=== PATIENT | female | born 1975 | race Caucasian/White ===

== ENCOUNTER 2021-07-14 19:35 | Emergency (ER) | payer OTHER, SELFPAY ==
[2021-07-14 19:47] VITALS: BP 157/102; PULSE 110; RESP 18; TEMP 36.6; O2SAT 98; BMI 44.6
--- NOTE | 2021-07-14 21:21 | ED.URI ---
HPI - URI/Sore Throat General Chief Complaint: Upper Respiratory Symptoms Stated Complaint: sore throat, sob Time Seen by Provider: 07/14/21 20:59 Source: patient Mode of arrival: ambulatory Limitations: no limitations History of Present Illness HPI Narrative: Patient no significant past medical history comes here for 2 days of sore throat cough mostly dry no fever no chills feels congested her son was sick with same 5 days ago. Patient was seen at urgent care center where strep test is negative COVID was negative prescribed Pen VK which she she is taking, still coughing no shortness of breath no malaise no history of asthma or sleep apnea Related Data Previous Rx's Medication Instructions Recorded albuterol sulfate 90 mcg/actuation 2 puff INHALATION Q4-6H PRN #8.5 g 07/14/21 aerosol inhaler (ProAir HFA) azithromycin 250 mg tablet 250 mg PO DAILY 4 Days #4 tab 07/14/21 (Zithromax) codeine 10 mg-guaifenesin 100 mg/5 10 ml PO Q4-6H PRN #237 ml 07/14/21 mL oral liquid prednisone 20 mg tablet 40 mg PO DAILY #10 tab 07/14/21 Allergies Allergy/AdvReac Type Severity Reaction Status Date / Time Sulfa (Sulfonamide Allergy Unknown HIVES Unverified 06/19/20 16:19 Antibiotics) [SULFA (SULFONAMIDE ANTIBIOTICS)] meperidine [From DEMEROL] AdvReac Unknown COMBATIVE Unverified 06/19/20 16:19 midazolam [From VERSED] AdvReac Unknown COMBATIVE Unverified 06/19/20 16:19 Banana (Diagnostic) Allergy Unknown oral Uncoded 05/22/20 00:00 allergy [place] Extract Allergy Unknown anaphylaxis Uncoded 05/22/20 00:00 [place] (Diagnostic) Allergy Unknown oral Uncoded 05/22/20 00:00 allergy Watermelon Flavor Allergy Unknown oral Uncoded 05/22/20 00:00 allergy White potato Allergy Unknown hives Uncoded 05/22/20 00:00 Review of Systems Review of Systems: Yes all other systems are reviewed and are negative PMFSH Past Medical History Medical History DVT (deep venous thrombosis) Pulmonary emboli Social History Social History Advance Directives: No Patient : No Physical Exam Vital Signs: Vital Signs: Last Vital Signs Temp 97.8 F 07/14/21 19:47 Pulse 110 H 07/14/21 19:47 Resp 18 07/14/21 19:47 BP 157/102 H 07/14/21 19:47 Pulse Ox 98 07/14/21 19:47 Body Mass Index 44.6 Appearance: Alert. Oriented X3. No acute distress. ENT: Pharynx slight erythema++ Oral Mucosa moist Neck: Normal inspection. Neck supple. CVS: Normal heart rate and rhythm. Pulses normal. Respiratory: No respiratory distress. Equal air entry bilateral, no wheezing/rales/rhonchi prolonged expiration with frequent cough Abdomen: Soft and nontender. Skin: Skin warm and dry. Extremities: No lower extremity edema. No calf tenderness Neuro: Oriented X 3. MDM - URI/Sore Throat MDM Narrative Medical decision making narrative: Patient has symptoms of bronchitis lungs are clear to auscultation. Will add Zithromax in the regime along with prednisone and inhaler cough syrup patient advised to follow with PCP if not better Discharge Plan Discharge Clinical Impression: Bronchitis Patient Disposition: Home, Self-Care Instructions: Acute Bronchitis (ED) Additional Instructions: Continue penicillin v as prescribed Take Zithromax as prescribed Albuterol inhaler 2 puffs every 4-6 hours, cough syrup every 6 hours prednisone daily as prescribed Follow with PCP Prescriptions: New prednisone 20 mg tablet 40 mg PO DAILY Qty: 10 RF: 0 codeine-guaifenesin 10-100 mg/5 mL liquid 10 ml PO Q4-6H PRN (Reason: cough) Qty: 237 RF: 0 albuterol sulfate [ProAir HFA] 90 mcg/actuation HFA aerosol inhaler 2 puff inhalation Q4-6H PRN (Reason: Wheezing) Qty: 8.5 RF: 0 azithromycin [Zithromax] 250 mg tablet 250 mg PO DAILY 4 Days Qty: 4 RF: 0
[2021-07-14] MEDS: predniSONE 20 MG TABLET 40 MG PO (21:44)
[2021-07-14] MEDS: Azithromycin 500 MG TABLET PO (21:44)
[2021-07-14] MEDS: Benzonatate 100 MG CAPSULE 200 MG PO (21:44)
[2021-07-14] MEDS: Albuterol Sulfate 90 MCG 8 GM INHALER 4 PUFF INHALE (21:56)
[2021-07-14 22:00] VITALS: PULSE 108; O2SAT 97
[2021-07-14 22:16] VITALS: BP 144/98; RESP 17; O2SAT 97
== END 2021-07-14 22:18 | disposition home or self-care (01) ==
PROVIDERS: Emergency Provider Internal Medicine; PCP Pediatrics
DX: J40 Bronchitis, not specified as acute or chronic (principal); J02.9 Acute pharyngitis, unspecified; R06.02 Shortness of breath; Z79.899 Other long term (current) drug therapy; Z86.718 Personal history of other venous thrombosis and embolism
CPT/HCPCS: 94640; 99284

== ENCOUNTER 2021-09-21 18:15 | Emergency (ER) | payer OTHER, SELFPAY ==
--- NOTE | ~2021-09-21 | US_ITS ---
EXAMINATION: US VENOUS ULTRASOUND WITH DOPPLER LOWER EXTREMITY, BILATERAL CLINICAL INFORMATION: Bilateral lower extremity pain. Evaluate for a deep vein thrombosis. Reported history of prior deep vein thrombosis. COMPARISON: None TECHNIQUE: Ultrasound of the deep veins is performed from the hip to the calf with compression sonography and color and pulse Doppler assessment. Spectral analysis with color-flow imaging is performed. FINDINGS: RIGHT: There is normal venous compression and respiratory variation and augmented flow. The visualized common femoral vein, superficial femoral vein, profunda femoral vein, popliteal vein, and the trifurcation region shows no evidence of deep venous thrombosis. There is no significant popliteal fossa cyst. LEFT: There is normal venous compression and respiratory variation and augmented flow. The visualized common femoral vein, superficial femoral vein, profunda femoral vein, popliteal vein, and the trifurcation region shows no evidence of deep venous thrombosis. There is no significant popliteal fossa cyst. If the patient's symptoms persist, followup ultrasound in 5 days 7 days might be of value to exclude proximal propagation from a non-visualized calf vein. US/US venous duplex LE BI IMPRESSION: No DVT demonstrated in the right and left lower extremity.
--- NOTE | ~2021-09-21 | CT_ITS ---
EXAMINATION: CT ANGIOGRAM OF THE CHEST WITH AND WITHOUT CONTRAST (CT PULMONARY ANGIOGRAM FOR PE) CLINICAL INFORMATION: Reason for Exam SOB hx pe COMPARISON: None TECHNIQUE: Prior to contrast administration, noncontrast localization images were obtained. Subsequently, multidetector volumetric imaging was performed from the thoracic inlet to below the diaphragms following the administration of 80 mL Omnipaque 350 intravenous contrast. No contrast reaction reported Sagittal, coronal, and MIP oblique sagittal reformatted images were obtained on the CT workstation, uploaded to PACS, and reviewed. This CT examination was performed using dose optimization techniques as appropriate, variously including the following: *Automated exposure control *Adjustment of mA and/or kV according to patient size (this includes techniques or standardized protocols for targeted exams where dose is matched to indication/reason for exam; i.e. extremities or head) *Use of iterative reconstruction technique Total exam dose-length product 556 mGy-cm FINDINGS: QUALITY OF STUDY/CONTRAST BOLUS: Satisfactory. PULMONARY ARTERIES: No pulmonary embolism. THORACIC AORTA: No aneurysm. LUNG: Right upper lobe solid pulmonary micronodule, 7:181. PLEURA: No pleural effusion or pneumothorax. MEDIASTINUM: Normal heart size. No pericardial effusion. No hilar or mediastinal lymphadenopathy. Small hiatal hernia. No evidence of septal bowing or right heart strain. CHEST WALL/AXILLA: No axillary or internal mammary lymphadenopathy. OSSEOUS STRUCTURES: No acute or suspicious osseous abnormality. UPPER ABDOMEN: Unremarkable. No reflux of contrast into the hepatic veins to suggest elevated right heart pressures. CT/CT angio chest PE protocol IMPRESSION: No pulmonary embolism. A right upper lobe solid pulmonary micronodule. Assuming patient has no history of malignancy recommend follow-up per Fleischner Society recommendations. According to the UPDATED 2017 Fleischner Society recommendations, the advised followup imaging for solid nodules < 6 mm is: LOW RISK PATIENT: No routine follow up. HIGH RISK PATIENT: Optional CT at 12 months. VTE: negative
[2021-09-21 19:44] VITALS: BP 138/65; PULSE 203; RESP 16; TEMP 36.9; O2SAT 100; BMI 46.2
[2021-09-21 20:26] VITALS: BP 146/81; PULSE 94; RESP 18; O2SAT 98
--- NOTE | 2021-09-21 20:37 | ED.GENADULT ---
HPI - General Adult General Chief complaint: General Medical Stated complaint: left thigh pain ? clot hx of blood clots Time Seen by Provider: 09/21/21 20:17 Source: patient Mode of arrival: ambulatory Limitations: no limitations History of Present Illness HPI narrative: This is a 46-year-old female past medical history significant for clotting disorder presents to the emergency department with home left anterior thigh pain and shortness of breath x3 days. 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 Patient was on Coumadin she got switched over to Eliquis not long ago, she tells me that she has not been taking her full Eliquis dose because she is afraid that there is no reversal agent for Eliquis. She tells me that this feels like her last blood clot. She describes as a soreness to her left thigh. She also tells me that she has noted she has been a little bit more short of breath than her baseline. She decided to wait 3 days to come in because she was afraid that this would be a blood clot, and she tells me she was afraid of COVID. She tells me she is followed a specialist for this clotting disorder . she denies chest pain, fevers, chills, nausea, vomiting, abdominal pain, weakness. Patient is not on control pills. Onset (ago): day(s) (3) Location: left (anterior thigh ) and lower extremity Radiation: non-radiation Severity: moderate Quality: aching Pain Consistency: constant Relieving factors: none Exacerbating factors: none Associated symptoms: shortness of breath Treatments prior to arrival: none Related Data Previous Rx's Medication Instructions Recorded albuterol sulfate 90 mcg/actuation 2 puff INHALATION Q4-6H PRN #8.5 g 07/14/21 aerosol inhaler (ProAir HFA) azithromycin 250 mg tablet 250 mg PO DAILY 4 Days #4 tab 07/14/21 (Zithromax) codeine 10 mg-guaifenesin 100 mg/5 10 ml PO Q4-6H PRN #237 ml 07/14/21 mL oral liquid prednisone 20 mg tablet 40 mg PO DAILY #10 tab 07/14/21 Allergies Allergy/AdvReac Type Severity Reaction Status Date / Time Sulfa (Sulfonamide Allergy Unknown HIVES Verified 07/14/21 21:43 Antibiotics) [SULFA (SULFONAMIDE ANTIBIOTICS)] meperidine [From DEMEROL] AdvReac Unknown COMBATIVE Verified 07/14/21 21:43 midazolam [From VERSED] AdvReac Unknown COMBATIVE Verified 07/14/21 21:43 Banana (Diagnostic) Allergy Unknown oral Uncoded 05/22/20 00:00 allergy Waldo Extract Allergy Unknown anaphylaxis Uncoded 05/22/20 00:00 [facility] (Diagnostic) Allergy Unknown oral Uncoded 05/22/20 00:00 allergy Watermelon Flavor Allergy Unknown oral Uncoded 05/22/20 00:00 allergy White potato Allergy Unknown hives Uncoded 05/22/20 00:00 Review of Systems Review of Systems: Constitutional : No Weight loss, No Fever, No Chills, No Fatigue, No Malaise ENT/Mouth : No sore throat, No Rhinorrhea Eyes: No Eye Pain, No Swelling, No Redness Cardiovascular : No Chest Pain, + SOB, + Dyspnea on Exertion, No Orthopnea, No Edema, No Palpitations Respiratory : No Cough, No Sputum, No Wheezing Gastrointestinal : No Nausea, No Vomiting, No Diarrhea, No Constipation, No abdominal Pain, No Hematochezia, No Melena Genitourinary : No Dysuria, No Urinary Frequency, No Hematuria, Musculoskeletal : No joint pain, No Myalgias, No Joint Swelling, + left anterior thigh aching Skin : No Skin Lesions, No rash Neuro : No Weakness, No Numbness, No Dizziness, No Headache Psych : No Anxiety/Panic, No Depression All other systems reviewed and are negative Yes all other systems are reviewed and are negative PMFSH Past Medical History Attestation statement: The following information was validated with the patient. Source: old records reviewed and nursing notes reviewed Medical History DVT (deep venous thrombosis) Pulmonary emboli Social History Social History Alcohol intake: current Alcohol intake frequency: holidays/special occasions only Patient Tobacco Use Status: Never used Tobacco Use of substances other than those prescribed or required for medical reasons: No Advance Directives: No Advance Directives Information Provided: No Patient : No Physical Exam Vital Signs: Vital Signs: Last Vital Signs Temp 98.5 F 09/21/21 19:44 Pulse 94 09/21/21 20:26 Resp 18 09/21/21 20:26 BP 146/81 H 09/21/21 20:26 Pulse Ox 98 09/21/21 20:26 BMI result Body Mass Index 46.2 Vital signs significant for hypertension and tachycardia. Appearance: Alert.? Oriented X3.? No acute distress.? Head: Normocephalic, atraumatic, no step-offs or deformities Eyes: Pupils equal, round and reactive to light.? ENT: Pharynx normal.? Neck: Normal inspection.? Neck supple.? CVS: + rapid heart rate and normal rhythm.? Pulses normal.? Respiratory: No respiratory distress.? Breath sounds normal.? Abdomen: Soft and nontender.? Skin: Skin warm and dry.? Normal skin color.? Normal skin turgor.? Extremities: No lower extremity edema.? No calf ttp. 5/5 strength to bilateral upper and lower extremities Back: No midline tenderness, no C-spine tenderness, full range of motion, no CVA tenderness bilaterally Neuro: Oriented X 3.? No motor deficit.? No sensory deficit. Course Reevaluation(s) Reevaluation #1: No leukocytosis, no anemia. No acute electrolyte abnormalities. COVID negative. Coags WNL. Venous doppler pending. Time: 21:22 Reevaluation #2: Venous duplex of bilateral lower extremities with no DVT. Time: 22:28 Reevaluation #3: CTA shows no pulmonary embolism, does however show a right upper lobe solid pulmonary micronodule, patient has no history of malignancy therefore no reaching in follow-up is recommended. VTE is negative. Time: 22:51 Additional Reevaluation(s): 4 At this time patient's symptoms likely secondary to muscle strain. I have advised patient to return to the emergency department with new or worsening symptoms. No acute abnormalities noted on lab work, images within normal limits only thing that stands out on imaging is a right upper lobe solid pulmonary micronodule, I have made patient aware of this finding. 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 Medical Decision Making MDM Narrative Medical decision making narrative: 2041 46 yo F pmhx significant for clotting disorder presents to the ED w/ complaints of left anterior thigh discomfort X3 days. Hx of frequent DVTs and PE, last one in 2011. Patient was on cumadin now on eliquis and admits to taking only half of her prescribed dose due to fear, she states she is scared this drug Does not however over slight agent. She tells me this feels like her last blood clot. PE benign PLan venous duplex b/l, CTA chest, labs, coags Medical Records Medical records reviewed: Yes I reviewed the patient's medical records. Lab Data Lab results reviewed: Yes I reviewed the patient's lab results. Result diagrams: 09/21/21 20:39 09/21/21 20:56 Labs: Lab Results 09/21/21 09/21/21 09/21/21 Range/Units 20:39 20:39 20:56 WBC 9.7 (4.8-10.8) X10*3/uL RBC 5.06 (4.20-5.50) X10*6/uL Hgb 13.9 (12.0-16.0) g/dl Hct 42.6 (37.0-47.0) % MCV 84.2 (80.0-98.0) fL MCH 27.5 (27.0-33.0) pg MCHC 32.6 (31.0-35.0) g/dl RDW 13.1 (11.0-16.0) % Plt Count 359 (160-400) X10*3/uL MPV 9.0 L (9.4-12.3) fL Immature Gran % (Auto) 0.3 (0.0-0.4) % Neut % (Auto) 43.6 L (45-73) % Lymph % (Auto) 45.7 H (20-40) % [place] % (Auto) 7.9 (2-11) % Eos % (Auto) 2.1 (0-4) % Baso % (Auto) 0.4 (0-2) % Lymph # (Auto) 4.4 (1.2-4.9) X10*3/uL [place] # (Auto) 0.8 (0.1-1.2) X10*3/uL Eos # (Auto) 0.2 (0.0-0.4) X10*3/uL Baso # (Auto) 0.0 (0.0-0.2) X10*3/uL Abs Immat Gran (auto) 0.03 (0.00-0.03) X10*3/uL Absolute Neuts (auto) 4.2 (2.0-8.3) x10*3/uL Absolute Nucleated RBC 0.000 (0.0-0.012) X10*3/uL Nucleated RBC % (auto) 0.0 (0.0-0.2) /100WBC PT (9.9-13.0) SEC INR (0.9-1.1) APTT (24.1-38.0) SEC Sodium 142 (135-145) mmol/L Potassium 3.9 (3.3-5.1) mmol/L Chloride 105 (96-108) mmol/L Carbon Dioxide 28 (22-29) mmol/L Anion Gap 13 (12-20) BUN 12 (9-16) mg/dL Creatinine 0.94 (0.5-1.4) mg/dL Estim Creat Clear Calc 109.1 Estimated GFR > 60 Random Glucose 87 (60-115) mg/dL Calcium 9.4 (8.4-10.2) mg/dL Magnesium 2.1 (1.6-2.6) mg/dL Total Bilirubin 0.3 (0.0-1.0) mg/dL AST 17 (5-31) U/L ALT 21 (0-31) U/L Alkaline Phosphatase 83 (39-117) U/L Total Protein 7.4 (6.5-8.0) g/dL Albumin 4.2 (3.5-5.0) g/dL COVID-19 (RAJ) Negative (Negative) COVID-19 Clin Com See Note 09/21/21 Range/Units 21:42 WBC (4.8-10.8) X10*3/uL RBC (4.20-5.50) X10*6/uL Hgb (12.0-16.0) g/dl Hct (37.0-47.0) % MCV (80.0-98.0) fL MCH (27.0-33.0) pg MCHC (31.0-35.0) g/dl RDW (11.0-16.0) % Plt Count (160-400) X10*3/uL MPV (9.4-12.3) fL Immature Gran % (Auto) (0.0-0.4) % Neut % (Auto) (45-73) % Lymph % (Auto) (20-40) % [place] % (Auto) (2-11) % Eos % (Auto) (0-4) % Baso % (Auto) (0-2) % Lymph # (Auto) (1.2-4.9) X10*3/uL [place] # (Auto) (0.1-1.2) X10*3/uL Eos # (Auto) (0.0-0.4) X10*3/uL Baso # (Auto) (0.0-0.2) X10*3/uL Abs Immat Gran (auto) (0.00-0.03) X10*3/uL Absolute Neuts (auto) (2.0-8.3) x10*3/uL Absolute Nucleated RBC (0.0-0.012) X10*3/uL Nucleated RBC % (auto) (0.0-0.2) /100WBC PT 11.3 (9.9-13.0) SEC INR 1.0 (0.9-1.1) APTT 34.2 (24.1-38.0) SEC Sodium (135-145) mmol/L Potassium (3.3-5.1) mmol/L Chloride (96-108) mmol/L Carbon Dioxide (22-29) mmol/L Anion Gap (12-20) BUN (9-16) mg/dL Creatinine (0.5-1.4) mg/dL Estim Creat Clear Calc Estimated GFR Random Glucose (60-115) mg/dL Calcium (8.4-10.2) mg/dL Magnesium (1.6-2.6) mg/dL Total Bilirubin (0.0-1.0) mg/dL AST (5-31) U/L ALT (0-31) U/L Alkaline Phosphatase (39-117) U/L Total Protein (6.5-8.0) g/dL Albumin (3.5-5.0) g/dL COVID-19 (RAJ) (Negative) COVID-19 Clin Com Imaging Data Bilateral venous duplex: Attestation: I personally reviewed and interpreted this imaging study as follows: Radiologist's impression: FINDINGS: RIGHT: There is normal venous compression and respiratory variation and augmented flow. The visualized common femoral vein, superficial femoral vein, profunda femoral vein, popliteal vein, and the trifurcation region shows no evidence of deep venous thrombosis. ? There is no significant popliteal fossa cyst. LEFT: There is normal venous compression and respiratory variation and augmented flow. The visualized common femoral vein, superficial femoral vein, profunda femoral vein, popliteal vein, and the trifurcation region shows no evidence of deep venous thrombosis. ? There is no significant popliteal fossa cyst. If the patient's symptoms persist, followup ultrasound in 5 days 7 days might be of value to exclude proximal propagation from a non-visualized calf vein. US/US venous duplex LE BI IMPRESSION: No DVT demonstrated in the right and left lower extremity. CTA chest : Attestation: I personally reviewed and interpreted this imaging study as follows: Radiologist's impression: CT/CT angio chest PE protocol IMPRESSION: ? No pulmonary embolism. ? A right upper lobe solid pulmonary micronodule. Assuming patient has no history of malignancy recommend follow-up per Fleischner Society recommendations. According to the UPDATED 2017 Fleischner Society recommendations, the advised followup imaging for solid nodules < 6 mm is: ?? LOW RISK PATIENT: No routine follow up. ?? HIGH RISK PATIENT: Optional CT at 12 months. ? VTE: negative ECG Data Attestation: I personally reviewed and interpreted this ECG as follows: Prior ECG tracings: available for review Interpretation: Ventricular rate of 95, [place] normal, QRS normal, QT / QTC normal. EKG shows normal sinus rhythm. No ST elevations or inversions. No acute ischemia. No significant changes with EKG Critical Care Time Critical Care Time Critical Care Time: No Discharge Plan Discharge Clinical Impression: Left thigh pain, Shortness of breath, Lung nodule < 6cm on CT Patient Disposition: Home, Self-Care Instructions: Leg Cramps (ED), Leg Pain (ED), Shortness of Breath (ED) Additional Instructions: Take your medications as prescribed. If you were prescribed antibiotics today, it is important that you take your medication to their entirety, do not skip any doses, do not finish them early. Small lung nodule was noted on the right upper lobe. No routine follow-up is necessary unless you have a history of malignancies if that is the case a CT should be done in 12 months Follow-up with your primary care provider this week. Return to the emergency department with new or worsening symptoms. In case of emergency call 911 Noted in the [place] report by radiology: If the patient's symptoms persist, followup ultrasound in 5 days 7 days might be of value to exclude proximal propagation from a non-visualized calf vein. Prescriptions: No Action prednisone 20 mg tablet 40 mg PO DAILY Qty: 10 RF: 0 codeine-guaifenesin 10-100 mg/5 mL liquid 10 ml PO Q4-6H PRN (Reason: cough) Qty: 237 RF: 0 albuterol sulfate [ProAir HFA] 90 mcg/actuation HFA aerosol inhaler 2 puff inhalation Q4-6H PRN (Reason: Wheezing) Qty: 8.5 RF: 0 azithromycin [Zithromax] 250 mg tablet 250 mg PO DAILY 4 Days Qty: 4 RF: 0 Referrals: Liz Schroeder MD [Primary Care Provider] - 2 days Stand Alone Forms: Work/School Release
--- NOTE | 2021-09-21 20:43 | ECG_ITS ---
Test Reason : SOB Blood Pressure : / mmHG Vent. Rate : 095 BPM Atrial Rate : 095 BPM P-R Int : 186 ms QRS Dur : 088 ms QT Int : 372 ms P-R-T Axes : 026 027 021 degrees QTc Int : 467 ms Normal sinus rhythm Cannot rule out Anterior infarct (cited on or before 21-SEP-2021) - more likely from body habitus/lead placement Borderline ECG When compared with ECG of 09-APR-2019 17:52, No significant change was found Referred By: Keven Cope Electronically Signed By:JAVI PALACIOS
[2021-09-21 20:44] LABS: MANUAL DIFF FLAG NO
[2021-09-21 20:46] LABS: Basophils Percent Auto 0.4 % (0-2); Eosinophils Absolute Auto 0.2 X10*3/uL (0.0-0.4); Eosinophils Percent Auto 2.1 % (0-4); Hematocrit 42.6 % (37.0-47.0); Hemoglobin 13.9 g/dl (12.0-16.0); Imm Gran Abs Auto 0.03 X10*3/uL (0.00-0.03); Imm Gran Pct Auto 0.3 % (0.0-0.4); Lymphocytes Absolute Auto 4.4 X10*3/uL (1.2-4.9); Lymphocytes Percent Auto 45.7 % (20-40); Mean Corpuscular HGB Conc 32.6 g/dl (31.0-35.0); Mean Corpuscular Hemoglobin 27.5 pg (27.0-33.0); Mean Corpuscular Volume 84.2 fL (80.0-98.0); Monocytes Absolute Auto 0.8 X10*3/uL (0.1-1.2); Monocytes Percent Auto 7.9 % (2-11); Neutrophils Absolute Auto 4.2 x10*3/uL (2.0-8.3); Neutrophils Percent Auto 43.6 % (45-73); Platelet Count 359 X10*3/uL (160-400); Red Blood Count 5.06 X10*6/uL (4.20-5.50); Red Cell Distribution Width 13.1 % (11.0-16.0); White Blood Count 9.7 X10*3/uL (4.8-10.8)
--- NOTE | 2021-09-21 20:56 | PC.NURSE ---
chem tube redrawn. pt just completed bedside ultra sound. vitals stable. pt states her breathing is a little labored. pt rr even and reg. sat 97-98% on room air. pt on the monitor nsr on the monitor. no sob noted. skin pink warm and dry.
[2021-09-21 20:57] LABS: COVID-19 Test Negative (Negative); IDNOW Serial# 9DD0AD1C
[2021-09-21 21:18] LABS: Alanine Aminotransferase 21 U/L (0-31); Albumin Level 4.2 g/dL (3.5-5.0); Alkaline Phosphatase 83 U/L (39-117); Anion Gap 13 (12-20); Aspartate Amino Transferase 17 U/L (5-31); Bilirubin Total 0.3 mg/dL (0.0-1.0); Blood Urea Nitrogen 12 mg/dL (9-16); Calcium 9.4 mg/dL (8.4-10.2); Carbon Dioxide 28 mmol/L (22-29); Chloride 105 mmol/L (96-108); Creatinine Clr Calc Pharmacy 109.1; Estimated Glomerular Filt Rate > 60; Glucose Random 87 mg/dL (60-115); Magnesium 2.1 mg/dL (1.6-2.6); Potassium 3.9 mmol/L (3.3-5.1); Sodium 142 mmol/L (135-145); Total Protein 7.4 g/dL (6.5-8.0)
[2021-09-21 21:56] LABS: Prothrombin Time 11.3 SEC (9.9-13.0)
[2021-09-21 21:59] LABS: Partial Thromboplastin Time 34.2 SEC (24.1-38.0)
[2021-09-21] MEDS: iohexoL 350 MG/ML 100 ML INFUS..BTL 65 ML IV (22:17)
[2021-09-21 23:28] VITALS: BP 132/69; PULSE 93; RESP 18; O2SAT 97
== END 2021-09-22 00:06 | disposition home or self-care (01) ==
PROVIDERS: Physician Assistant; Emergency Provider Internal Medicine; PCP Pediatrics
DX: M79.652 Pain in left thigh (principal); R06.02 Shortness of breath; R91.1 Solitary pulmonary nodule; T45.516A Underdosing of anticoagulants, initial encounter; Z91.128 Patient's intentional underdosing of medication regimen for other reason; Y92.9 Unspecified place or not applicable; Z20.822 Contact with and (suspected) exposure to COVID-19; Z86.718 Personal history of other venous thrombosis and embolism; Z79.01 Long term (current) use of anticoagulants
CPT/HCPCS: 36415; 71275; 80053; 83735; 85025; 85610; 85730; 87635; 93005; 93970; 99284; Q9967

== ENCOUNTER 2022-05-17 14:05 | Emergency (ER) | payer OTHER, SELFPAY ==
--- NOTE | ~2022-05-17 | CT_ITS ---
EXAMINATION: CT ANGIOGRAM NECK WITH CONTRAST CT ANGIOGRAM BRAIN WITH CONTRAST CLINICAL INFORMATION: 1565 COMPARISON: None. TECHNIQUE: Test bolus sequences followed by intravenous administration 70 mL of Omnipaque 350. Helical imaging was performed in the axial plane from the thoracic inlet to the skull vertex. Delayed postcontrast imaging of the head was also performed. The data was processed at the radiologic technologist chief workstation for generation of MIP sequences. Angled MIPs and volume rendered reformatted images were also generated at an offline 3D workstation. Stenoses are assessed in accordance with NASCET criteria unless otherwise indicated. This CT examination was performed using dose optimization techniques as appropriate, variously including the following: *Automated exposure control *Adjustment of mA and/or kV according to patient size (this includes techniques or standardized protocols for targeted exams where dose is matched to indication/reason for exam; i.e. extremities or head) *Use of iterative reconstruction technique DLP: 1565 mGy-cm FINDINGS: Head CT: There is no intracranial hemorrhage, large acute infarction, or mass lesion. The ventricles are normal in size and configuration without evidence of hydrocephalus. There is a 1.3 x 1.2 x 2.2 cm smoothly marginated ovoid hyperdense mass within the intraconal left orbit positioned between the medial and inferior rectus muscles. The lesion contacts the inferior aspect of the optic nerve sheath complex but does not result in significant compression of the optic nerve. There is no infiltration of the retrobulbar fat. The orbital apex fat remains preserved. The globe appears normal. No right orbital abnormality is seen. There is mild paranasal sinus mucosal thickening. Neck CTA: There is a normal aortic arch with no significant stenosis of the great vessel origins. The common and internal carotid arteries are normal in course and caliber. Both vertebral arteries are widely patent throughout their extracranial cervical course. Head CTA: The anterior and posterior circulations are patent. No stenosis or occlusion is seen. 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 No aneurysm is seen. Intradural venous sinuses are patent. Non-vascular findings: blank CT/CT angio head neck IMPRESSION: CT head: No intracranial hemorrhage or large acute infarction. 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 Outpatient ophthalmologic follow-up recommended. CTA neck: No hemodynamically significant stenosis in the major arteries of the neck. CTA head: No large vessel occlusion or significant stenosis within the intracranial circulation. This critical result was discussed with Beata KING on 05/17/2022 5:15 PM, and it was ascertained that the content and urgency of the report was understood at the time of direct communication.
--- NOTE | ~2022-05-17 | CT_ITS ---
EXAMINATION: CT HEAD WITHOUT CONTRAST (STROKE PROTOCOL) CLINICAL INFORMATION: Stroke protocol. Right facial/head numbness COMPARISON: None TECHNIQUE: Contiguous axial imaging was performed from the skull base to vertex without intravenous administration of contrast. This CT examination was performed using dose optimization techniques as appropriate, variously including the following: *Automated exposure control *Adjustment of mA and/or kV according to patient size (this includes techniques or standardized protocols for targeted exams where dose is matched to indication/reason for exam; i.e. extremities or head) *Use of iterative reconstruction technique DLP: 768 mGy-cm FINDINGS: There is no evidence of an extra-axial collection. There is no evidence of intra-axial or extra-axial hemorrhage. The ventricles and extra-axial CSF spaces are appropriate. Rodriguez-white matter differentiation is normal. There is a 1.7 a 1.3 x 1.7 cm high attenuation intracranial mass in the left orbit. This most likely represents a hemangioma. Confirmation with MRI is recommended. No other mass, mass effect or infarct is seen. Review at bone windows is normal. No skull fracture or bone lesion is seen. There is mild sinus disease in the right frontal, bilateral ethmoid ethmoid and sphenoid sinuses. Mastoid air cells and middle ears are clear. CT/CT head for stroke IMPRESSION: No acute intracranial findings. 1.7 x 1.3 cm high attenuation left orbital mass. 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 Follow-up elective orbit MRI for confirmation is recommended. Mild right frontal, bilateral ethmoid and sphenoid sinus disease. This critical result was discussed with Dr. Hunt at 1451 hours on 05/17/2022. It was ascertained that the content and urgency of the report was understood at the time of direct communication.
[2022-05-17 14:15] VITALS: BP 194/105; PULSE 97; RESP 19; TEMP 36.6; O2SAT 98; BMI 44.4
--- NOTE | 2022-05-17 14:36 | ED_ITS ---
HPI - Headache General Chief Complaint: Headache Stated Complaint: R side of face numb Time Seen by Provider: 05/17/22 14:30 Source: patient Mode of arrival: ambulatory Limitations: no limitations History of Present Illness HPI Narrative: 47-year-old female with a history of clotting disorder on 2.5 mg of Eliquis twice daily presents with reports of right-sided headache. Patient tells me at 01:00 o'clock she started to have an electrical shock sensation on the right side of the face which radiated from the ear area down to the jaw which lasted several seconds and resolved. The patient has had a residual dull aching sensation in the right side of the face and behind the right eye with decreased sensation. Patient tells me that her sensation is intact but feels duller than the left side. She does feel some slight visual disturbance in the right eye which is described as 1.5 vision. +photophobia earlier with the flashing lights outside. no nausea, vomiting, weakness or paresthesias of the extremities. Patient reports some slight discomfort to palpation over the right side of face. She denies any pain with mastication, air hitting face, smiling Related Data Previous Rx's Medication Instructions Recorded albuterol sulfate 90 mcg/actuation 2 puff inhalation Q4-6H PRN 07/14/21 aerosol inhaler (ProAir HFA) Wheezing #8.5 grams azithromycin 250 mg tablet 250 mg PO DAILY 4 days #4 tabs 07/14/21 (Zithromax) codeine 10 mg-guaifenesin 100 mg/5 10 ml PO Q4-6H PRN cough #237 mL 07/14/21 mL oral liquid prednisone 20 mg tablet 40 mg PO DAILY #10 tabs 07/14/21 azithromycin 250 mg tablet See Rx Instructions PO .COMPLEX #6 05/17/22 tabs oxcarbazepine 300 mg tablet 300 mg PO BID #60 tabs 05/17/22 Allergies Allergy/AdvReac Type Severity Reaction Status Date / Time Sulfa (Sulfonamide Allergy Unknown HIVES Verified 05/17/22 15:54 Antibiotics) [SULFA (SULFONAMIDE ANTIBIOTICS)] meperidine [From DEMEROL] AdvReac Unknown COMBATIVE Verified 05/17/22 15:54 midazolam [From VERSED] AdvReac Unknown COMBATIVE Verified 05/17/22 15:54 Banana (Diagnostic) Allergy Unknown oral Uncoded 05/17/22 15:54 allergy [place] Extract Allergy Unknown anaphylaxis Uncoded 05/17/22 15:54 [place] (Diagnostic) Allergy Unknown oral Uncoded 05/17/22 15:54 allergy Watermelon Flavor Allergy Unknown oral Uncoded 05/17/22 15:54 allergy White potato Allergy Unknown hives Uncoded 05/17/22 15:54 Review of Systems Review of Systems: Yes all other systems are reviewed and are negative Constitutional: Constitutional: Reports no additional constitutional complaints, Denies body ache(s), Denies chills, Denies fever(s), Reports headache(s) and Denies weakness Eyes: Eyes: Reports no additional eye complaints, Denies change in vision, Denies eye discharge, Denies irritation, Denies loss of peripheral vision, Reports other visual disturbances, Denies seeing flashes, Denies spots in vision and Denies tunnel vision ENT: Reports system reviewed and no additional complaints, except as documented, Denies dizziness, Reports headache(s), Denies nasal congestion, Denies nasal discharge and Denies neck pain Cardiovascular: Cardiovascular: Reports no additional cardiovascular complai nts, Denies chest pain, Denies leg edema and Denies dyspnea Respiratory: Respiratory: Reports no additional respiratory complaints, Denies cough and Denies dyspnea Gastrointestinal: Gastrointestinal: Reports no additional gastrointestinal complaints, Denies abdominal pain, Denies diarrhea, Denies nausea and Denies vomiting Genitourinary: Genitourinary: Reports no additional female genitourinary complaints and Denies urinary incontinence Musculoskeletal: Musculoskeletal: Reports no additional musculoskeletal complaints, Denies back pain, Denies arthralgias, Denies joint swelling, Denies neck pain, Denies numbness and Denies tingling Integumentary/Breasts: Skin/Breast: Reports system reviewed and no additional complaints, except as docu and Denies rash Neurologic: Reports system reviewed and no additional complaints, except as documented, Denies Abnormal speech present, Denies dizziness, Reports headache(s), Denies numbness, Denies tingling and Denies weakness PMFSH Past Medical History Attestation statement: The following information was validated with the patient. Source: old records reviewed Medical History DVT (deep venous thrombosis) Pulmonary emboli Social History Social History Alcohol intake: current Alcohol intake frequency: holidays/special occasions only Patient Tobacco Use Status: Never used Tobacco Advance Directives: No Advance Directives Information Provided: No Physical Exam Vital Signs: Vital Signs: Last Vital Signs Temp 98 F 05/17/22 14:15 Pulse 93 05/17/22 16:46 Resp 16 05/17/22 16:46 BP 153/83 H 05/17/22 16:46 Pulse Ox 97 05/17/22 16:46 O2 Del Method 05/17/22 16:46 BMI result Body Mass Index 44.4 Const: General: cooperative, healthy appearing, comfortable and no acute distress Orientation/consciousness: patient oriented x3 Limitations: no limitations HEENT: Head: Yes normal to inspection and No Temporal artery tenderness present Ears: hearing grossly normal bilaterally and TM's normal bilaterally General nose exam: Normal external nose present Face and sinus: Yes normal facial exam Mouth: Normal oral and palatal mucosa present Throat: Yes posterior oropharynx normal, Yes tonsils normal and Yes uvula midline Eyes: Other: IOP 9 left eye IOP 10 right eye Visual acuity is 20/25 both eyes General: appearance normal, both eyes and all related structures Visual Olson: normal visual olson by confrontation Alignment and Position: alignment normal Periorbital: periorbital findings normal Eyelids: Yes eyelids normal Conjunctivae: conjunctivae normal Sclerae: sclerae normal Corneas: corneas normal Pupils: Equal, round and reactive pupils present EOM: EOMs intact bilaterally Direct Ophthalmoscopy: normal light reflex and no photophobia Neck: Neck: Yes normal visual inspection, Yes full ROM, Yes no lymphadenopathy and Yes no meningeal signs Chest: Chest palpation & inspection: normal inspection of the chest Resp: Effort & Inspection: normal respiratory effort Auscultation: clear to auscultation bilaterally Cardio: Rate: regular rate Rhythm: regular rhythm Peripheral pulses: Peripheral pulses 2+ throughout GI: Inspection: Yes normal to inspection Palpation (GI): Soft to palpation and nontender Auscultation: normal bowel sounds Back/Spine/Pelvis: Thoracic/Lumbar Spine: thoracic and lumbar spine normal to inspection Skin: General skin exam: no rashes or lesions noted Neuro: General: patient oriented x3, no meningeal signs, no focal motor defici ts and normal sensation to monofilament Cranial nerves: Yes CN's II-XII i ntact bilaterally, Yes Equal, round and reactive pupils present, Yes Bilaterally intact EOM present, Yes Nystagmus not present, Yes Normal facial strength present and Yes Midline tongue present Cognition (Neuro): normal cognition Speech: No Abnormal speech present Gait exam (Neuro): Normal gait present Motor exam (neuro): 5/5 motor strength present throughout Sensory Exam: Normal double simultaneous stimulation for sensation Extrem: General: Yes normal to inspection, Yes no pedal edema and Yes no calf tenderness NIH Stroke Scale Internal: Initial- Upon Arrival Level of Consciousness: Alert Level of Consciousness Questions: Answers both questions correctly Level of Consciousness Commands: Performs both tasks correctly Best Gaze: Normal Visual: No visual loss Facial Palsy: Normal Motor Arm (Right): No drift Motor Arm (Left): No drift Motor Leg (Right): No drift Motor Leg (Left): No drift Limb Ataxia: Absent Sensory: Normal Best Language: No aphasia Dysarthia: Normal Extinction and Inattention: No abnormality Score: 0 Course Course Course Narrative: 1500-CT head shows IMPRESSION: No acute intracranial findings. 1.7 x 1.3 cm high attenuation left orbital mass. 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 Follow-up elective orbit MRI for confirmation is recommended. Mild right frontal, bilateral ethmoid and sphenoid sinus disease. -Patient with all right sided symptoms. +family history of cerebral aneurysm. Patient on AC. D/w with Dr Hunt. Will plan for MRI brain to eval further. Reevaluation(s) Reevaluation #1: 1520-Spoke to radiologist (Dr Singh). CT head findings can be evaluated on outpatient MRI as all symptoms are right sided and patient has no complaints of left sided symptoms. D/t family history and further discussion with attending plan for CTA head/neck Reevaluation #2: 1800- CTA head and neck is show no intracranial hemorrhage or large acute infarction. There is a 2.2 cm mass within the left orbit most likely hemangioma. CTA neck is negative for any stenosis or large vessel occlusion of the head. Less likely CVA with no focal neurological findings on exam. Considered aneurysm as patient has underlying familial history of same. She does have a hemangioma behind the left orbit however all of her symptoms are reported on the right side So I do not believe this is causing the patient's symptoms. Patient was informed of the results. She can follow up outpatient with Neurology. 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 The patient I discussed possibilities that she may have trigeminal neuralgia versus complex migraine. I offered trialing Reglan and Benadryl and some IV medications while patient is in the ER but she refused these. Her visual acuity is equal bilaterally. Her eye pressures are normal. Patient feels symptoms are likely a sinus infection. I Feel this is less likely as she has no sinus pressure or sinus pain. No reports of nasal mychal estion. No recent URI symptoms. No increase in symptoms with movement of the head or leaning forward. However patient feels quite strongly about this. Therefore I will give her several days of antibiotics. Most likely patient has regional neuralgia. We discussed starting a low-dose oxcarbezapine and f/u with neurology/PCP. patient agreeable to this. reviewed worrisome signs and symptoms when to return to the emergency department. Comfortable discharge home. MDM - Headache MDM Narrative Medical decision making narrative: 47 yo female with history of clotting disorder on eliquis BID presents with symptoms of right sided facial pain, decreased sensation, pain behind the right eye and visual disturbance (described as slightly blurry )since 1pm. On arrival to the ED the patient brought the patient directly to CT scan for a head w/o. I saw her after the Ct scan. She has a normal neurological exam with no appreciated deficit. Mild tenderness over the trigeminal nerve but no triggering symptoms with mastication, temperature, movement. No temporal artery tenderness. No reports of injury or trauma. Considered trigeminal neuralgia, temporal arteritis, GCA, retinal migraine, SAH, LVO/CVA, acute glaucoma (less likely with normal pressures), retinal detachment (no curtain loss of vision, normal acuity, no flashing lights or floaters reported) - the less likely temporal arteritis/ giant cell arteritis with normal inflammatory markers, no temporal artery tenderness Differential Diagnosis Differential diagnosis: Likely migraine and subarachnoid hemorrhage Medical Records Attestation: I reviewed the patient's medical records. Lab Data Attestation: I reviewed the patient's lab results. Result diagrams: 05/17/22 15:20 05/17/22 15:20 Labs: Lab Results 05/17/22 05/17/22 05/17/22 Range/Units 15:20 15:20 15:20 WBC 8.0 (4.8-10.8) X10*3/uL RBC 5.08 (4.20-5.50) X10*6/uL Hgb 13.6 (12.0-16.0) g/dl Hct 42.3 (37.0-47.0) % MCV 83.3 (80.0-98.0) fL MCH 26.8 L (27.0-33.0) pg MCHC 32.2 (31.0-35.0) g/dl RDW 13.2 (11.0-16.0) % Plt Count 335 (160-400) X10*3/uL MPV 9.2 L (9.4-12.3) fL Immature Gran % (Auto) 0.1 (0.0-0.4) % Neut % (Auto) 48.3 (45-73) % Lymph % (Auto) 41.4 H (20-40) % [place] % (Auto) 7.1 (2-11) % Eos % (Auto) 2.6 (0-4) % Baso % (Auto) 0.5 (0-2) % Lymph # (Auto) 3.3 (1.2-4.9) X10*3/uL [place] # (Auto) 0.6 (0.1-1.2) X10*3/uL Eos # (Auto) 0.2 (0.0-0.4) X10*3/uL Baso # (Auto) 0.0 (0.0-0.2) X10*3/uL Abs Immat Gran (auto) 0.01 (0.00-0.03) X10*3/uL Absolute Neuts (auto) 3.9 (2.0-8.3) x10*3/uL Absolute Nucleated RBC 0.000 (0.0-0.012) X10*3/uL Nucleated RBC % (auto) 0.0 (0.0-0.2) /100WBC ESR 13 (0-20) MM/HR Sodium 141 (135-145) mmol/L Potassium 3.9 (3.3-5.1) mmol/L Chloride 104 (96-108) mmol/L Carbon Dioxide 28 (22-29) mmol/L Anion Gap 13 (12-20) BUN 12 (9-16) mg/dL Creatinine 0.92 (0.5-1.4) mg/dL Estim Creat Clear Calc 107.9 Estimated GFR > 60 Random Glucose 96 (60-115) mg/dL Calcium 8.8 D (8.4-10.2) mg/dL Total Bilirubin 0.3 (0.0-1.0) mg/dL Direct Bilirubin < 0.2 (0.0-0.5) mg/dL AST 16 (5-31) U/L ALT 17 (0-31) U/L Alkaline Phosphatase 91 (39-117) U/L C-Reactive Protein 1.29 H (< or = 0.50) mg/dL Total Protein 7.0 (6.5-8.0) g/dL Albumin 4.1 (3.5-5.0) g/dL Imaging Data CT scan - head: Attestation: I personally reviewed and interpreted this imaging study as follows: Radiologist's impression: FINDINGS: There is no evidence of an extra-axial collection. There is no evidence of intra-axial or extra-axial hemorrhage. The ventricles and extra-axial CSF spaces are appropriate. Rodriguez-white matter differentiation is normal. There is a 1.7 a 1.3 x 1.7 cm high attenuation intracranial mass in the left orbit. This most likely represents a hemangioma. Confirmation with MRI is recommended. No other mass, mass effect or infarct is seen. Review at bone windows is normal. No skull fracture or bone lesion is seen. There is mild sinus disease in the right frontal, bilateral ethmoid ethmoid and sphenoid sinuses. Mastoid air cells and middle ears are clear. CT/CT head for stroke IMPRESSION: No acute intracranial findings. 1.7 x 1.3 cm high attenuation left orbital mass. 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 Follow-up elective orbit MRI for confirmation is recommended. Mild right frontal, bilateral ethmoid and sphenoid sinus disease. cta head/neck: Attestation: I personally reviewed and interpreted this imaging study as follows: Radiologist's impression: IMPRESSION: CT head: No intracranial hemorrhage or large acute infarction. ? 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 Outpatient ophthalmologic follow-up recommended. ? CTA neck: No hemodynamically significant stenosis in the major arteries of the neck. ? CTA head: No large vessel occlusion or significant stenosis within the intracranial circulation. Ct head/neck angio: Attestation: I personally reviewed and interpreted this imaging study as follows: Radiologist's impression: FINDINGS: Head CT: There is no intracranial hemorrhage, large acute infarction, or mass lesion. The ventricles are normal in size and configuration without evidence of hydrocephalus. ? There is a 1.3 x 1.2 x 2.2 cm smoothly marginated ovoid hyperdense mass within the intraconal left orbit positioned between the medial and inferior rectus muscles. The lesion contacts the inferior aspect of the optic nerve sheath complex but does not result in significant compression of the optic nerve. There is no infiltration of the retrobulbar fat. The orbital apex fat remains preserved. The globe appears normal. No right orbital abnormality is seen. There is mild paranasal sinus mucosal thickening. Neck CTA: There is a normal aortic arch with no significant stenosis of the great vessel origins. The common and internal carotid arteries are normal in course and caliber. Both vertebral arteries are widely patent throughout their extracranial cervical course. Head CTA: The anterior and posterior circulations are patent. No stenosis or occlusion is seen. 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 No aneurysm is seen. Intradural venous sinuses are patent. Non-vascular findings: blank CT/CT angio head neck IMPRESSION: CT head: No intracranial hemorrhage or large acute infarction. ? 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 Outpatient ophthalmologic follow-up recommended. ? CTA neck: No hemodynamically significant stenosis in the major arteries of the neck. ? CTA head: No large vessel occlusion or significant stenosis within the intracranial circulation. ? Discharge Plan Discharge Clinical Impression: Abnormal CT scan of head, Sinusitis, Trigeminal neuralgia Patient Disposition: Home, Self-Care Instructions: Sinusitis (ED), Trigeminal Neuralgia (ED), Computed Tomography Scan (ED) Additional Instructions: Your CT scan shows what appears to be a hemangioma in the left orbit. You will need an outpatient MRI. You can follow-up with Neurology for this. Return for vision changes left eye. We discussed that you may have trigeminal neuralgia. We are starting you on a low dose medication for this. Follow-up with neurology. Repeat eye exam by your eye doctor in the next few months. You wanted to know about your previous CT findings of lung nodule. They recommended repeat Ct scan by PCP in 12 months. Prescriptions: New azithromycin 250 mg tablet See Rx Instructions .ROUTE .COMPLEX Qty: 6 0RF Rx Instructions: For 250 mg dose pack: take 500 mg today (day 1), then 250 mg for 4 days (days 2-5) oxcarbazepine 300 mg tablet 300 mg PO BID Qty: 60 0RF No Action prednisone 20 mg tablet 40 mg PO DAILY Qty: 10 0RF codeine-guaifenesin 10-100 mg/5 mL liquid 10 ml PO Q4-6H PRN (Reason: cough) Qty: 237 0RF albuterol sulfate [ProAir HFA] 90 mcg/actuation HFA aerosol inhaler 2 puff inhalation Q4-6H PRN (Reason: Wheezing) Qty: 8.5 0RF azithromycin [Zithromax] 250 mg tablet 250 mg PO DAILY 4 Days Qty: 4 0RF Rx Instructions: start on day 2 of therapy Referrals: Riky Valdivia MD [Physician] -
[2022-05-17] MEDS: 0.9 % Sodium Chloride 1,000 ML 999 ML IV (15:22)
[2022-05-17 15:29] LABS: MANUAL DIFF FLAG NO
[2022-05-17 15:34] LABS: Basophils Percent Auto 0.5 % (0-2); Eosinophils Absolute Auto 0.2 X10*3/uL (0.0-0.4); Eosinophils Percent Auto 2.6 % (0-4); Hematocrit 42.3 % (37.0-47.0); Hemoglobin 13.6 g/dl (12.0-16.0); Imm Gran Abs Auto 0.01 X10*3/uL (0.00-0.03); Imm Gran Pct Auto 0.1 % (0.0-0.4); Lymphocytes Absolute Auto 3.3 X10*3/uL (1.2-4.9); Lymphocytes Percent Auto 41.4 % (20-40); Mean Corpuscular HGB Conc 32.2 g/dl (31.0-35.0); Mean Corpuscular Hemoglobin 26.8 pg (27.0-33.0); Mean Corpuscular Volume 83.3 fL (80.0-98.0); Mean Platelet Volume 9.2 fL (9.4-12.3); Monocytes Absolute Auto 0.6 X10*3/uL (0.1-1.2); Monocytes Percent Auto 7.1 % (2-11); Neutrophils Absolute Auto 3.9 x10*3/uL (2.0-8.3); Neutrophils Percent Auto 48.3 % (45-73); Platelet Count 335 X10*3/uL (160-400); Red Blood Count 5.08 X10*6/uL (4.20-5.50); Red Cell Distribution Width 13.2 % (11.0-16.0)
[2022-05-17 15:46] LABS: Alanine Aminotransferase 17 U/L (0-31); Albumin Level 4.1 g/dL (3.5-5.0); Alkaline Phosphatase 91 U/L (39-117); Anion Gap 13 (12-20); Aspartate Amino Transferase 16 U/L (5-31); Bilirubin Direct < 0.2 mg/dL (0.0-0.5); Bilirubin Total 0.3 mg/dL (0.0-1.0); Blood Urea Nitrogen 12 mg/dL (9-16); Calcium 8.8 mg/dL (8.4-10.2); Carbon Dioxide 28 mmol/L (22-29); Chloride 104 mmol/L (96-108); Creatinine Clr Calc Pharmacy 107.9; Estimated Glomerular Filt Rate > 60; Glucose Random 96 mg/dL (60-115); Potassium 3.9 mmol/L (3.3-5.1); Sodium 141 mmol/L (135-145)
[2022-05-17] MEDS: Ketorolac Tromethamine 30 MG/ML VIAL IVPUSH (15:52)
[2022-05-17 16:21] LABS: Erythrocyte Sedimentation Rate 13 MM/HR (0-20)
[2022-05-17] MEDS: iohexoL 350 MG/ML 100 ML INFUS..BTL IV (16:27)
[2022-05-17 16:46] VITALS: BP 153/83; PULSE 93; RESP 16; O2SAT 97
[2022-05-17 17:40] LABS: C Reactive Protein 1.29 mg/dL (< or = 0.50)
[2022-05-17] MEDS: Pseudoephedrine HCL 30 MG TABLET PO (18:09)
[2022-05-17] MEDS: Tetracaine HCl/PF 0.5% Oph Sol 4 ML DROPS 1 DROP EYE-RIGHT (18:09)
[2022-05-19 11:36] LABS: CRP High Sensitivity >10.0 mg/L
== END 2022-05-17 19:21 | disposition home or self-care (01) ==
PROVIDERS: Nurse Practitioner Family; Emergency Provider Emergency Medicine; PCP Pediatrics
DX: J32.9 Chronic sinusitis, unspecified (principal); G50.0 Trigeminal neuralgia; Z86.718 Personal history of other venous thrombosis and embolism; Z86.711 Personal history of pulmonary embolism; Z79.01 Long term (current) use of anticoagulants; R93.0 Abnormal findings on diagnostic imaging of skull and head, not elsewhere classified; R91.1 Solitary pulmonary nodule
CPT/HCPCS: 36415; 70450; 70496; 70498; 80048; 80076; 85025; 85652; 86140; 86141; 96361; 96374; 99284; J1885; Q9967

== ENCOUNTER 2023-04-08 07:45 | Emergency (ER) | payer OTHER, SELFPAY ==
[2023-04-08 07:50] VITALS: BP 142/78; PULSE 88; RESP 18; TEMP 36.6; O2SAT 98; BMI 45.1
--- NOTE | 2023-04-08 07:57 | ED.FEMALEGU ---
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 Also reports chest heaviness/SOB since this morning, patient unsure if this is related to anxiety. Denies fever, chills, vomiting, diarrhea/constipation, dysuria/hematuria Related Data Previous Rx's Medication Instructions Recorded albuterol sulfate 90 mcg/actuation 2 puff inhalation Q4-6H PRN 07/14/21 aerosol inhaler (ProAir HFA) Wheezing #8.5 grams azithromycin 250 mg tablet 250 mg PO DAILY 4 days #4 tabs 07/14/21 (Zithromax) codeine 10 mg-guaifenesin 100 mg/5 10 ml PO Q4-6H PRN cough #237 mL 07/14/21 mL oral liquid prednisone 20 mg tablet 40 mg PO DAILY #10 tabs 07/14/21 azithromycin 250 mg tablet See Rx Instructions PO .COMPLEX #6 05/17/22 tabs oxcarbazepine 300 mg tablet 300 mg PO BID #60 tabs 05/17/22 Allergies Allergy/AdvReac Type Severity Reaction Status Date / Time Sulfa (Sulfonamide Allergy Unknown HIVES Verified 04/08/23 07:48 Antibiotics) [SULFA (SULFONAMIDE ANTIBIOTICS)] meperidine [From DEMEROL] AdvReac Unknown COMBATIVE Verified 04/08/23 07:48 midazolam [From VERSED] AdvReac Unknown COMBATIVE Verified 04/08/23 07:48 Banana (Diagnostic) Allergy Unknown oral Uncoded 04/08/23 07:48 allergy Onley Extract Allergy Unknown anaphylaxis Uncoded 04/08/23 07:48 Grulla (Diagnostic) Allergy Unknown oral Uncoded 04/08/23 07:48 allergy Watermelon Flavor Allergy Unknown oral Uncoded 04/08/23 07:48 allergy White potato Allergy Unknown hives Uncoded 04/08/23 07:48 Review of Systems Review of Systems: Constitutional: No Fever, No Chills, No Fatigue, No Malaise ENT/Mouth: No Ear Pain, No sore throat, No Rhinorrhea, No Swallowing Difficulty Eyes: No Eye Pain, No Swelling, No Redness, No Vision Changes Cardiovascular: + Chest Pain, + SOB, No Edema, No Palpitations Respiratory: No Cough, No Sputum, No Dyspnea Gastrointestinal: + Nausea, No Vomiting, No Diarrhea, No Constipation, + Abdominal pain Genitourinary: No Dysuria, + Urinary Frequency, No Hematuria, No Flank Pain, No Urinary Flow Changes Musculoskeletal: No joint pain, No Myalgias, No Joint Swelling Skin: No Skin Lesions, No rash Neuro: No Weakness, No Numbness, No Dizziness, No Headache Yes all other systems are reviewed and are negative Constitutional: Constitutional: Reports as per [facility] Past Medical History Attestation statement: The following information was validated with the patient. Source: old records reviewed Medical History (Updated 04/08/23 @ 15:06 by FERNANDO Bhardwaj) DVT (deep venous thrombosis) Pulmonary emboli Surgical History H/O: hysterectomy Social History Social History Alcohol intake: never Patient Tobacco Use Status: Never used Tobacco Physical Exam Vital Signs: Vital Signs: Last Vital Signs Temp 98.0 F 04/08/23 14:25 Pulse 77 04/08/23 15:06 Resp 14 04/08/23 15:06 BP 122/7 L 04/08/23 15:06 Pulse Ox 95 04/08/23 15:06 O2 Del Method Room Air 04/08/23 15:06 BMI result Body Mass Index 45.1 Const: General: cooperative, healthy appearing and no acute distress Orientation/consciousness: patient oriented x3 Limitations: no limitations HEENT: Head: Yes normal to inspection and Yes atraumatic Ears: hearing grossly normal bilaterally General nose exam: Normal external nose present Face and sinus: Yes normal facial exam Eyes: General: appearance normal, both eyes and all related structures EOM: EOMs intact bilaterally Neck: Neck: Yes normal visual inspection and Yes no meningeal signs Resp: Effort & Inspection: normal respiratory effort and no respiratory distress Auscultation: clear to auscultation bilaterally Cardio: Rate: regular rate Heart sounds: S1 normal heart sound present and S2 normal heart sound present GI: Inspection: Yes normal to inspection Palpation (GI): Soft to palpation, Tenderness to palpation present (GI) in the epigastrum and in the RUQ; with no rebound tenderness, no guarding and not rigid : General: Yes CVA tenderness on the right Back/Spine/Pelvis: Back: CVA tenderness Skin: Rashes: no rashes Wounds: no wounds Neuro: General: patient oriented x3, tone normal and no meningeal signs Gait exam (Neuro): Normal gait present Extrem: General: Yes normal to inspection Course Course Course Narrative: -1020--labs unremarkable/reassuring. UA with moderate blood/RBCs, however contaminated > will hold on antibiotic treatment until culture results. XR chest 1V IMPRESSION: Unremarkable chest exam US abdomen limited IMPRESSION: 1.? The gallbladder is contracted in spite of fasting for over 12 hours. The gallbladder wall is thickened measuring 0.4 cm. 2.? Mild? increased hepatic echogenicity with no focal lesion. ?>> due to patient's focal epigastric/RUQ tenderness will consult General surgery, Dr. Albert >> recommended CT AP -1451--CT abdomen pelvis w IV con IMPRESSION: Focally thickened decompressed gallbladder with without other CT evidence of acute cholecystitis. Mild hepatic steatosis. Vaginal cuff findings as described above, correlate with surgical history. ? Fleischner guidelines were followed. > Dr. Albert has low suspicion for acute mynor, HIDA not recommended at this time > will PO trial w/clear liquids. > patient tolerated p.o., recommended close GI/general surgery and PCP follow-up Medications Administered Discontinued Medications Generic Name Dose Route Start Last Admin Trade Name Freq PRN Reason Stop Dose Admin Sodium Chloride 1,000 mls @ 999 mls/hr 04/08/23 08:15 04/08/23 10:05 Ns IV 04/08/23 09:15 Infused .Q1H1M RUCHI Infusion Iohexol 100 ml 04/08/23 12:50 04/08/23 12:51 Iohexol 350 Mg/Ml 100 Ml Infus..Btl IV 04/08/23 12:51 85 ml ONCE ONE Administration Ondansetron HCl 4 mg 04/08/23 08:12 04/08/23 09:04 Ondansetron Hcl 4 Mg/2 Ml Vial IVPUSH 04/08/23 08:13 4 mg ONCE ONE Administration Medical Decision Making Medical Decision Making MDM Narrative: 48-year-old female with a past medical history 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 Also reports chest heaviness/SOB since this morning. On exam vital signs stable, NAD, nontoxic appearing, lungs CTA, abdomen soft with RUQ/epigastric and right CVA tenderness, no rebound or guarding. Concern for cholecystitis/lithiasis vs pancreatitis vs renal stone/pyelo/UTI. Renal vein/artery thrombosis on differential however lower as patient is currently anticoagulated. Rule out ACS. Lower suspicion for PE, CHF, appendicitis/diverticulitis, or dissection Plan: EKG, labs, UA, abdomen ultrasound, CXR, IVF, antiemetic, re-evaluated Please refer to course for remaining clinical decision making, interpretation of labs/imaging results, and discussions with consultants and/or family members. Differential Diagnosis Differential Diagnoses: The differential diagnosis associated with the presentation includes As above Admission/Observation Consideration of admission/observation: Escalation of care including admission/observation considered Lab Data MDM Lab Attestation statement: I reviewed the patient's lab results. 04/08/23 08:59 04/08/23 08:59 Labs: Lab Results 04/08/23 04/08/23 04/08/23 Range/Units 08:25 08:59 08:59 WBC 8.1 (4.8-10.8) X10*3/uL RBC 5.27 (4.20-5.50) X10*6/uL Hgb 14.6 (12.0-16.0) g/dl Hct 44.4 (37.0-47.0) % MCV 84.3 (80.0-98.0) fL MCH 27.7 (27.0-33.0) pg MCHC 32.9 (31.0-35.0) g/dl RDW 13.2 (11.0-16.0) % Plt Count 369 (160-400) X10*3/uL MPV 9.1 L (9.4-12.3) fL Immature Gran % (Auto) 0.2 (0.0-0.4) % Neut % (Auto) 32.9 L (45-73) % Lymph % (Auto) 56.8 H (20-40) % [place] % (Auto) 5.8 (2-11) % Eos % (Auto) 3.7 (0-4) % Baso % (Auto) 0.6 (0-2) % Lymph # (Auto) 4.6 (1.2-4.9) X10*3/uL [place] # (Auto) 0.5 (0.1-1.2) X10*3/uL Eos # (Auto) 0.3 (0.0-0.4) X10*3/uL Baso # (Auto) 0.1 (0.0-0.2) X10*3/uL Abs Immat Gran (auto) 0.02 (0.00-0.03) X10*3/uL Absolute Neuts (auto) 2.7 (2.0-8.3) x10*3/uL Absolute Nucleated RBC 0.000 (0.0-0.012) X10*3/uL Nucleated RBC % (auto) 0.0 (0.0-0.2) /100WBC PT (10.0-13.1) SEC INR (0.9-1.1) Sodium 139 (135-145) mmol/L Potassium 3.9 (3.3-5.1) mmol/L Chloride 104 (96-108) mmol/L Carbon Dioxide 24 (22-29) mmol/L Anion Gap 15 (12-20) BUN 10 (9-16) mg/dL Creatinine 1.05 (0.5-1.4) mg/dL Estim Creat Clear Calc 94.3 Estimated GFR 56 Random Glucose 87 (60-115) mg/dL Calcium 9.9 D (8.4-10.2) mg/dL Magnesium 1.8 (1.6-2.6) mg/dL Total Bilirubin 0.5 (0.0-1.0) mg/dL Direct Bilirubin 0.1 (0.0-0.5) mg/dL AST 18 (5-31) U/L ALT 17 (0-31) U/L Alkaline Phosphatase 82 (39-117) U/L Troponin I High Sens (<3.5-17.0) ng/L B-Natriuretic Peptide (<100) pg/mL Total Protein 7.8 (6.5-8.0) g/dL Albumin 4.2 (3.5-5.0) g/dL Lipase 23 (8-78) U/L Urine Color Yellow Urine Appearance Cloudy Urine pH 7.0 (5.0-9.0) Ur Specific [place] 1.020 (1.005-1.025) Urine Protein Trace (Neg-Trace) mg/dL Urine Glucose (UA) Negative (Negative) mg/dL Urine Ketones Trace (Negative) mg/dL Urine Blood Moderate (2+) H (Negative) Urine Nitrite Negative (Negative) Ur Leukocyte Esterase Trace H (Negative) Urine RBC >20 H (0-2) /HPF Urine WBC 0-5 (0-5) /HPF Ur Squamous Epith Cells 11-20 (0-2) /HPF Urine Bacteria 2+ (None Seen) Hyaline Casts 0-2 (0-2) /LPF 04/08/23 04/08/23 04/08/23 Range/Units 08:59 08:59 08:59 WBC (4.8-10.8) X10*3/uL RBC (4.20-5.50) X10*6/uL Hgb (12.0-16.0) g/dl Hct (37.0-47.0) % MCV (80.0-98.0) fL MCH (27.0-33.0) pg MCHC (31.0-35.0) g/dl RDW (11.0-16.0) % Plt Count (160-400) X10*3/uL MPV (9.4-12.3) fL Immature Gran % (Auto) (0.0-0.4) % Neut % (Auto) (45-73) % Lymph % (Auto) (20-40) % [place] % (Auto) (2-11) % Eos % (Auto) (0-4) % Baso % (Auto) (0-2) % Lymph # (Auto) (1.2-4.9) X10*3/uL [place] # (Auto) (0.1-1.2) X10*3/uL Eos # (Auto) (0.0-0.4) X10*3/uL Baso # (Auto) (0.0-0.2) X10*3/uL Abs Immat Gran (auto) (0.00-0.03) X10*3/uL Absolute Neuts (auto) (2.0-8.3) x10*3/uL Absolute Nucleated RBC (0.0-0.012) X10*3/uL Nucleated RBC % (auto) (0.0-0.2) /100WBC PT 12.4 (10.0-13.1) SEC INR 1.1 (0.9-1.1) Sodium (135-145) mmol/L Potassium (3.3-5.1) mmol/L Chloride (96-108) mmol/L Carbon Dioxide (22-29) mmol/L Anion Gap (12-20) BUN (9-16) mg/dL Creatinine (0.5-1.4) mg/dL Estim Creat Clear Calc Estimated GFR Random Glucose (60-115) mg/dL Calcium (8.4-10.2) mg/dL Magnesium (1.6-2.6) mg/dL Total Bilirubin (0.0-1.0) mg/dL Direct Bilirubin (0.0-0.5) mg/dL AST (5-31) U/L ALT (0-31) U/L Alkaline Phosphatase (39-117) U/L Troponin I High Sens < 2.7 (<3.5-17.0) ng/L B-Natriuretic Peptide < 10 (<100) pg/mL Total Protein (6.5-8.0) g/dL Albumin (3.5-5.0) g/dL Lipase (8-78) U/L Urine Color Urine Appearance Urine pH (5.0-9.0) Ur Specific [place] (1.005-1.025) Urine Protein (Neg-Trace) mg/dL Urine Glucose (UA) (Negative) mg/dL Urine Ketones (Negative) mg/dL Urine Blood (Negative) Urine Nitrite (Negative) Ur Leukocyte Esterase (Negative) Urine RBC (0-2) /HPF Urine WBC (0-5) /HPF Ur Squamous Epith Cells (0-2) /HPF Urine Bacteria (None Seen) Hyaline Casts (0-2) /LPF Independent Interpretation I performed an independent interpretation of an: EKG Radiology Impression Discussion of test interpretation with radiology: I have reviewed the radiologist's reading. External Record Review External record reviewed: Inpatient record, Office record, Outpatient record, Prior outpatient labs, Prior outpatient radiology, Primary care record and Outside ED record Tests considered The following testing was considered but not selected: As above Prescription Management I considered prescription management with: Pain Medication Chronic Conditions Patient?s care impacted by: Other (Clotting disorder) Discharge Plan Discharge Clinical Impression: Abdominal pain, RUQ, Acute right flank pain Patient Disposition: Home, Self-Care Instructions: Abdominal Pain (ED), Flank Pain (ED) Additional Instructions: Your blood work and imaging studies are reassuring Please follow-up with General surgery and Gastroenterology outpatient If symptoms persist or worsen, pain becomes unbearable, persistent nausea/vomiting or fever return to the ED Prescriptions: No Action prednisone 20 mg tablet 40 mg PO DAILY Qty: 10 0RF codeine-guaifenesin 10-100 mg/5 mL liquid 10 ml PO Q4-6H PRN (Reason: cough) Qty: 237 0RF albuterol sulfate [ProAir HFA] 90 mcg/actuation HFA aerosol inhaler 2 puff inhalation Q4-6H PRN (Reason: Wheezing) Qty: 8.5 0RF azithromycin [Zithromax] 250 mg tablet 250 mg PO DAILY 4 Days Qty: 4 0RF Rx Instructions: start on day 2 of therapy azithromycin 250 mg tablet See Rx Instructions .ROUTE .COMPLEX Qty: 6 0RF Rx Instructions: For 250 mg dose pack: take 500 mg today (day 1), then 250 mg for 4 days (days 2-5) oxcarbazepine 300 mg tablet 300 mg PO BID Qty: 60 0RF Referrals: [facility] Gastroenterology Services [Provider Group] [facility] General Surgeons [Provider Group] Interventions: ED Discharge Assessment Last Done: 04/08/23 15:40 Discharge Date/Time: 04/08/23 15:40
[2023-04-08 08:00] VITALS: BP 140/92; PULSE 89; RESP 18; O2SAT 99
--- NOTE | 2023-04-08 08:19 | PC.NURSE ---
pt a&ox3, vss aside from elevated BP of 140/92, nsr on the hall monitor, provider bedside performing initial assessment, pt seems to be anxious and teary eyed as she talks about her health concerns regarding past medical history, pt currently in the bathroom attempting for a urine sample, will sent sample when ready.
--- NOTE | 2023-04-08 08:25 | PC.NURSE ---
urine sent to lab.
--- NOTE | 2023-04-08 09:01 | PC.NURSE ---
20g IV placed in the right forearm w/o complications, labs taken and sent.
--- NOTE | 2023-04-08 09:05 | PC.NURSE ---
IVF and zofran administered per provider order.
[2023-04-08 09:40] LABS: Alanine Aminotransferase 17 U/L (0-31); Albumin Level 4.2 g/dL (3.5-5.0); Alkaline Phosphatase 82 U/L (39-117); Anion Gap 15 (12-20); Aspartate Amino Transferase 18 U/L (5-31); Bilirubin Direct 0.1 mg/dL (0.0-0.5); Bilirubin Total 0.5 mg/dL (0.0-1.0); Blood Urea Nitrogen 10 mg/dL (9-16); Calcium 9.9 mg/dL (8.4-10.2); Carbon Dioxide 24 mmol/L (22-29); Chloride 104 mmol/L (96-108); Creatinine Clr Calc Pharmacy 94.3; Estimated Glomerular Filt Rate 56; Glucose Random 87 mg/dL (60-115); Lipase 23 U/L (8-78); Magnesium 1.8 mg/dL (1.6-2.6); Potassium 3.9 mmol/L (3.3-5.1); Sodium 139 mmol/L (135-145); Total Protein 7.8 g/dL (6.5-8.0)
[2023-04-08 10:00] VITALS: BP 120/72; PULSE 78; RESP 18; O2SAT 97
--- NOTE | 2023-04-08 10:44 | PC.NURSE ---
a&ox3, nsr on the telemetry monitor, vss, IVF finished and discontinued, call tuttle placed within reach.
[2023-04-08 12:00] VITALS: BP 137/66; PULSE 88; RESP 18; O2SAT 96
--- NOTE | 2023-04-08 12:15 | PM.CNGS ---
History of Present Illness Consult details Consult date: 04/08/23 Reason for consult: gallstones Narrative: The patient is a 48-year-old woman with a history of an unknown hypercoagulable disorder currently being treated for a left lower extremity DVT diagnosed in March of this year, who is anticoagulated and was concerned about right flank and back pain. Patient notes a prior history of gallstones and that she was supposed to have a HIDA scan. She also notes a history of a renal vein thrombosis and since she was concerned about both due to right flank and back pain, she presented to the emergency department she was evaluated and I was asked to help facilitate her care since her abdominal ultrasound showed a contracted gallbladder and gallstones. Patient reports that she feels a little better at this point. She had some nausea but no vomiting. She notes that the pain came on last night and progressed, but is predominantly in her back rather than in her right upper quadrant. Patient states that hematology at [facility] worked her up for a hypercoagulable disorder both on and off Coumadin. Patient has a prior history of a renal vein thrombosis, DVT and PE. She states that during an anticoagulant holiday to address concerns over retinal bleeding, she spontaneously developed a left lower extremity DVT and is anticoagulated. The patient reports a history of hysterectomy for endometriosis and fibroids. Review of Systems Review of Systems: Yes all other systems are reviewed and are negative Constitutional: Constitutional: Reports as per [facility] Past Medical History Medical History (Updated 04/08/23 @ 14:42 by Hugo Albert MD) DVT (deep venous thrombosis) Pulmonary emboli Surgical History Surgical History H/O: hysterectomy Social History Social History Alcohol intake: never Patient Tobacco Use Status: Never used Tobacco Smoked in Last 30 Days: No Use of substances other than those prescribed or required for medical reasons: No Advance Directives: Yes Advance Directives Information Provided: Yes Advance Directives on File: No Patient : No Meds Allergies Allergy/AdvReac Type Severity Reaction Status Date / Time Sulfa (Sulfonamide Allergy Unknown HIVES Verified 04/08/23 07:48 Antibiotics) [SULFA (SULFONAMIDE ANTIBIOTICS)] meperidine [From DEMEROL] AdvReac Unknown COMBATIVE Verified 04/08/23 07:48 midazolam [From VERSED] AdvReac Unknown COMBATIVE Verified 04/08/23 07:48 Banana (Diagnostic) Allergy Unknown oral Uncoded 04/08/23 07:48 allergy [place] Extract Allergy Unknown anaphylaxis Uncoded 04/08/23 07:48 [place] (Diagnostic) Allergy Unknown oral Uncoded 04/08/23 07:48 allergy Watermelon Flavor Allergy Unknown oral Uncoded 04/08/23 07:48 allergy White potato Allergy Unknown hives Uncoded 04/08/23 07:48 Physical Exam Vital Signs: Vital Signs: Last Vital Signs Temp 98 F 04/08/23 07:50 Pulse 88 04/08/23 12:00 Resp 18 04/08/23 12:00 BP 137/66 04/08/23 12:00 Pulse Ox 96 04/08/23 12:00 O2 Del Method Room Air 04/08/23 12:00 BMI result Body Mass Index 45.1 The patient is non-toxic & in good spirits NC/AT, PERRLA, EOMI Mood, affect & judgment all appear appropriate Sclera anicteric conjunctiva pink and moist Oropharynx is clear with no aphthous ulcers, Mallampati class 4, mucous membranes moist Neck is supple with no masses, adenopathy or bruits Heart is regular, normal S1-S2 no rubs or murmurs Lungs are clear and equal anteriorly with no audible wheezing, rubs or dullness to percussion Abdomen is obese with no demonstrable hernias. Mild right upper quadrant and epigastric discomfort are noted. No HSM, rebound, rigidity, guarding, masses or bruits are present. Rectal exam is deferred Skin has good turgor and is free of rashes Extremities free of cyanosis clubbing edema Results Labs 04/08/23 08:59 04/08/23 08:59 Labs: Abnormal lab results 04/08/23 04/08/23 Range/Units 08:25 08:59 MPV 9.1 L (9.4-12.3) fL Neut % (Auto) 32.9 L (45-73) % Lymph % (Auto) 56.8 H (20-40) % Urine Blood Moderate (2+) H (Negative) Ur Leukocyte Esterase Trace H (Negative) Urine RBC >20 H (0-2) /HPF Short CBC 04/08/23 Range/Units 08:59 WBC 8.1 (4.8-10.8) X10*3/uL Hgb 14.6 (12.0-16.0) g/dl Hct 44.4 (37.0-47.0) % Plt Count 369 (160-400) X10*3/uL BMP 04/08/23 08:59 Sodium 139 Potassium 3.9 Chloride 104 Carbon Dioxide 24 BUN 10 Creatinine 1.05 Calcium 9.9 D Liver Function 04/08/23 Range/Units 08:59 Total Bilirubin 0.5 (0.0-1.0) mg/dL Direct Bilirubin 0.1 (0.0-0.5) mg/dL AST 18 (5-31) U/L ALT 17 (0-31) U/L Alkaline Phosphatase 82 (39-117) U/L Albumin 4.2 (3.5-5.0) g/dL Urine 04/08/23 Range/Units 08:25 Urine Color Yellow Urine Appearance Cloudy Urine pH 7.0 (5.0-9.0) Ur Specific [place] 1.020 (1.005-1.025) Urine Protein Trace (Neg-Trace) mg/dL Urine Glucose (UA) Negative (Negative) mg/dL All other labs normal. Imaging Abdomen CT scan report/results: pending CT scan - pelvis: pending Abdominal ultrasound report/results: report reviewed and image reviewed Assessment and Plan (1) Anticoagulated: Status: Acute (2) Gallstones: Status: Acute (3) Morbid (severe) obesity due to excess calories: Status: Acute (4) DVT (deep venous thrombosis): Status: Acute (5) NAFLD (nonalcoholic fatty liver disease): Status: Acute Plan Await CT In my interpretation of the CT, there is no gallbladder wall thickening, pericholecystic fluid or dirty fat suggesting acute inflammation. In the setting of the patient's predominant back pain complaint and normal labs, I do not believe that she has acute calculous cholecystitis. If she tolerates clear liquids, she can be discharged and follow up on an outpatient basis. Addendum Radiologist report reviewed. No acute gallbladder pathology identified. Time Spent With Patient Time: Total time managing care of this patient today ____ minutes. Procedures Date of Service Date of Service: 04/08/23
--- NOTE | 2023-04-08 12:21 | PC.NURSE ---
pt reassessed, a&ox3, vss, nsr on the licensed weigher, pt verbalizes no change in pain level at a constant 5/10 that increases with movement, lights dimmed, pt in no apparent distress, call tuttle placed within reach, will continue to monitor.
[2023-04-08 14:25] VITALS: BP 125/80; PULSE 80; RESP 16; TEMP 36.7; O2SAT 97
[2023-04-08 15:06] VITALS: BP 122/7; PULSE 77; RESP 14; O2SAT 95
--- NOTE | 2023-04-08 15:08 | PC.NURSE ---
pt alert and oriented x3, vss, nsr on the quality assurance monitor body, pt verbalizes that there is no change in pain level, provider states that if she can hold jello and fluids down that she is all set to be discharged, call tuttle placed within reach, will monitor for discharge paperwork.
== END 2023-04-08 15:40 | disposition home or self-care (01) ==
PROVIDERS: Physician Assistant; Emergency Provider Emergency Medicine Emergency Medical Services; PCP Pediatrics
DX: R10.11 Right upper quadrant pain (principal); R06.02 Shortness of breath; R07.89 Other chest pain; Z79.899 Other long term (current) drug therapy; Z79.01 Long term (current) use of anticoagulants
CPT/HCPCS: 36415; 71045; 74177; 76705; 80048; 80076; 81001; 83690; 83735; 83880; 84484; 85025; 85610; 93005; 96361; 96374; 99284; 99285; J2405; Q9967

== ENCOUNTER 2023-04-10 17:25 | Emergency (ER) | payer OTHER, SELFPAY ==
[2023-04-10 18:33] VITALS: BP 151/86; PULSE 87; RESP 18; TEMP 36.1; O2SAT 97; BMI 45.1
--- NOTE | 2023-04-10 18:38 | ED_ITS ---
HPI - Female Genitourinary General Chief complaint: Urogenital-Female Stated complaint: Blood in urine/on blood thinners/Kidney stones? 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 She was seen here 2 days ago for right-sided abdominal pain. CT scan and abdominal ultrasound showed contracted gallbladder and kidney stones within both kidneys. She states she developed right-sided flank pain 2 days ago. This is when it was at its worst. It is been constant, 10 since then. She has nausea but no vomiting. No diarrhea. She was seen in the ER for this with no acute gallbladder etiology or ureteral stones on imaging. She states after discharge she developed pink urine that night. She then deve loped bright red hematuria today. No burning on urination. No fever or chills. No history of kidney stones in the past. She recently started a protein supplement in December with her associate trainer. MD elicited complaint: flank pain and other (Hematuria) Onset (ago): day(s) Location of symptoms: flank Severity: moderate Severity scale (1-10): 5 Quality of pain: aching Consistency: constant Vaginal discharge: none Vaginal bleeding: none Urinary symptoms: Hematuria Exacerbating factors: none Relieving factors: none Associated symptoms: nausea Treatment prior to arrival: none Sexual activity: No Patient : No Related Data Previous Rx's Medication Instructions Recorded albuterol sulfate 90 mcg/actuation 2 puff inhalation Q4-6H PRN 07/14/21 aerosol inhaler (ProAir HFA) Wheezing #8.5 grams azithromycin 250 mg tablet 250 mg PO DAILY 4 days #4 tabs 07/14/21 (Zithromax) codeine 10 mg-guaifenesin 100 mg/5 10 ml PO Q4-6H PRN cough #237 mL 07/14/21 mL oral liquid prednisone 20 mg tablet 40 mg PO DAILY #10 tabs 07/14/21 azithromycin 250 mg tablet See Rx Instructions PO .COMPLEX #6 05/17/22 tabs oxcarbazepine 300 mg tablet 300 mg PO BID #60 tabs 05/17/22 oxycodone 5 mg tablet 5 mg PO Q8H PRN severe pain (scale 04/10/23 score 7-10) #9 tabs prednisone 20 mg tablet 40 mg PO DAILY #10 tabs 04/10/23 tamsulosin 0.4 mg capsule (Flomax) 0.4 mg PO DAILY #10 caps 04/10/23 Allergies Allergy/AdvReac Type Severity Reaction Status Date / Time Sulfa (Sulfonamide Allergy Unknown HIVES Verified 04/10/23 18:33 Antibiotics) [SULFA (SULFONAMIDE ANTIBIOTICS)] meperidine [From DEMEROL] AdvReac Unknown COMBATIVE Verified 04/10/23 18:33 midazolam [From VERSED] AdvReac Unknown COMBATIVE Verified 04/10/23 18:33 Banana (Diagnostic) Allergy Unknown oral Uncoded 04/08/23 07:48 allergy [place] Extract Allergy Unknown anaphylaxis Uncoded 04/08/23 07:48 [place] (Diagnostic) Allergy Unknown oral Uncoded 04/08/23 07:48 allergy Watermelon Flavor Allergy Unknown oral Uncoded 04/08/23 07:48 allergy White potato Allergy Unknown hives Uncoded 04/08/23 07:48 Review of Systems Review of Systems: Yes all other systems are reviewed and are negative [facility] Past Medical History Medical History (Updated 04/11/23 @ 00:28 by Mannie Sanchez) DVT (deep venous thrombosis) Pulmonary emboli Surgical History H/O: hysterectomy Social History Social History Alcohol intake: never Patient Tobacco Use Status: Never used Tobacco Smoked in Last 30 Days: No Use of substances other than those prescribed or required for medical reasons: No Advance Directives: No Advance Directives Information Provided: No Patient : No Physical Exam Vital Signs: Vital Signs: Last Vital Signs Temp 98.6 F 04/10/23 20:06 Pulse 87 04/10/23 20:06 Resp 18 04/10/23 20:06 BP 143/71 H 04/10/23 20:06 Pulse Ox 96 04/10/23 20:06 O2 Del Method Room Air 04/10/23 20:06 BMI result Body Mass Index 45.1 Appearance: Alert. Oriented X3. No acute distress. Head: normocephalic, atraumatic. Eyes: Pupils equal, round and reactive to light. ENT: Pharynx normal. No tonsillar swelling or exudate. Neck: Normal inspection. Neck supple. CVS: Normal heart rate and rhythm. Pulses normal. Respiratory: No respiratory distress. Breath sounds normal. Abdomen: Obese, Soft and nontender. +BS x4. tenderness of the right CVA. no CVA tenderness on the left. Skin: Skin warm and dry. Normal skin color. Normal skin turgor. No rashes. Extremities: No lower extremity edema. No joint swelling. Neuro/psych: Oriented X 3. No motor deficit. No sensory deficit. CN II-XII intact. Normal speech and cognition. Course Course Course Narrative: RME: RIght Flank pain and hematuria. known history of Kidney stones. labs Abdominal CT scan ordered. Medications Administered Discontinued Medications Generic Name Dose Route Start Last Admin Trade Name Freq PRN Reason Stop Dose Admin Acetaminophen 975 mg 04/10/23 20:50 04/10/23 20:59 Acetaminophen 325 Mg Tablet PO 04/10/23 20:51 975 mg ONCE ONE Administration Ondansetron HCl 4 mg 04/10/23 20:50 04/10/23 20:58 Ondansetron Odt 4 Mg Tab.Rapdis TRANSLINGU 04/10/23 20:51 4 mg ONCE ONE Administration Oxycodone HCl 5 mg 04/10/23 20:50 04/10/23 20:58 Oxycodone Hcl Immed Release 5 Mg Tablet PO 04/10/23 20:51 5 mg ONCE ONE Administration Medical Decision Making Medical Decision Making MDM Narrative: 48-year-old female presenting back to the ER for evaluation of right-sided flank pain for the last 4 days along with new onset hematuria that started yesterday. CT scan yesterday showed kidney stones within the kidney, no mention of ureteral stones. UA shows hematuria today. Repeat CT scan performed showing a 4mm mid- distal ureteral stone without hydronpehrosis. No evidence of infection. Her pain is on the right, this could be referred pain from the left side. Imaging was reviewed, no ureteral stones appreciated on the right side. LFTs are normal. Will treat for ureteral stone with steroids, pain control and urology follow-up. She was advised to stop taking her protein supplement as this may have precipitated her making kidney stones. She is stable for discharge home with urology follow-up. Patient agrees with plan. Differential Diagnosis Differential Diagnoses: The differential diagnosis associated with the pres entation includes Obstructing kidney stone, ureteral stone, pyelonephritis Admission/Observation Consideration of admission/observation: Escalation of care including admission/observation considered recurrent visit for flank pain, considered admission Lab Data MDM Lab Attestation statement: I reviewed the patient's lab results. Normal renal function, no anemia. Urinalysis negative for infection 04/10/23 19:04 04/10/23 19:04 Labs: Lab Results 04/10/23 04/10/23 04/10/23 Range/Units 19:04 19:04 19:04 WBC 8.3 (4.8-10.8) X10*3/uL RBC 4.76 (4.20-5.50) X10*6/uL Hgb 13.2 (12.0-16.0) g/dl Hct 40.5 (37.0-47.0) % MCV 85.1 (80.0-98.0) fL MCH 27.7 (27.0-33.0) pg MCHC 32.6 (31.0-35.0) g/dl RDW 13.2 (11.0-16.0) % Plt Count 339 (160-400) X10*3/uL MPV 9.1 L (9.4-12.3) fL Immature Gran % (Auto) 0.2 (0.0-0.4) % Neut % (Auto) 40.3 L (45-73) % Lymph % (Auto) 48.2 H (20-40) % [place] % (Auto) 7.6 (2-11) % Eos % (Auto) 3.2 (0-4) % Baso % (Auto) 0.5 (0-2) % Lymph # (Auto) 4.0 (1.2-4.9) X10*3/uL [place] # (Auto) 0.6 (0.1-1.2) X10*3/uL Eos # (Auto) 0.3 (0.0-0.4) X10*3/uL Baso # (Auto) 0.0 (0.0-0.2) X10*3/uL Abs Immat Gran (auto) 0.02 (0.00-0.03) X10*3/uL Absolute Neuts (auto) 3.4 (2.0-8.3) x10*3/uL Absolute Nucleated RBC 0.000 (0.0-0.012) X10*3/uL Nucleated RBC % (auto) 0.0 (0.0-0.2) /100WBC Sodium 139 (135-145) mmol/L Potassium 3.8 (3.3-5.1) mmol/L Chloride 105 (96-108) mmol/L Carbon Dioxide 26 (22-29) mmol/L Anion Gap 12 (12-20) BUN 14 (9-16) mg/dL Creatinine 1.17 (0.5-1.4) mg/dL Estim Creat Clear Calc 84.6 Estimated GFR 50 Random Glucose 92 (60-115) mg/dL Calcium 9.5 (8.4-10.2) mg/dL Total Bilirubin 0.2 (0.0-1.0) mg/dL AST 18 (5-31) U/L ALT 14 (0-31) U/L Alkaline Phosphatase 77 (39-117) U/L Total Protein 7.0 (6.5-8.0) g/dL Albumin 3.8 (3.5-5.0) g/dL Beta HCG, Quant < 2 mIU/mL Urine Color Urine Appearance Urine pH (5.0-9.0) Ur Specific [place] (1.005-1.025) Urine Protein (Neg-Trace) mg/dL Urine Glucose (UA) (Negative) mg/dL Urine Ketones (Negative) mg/dL Urine Blood (Negative) Urine Nitrite (Negative) Ur Leukocyte Esterase (Negative) Urine RBC (0-2) /HPF Urine WBC (0-5) /HPF Ur Squamous Epith Cells (0-2) /HPF Urine Bacteria (None Seen) Hyaline Casts (0-2) /LPF 04/10/23 Range/Units 19:04 WBC (4.8-10.8) X10*3/uL RBC (4.20-5.50) X10*6/uL Hgb (12.0-16.0) g/dl Hct (37.0-47.0) % MCV (80.0-98.0) fL MCH (27.0-33.0) pg MCHC (31.0-35.0) g/dl RDW (11.0-16.0) % Plt Count (160-400) X10*3/uL MPV (9.4-12.3) fL Immature Gran % (Auto) (0.0-0.4) % Neut % (Auto) (45-73) % Lymph % (Auto) (20-40) % [place] % (Auto) (2-11) % Eos % (Auto) (0-4) % Baso % (Auto) (0-2) % Lymph # (Auto) (1.2-4.9) X10*3/uL [place] # (Auto) (0.1-1.2) X10*3/uL Eos # (Auto) (0.0-0.4) X10*3/uL Baso # (Auto) (0.0-0.2) X10*3/uL Abs Immat Gran (auto) (0.00-0.03) X10*3/uL Absolute Neuts (auto) (2.0-8.3) x10*3/uL Absolute Nucleated RBC (0.0-0.012) X10*3/uL Nucleated RBC % (auto) (0.0-0.2) /100WBC Sodium (135-145) mmol/L Potassium (3.3-5.1) mmol/L Chloride (96-108) mmol/L Carbon Dioxide (22-29) mmol/L Anion Gap (12-20) BUN (9-16) mg/dL Creatinine (0.5-1.4) mg/dL Estim Creat Clear Calc Estimated GFR Random Glucose (60-115) mg/dL Calcium (8.4-10.2) mg/dL Total Bilirubin (0.0-1.0) mg/dL AST (5-31) U/L ALT (0-31) U/L Alkaline Phosphatase (39-117) U/L Total Protein (6.5-8.0) g/dL Albumin (3.5-5.0) g/dL Beta HCG, Quant mIU/mL Urine Color Yellow Urine Appearance Clear Urine pH 6.5 (5.0-9.0) Ur Specific [place] 1.020 (1.005-1.025) Urine Protein Negative (Neg-Trace) mg/dL Urine Glucose (UA) Negative (Negative) mg/dL Urine Ketones Negative (Negative) mg/dL Urine Blood Large (3+) H (Negative) Urine Nitrite Negative (Negative) Ur Leukocyte Esterase Negative (Negative) Urine RBC >20 H (0-2) /HPF Urine WBC 0-5 (0-5) /HPF Ur Squamous Epith Cells 6-10 (0-2) /HPF Urine Bacteria None Seen (None Seen) Hyaline Casts 0-2 (0-2) /LPF Independent Interpretation I performed an independent interpretation of an: CT Scan Interpretation: Left-sided ureteral kidney stone noted, no appreciated hydronephrosis. Agrees radiology read Radiology Impression Discussion of test interpretation with radiology: I have reviewed the radiologist's reading. Radiologist Impression: CT/CT abdomen pelvis wo IV con IMPRESSION: 1.? A 4 mm calculus at the left mid to distal ureter is unchanged in position as compared to prior. There is minimal periureteral fat stranding in this region without appreciable hydroureter or hydronephrosis. 2.? Multiple bilateral nonobstructing renal calculi, unchanged External Record Review External record reviewed: Outpatient record, Prior outpatient labs and Prior outpatient radiology Prescription Management I considered prescription management with: Pain Medication and Antibiotic Chronic Conditions Patient?s care impacted by: Other (Hypercoagulable state on Eliquis) Critical Care Time Critical Care Time Critical Care Time: No Discharge Plan Discharge Clinical Impression: Left ureteral stone Patient Disposition: Home, Self-Care Instructions: Ureteral Stones (ED) Additional Instructions: your CT scan showed a 4mm stone in the middle to lower ureter on the left - you will most likely pass this on your own take the prescribed medications as directed and follow up with urology If you develop new or worsening symptoms call 911 or come back to the ER for further evaluation. Prescriptions: New tamsulosin [Flomax] 0.4 mg capsule 0.4 mg PO DAILY Qty: 10 0RF prednisone 20 mg tablet 40 mg PO DAILY Qty: 10 0RF oxycodone 5 mg tablet 5 mg PO Q8H PRN (Reason: severe pain (scale score 7-10)) Qty: 9 0RF Rx Instructions: Partial Fill upon patient request. No Action prednisone 20 mg tablet 40 mg PO DAILY Qty: 10 0RF codeine-guaifenesin 10-100 mg/5 mL liquid 10 ml PO Q4-6H PRN (Reason: cough) Qty: 237 0RF albuterol sulfate [ProAir HFA] 90 mcg/actuation HFA aerosol inhaler 2 puff inhalation Q4-6H PRN (Reason: Wheezing) Qty: 8.5 0RF azithromycin [Zithromax] 250 mg tablet 250 mg PO DAILY 4 Days Qty: 4 0RF Rx Instructions: start on day 2 of therapy azithromycin 250 mg tablet See Rx Instructions .ROUTE .COMPLEX Qty: 6 0RF Rx Instructions: For 250 mg dose pack: take 500 mg today (day 1), then 250 mg for 4 days (days 2-5) oxcarbazepine 300 mg tablet 300 mg PO BID Qty: 60 0RF Referrals: [facility] [place] Group] (left ureteral stone, 4mm) Interventions: ED Discharge Assessment Last Done: 04/10/23 21:55 Discharge Date/Time: 04/10/23 22:00
[2023-04-10 20:06] VITALS: BP 143/71; PULSE 87; RESP 18; TEMP 37; O2SAT 96
--- NOTE | 2023-04-10 21:55 | PC.NURSE ---
pt calm and cooperative. vss. pt ambulatory at discharge. pt provided with discharge packet. pt verbalized understanding of discharge plan
== END 2023-04-10 22:00 | disposition home or self-care (01) ==
PROVIDERS: Emergency Provider Internal Medicine; PCP Pediatrics
DX: N20.1 Calculus of ureter (principal); R31.9 Hematuria, unspecified; R10.2 Pelvic and perineal pain; Z86.718 Personal history of other venous thrombosis and embolism; Z79.01 Long term (current) use of anticoagulants; Z79.899 Other long term (current) drug therapy
CPT/HCPCS: 36415; 74176; 80053; 81001; 84702; 85025; 99284

== ENCOUNTER 2023-04-26 21:43 | Emergency (ER) | payer OTHER, SELFPAY ==
[2023-04-26 21:48] VITALS: BP 150/93; PULSE 111; RESP 17; TEMP 37; O2SAT 94
[2023-04-26 21:49] VITALS: BP 140/100; PULSE 88; O2SAT 98; BMI 46.9
[2023-04-26 23:08] LABS: Appearance Urine Cloudy; Color Urine Yellow; Glucose Urine UA Negative (Negative); Leukocyte Esterase Urine Trace (Negative); Nitrite Urine Negative (Negative); Specific Gravity - Urine 1.025 (1.005-1.025); UMIC TRIGGER UACC YES; Urine Blood Large (3+) (Negative); Urine Ketones Trace mg/dL (Negative); Urine Protein 30 (1+) mg/dL (Neg-Trace)
[2023-04-26 23:10] LABS: Bacteria Urine 2+ (None Seen); Hyaline Casts Urine 0-2 /LPF (0-2); RBC Urine >20 /HPF (0-2); Squamous Epithelial Cell Urine >20 /HPF (0-2); UACC Culture Trigger YES
--- NOTE | 2023-04-26 23:11 | ED.FEMALEGU ---
HPI - Female Genitourinary General Chief complaint: Urogenital-Female Stated complaint: abd pain since yest, per ems Time Seen by Provider: 04/26/23 23:11 Source: patient, EMS, RN notes reviewed and old records reviewed Mode of arrival: EMS History of Present Illness HPI Narrative: 48-year-old female with a past medical history of a known clotting disorder on Eliquis, DVT/PE, renal vein thrombosis, obesity, renal stones, presenting to the ED complaining of left flank and suprapubic discomfort x today with urinary hesitancy/urgency and frequency with noted cloudy urine and dysuria. Reports decreased urination, feels as though she is not completely emptying bladder. Patient was seen and treated in our ED on 04/08 and 04/10 for similar symptoms diagnosis bilateral renal calculi, and 4 mm left mid/distal ureter calculi. Patient has been following with Urology at [facility] who she saw today & told her everything was okay, admits had outpatient ultrasound yesterday, & they told her the mid ureter stone has passed. Denies fever, chills, nausea/vomiting, gross hematuria, vaginal bleeding/discharge MD elicited complaint: dysuria and UTI Related Data Previous Rx's Medication Instructions Recorded albuterol sulfate 90 mcg/actuation 2 puff inhalation Q4-6H PRN 07/14/21 aerosol inhaler (ProAir HFA) Wheezing #8.5 grams azithromycin 250 mg tablet 250 mg PO DAILY 4 days #4 tabs 07/14/21 (Zithromax) codeine 10 mg-guaifenesin 100 mg/5 10 ml PO Q4-6H PRN cough #237 mL 07/14/21 mL oral liquid prednisone 20 mg tablet 40 mg PO DAILY #10 tabs 07/14/21 azithromycin 250 mg tablet See Rx Instructions PO .COMPLEX #6 05/17/22 tabs oxcarbazepine 300 mg tablet 300 mg PO BID #60 tabs 05/17/22 oxycodone 5 mg tablet 5 mg PO Q8H PRN severe pain (scale 04/10/23 score 7-10) #9 tabs prednisone 20 mg tablet 40 mg PO DAILY #10 tabs 04/10/23 tamsulosin 0.4 mg capsule (Flomax) 0.4 mg PO DAILY #10 caps 04/10/23 Allergies Allergy/AdvReac Type Severity Reaction Status Date / Time Sulfa (Sulfonamide Allergy Unknown HIVES Verified 04/10/23 18:33 Antibiotics) [SULFA (SULFONAMIDE ANTIBIOTICS)] meperidine [From DEMEROL] AdvReac Unknown COMBATIVE Verified 04/10/23 18:33 midazolam [From VERSED] AdvReac Unknown COMBATIVE Verified 04/10/23 18:33 Banana (Diagnostic) Allergy Unknown oral Uncoded 04/08/23 07:48 allergy [place] Extract Allergy Unknown anaphylaxis Uncoded 04/08/23 07:48 [place] (Diagnostic) Allergy Unknown oral Uncoded 04/08/23 07:48 allergy Watermelon Flavor Allergy Unknown oral Uncoded 04/08/23 07:48 allergy White potato Allergy Unknown hives Uncoded 04/08/23 07:48 Review of Systems Review of Systems: Constitutional: No Fever, No Chills, No Fatigue, No Malaise ENT/Mouth: No Hearing loss, No Ear Pain, No Nasal Congestion, No sore throat, No Rhinorrhea, No Swallowing Difficulty Eyes: No Eye Pain, No Swelling, No Redness, No Vision Changes Cardiovascular: No Chest Pain, No SOB, No Dyspnea on Exertion, No Orthopnea, No Edema, No Palpitations Respiratory: No Cough, No Sputum, No Dyspnea Gastrointestinal: No Nausea, No Vomiting, No Diarrhea, No Constipation, + Abdominal pain Genitourinary: No irregular bleeding, + Dysuria, + Urinary Frequency, No Hematuria, No Urinary Incontinence/retention, + Urgency, No Flank Pain, No Urinary Flow Changes, + Hesitancy Musculoskeletal: No joint pain, No Myalgias, No Joint Swelling Skin: No Skin Lesions, No rash Neuro: No Weakness, No Headache Yes all other systems are reviewed and are negative Constitutional: Constitutional: Reports as per [facility] Past Medical History Attestation statement: The following information was validated with the patient. Source: old records reviewed Medical History DVT (deep venous thrombosis) Pulmonary emboli Surgical History H/O: hysterectomy Social History Social History Alcohol intake: never Patient Tobacco Use Status: Never used Tobacco Advance Directives: No Advance Directives Information Provided: No Physical Exam Vital Signs: Vital Signs: Last Vital Signs Temp 98.2 F 04/27/23 02:04 Pulse 94 04/27/23 02:04 Resp 18 04/27/23 02:04 BP 132/58 L 04/27/23 02:04 Pulse Ox 93 04/27/23 02:04 O2 Del Method Room Air 04/27/23 02:04 BMI result Body Mass Index 46.9 Const: General: cooperative, healthy appearing and no acute distress Orientation/consciousness: patient oriented x3 Limitations: no limitations HEENT: Head: Yes normal to inspection and Yes atraumatic Ears: hearing grossly normal bilaterally General nose exam: Normal external nose present Face and sinus: Yes normal facial exam Eyes: General: appearance normal, both eyes and all related structures EOM: EOMs intact bilaterally Neck: Neck: Yes normal visual inspection and Yes no meningeal signs Resp: Effort & Inspection: normal respiratory effort and no respiratory distress Auscultation: clear to auscultation bilaterally Cardio: Rate: regular rate Heart sounds: S1 normal heart sound present and S2 normal heart sound present GI: Inspection: Yes normal to inspection Palpation (GI): Soft to palpation, nontender, no guarding and not rigid : General: Yes no CVA tenderness Back/Spine/Pelvis: Back: no CVA tenderness Skin: Rashes: no rashes Wounds: no wounds Neuro: General: patient oriented x3, tone normal and no meningeal signs Gait exam (Neuro): Normal gait present Extrem: General: Yes normal to inspection Course Course Course Narrative: -initial UA contaminated with greater than 20 epithelials, will obtain repeat -0151--no leukocytosis. Labs reassuring, renal function WNL -0208--repeat UA still contaminated with 11-20 epithelials however large blood, nitrite positive, leuk esterase, 6-10 wbc's > patient is symptomatic will treat with antibiotics. First dose Ceftin given in the ED Results discussed with patient including worrisome signs and symptoms and strict return precautions, and when to return to the emergency department. They verbalized understanding and feel safe for discharge at this time. Medications Administered Discontinued Medications Generic Name Dose Route Start Last Admin Trade Name Freq PRN Reason Stop Dose Admin Sodium Chloride 1,000 mls @ 999 mls/hr 04/26/23 23:45 04/27/23 00:17 Ns IV 04/27/23 00:45 999 mls/hr .Q1H1M RUCHI Administration Ketorolac Tromethamine 15 mg 04/26/23 23:32 04/27/23 00:16 Ketorolac Tromethamine 15 Mg/Ml Vial IVPUSH 04/26/23 23:33 15 mg ONCE ONE Administration Ketorolac Tromethamine 15 mg 04/27/23 01:10 04/27/23 01:36 Ketorolac Tromethamine 15 Mg/Ml Vial IVPUSH 04/27/23 01:11 15 mg ONCE ONE Administration Phenazopyridine HCl 200 mg 04/26/23 23:32 04/27/23 00:16 Phenazopyridine Hcl 200 Mg Tablet PO 04/26/23 23:33 200 mg ONCE ONE Administration Medical Decision Making Medical Decision Making MDM Narrative: 48-year-old female with a past medical history of a known clotting disorder on Eliquis, DVT/PE, renal vein thrombosis, obesity, renal stones, presenting to the ED complaining of left flank and suprapubic discomfort x today with urinary hesitancy/urgency and frequency with noted cloudy urine and dysuria. On exam initially hypertensive, tachycardic, likely from anxiety/discomfort, abdomen soft/nontender, no CVAT. Concern for UTI vs cystitis vs renal stone. Lower suspicion for obstructive pathology, pyelonephritis, or diverticulitis Plan: Labs, UA, IVF, IV Toradol Please refer to course for remaining clinical decision making, interpretation of labs/imaging results, and discussions with consultants and/or family members. Differential Diagnosis Differential Diagnoses: The differential diagnosis associated with the presentation includes As above Admission/Observation Consideration of admission/observation: Escalation of care including admission/observation considered Lab Data [facility] Lab Attestation statement: I reviewed the patient's lab results. 04/27/23 00:00 04/27/23 00:00 Labs: Lab Results 04/26/23 04/27/23 04/27/23 Range/Units 22:59 00:00 00:00 WBC 9.1 (4.8-10.8) X10*3/uL RBC 4.57 (4.20-5.50) X10*6/uL Hgb 12.6 (12.0-16.0) g/dl Hct 39.1 (37.0-47.0) % MCV 85.6 (80.0-98.0) fL MCH 27.6 (27.0-33.0) pg MCHC 32.2 (31.0-35.0) g/dl RDW 13.3 (11.0-16.0) % Plt Count 321 (160-400) X10*3/uL MPV 8.8 L (9.4-12.3) fL Immature Gran % (Auto) 0.2 (0.0-0.4) % Neut % (Auto) 41.4 L (45-73) % Lymph % (Auto) 47.8 H (20-40) % [place] % (Auto) 8.3 (2-11) % Eos % (Auto) 1.8 (0-4) % Baso % (Auto) 0.5 (0-2) % Lymph # (Auto) 4.4 (1.2-4.9) X10*3/uL [place] # (Auto) 0.8 (0.1-1.2) X10*3/uL Eos # (Auto) 0.2 (0.0-0.4) X10*3/uL Baso # (Auto) 0.1 (0.0-0.2) X10*3/uL Abs Immat Gran (auto) 0.02 (0.00-0.03) X10*3/uL Absolute Neuts (auto) 3.8 (2.0-8.3) x10*3/uL Absolute Nucleated RBC 0.000 (0.0-0.012) X10*3/uL Nucleated RBC % (auto) 0.0 (0.0-0.2) /100WBC Sodium 139 (135-145) mmol/L Potassium 4.4 (3.3-5.1) mmol/L Chloride 103 (96-108) mmol/L Carbon Dioxide 27 (22-29) mmol/L Anion Gap 13 (12-20) BUN 11 (9-16) mg/dL Creatinine 1.02 (0.5-1.4) mg/dL Estim Creat Clear Calc 99.3 Estimated GFR 58 Random Glucose 101 (60-115) mg/dL Calcium 9.1 (8.4-10.2) mg/dL Urine Color Yellow Urine Appearance Cloudy Urine pH 6.0 (5.0-9.0) Ur Specific [place] 1.025 (1.005-1.025) Urine Protein 30 (1+) H (Neg-Trace) mg/dL Urine Glucose (UA) Negative (Negative) mg/dL Urine Ketones Trace (Negative) mg/dL Urine Blood Large (3+) H (Negative) Urine Nitrite Negative (Negative) Ur Leukocyte Esterase Trace H (Negative) Urine RBC >20 H (0-2) /HPF Urine WBC 6-10 H (0-5) /HPF Ur Squamous Epith Cells >20 (0-2) /HPF Urine Bacteria 2+ (None Seen) Hyaline Casts 0-2 (0-2) /LPF Urine Test (NEGATIVE) 04/27/23 04/27/23 Range/Units 01:40 01:40 WBC (4.8-10.8) X10*3/uL RBC (4.20-5.50) X10*6/uL Hgb (12.0-16.0) g/dl Hct (37.0-47.0) % MCV (80.0-98.0) fL MCH (27.0-33.0) pg MCHC (31.0-35.0) g/dl RDW (11.0-16.0) % Plt Count (160-400) X10*3/uL MPV (9.4-12.3) fL Immature Gran % (Auto) (0.0-0.4) % Neut % (Auto) (45-73) % Lymph % (Auto) (20-40) % Beck[place] % (Auto) (2-11) % Eos % (Auto) (0-4) % Baso % (Auto) (0-2) % Lymph # (Auto) (1.2-4.9) X10*3/uL [place] # (Auto) (0.1-1.2) X10*3/uL Eos # (Auto) (0.0-0.4) X10*3/uL Baso # (Auto) (0.0-0.2) X10*3/uL Abs Immat Gran (auto) (0.00-0.03) X10*3/uL Absolute Neuts (auto) (2.0-8.3) x10*3/uL Absolute Nucleated RBC (0.0-0.012) X10*3/uL Nucleated RBC % (auto) (0.0-0.2) /100WBC Sodium (135-145) mmol/L Potassium (3.3-5.1) mmol/L Chloride (96-108) mmol/L Carbon Dioxide (22-29) mmol/L Anion Gap (12-20) BUN (9-16) mg/dL Creatinine (0.5-1.4) mg/dL Estim Creat Clear Calc Estimated GFR Random Glucose (60-115) mg/dL Calcium (8.4-10.2) mg/dL Urine Color Dark Yellow Urine Appearance Turbid Urine pH 5.5 (5.0-9.0) Ur Specific [place] >= 1.030 H (1.005-1.025) Urine Protein 30 (1+) H (Neg-Trace) mg/dL Urine Glucose (UA) Negative (Negative) mg/dL Urine Ketones Trace (Negative) mg/dL Urine Blood Large (3+) H (Negative) Urine Nitrite Positive H (Negative) Ur Leukocyte Esterase Trace H (Negative) Urine RBC >20 H (0-2) /HPF Urine WBC 6-10 H (0-5) /HPF Ur Squamous Epith Cells 11-20 (0-2) /HPF Urine Bacteria 2+ (None Seen) Hyaline Casts 3-5 (0-2) /LPF Urine Test NEGATIVE (NEGATIVE) Radiology Impression Discussion of test interpretation with radiology: I have reviewed the radiologist's reading. Independent Historian Clinical information obtained from an independent historian. History obtained from or confirmed by: Other (Family) External Record Review External record reviewed: Inpatient record, Office record, Outpatient record, Prior outpatient labs, Prior outpatient radiology, Primary care record and Outside ED record Tests considered The following testing was considered but not selected: Ultrasound and CT considered however patient with outpatient ultrasound yesterday which was unremarkable. Patient has had 2 CTs of this month, will avoid rescanning at this time Prescription Management I considered prescription management with: Pain Medication Discharge Plan Discharge Clinical Impression: Dysuria, Urinary hesitancy Patient Disposition: Still a Patient Instructions: Dysuria (ED), Urinary Urgency and Frequency (DC) Prescriptions: No Action prednisone 20 mg tablet 40 mg PO DAILY Qty: 10 0RF codeine-guaifenesin 10-100 mg/5 mL liquid 10 ml PO Q4-6H PRN (Reason: cough) Qty: 237 0RF albuterol sulfate [ProAir HFA] 90 mcg/actuation HFA aerosol inhaler 2 puff inhalation Q4-6H PRN (Reason: Wheezing) Qty: 8.5 0RF azithromycin [Zithromax] 250 mg tablet 250 mg PO DAILY 4 Days Qty: 4 0RF Rx Instructions: start on day 2 of therapy azithromycin 250 mg tablet See Rx Instructions .ROUTE .COMPLEX Qty: 6 0RF Rx Instructions: For 250 mg dose pack: take 500 mg today (day 1), then 250 mg for 4 days (days 2-5) oxcarbazepine 300 mg tablet 300 mg PO BID Qty: 60 0RF tamsulosin [Flomax] 0.4 mg capsule 0.4 mg PO DAILY Qty: 10 0RF prednisone 20 mg tablet 40 mg PO DAILY Qty: 10 0RF oxycodone 5 mg tablet 5 mg PO Q8H PRN (Reason: severe pain (scale score 7-10)) Qty: 9 0RF Rx Instructions: Partial Fill upon patient request. Referrals: [facility] [place] [facility] [Provider Group]
[2023-04-26 23:12] VITALS: BP 118/63; PULSE 98; RESP 16; TEMP 36.8; O2SAT 98
[2023-04-27 00:07] LABS: MANUAL DIFF FLAG NO
[2023-04-27 00:12] LABS: Basophils Absolute Auto 0.1 X10*3/uL (0.0-0.2); Basophils Percent Auto 0.5 % (0-2); Eosinophils Absolute Auto 0.2 X10*3/uL (0.0-0.4); Eosinophils Percent Auto 1.8 % (0-4); Hematocrit 39.1 % (37.0-47.0); Hemoglobin 12.6 g/dl (12.0-16.0); Imm Gran Abs Auto 0.02 X10*3/uL (0.00-0.03); Imm Gran Pct Auto 0.2 % (0.0-0.4); Lymphocytes Absolute Auto 4.4 X10*3/uL (1.2-4.9); Lymphocytes Percent Auto 47.8 % (20-40); Mean Corpuscular HGB Conc 32.2 g/dl (31.0-35.0); Mean Corpuscular Hemoglobin 27.6 pg (27.0-33.0); Mean Corpuscular Volume 85.6 fL (80.0-98.0); Mean Platelet Volume 8.8 fL (9.4-12.3); Monocytes Absolute Auto 0.8 X10*3/uL (0.1-1.2); Monocytes Percent Auto 8.3 % (2-11); Neutrophils Absolute Auto 3.8 x10*3/uL (2.0-8.3); Neutrophils Percent Auto 41.4 % (45-73); Platelet Count 321 X10*3/uL (160-400); Red Blood Count 4.57 X10*6/uL (4.20-5.50); Red Cell Distribution Width 13.3 % (11.0-16.0); White Blood Count 9.1 X10*3/uL (4.8-10.8)
[2023-04-27] MEDS: Ketorolac Tromethamine 15 MG/ML VIAL IVPUSH ×2 (00:16→01:36)
[2023-04-27] MEDS: Phenazopyridine HCL 200 MG TABLET PO (00:16)
[2023-04-27] MEDS: 0.9 % Sodium Chloride 1,000 ML 999 ML IV ×2 (00:17→02:08)
[2023-04-27 00:18] LABS: Anion Gap 13 (12-20); Blood Urea Nitrogen 11 mg/dL (9-16); Calcium 9.1 mg/dL (8.4-10.2); Carbon Dioxide 27 mmol/L (22-29); Chloride 103 mmol/L (96-108); Creatinine Clr Calc Pharmacy 99.3; Estimated Glomerular Filt Rate 58; Glucose Random 101 mg/dL (60-115); Potassium 4.4 mmol/L (3.3-5.1); Sodium 139 mmol/L (135-145)
[2023-04-27 01:48] LABS: Appearance Urine Turbid; Color Urine Dark Yellow; Glucose Urine UA Negative (Negative); Leukocyte Esterase Urine Trace (Negative); Nitrite Urine Positive (Negative); PH 5.5 (5.0-9.0); Specific Gravity - Urine >= 1.030 (1.005-1.025); UMIC TRIGGER UACC YES; Urine Blood Large (3+) (Negative); Urine Ketones Trace mg/dL (Negative); Urine Protein 30 (1+) mg/dL (Neg-Trace)
[2023-04-27 01:49] LABS: UPreg QC Valid YES; Urine Pregnancy NEGATIVE (NEGATIVE)
[2023-04-27 02:00] VITALS: BP 128/64; PULSE 87; RESP 16; TEMP 36.6; O2SAT 98
[2023-04-27 02:04] VITALS: BP 132/58; PULSE 94; RESP 18; TEMP 36.8; O2SAT 93
[2023-04-27 02:05] LABS: Bacteria Urine 2+ (None Seen); RBC Urine >20 /HPF (0-2); UACC Culture Trigger YES
[2023-04-27 02:43] VITALS: BP 128/64; PULSE 87
--- NOTE | 2023-04-27 02:43 | PC.NURSE ---
iv removed at time of discharge. pt medicated according to dec. pt daughter at bedside. pt provided with discharge packet. pt verbalized understanding of discharge plan. pt utilized wheelchair for discharge to pt daughter vehicle
== END 2023-04-27 02:50 | disposition home or self-care (01) ==
PROVIDERS: Physician Assistant; Emergency Provider Internal Medicine; PCP Pediatrics
DX: R30.0 Dysuria (principal); R39.11 Hesitancy of micturition; R10.30 Lower abdominal pain, unspecified; Z86.718 Personal history of other venous thrombosis and embolism; Z79.01 Long term (current) use of anticoagulants
CPT/HCPCS: 36415; 51798; 80048; 81001; 81025; 85025; 87086; 96361; 96374; 96375; 99284; 99285; J1885

== ENCOUNTER 2023-11-08 11:40 | Emergency (ER) | payer OTHER, SELFPAY ==
--- NOTE | ~2023-11-08 | CT_ITS ---
CT HEAD WITHOUT IV CONTRAST INDICATION: Headache an Eliquis. Rule out subarachnoid hemorrhage. COMPARISON: Head CT and CTA head and neck 05/17/2022. TECHNIQUE: Multidetector CT acquisitions of the head was obtained without IV contrast. This CT examination was performed using dose optimization techniques as appropriate, variously including the following: *Automated exposure control *Adjustment of mA and/or kV according to patient size (this includes techniques or standardized protocols for targeted exams where dose is matched to indication/reason for exam; i.e. extremities or head) *Use of iterative reconstruction technique FINDINGS: There is no intracranial hemorrhage, hydrocephalus, extra-axial surface collection, midline shift, or other herniation pattern. Rodriguez to white matter differentiation is diffusely maintained without evidence of an evolved acute territorial infarct. The basilar cisterns are preserved. 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 Small fluid level within the right sphenoid sinus that can be correlated for clinical signs of acute sinusitis. There is moderate mucosal thickening within the ethmoid air cells bilaterally and within the right frontal sinus. CT/CT head/brain wo IV con IMPRESSION: - There are no acute intracranial findings. - Small fluid level within the right sphenoid sinus that can be correlated for clinical signs of acute sinusitis. There is moderate mucosal thickening within the ethmoid air cells bilaterally and within the right frontal sinus. 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
[2023-11-08 11:59] VITALS: BP 159/107; PULSE 107; RESP 20; TEMP 36.3; O2SAT 98; BMI 46.4
--- NOTE | 2023-11-08 12:00 | ED_ITS ---
HPI - Headache General Chief Complaint: Headache Stated Complaint: Severe Headache Related Data Previous Rx's Medication Instructions Recorded albuterol sulfate 90 mcg/actuation 2 puff inhalation Q4-6H PRN 07/14/21 aerosol inhaler (ProAir HFA) Wheezing #8.5 grams azithromycin 250 mg tablet 250 mg PO DAILY 4 days #4 tabs 07/14/21 (Zithromax) codeine 10 mg-guaifenesin 100 mg/5 10 ml PO Q4-6H PRN cough #237 mL 07/14/21 mL oral liquid prednisone 20 mg tablet 40 mg (2 x 20 mg) PO DAILY #10 tabs 07/14/21 azithromycin 250 mg tablet See Rx Instructions PO .COMPLEX #6 05/17/22 tabs oxcarbazepine 300 mg tablet 300 mg PO BID #60 tabs 05/17/22 oxycodone 5 mg tablet 5 mg PO Q8H PRN severe pain (scale 04/10/23 score 7-10) #9 tabs prednisone 20 mg tablet 40 mg (2 x 20 mg) PO DAILY #10 tabs 04/10/23 tamsulosin 0.4 mg capsule (Flomax) 0.4 mg PO DAILY #10 caps 04/10/23 cefuroxime axetil 250 mg tablet 250 mg PO BID 7 days #14 tabs 04/27/23 phenazopyridine 200 mg tablet 200 mg PO TID PRN pain 6 doses #6 04/27/23 (Pyridium) tabs Allergies Allergy/AdvReac Type Severity Reaction Status Date / Time Sulfa (Sulfonamide Allergy Unknown HIVES Verified 11/08/23 12:04 Antibiotics) [SULFA (SULFONAMIDE ANTIBIOTICS)] meperidine [From DEMEROL] AdvReac Unknown COMBATIVE Verified 11/08/23 12:04 midazolam [From VERSED] AdvReac Unknown COMBATIVE Verified 11/08/23 12:04 Banana (Diagnostic) Allergy Unknown oral Uncoded 11/08/23 12:04 allergy [place] Extract Allergy Unknown anaphylaxis Uncoded 11/08/23 12:04 [place] (Diagnostic) Allergy Unknown oral Uncoded 11/08/23 12:04 allergy Watermelon Flavor Allergy Unknown oral Uncoded 11/08/23 12:04 allergy White potato Allergy Unknown hives Uncoded 11/08/23 12:04 [facility] Past Medical History Medical History DVT (deep venous thrombosis) Pulmonary emboli Surgical History H/O: hysterectomy Social History Social History Alcohol intake: never Patient Tobacco Use Status: Never used Tobacco Advance Directives: No Advance Directives Information Provided: No Physical Exam Vital Signs: Vital Signs: Last Vital Signs Temp 97.3 F 11/08/23 11:59 Pulse 107 H 11/08/23 11:59 Resp 20 11/08/23 11:59 BP 159/107 H 11/08/23 11:59 Pulse Ox 98 11/08/23 11:59 O2 Del Method Room Air 11/08/23 11:59 BMI result Body Mass Index 46.4 Course Course Course Narrative: This is a rapid medical exam. Deferred additional HPI, ROS, PE to primary provider. 48 yo female on eliquis for LLE DVT here with complaints of sudden XIONG which began at 3am waking her up from her sleep unrelieved w/ APAP. Patient reports she has missed several doses of eliquis about 1 week ago (missed 2-3 days) otherwise compliant. Will obtain ct head. No concern for as patient had a hyst VSS Discharge Plan Discharge Clinical Impression: Headache Patient Disposition: Left W/O Completing Treatment Prescriptions: No Action prednisone 20 mg tablet 40 mg PO DAILY Qty: 10 0RF codeine-guaifenesin 10-100 mg/5 mL liquid 10 ml PO Q4-6H PRN (Reason: cough) Qty: 237 0RF albuterol sulfate [ProAir HFA] 90 mcg/actuation HFA aerosol inhaler 2 puff inhalation Q4-6H PRN (Reason: Wheezing) Qty: 8.5 0RF azithromycin [Zithromax] 250 mg tablet 250 mg PO DAILY 4 Days Qty: 4 0RF Rx Instructions: start on day 2 of therapy azithromycin 250 mg tablet See Rx Instructions .ROUTE .COMPLEX Qty: 6 0RF Rx Instructions: For 250 mg dose pack: take 500 mg today (day 1), then 250 mg for 4 days (days 2-5) oxcarbazepine 300 mg tablet 300 mg PO BID Qty: 60 0RF phenazopyridine [Pyridium] 200 mg tablet 200 mg PO TID PRN (Reason: pain) Qty: 6 0RF cefuroxime axetil 250 mg tablet 250 mg PO BID 7 Days Qty: 14 0RF tamsulosin [Flomax] 0.4 mg capsule 0.4 mg PO DAILY Qty: 10 0RF prednisone 20 mg tablet 40 mg PO DAILY Qty: 10 0RF oxycodone 5 mg tablet 5 mg PO Q8H PRN (Reason: severe pain (scale score 7-10)) Qty: 9 0RF Rx Instructions: Partial Fill upon patient request. Discharge Date/Time: 11/08/23 15:17
== END 2023-11-08 15:17 | disposition left against medical advice (07) ==
PROVIDERS: Emergency Provider Emergency Medicine; PCP Pediatrics
DX: R51.9 Headache, unspecified (principal); I26.99 Other pulmonary embolism without acute cor pulmonale; I82.409 Acute embolism and thrombosis of unspecified deep veins of unspecified lower extremity; Z79.01 Long term (current) use of anticoagulants
CPT/HCPCS: 70450; 99281; 99284

== ENCOUNTER 2024-03-26 21:20 | Emergency (ER) | payer OTHER, SELFPAY ==
--- NOTE | 2024-03-26 | ECG_ITS ---
Test Reason : CHEST TIGHTNESS Blood Pressure : / mmHG Vent. Rate : 093 BPM Atrial Rate : 093 BPM P-R Int : 184 ms QRS Dur : 090 ms QT Int : 354 ms P-R-T Axes : 039 042 035 degrees QTc Int : 440 ms Normal sinus rhythm Cannot rule out Anterior infarct (cited on or before 21-SEP-2021) Abnormal ECG When compared with ECG of 08-APR-2023 07:56, No significant change was found Referred By: Generic ED Physician Electronically Signed By:KEELY SELF MD
--- NOTE | ~2024-03-26 | US_ITS ---
EXAMINATION: US VENOUS ULTRASOUND WITH DOPPLER LOWER EXTREMITY, LEFT CLINICAL INFORMATION: known clotting problem was off eliquis, pain COMPARISON: None available. TECHNIQUE: Ultrasound of the deep veins is performed from the hip to the calf with compression sonography and color and pulse Doppler assessment. Spectral analysis with color-flow imaging is performed. FINDINGS: There is normal venous compression and respiratory variation and augmented flow. The visualized common femoral vein, superficial femoral vein, profunda femoral vein, popliteal vein, and the trifurcation region shows no evidence of deep venous thrombosis. There is no significant popliteal fossa cyst. If the patient's symptoms persist, followup ultrasound in 5 days 7 days might be of value to exclude proximal propagation from a non-visualized calf vein. US/US venous duplex LE LT IMPRESSION: No DVT demonstrated in the left lower extremity.
[2024-03-26 21:28] VITALS: BP 148/83; PULSE 97; RESP 18; TEMP 36.3; O2SAT 97; BMI 45.4
[2024-03-26 21:51] LABS: MANUAL DIFF FLAG NO
[2024-03-26 21:52] LABS: Basophils Absolute Auto 0.1 X10*3/uL (0.0-0.2); Basophils Percent Auto 0.6 % (0-2); Eosinophils Absolute Auto 0.3 X10*3/uL (0.0-0.4); Hematocrit 38.4 % (37.0-47.0); Hemoglobin 12.9 g/dl (12.0-16.0); Imm Gran Abs Auto 0.02 X10*3/uL (0.00-0.03); Imm Gran Pct Auto 0.3 % (0.0-0.4); Lymphocytes Absolute Auto 3.9 X10*3/uL (1.2-4.9); Lymphocytes Percent Auto 48.8 % (20-40); Mean Corpuscular HGB Conc 33.6 g/dl (31.0-35.0); Mean Corpuscular Hemoglobin 27.8 pg (27.0-33.0); Mean Corpuscular Volume 82.8 fL (80.0-98.0); Mean Platelet Volume 8.8 fL (9.4-12.3); Monocytes Absolute Auto 0.7 X10*3/uL (0.1-1.2); Monocytes Percent Auto 8.5 % (2-11); Neutrophils Percent Auto 37.8 % (45-73); Platelet Count 299 X10*3/uL (160-400); Red Blood Count 4.64 X10*6/uL (4.20-5.50); Red Cell Distribution Width 13.4 % (11.0-16.0)
[2024-03-26 22:05] LABS: Anion Gap 15 (12-20); Blood Urea Nitrogen 11 mg/dL (9-16); Calcium 9.2 mg/dL (8.4-10.2); Carbon Dioxide 25 mmol/L (22-29); Chloride 105 mmol/L (96-108); Creatinine Clr Calc Pharmacy 121.2; Estimated Glomerular Filt Rate > 60; Glucose Random 106 mg/dL (60-115); Sodium 141 mmol/L (135-145)
--- NOTE | 2024-03-26 23:50 | ED_ITS ---
HPI - General Adult General Chief complaint: General Medical Stated complaint: ? blood clot in L leg Time Seen by Provider: 03/26/24 23:36 Source: patient Mode of arrival: ambulatory Limitations: no limitations History of Present Illness ED Provider: Dr. Medina HPI narrative: patient with left leg swelling and redness. She states that she had been off her eliquis for a dental procedure and the last time this happened it was a blood clot. The leg has an area that is red warm and hot Related Data Previous Rx's ?Medication ?Instructions ?Recorded albuterol sulfate 90 mcg/actuation 2 puff inhalation Q4-6H PRN 07/14/21 aerosol inhaler (ProAir HFA) Wheezing #8.5 grams azithromycin 250 mg tablet 250 mg PO DAILY 4 days #4 tabs 07/14/21 (Zithromax) codeine 10 mg-guaifenesin 100 mg/5 10 ml PO Q4-6H PRN cough #237 mL 07/14/21 mL oral liquid prednisone 20 mg tablet 40 mg (2 x 20 mg) PO DAILY #10 tabs 07/14/21 azithromycin 250 mg tablet See Rx Instructions PO .COMPLEX #6 05/17/22 tabs oxcarbazepine 300 mg tablet 300 mg PO BID #60 tabs 05/17/22 oxycodone 5 mg tablet 5 mg PO Q8H PRN severe pain (scale 04/10/23 score 7-10) #9 tabs prednisone 20 mg tablet 40 mg (2 x 20 mg) PO DAILY #10 tabs 04/10/23 tamsulosin 0.4 mg capsule (Flomax) 0.4 mg PO DAILY #10 caps 04/10/23 cefuroxime axetil 250 mg tablet 250 mg PO BID 7 days #14 tabs 04/27/23 phenazopyridine 200 mg tablet 200 mg PO TID PRN pain 6 doses #6 04/27/23 (Pyridium) tabs amoxicillin 875 mg-potassium 1 tab PO BID #14 tabs 03/27/24 clavulanate 125 mg tablet Allergies Allergy/AdvReac Type Severity Reaction Status Date / Time Sulfa (Sulfonamide Allergy Unknown HIVES Verified 03/26/24 21:30 Antibiotics) [SULFA (SULFONAMIDE ANTIBIOTICS)] cephalexin Allergy Hives Verified 03/26/24 21:30 levofloxacin Allergy Shakiness Verified 03/26/24 21:30 meperidine [From DEMEROL] AdvReac Unknown COMBATIVE Verified 03/26/24 21:30 midazolam [From VERSED] AdvReac Unknown COMBATIVE Verified 03/26/24 21:30 Banana (Diagnostic) Allergy Unknown oral Uncoded 03/26/24 21:30 allergy [place] Extract Allergy Unknown anaphylaxis Uncoded 03/26/24 21:30 [place] (Diagnostic) Allergy Unknown oral Uncoded 03/26/24 21:30 allergy Watermelon Flavor Allergy Unknown oral Uncoded 03/26/24 21:30 allergy White potato Allergy Unknown hives Uncoded 03/26/24 21:30 Review of Systems 2 Review of Systems: Yes all other systems are reviewed and are negative Neurologic: Denies Sensory deficit (Neuro) PMFSH Past Medical History Medical History Pulmonary emboli DVT (deep venous thrombosis) Surgical History H/O: hysterectomy Social History Social History Alcohol intake: never Patient Tobacco Use Status: Never used Tobacco Advance Directives: No Advance Directives Information Provided: Yes Do you have a plan to hurt others: No Plan Physical Exam ED Vital Signs: Vital Signs - 24 hr 03/26/24 21:28 03/27/24 00:18 03/27/24 02:07 Temperature 97.4 F 98.1 F Pulse Rate 97 92 94 Respiratory Rate 18 16 18 Blood Pressure 148/83 H 128/61 139/87 Pulse Oximetry 97 96 99 Oxygen Delivery Method Room Air Room Air Room Air BMI result Body Mass Index 45.4 Const General: healthy appearing Nutritional Appearance: obese Orientation/consciousness: oriented to person and patient oriented x3 Limitations: no limitations HENMT Head: Yes normal to inspection Ears: external ears normal General nose exam: Normal external nose present Mouth: Normal oral and palatal mucosa present and oropharynx normal Throat: Yes posterior oropharynx normal Eyes General: appearance normal, both eyes and all related structures Neck Neck: Yes normal visual inspection Chest Chest palpation & inspection: normal inspection of the chest Resp Auscultation: clear to auscultation bilaterally Cardio Jugular venous distension: no JVD Rate: regular rate Rhythm: regular rhythm Heart sounds: S1 normal heart sound present and S2 normal heart sound present GI Inspection: Yes normal to inspection Palpation (GI): Soft to palpation, nontender and No hepatosplenomegaly present Auscultation: normal bowel sounds General: Yes no CVA tenderness Back/Spine/Pelvis Back: no CVA tenderness Skin Other: anterior pollard with erythema and warmth Neuro General: oriented to person and patient oriented x3 Cranial nerves: Yes CN's II-XII intact bilaterally Motor exam (neuro): 5/5 motor strength present throughout Sensory Exam: No Sensory deficit (Neuro) Extrem Other: left leg swollen with anterior pollard having a red patch that is hot good DP pulses Psych Appearance: grossly normal Course Reevaluation(s) Reevaluation #1: US appears negative will start keflex and dc home Time: 02:37 Medical Decision Making Differential Diagnosis Differential Diagnoses: The differential diagnosis associated with the presentation includes (cellulitis, dvt) Admission/Observation Consideration of admission/observation: Escalation of care including admission/observation considered (upon arrival admission was considered) Lab Data 03/26/24 21:46 03/26/24 21:46 Labs: Lab Results 03/26/24 Range/Units 21:46 WBC 8.0 (4.8-10.8) X10*3/uL RBC 4.64 (4.20-5.50) X10*6/uL Hgb 12.9 (12.0-16.0) g/dl Hct 38.4 (37.0-47.0) % MCV 82.8 (80.0-98.0) fL MCH 27.8 (27.0-33.0) pg MCHC 33.6 (31.0-35.0) g/dl RDW 13.4 (11.0-16.0) % Plt Count 299 (160-400) X10*3/uL MPV 8.8 L (9.4-12.3) fL Immature Gran % (Auto) 0.3 (0.0-0.4) % Neut % (Auto) 37.8 L (45-73) % Lymph % (Auto) 48.8 H (20-40) % [place] % (Auto) 8.5 (2-11) % Eos % (Auto) 4.0 (0-4) % Baso % (Auto) 0.6 (0-2) % Lymph # (Auto) 3.9 (1.2-4.9) X10*3/uL [place] # (Auto) 0.7 (0.1-1.2) X10*3/uL Eos # (Auto) 0.3 (0.0-0.4) X10*3/uL Baso # (Auto) 0.1 (0.0-0.2) X10*3/uL Abs Immat Gran (auto) 0.02 (0.00-0.03) X10*3/uL Absolute Neuts (auto) 3.0 (2.0-8.3) x10*3/uL Absolute Nucleated RBC 0.000 (0.0-0.012) X10*3/uL Nucleated RBC % (auto) 0.0 (0.0-0.2) /100WBC Sodium 141 (135-145) mmol/L Potassium 4.0 (3.3-5.1) mmol/L Chloride 105 (96-108) mmol/L Carbon Dioxide 25 (22-29) mmol/L Anion Gap 15 (12-20) BUN 11 (9-16) mg/dL Creatinine 0.82 (0.5-1.4) mg/dL Estim Creat Clear Calc 121.2 Estimated GFR > 60 Random Glucose 106 (60-115) mg/dL Calcium 9.2 (8.4-10.2) mg/dL Independent Interpretation I performed an independent interpretation of an: Ultrasound (no clot seen) Radiology Impression Discussion of test interpretation with radiology: I have reviewed the radiologist's reading. (and agree) External Record Review External record reviewed: Outpatient record Chronic Conditions Patient?s care impacted by: Other (DVT with PE) Discharge Plan Discharge Clinical Impression: Cellulitis Patient Disposition: Home, Self-Care Instructions: Cellulitis (ED) Prescriptions: New amoxicillin-pot clavulanate 875-125 mg tablet 1 tab PO BID Qty: 14 0RF No Action prednisone 20 mg tablet 40 mg PO DAILY Qty: 10 0RF codeine-guaifenesin 10-100 mg/5 mL liquid 10 ml PO Q4-6H PRN (Reason: cough) Qty: 237 0RF albuterol sulfate [ProAir HFA] 90 mcg/actuation HFA aerosol inhaler 2 puff inhalation Q4-6H PRN (Reason: Wheezing) Qty: 8.5 0RF azithromycin [Zithromax] 250 mg tablet 250 mg PO DAILY 4 Days Qty: 4 0RF Rx Instructions: start on day 2 of therapy azithromycin 250 mg tablet See Rx Instructions .ROUTE .COMPLEX Qty: 6 0RF Rx Instructions: For 250 mg dose pack: take 500 mg today (day 1), then 250 mg for 4 days (days 2-5) oxcarbazepine 300 mg tablet 300 mg PO BID Qty: 60 0RF phenazopyridine [Pyridium] 200 mg tablet 200 mg PO TID PRN (Reason: pain) Qty: 6 0RF cefuroxime axetil 250 mg tablet 250 mg PO BID 7 Days Qty: 14 0RF tamsulosin [Flomax] 0.4 mg capsule 0.4 mg PO DAILY Qty: 10 0RF prednisone 20 mg tablet 40 mg PO DAILY Qty: 10 0RF oxycodone 5 mg tablet 5 mg PO Q8H PRN (Reason: severe pain (scale score 7-10)) Qty: 9 0RF Rx Instructions: Partial Fill upon patient request. Referrals: Liz Schroeder MD [Primary Care Provider] - 5 days Print Language: Paraguayan
[2024-03-27 00:18] VITALS: BP 128/61; PULSE 92; RESP 16; O2SAT 96
[2024-03-27 02:07] VITALS: BP 139/87; PULSE 94; RESP 18; TEMP 36.7; O2SAT 99
[2024-03-27 03:03] VITALS: BP 139/87; PULSE 94; RESP 18; TEMP 36.7; O2SAT 99
== END 2024-03-27 03:05 | disposition home or self-care (01) ==
PROVIDERS: Emergency Provider Emergency Medicine; PCP Pediatrics
DX: L03.116 Cellulitis of left lower limb (principal); R60.0 Localized edema; R07.89 Other chest pain; M79.605 Pain in left leg; Z79.899 Other long term (current) drug therapy
CPT/HCPCS: 36415; 80048; 85025; 93005; 93971; 99284

== ENCOUNTER → 2024-03-26 21:34 | Outpatient (BNV) | payer OTHER, SELFPAY | PROVIDERS: Emergency Provider Emergency Medicine; PCP Pediatrics; Visit Provider Internal Medicine Cardiovascular Disease | DX: R07.89 Other chest pain (principal); R94.31 Abnormal electrocardiogram [ECG] [EKG] | CPT/HCPCS: 93010 ==

== ENCOUNTER 2024-05-01 12:21 | Emergency (ER) | payer OTHER, SELFPAY ==
--- NOTE | ~2024-05-01 | XR_ITS ---
EXAMINATION: XR CHEST CLINICAL INFORMATION: Chest pain for 4-5 days. COMPARISON: April 08, 2023. TECHNIQUE: Frontal view of the chest was obtained. FINDINGS: No significant abnormality is noted involving the heart, lungs, mediastinum, bony thorax or soft tissues. XR/XR chest 1V IMPRESSION: Unremarkable examination.
--- NOTE | 2024-05-01 12:41 | ECG_ITS ---
Test Reason : CHEST PRESSURE Blood Pressure : / mmHG Vent. Rate : 093 BPM Atrial Rate : 093 BPM P-R Int : 178 ms QRS Dur : 086 ms QT Int : 360 ms P-R-T Axes : 035 025 020 degrees QTc Int : 447 ms Normal sinus rhythm Cannot rule out Anterior infarct (cited on or before 21-SEP-2021) Abnormal ECG When compared with ECG of 26-MAR-2024 21:34, No significant change was found Referred By: Deonna Soto Electronically Signed By:Ricco Lozada
--- NOTE | 2024-05-01 12:41 | MHC.EDTECH ---
just notified from nurse that the EKG order will be put in now due to misinformation.
[2024-05-01 12:56] VITALS: BP 146/90; PULSE 92; RESP 16; TEMP 37; O2SAT 98; BMI 46.5
--- NOTE | 2024-05-01 12:56 | ED_ITS ---
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 She states she works out 6 days a week. She states her heart rate is normal in the 150s. She states noting it was in the 160s this week, which she states was unusual. She states no exertional dyspnea or chest pain. She states just feeling generally off during her treadmill workouts. She states palpitations . She states no syncope. She states laying down for bed last night and coughing and experiencing chest pressure. She states this has since resolved. She states no recent febrile illness. She states no sputum production, congestion, myalgias or headache. She states no trauma. She states no abdominal pain, back pain, nausea/vomiting, changes to bowel habits or urinary symptoms. Related Data Previous Rx's ?Medication ?Instructions ?Recorded albuterol sulfate 90 mcg/actuation 2 puff inhalation Q4-6H PRN 07/14/21 aerosol inhaler (ProAir HFA) Wheezing #8.5 grams azithromycin 250 mg tablet 250 mg PO DAILY 4 days #4 tabs 07/14/21 (Zithromax) codeine 10 mg-guaifenesin 100 mg/5 10 ml PO Q4-6H PRN cough #237 mL 07/14/21 mL oral liquid prednisone 20 mg tablet 40 mg (2 x 20 mg) PO DAILY #10 tabs 07/14/21 azithromycin 250 mg tablet See Rx Instructions PO .COMPLEX #6 05/17/22 tabs oxcarbazepine 300 mg tablet 300 mg PO BID #60 tabs 05/17/22 oxycodone 5 mg tablet 5 mg PO Q8H PRN severe pain (scale 04/10/23 score 7-10) #9 tabs prednisone 20 mg tablet 40 mg (2 x 20 mg) PO DAILY #10 tabs 04/10/23 tamsulosin 0.4 mg capsule (Flomax) 0.4 mg PO DAILY #10 caps 04/10/23 cefuroxime axetil 250 mg tablet 250 mg PO BID 7 days #14 tabs 04/27/23 phenazopyridine 200 mg tablet 200 mg PO TID PRN pain 6 doses #6 04/27/23 (Pyridium) tabs amoxicillin 875 mg-potassium 1 tab PO BID #14 tabs 03/27/24 clavulanate 125 mg tablet Allergies Allergy/AdvReac Type Severity Reaction Status Date / Time Sulfa (Sulfonamide Allergy Unknown HIVES Verified 05/01/24 13:00 Antibiotics) [SULFA (SULFONAMIDE ANTIBIOTICS)] cephalexin Allergy Hives Verified 05/01/24 13:00 levofloxacin Allergy Shakiness Verified 05/01/24 13:00 meperidine [From DEMEROL] AdvReac Unknown COMBATIVE Verified 05/01/24 13:00 midazolam [From VERSED] AdvReac Unknown COMBATIVE Verified 05/01/24 13:00 Banana (Diagnostic) Allergy Unknown oral Uncoded 03/26/24 21:30 allergy [place] Extract Allergy Unknown anaphylaxis Uncoded 03/26/24 21:30 [place] (Diagnostic) Allergy Unknown oral Uncoded 03/26/24 21:30 allergy Watermelon Flavor Allergy Unknown oral Uncoded 03/26/24 21:30 allergy White potato Allergy Unknown hives Uncoded 03/26/24 21:30 Review of Systems 2 Review of Systems: ROS as per [facility] Past Medical History Medical History Pulmonary emboli DVT (deep venous thrombosis) Surgical History H/O: hysterectomy Social History Social History Alcohol intake: never Patient Tobacco Use Status: Never used Tobacco Smoked in Last 30 Days: No Use of substances other than those prescribed or required for medical reasons: No Advance Directives: No Physical Exam 2 Vital Signs: Vital Signs: Last Vital Signs Temp 98.1 F 05/01/24 14:39 Pulse 96 05/01/24 14:52 Resp 12 05/01/24 14:39 BP 148/93 H 05/01/24 14:39 Pulse Ox 98 05/01/24 14:39 O2 Del Method Room Air 05/01/24 14:39 BMI result Body Mass Index 46.5 Gen: NAD, AOx3 HEENT: NCAT, EOMI, normal conjunctiva CV: RRR, no murmurs appreciated Pulm: CTAB, no increased work of breathing GI: Soft, NTND, no rebound, guarding or rigidity MSK: No peripheral pitting edema, no leg swelling, no calf tenderness to palpation Neuro: Grossly non focal Course Course Course Narrative: This is a Rapid Medical Examination (RME) performed by Ame Soto PA-C in triage. Full HPI, ROS, assessment and treatment plan per primary provider in the Main ED. 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 Most recent DVT was last year when off of Eliquis. There is a cough when laying down. Is active 6 days a week using treadmill. HR is increased even with lower exertion rates. She endorses chest pain and SOB with exercise. Recurrent blood clots when off of anticoagulation. Plan: Labs, EKG, Imaging per primary provider Medical Decision Making Medical Decision Making MDM Narrative: Differential diagnosis includes, but is not limited to anxiety, pneumothorax, viral syndrome, arrythmia. I have very low clinical suspicion for acute coronary syndrome given well-appearing patient with no identifiable risk factors for early coronary artery disease (such as hypertension, hyperlipidemia, smoking, diabetes, family history of early coronary artery disease under the age of 50 in first degree relative). I considered pulmonary embolism but presentation is atypical and not suggestive of this. Further, she reports compliance with her Eliquis and she is not tachypneic or tachycardic. Patient is afebrile and hemodynamically stable on room air. Exam is benign and reassuring. I reviewed and interpreted labs, which are noncontributory. High-sensitivity troponin is negative and ECG is non-ischemic effectively ruling out ACS. I reviewed and interpreted EKG, which is unremarkable for any acute findings. I reviewed and interpreted patient's chest x-ray, which as below was unremarkable for any acute radiographic findings. On re-examination, patient is well-appearing and in no acute distress. ?Patient states symptoms have resolved.?There is no indication for further emergent evaluation in this otherwise well-appearing patient as above. ?Patient is provided written and verbal instructions, educational materials, recommendations for outpatient follow-up, strict return precautions and teach back is performed. ?Patient states understanding and agreement with plan of care. ?Patient is discharged home in stable and improved condition. Lab Data MDM Lab Attestation statement: I reviewed the patient's lab results. Please see my note for details regarding interpretation of labs 05/01/24 13:10 05/01/24 13:10 Labs: Lab Results 05/01/24 05/01/24 Range/Units 13:10 14:47 WBC 7.5 (4.8-10.8) X10*3/uL RBC 5.00 (4.20-5.50) X10*6/uL Hgb 14.1 (12.0-16.0) g/dl Hct 42.3 (37.0-47.0) % MCV 84.6 (80.0-98.0) fL MCH 28.2 (27.0-33.0) pg MCHC 33.3 (31.0-35.0) g/dl RDW 13.9 (11.0-16.0) % Plt Count 307 (160-400) X10*3/uL MPV 9.1 L (9.4-12.3) fL Immature Gran % (Auto) 0.1 (0.0-0.4) % Neut % (Auto) 36.5 L (45-73) % Lymph % (Auto) 48.7 H (20-40) % [place] % (Auto) 8.0 (2-11) % Eos % (Auto) 5.9 H (0-4) % Baso % (Auto) 0.8 (0-2) % Lymph # (Auto) 3.7 (1.2-4.9) X10*3/uL [place] # (Auto) 0.6 (0.1-1.2) X10*3/uL Eos # (Auto) 0.4 (0.0-0.4) X10*3/uL Baso # (Auto) 0.1 (0.0-0.2) X10*3/uL Abs Immat Gran (auto) 0.01 (0.00-0.03) X10*3/uL Absolute Neuts (auto) 2.7 (2.0-8.3) x10*3/uL Absolute Nucleated RBC 0.000 (0.0-0.012) X10*3/uL Nucleated RBC % (auto) 0.0 (0.0-0.2) /100WBC PT 11.8 (11.1-13.3) SEC INR 1.0 (0.9-1.1) APTT 30.4 (26.0-36.8) SEC Sodium 140 (135-145) mmol/L Potassium 4.2 (3.3-5.1) mmol/L Chloride 105 (96-108) mmol/L Carbon Dioxide 28 (22-29) mmol/L Anion Gap 11 L (12-20) BUN 8 L (9-16) mg/dL Creatinine 0.98 (0.5-1.4) mg/dL Estim Creat Clear Calc 101.7 Estimated GFR > 60 Random Glucose 96 (60-115) mg/dL Calcium 9.6 (8.4-10.2) mg/dL Total Bilirubin 0.3 (0.0-1.0) mg/dL Direct Bilirubin 0.1 (0.0-0.5) mg/dL AST 15 (5-31) U/L ALT 13 (0-31) U/L Alkaline Phosphatase 99 (39-117) U/L Troponin I High Sens < 2.7 (<3.5-17.0) ng/L B-Natriuretic Peptide 11 (<100) pg/mL Total Protein 7.3 (6.5-8.0) g/dL Albumin 4.1 (3.5-5.0) g/dL Urine Color Yellow Urine Appearance Cloudy Urine pH 7.0 (5.0-9.0) Ur Specific [place] 1.020 (1.005-1.025) Urine Protein Trace (Neg-Trace) mg/dL Urine Glucose (UA) Negative (Negative) mg/dL Urine Ketones Trace (Negative) mg/dL Urine Blood Negative (Negative) Urine Nitrite Negative (Negative) Ur Leukocyte Esterase Trace H (Negative) Urine RBC 0-2 (0-2) /HPF Urine WBC 0-5 (0-5) /HPF Ur Squamous Epith Cells >20 (0-2) /HPF Urine Bacteria 3+ (None Seen) Hyaline Casts 0-2 (0-2) /LPF COVID-19 (RAJ) Negative (Negative) COVID-19 Clin Com See Note Independent Interpretation I performed an independent interpretation of an: EKG and Plain X-Ray Interpretation: Please see my note for details regarding EKG and chest x-ray interpretation Discharge Plan Discharge Clinical Impression: Chest pain Patient Disposition: Home, Self-Care Instructions: Chest Pain (ED) Additional Instructions: You were seen and evaluated in the emergency room. Your vital signs were normal and he did not have fever. ? Your blood work was normal. Your chest x-ray was normal. Your EKG was normal. Please follow-up with your primary care doctor in the next 5-7 days. Please note that your workup is not complete until you follow-up with your primary care doctor. Please return to the emergency room if you develop any worsening symptoms including, but not limited to fever, chest pain, difficulty breathing, abdominal pain, nausea/vomiting or inability to eat/drink. Prescriptions: No Action prednisone 20 mg tablet 40 mg PO DAILY Qty: 10 0RF codeine-guaifenesin 10-100 mg/5 mL liquid 10 ml PO Q4-6H PRN (Reason: cough) Qty: 237 0RF albuterol sulfate [ProAir HFA] 90 mcg/actuation HFA aerosol inhaler 2 puff inhalation Q4-6H PRN (Reason: Wheezing) Qty: 8.5 0RF azithromycin [Zithromax] 250 mg tablet 250 mg PO DAILY 4 Days Qty: 4 0RF Rx Instructions: start on day 2 of therapy azithromycin 250 mg tablet See Rx Instructions .ROUTE .COMPLEX Qty: 6 0RF Rx Instructions: For 250 mg dose pack: take 500 mg today (day 1), then 250 mg for 4 days (days 2-5) oxcarbazepine 300 mg tablet 300 mg PO BID Qty: 60 0RF phenazopyridine [Pyridium] 200 mg tablet 200 mg PO TID PRN (Reason: pain) Qty: 6 0RF cefuroxime axetil 250 mg tablet 250 mg PO BID 7 Days Qty: 14 0RF tamsulosin [Flomax] 0.4 mg capsule 0.4 mg PO DAILY Qty: 10 0RF prednisone 20 mg tablet 40 mg PO DAILY Qty: 10 0RF oxycodone 5 mg tablet 5 mg PO Q8H PRN (Reason: severe pain (scale score 7-10)) Qty: 9 0RF Rx Instructions: Partial Fill upon patient request. amoxicillin-pot clavulanate 875-125 mg tablet 1 tab PO BID Qty: 14 0RF Print Language: Belarusian
[2024-05-01 13:18] LABS: MANUAL DIFF FLAG NO
[2024-05-01 13:19] LABS: Basophils Absolute Auto 0.1 X10*3/uL (0.0-0.2); Basophils Percent Auto 0.8 % (0-2); Eosinophils Absolute Auto 0.4 X10*3/uL (0.0-0.4); Eosinophils Percent Auto 5.9 % (0-4); Hematocrit 42.3 % (37.0-47.0); Hemoglobin 14.1 g/dl (12.0-16.0); Imm Gran Abs Auto 0.01 X10*3/uL (0.00-0.03); Imm Gran Pct Auto 0.1 % (0.0-0.4); Lymphocytes Absolute Auto 3.7 X10*3/uL (1.2-4.9); Lymphocytes Percent Auto 48.7 % (20-40); Mean Corpuscular HGB Conc 33.3 g/dl (31.0-35.0); Mean Corpuscular Hemoglobin 28.2 pg (27.0-33.0); Mean Corpuscular Volume 84.6 fL (80.0-98.0); Mean Platelet Volume 9.1 fL (9.4-12.3); Monocytes Absolute Auto 0.6 X10*3/uL (0.1-1.2); Neutrophils Absolute Auto 2.7 x10*3/uL (2.0-8.3); Neutrophils Percent Auto 36.5 % (45-73); Platelet Count 307 X10*3/uL (160-400); Red Cell Distribution Width 13.9 % (11.0-16.0); White Blood Count 7.5 X10*3/uL (4.8-10.8)
[2024-05-01 13:24] LABS: Prothrombin Time 11.8 SEC (11.1-13.3)
[2024-05-01 13:27] LABS: Partial Thromboplastin Time 30.4 SEC (26.0-36.8)
[2024-05-01 13:36] LABS: COVID-19 Test Negative (Negative); IDNOW Serial# 08D9AD1C
[2024-05-01 13:38] LABS: Alanine Aminotransferase 13 U/L (0-31); Albumin Level 4.1 g/dL (3.5-5.0); Alkaline Phosphatase 99 U/L (39-117); Anion Gap 11 (12-20); Aspartate Amino Transferase 15 U/L (5-31); Bilirubin Direct 0.1 mg/dL (0.0-0.5); Bilirubin Total 0.3 mg/dL (0.0-1.0); Blood Urea Nitrogen 8 mg/dL (9-16); Calcium 9.6 mg/dL (8.4-10.2); Carbon Dioxide 28 mmol/L (22-29); Chloride 105 mmol/L (96-108); Creatinine Clr Calc Pharmacy 101.7; Estimated Glomerular Filt Rate > 60; Glucose Random 96 mg/dL (60-115); Potassium 4.2 mmol/L (3.3-5.1); Sodium 140 mmol/L (135-145); Total Protein 7.3 g/dL (6.5-8.0)
[2024-05-01 13:44] LABS: B Type Natriuretic Peptide 11 pg/mL (<100); Troponin-I High Sensitivity < 2.7 ng/L (<3.5-17.0)
[2024-05-01 14:39] VITALS: BP 148/93; PULSE 91; RESP 12; TEMP 36.7; O2SAT 98
--- NOTE | 2024-05-01 14:42 | PC.NURSE ---
patient arrives through external triage with cc of chest pain since yesterday. patient states she recently started exercising more and she will walk on the treadmill and yesterday she found herself having some chest pain while exercising, the pain continued when she got home and became worse when she laid flat, patient endorses a dry nonproductive cough since the pain started as well. patient with hx of breast cancer with recent lumpectomy in january. states she woke up this morning and the pain was still there and she just felt off . patient blood work drawn in triage, ambulatory to bathroom to provide urine sample. patient placed on gambling monitor upon returning. lung sounds CTA, S1 and S2 appreciated. patient denies any swelling to lower extremities or recent sick contacts or fevers. awaiting MD baer at this time
[2024-05-01 14:52] VITALS: PULSE 96
[2024-05-01 15:09] LABS: Appearance Urine Cloudy; Color Urine Yellow; Glucose Urine UA Negative (Negative); Leukocyte Esterase Urine Trace (Negative); Nitrite Urine Negative (Negative); UMIC TRIGGER UACC YES; Urine Blood Negative (Negative); Urine Ketones Trace mg/dL (Negative); Urine Protein Trace mg/dL (Neg-Trace)
--- NOTE | 2024-05-01 15:13 | ED_ITS ---
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 She states she works out 6 days a week. She states her heart rate is normal in the 150s. She states noting it was in the 160s this week, which she states was unusual. She states no exertional dyspnea or chest pain. She states just feeling generally off during her treadmill workouts. She states palpitations . She states no syncope. She states laying down for bed last night and coughing and experiencing chest pressure. She states this has since resolved. She states no recent febrile illness. She states no sputum production, congestion, myalgias or headache. She states no trauma. She states no abdominal pain, back pain, nausea/vomiting, changes to bowel habits or urinary symptoms. Related Data Previous Rx's ?Medication ?Instructions ?Recorded albuterol sulfate 90 mcg/actuation 2 puff inhalation Q4-6H PRN 07/14/21 aerosol inhaler (ProAir HFA) Wheezing #8.5 grams azithromycin 250 mg tablet 250 mg PO DAILY 4 days #4 tabs 07/14/21 (Zithromax) codeine 10 mg-guaifenesin 100 mg/5 10 ml PO Q4-6H PRN cough #237 mL 07/14/21 mL oral liquid prednisone 20 mg tablet 40 mg (2 x 20 mg) PO DAILY #10 tabs 07/14/21 azithromycin 250 mg tablet See Rx Instructions PO .COMPLEX #6 05/17/22 tabs oxcarbazepine 300 mg tablet 300 mg PO BID #60 tabs 05/17/22 oxycodone 5 mg tablet 5 mg PO Q8H PRN severe pain (scale 04/10/23 score 7-10) #9 tabs prednisone 20 mg tablet 40 mg (2 x 20 mg) PO DAILY #10 tabs 04/10/23 tamsulosin 0.4 mg capsule (Flomax) 0.4 mg PO DAILY #10 caps 04/10/23 cefuroxime axetil 250 mg tablet 250 mg PO BID 7 days #14 tabs 04/27/23 phenazopyridine 200 mg tablet 200 mg PO TID PRN pain 6 doses #6 04/27/23 (Pyridium) tabs amoxicillin 875 mg-potassium 1 tab PO BID #14 tabs 03/27/24 clavulanate 125 mg tablet Allergies Allergy/AdvReac Type Severity Reaction Status Date / Time Sulfa (Sulfonamide Allergy Unknown HIVES Verified 05/01/24 13:00 Antibiotics) [SULFA (SULFONAMIDE ANTIBIOTICS)] cephalexin Allergy Hives Verified 05/01/24 13:00 levofloxacin Allergy Shakiness Verified 05/01/24 13:00 meperidine [From DEMEROL] AdvReac Unknown COMBATIVE Verified 05/01/24 13:00 midazolam [From VERSED] AdvReac Unknown COMBATIVE Verified 05/01/24 13:00 Banana (Diagnostic) Allergy Unknown oral Uncoded 03/26/24 21:30 allergy [place] Extract Allergy Unknown anaphylaxis Uncoded 03/26/24 21:30 [place] (Diagnostic) Allergy Unknown oral Uncoded 03/26/24 21:30 allergy Watermelon Flavor Allergy Unknown oral Uncoded 03/26/24 21:30 allergy White potato Allergy Unknown hives Uncoded 03/26/24 21:30 Review of Systems 2 Review of Systems: ROS as per [facility] Past Medical History Medical History Pulmonary emboli DVT (deep venous thrombosis) Surgical History H/O: hysterectomy Social History Social History Alcohol intake: never Patient Tobacco Use Status: Never used Tobacco Smoked in Last 30 Days: No Use of substances other than those prescribed or required for medical reasons: No Advance Directives: No Physical Exam ED Vital Signs: Vital Signs - 24 hr 05/01/24 12:56 05/01/24 14:39 05/01/24 14:52 Temperature 98.6 F 98.1 F Pulse Rate 92 91 Pulse Rate [Monitor] 96 Respiratory Rate 16 12 Blood Pressure 146/90 H 148/93 H Pulse Oximetry 98 98 Oxygen Delivery Method Room Air Room Air BMI result Body Mass Index 46.5 Gen: NAD, AOx3 HEENT: NCAT, EOMI, normal conjunctiva CV: RRR, no murmurs appreciated Pulm: CTAB, no increased work of breathing GI: Soft, NTND, no rebound, guarding or rigidity MSK: No peripheral pitting edema, no leg swelling, no calf tenderness to palpation Neuro: Grossly non focal Medical Decision Making Medical Decision Making MDM Narrative: Differential diagnosis includes, but is not limited to anxiety, pneumothorax, viral syndrome, arrythmia. I have very low clinical suspicion for acute coronary syndrome given well-appearing patient with no identifiable risk factors for early coronary artery disease (such as hypertension, hyperlipidemia, smoking, diabetes, family history of early coronary artery disease under the age of 50 in first degree relative). I considered pulmonary embolism but presentation is atypical and not suggestive of this. Further, she reports compliance with her Eliquis and she is not tachypneic or tachycardic. Patient is afebrile and hemodynamically stable on room air. Exam is benign and reassuring. I reviewed and interpreted labs, which are noncontributory. High-sensitivity troponin is negative and ECG is non-ischemic effectively ruling out ACS. I reviewed and interpreted EKG, which is unremarkable for any acute findings. I reviewed and interpreted patient's chest x-ray, which as below was unremarkable for any acute radiographic findings. On re-examination, patient is well-appearing and in no acute distress. ?Patient states symptoms have resolved.?There is no indication for further emergent evaluation in this otherwise well-appearing patient as above. ?Patient is provided written and verbal instructions, educational materials, recommendations for outpatient follow-up, strict return precautions and teach back is performed. ?Patient states understanding and agreement with plan of care. ?Patient is discharged home in stable and improved condition. Admission/Observation Consideration of admission/observation: Escalation of care including admission/observation considered Lab Data MDM Lab Attestation statement: I reviewed the patient's lab results. I reviewed and interpreted the patient's labs including CBC, CMP, troponin, BNP and urinalysis, which as below it is unremarkable and noncontributory. Patient has tested negative for COVID-19. 05/01/24 13:10 05/01/24 13:10 Labs: Lab Results 05/01/24 05/01/24 Range/Units 13:10 14:47 WBC 7.5 (4.8-10.8) X10*3/uL RBC 5.00 (4.20-5.50) X10*6/uL Hgb 14.1 (12.0-16.0) g/dl Hct 42.3 (37.0-47.0) % MCV 84.6 (80.0-98.0) fL MCH 28.2 (27.0-33.0) pg MCHC 33.3 (31.0-35.0) g/dl RDW 13.9 (11.0-16.0) % Plt Count 307 (160-400) X10*3/uL MPV 9.1 L (9.4-12.3) fL Immature Gran % (Auto) 0.1 (0.0-0.4) % Neut % (Auto) 36.5 L (45-73) % Lymph % (Auto) 48.7 H (20-40) % [place] % (Auto) 8.0 (2-11) % Eos % (Auto) 5.9 H (0-4) % Baso % (Auto) 0.8 (0-2) % Lymph # (Auto) 3.7 (1.2-4.9) X10*3/uL [place] # (Auto) 0.6 (0.1-1.2) X10*3/uL Eos # (Auto) 0.4 (0.0-0.4) X10*3/uL Baso # (Auto) 0.1 (0.0-0.2) X10*3/uL Abs Immat Gran (auto) 0.01 (0.00-0.03) X10*3/uL Absolute Neuts (auto) 2.7 (2.0-8.3) x10*3/uL Absolute Nucleated RBC 0.000 (0.0-0.012) X10*3/uL Nucleated RBC % (auto) 0.0 (0.0-0.2) /100WBC PT 11.8 (11.1-13.3) SEC INR 1.0 (0.9-1.1) APTT 30.4 (26.0-36.8) SEC Sodium 140 (135-145) mmol/L Potassium 4.2 (3.3-5.1) mmol/L Chloride 105 (96-108) mmol/L Carbon Dioxide 28 (22-29) mmol/L Anion Gap 11 L (12-20) BUN 8 L (9-16) mg/dL Creatinine 0.98 (0.5-1.4) mg/dL Estim Creat Clear Calc 101.7 Estimated GFR > 60 Random Glucose 96 (60-115) mg/dL Calcium 9.6 (8.4-10.2) mg/dL Total Bilirubin 0.3 (0.0-1.0) mg/dL Direct Bilirubin 0.1 (0.0-0.5) mg/dL AST 15 (5-31) U/L ALT 13 (0-31) U/L Alkaline Phosphatase 99 (39-117) U/L Troponin I High Sens < 2.7 (<3.5-17.0) ng/L B-Natriuretic Peptide 11 (<100) pg/mL Total Protein 7.3 (6.5-8.0) g/dL Albumin 4.1 (3.5-5.0) g/dL Urine Color Yellow Urine Appearance Cloudy Urine pH 7.0 (5.0-9.0) Ur Specific [place] 1.020 (1.005-1.025) Urine Protein Trace (Neg-Trace) mg/dL Urine Glucose (UA) Negative (Negative) mg/dL Urine Ketones Trace (Negative) mg/dL Urine Blood Negative (Negative) Urine Nitrite Negative (Negative) Ur Leukocyte Esterase Trace H (Negative) Urine RBC 0-2 (0-2) /HPF Urine WBC 0-5 (0-5) /HPF Ur Squamous Epith Cells >20 (0-2) /HPF Urine Bacteria 3+ (None Seen) Hyaline Casts 0-2 (0-2) /LPF COVID-19 (RAJ) Negative (Negative) COVID-19 Clin Com See Note Independent Interpretation I performed an independent interpretation of an: EKG and Plain X-Ray Interpretation: I reviewed and interpreted patient's chest x-ray which demonstrates no focal consolidation or pneumothorax. EKG demonstrates normal sinus rhythm 93 beats per minute, RI 178, QRS 86, QTC 447, no ST/T-wave changes, no STEMI (there are no diagnostic ischemic changes when compared to prior EKG March 26, 2024) Discharge Plan Discharge Clinical Impression: Chest pain Patient Disposition: Home, Self-Care Instructions: Chest Pain (ED) Additional Instructions: You were seen and evaluated in the emergency room. Your vital signs were normal and he did not have fever. ? Your blood work was normal. Your chest x-ray was normal. Your EKG was normal. Please follow-up with your primary care doctor in the next 5-7 days. Please note that your workup is not complete until you follow-up with your primary care doctor. Please return to the emergency room if you develop any worsening symptoms including, but not limited to fever, chest pain, difficulty breathing, abdominal pain, nausea/vomiting or inability to eat/drink. Prescriptions: No Action prednisone 20 mg tablet 40 mg PO DAILY Qty: 10 0RF codeine-guaifenesin 10-100 mg/5 mL liquid 10 ml PO Q4-6H PRN (Reason: cough) Qty: 237 0RF albuterol sulfate [ProAir HFA] 90 mcg/actuation HFA aerosol inhaler 2 puff inhalation Q4-6H PRN (Reason: Wheezing) Qty: 8.5 0RF azithromycin [Zithromax] 250 mg tablet 250 mg PO DAILY 4 Days Qty: 4 0RF Rx Instructions: start on day 2 of therapy azithromycin 250 mg tablet See Rx Instructions .ROUTE .COMPLEX Qty: 6 0RF Rx Instructions: For 250 mg dose pack: take 500 mg today (day 1), then 250 mg for 4 days (days 2-5) oxcarbazepine 300 mg tablet 300 mg PO BID Qty: 60 0RF phenazopyridine [Pyridium] 200 mg tablet 200 mg PO TID PRN (Reason: pain) Qty: 6 0RF cefuroxime axetil 250 mg tablet 250 mg PO BID 7 Days Qty: 14 0RF tamsulosin [Flomax] 0.4 mg capsule 0.4 mg PO DAILY Qty: 10 0RF prednisone 20 mg tablet 40 mg PO DAILY Qty: 10 0RF oxycodone 5 mg tablet 5 mg PO Q8H PRN (Reason: severe pain (scale score 7-10)) Qty: 9 0RF Rx Instructions: Partial Fill upon patient request. amoxicillin-pot clavulanate 875-125 mg tablet 1 tab PO BID Qty: 14 0RF Print Language: Swiss
[2024-05-01 15:14] LABS: Bacteria Urine 3+ (None Seen); Hyaline Casts Urine 0-2 /LPF (0-2); RBC Urine 0-2 /HPF (0-2); Squamous Epithelial Cell Urine >20 /HPF (0-2); WBC Urine 0-5 /HPF (0-5)
[2024-05-01 16:30] VITALS: BP 145/64; PULSE 89; RESP 16; TEMP 36.7; O2SAT 98
[2024-05-01 16:32] VITALS: BP 145/64; PULSE 89; RESP 18; TEMP 36.7; O2SAT 98
== END 2024-05-01 16:33 | disposition home or self-care (01) ==
PROVIDERS: Physician Assistant; Emergency Provider Emergency Medicine; PCP Pediatrics
DX: R07.89 Other chest pain (principal); R42 Dizziness and giddiness; R06.02 Shortness of breath; Z86.718 Personal history of other venous thrombosis and embolism; Z11.52 Encounter for screening for COVID-19; Z79.01 Long term (current) use of anticoagulants; Z79.899 Other long term (current) drug therapy
CPT/HCPCS: 71045; 80048; 80076; 81001; 83880; 84484; 85025; 85610; 85730; 87635; 93005; 99283; 99285

== ENCOUNTER → 2024-05-01 12:41 | Outpatient (BNV) | payer OTHER, SELFPAY | PROVIDERS: Emergency Provider Emergency Medicine; PCP Pediatrics; Visit Provider Internal Medicine Cardiovascular Disease | DX: R07.89 Other chest pain (principal) | CPT/HCPCS: 93010 ==

== ENCOUNTER 2024-07-01 15:37 | Emergency (ER) | payer OTHER, SELFPAY ==
--- NOTE | ~2024-07-01 | US_ITS ---
EXAMINATION: US ABDOMEN LIMITED CLINICAL INFORMATION: Right upper quadrant pain and nausea. COMPARISON: CT abdomen and pelvis 04/10/2023 TECHNIQUE: Real-time imaging of the right upper quadrant abdominal viscera. FINDINGS: PANCREAS: The pancreas was obscured by bowel gas and could not be seen LIVER: The liver is normal in size. The liver contour is normal. There is diffuse increased liver parenchymal echogenicity, consistent with hepatic steatosis. No focal hepatic lesion. There is no intrahepatic biliary duct dilatation seen. GALLBLADDER: The gallbladder is contracted. Vega sign is positive. COMMON BILE DUCT: Normal in caliber measuring 0.5 cm in diameter. RIGHT KIDNEY: No hydronephrosis. No renal calculi or focal parenchymal lesions. The kidney measures 12.9 cm in maximum dimension. A benign 2.0 cm Bosniak class I renal cyst is noted which requires no additional imaging or follow up. No solid renal masses are seen. FREE FLUID: None. US/US abdomen limited IMPRESSION: 1. Hepatic steatosis. 2. Contracted gallbladder with positive Vega sign. Electronically signed by: Darnell Ba MD 07/01/2024 05:55 PM EDT
[2024-07-01 16:07] VITALS: BP 147/58; PULSE 96; RESP 18; TEMP 36.8; O2SAT 97; BMI 46.4
--- NOTE | 2024-07-01 16:07 | ED.GENADULT ---
HPI - General Adult General Chief complaint: Abdominal Pain Stated complaint: R flank pain, hx clots, nausea, pain Related Data Previous Rx's ?Medication ?Instructions ?Recorded albuterol sulfate 90 mcg/actuation 2 puff inhalation Q4-6H PRN 07/14/21 aerosol inhaler (ProAir HFA) Wheezing #8.5 grams azithromycin 250 mg tablet 250 mg PO DAILY 4 days #4 tabs 07/14/21 (Zithromax) codeine 10 mg-guaifenesin 100 mg/5 10 ml PO Q4-6H PRN cough #237 mL 07/14/21 mL oral liquid prednisone 20 mg tablet 40 mg (2 x 20 mg) PO DAILY #10 tabs 07/14/21 azithromycin 250 mg tablet See Rx Instructions PO .COMPLEX #6 05/17/22 tabs oxcarbazepine 300 mg tablet 300 mg PO BID #60 tabs 05/17/22 oxycodone 5 mg tablet 5 mg PO Q8H PRN severe pain (scale 04/10/23 score 7-10) #9 tabs prednisone 20 mg tablet 40 mg (2 x 20 mg) PO DAILY #10 tabs 04/10/23 tamsulosin 0.4 mg capsule (Flomax) 0.4 mg PO DAILY #10 caps 04/10/23 cefuroxime axetil 250 mg tablet 250 mg PO BID 7 days #14 tabs 04/27/23 phenazopyridine 200 mg tablet 200 mg PO TID PRN pain 6 doses #6 04/27/23 (Pyridium) tabs amoxicillin 875 mg-potassium 1 tab PO BID #14 tabs 03/27/24 clavulanate 125 mg tablet Allergies Allergy/AdvReac Type Severity Reaction Status Date / Time Sulfa (Sulfonamide Allergy Unknown HIVES Verified 07/02/24 08:47 Antibiotics) [SULFA (SULFONAMIDE ANTIBIOTICS)] cephalexin Allergy Hives Verified 07/02/24 08:47 levofloxacin Allergy Shakiness Verified 07/02/24 08:47 meperidine [From DEMEROL] AdvReac Unknown COMBATIVE Verified 07/02/24 08:47 midazolam [From VERSED] AdvReac Unknown COMBATIVE Verified 07/02/24 08:47 Banana (Diagnostic) Allergy Unknown oral Uncoded 07/02/24 08:47 allergy [place] Extract Allergy Unknown anaphylaxis Uncoded 07/02/24 08:47 [place] (Diagnostic) Allergy Unknown oral Uncoded 07/02/24 08:47 allergy Watermelon Flavor Allergy Unknown oral Uncoded 07/02/24 08:47 allergy White potato Allergy Unknown hives Uncoded 07/02/24 08:47 PMFSH Past Medical History Medical History Pulmonary emboli DVT (deep venous thrombosis) Surgical History H/O: hysterectomy Social History Social History Alcohol intake: never Patient Tobacco Use Status: Never used Tobacco Advance Directives: No Advance Directives Information Provided: Yes Physical Exam ED Vital Signs: BMI result Body Mass Index 46.4 Course Course Course Narrative: This is an RME performed by Shira Worley DOOR PATCHER: Additional HPI, ROS, PE not included below will be deferred to primary provider. Patient is a 49 y.o. female who presents to the emergency department for evaluation of right upper quadrant abdominal pain radiating towards her back, nausea but no vomiting, no fevers or chills. Onset symptoms 3 days ago. She reports that sometime ago she was supposed to have a HIDA scan for evaluation Plan: Serum labs, ultrasound Medical Decision Making Lab Data 07/01/24 16:21 07/01/24 16:21 Labs: Lab Results 07/01/24 Range/Units 16:21 WBC 7.3 (4.8-10.8) X10*3/uL RBC 5.01 (4.20-5.50) X10*6/uL Hgb 14.0 (12.0-16.0) g/dl Hct 41.3 (37.0-47.0) % MCV 82.4 (80.0-98.0) fL MCH 27.9 (27.0-33.0) pg MCHC 33.9 (31.0-35.0) g/dl RDW 13.2 (11.0-16.0) % Plt Count 310 (160-400) X10*3/uL MPV 9.2 L (9.4-12.3) fL Immature Gran % (Auto) 0.3 (0.0-0.4) % Neut % (Auto) 32.8 L (45-73) % Lymph % (Auto) 53.8 H (20-40) % [place] % (Auto) 8.1 (2-11) % Eos % (Auto) 4.3 H (0-4) % Baso % (Auto) 0.7 (0-2) % Lymph # (Auto) 3.9 (1.2-4.9) X10*3/uL [place] # (Auto) 0.6 (0.1-1.2) X10*3/uL Eos # (Auto) 0.3 (0.0-0.4) X10*3/uL Baso # (Auto) 0.1 (0.0-0.2) X10*3/uL Abs Immat Gran (auto) 0.02 (0.00-0.03) X10*3/uL Absolute Neuts (auto) 2.4 (2.0-8.3) x10*3/uL Absolute Nucleated RBC 0.000 (0.0-0.012) X10*3/uL Nucleated RBC % (auto) 0.0 (0.0-0.2) /100WBC Sodium 142 (135-145) mmol/L Potassium 4.2 (3.3-5.1) mmol/L Chloride 105 (96-108) mmol/L Carbon Dioxide 28 (22-29) mmol/L Anion Gap 13 (12-20) BUN 15 (9-16) mg/dL Creatinine 1.07 (0.5-1.4) mg/dL Estim Creat Clear Calc 93.0 Estimated GFR 55 Random Glucose 97 (60-115) mg/dL Calcium 10.0 (8.4-10.2) mg/dL Total Bilirubin 0.2 (0.0-1.0) mg/dL AST 18 (5-31) U/L ALT 15 (0-31) U/L Alkaline Phosphatase 85 (39-117) U/L Total Protein 7.2 (6.5-8.0) g/dL Albumin 3.9 (3.5-5.0) g/dL Lipase 32 (8-78) U/L Discharge Plan Discharge Clinical Impression: Abdominal pain Patient Disposition: Left W/O Completing Treatment Prescriptions: No Action prednisone 20 mg tablet 40 mg PO DAILY Qty: 10 0RF codeine-guaifenesin 10-100 mg/5 mL liquid 10 ml PO Q4-6H PRN (Reason: cough) Qty: 237 0RF albuterol sulfate [ProAir HFA] 90 mcg/actuation HFA aerosol inhaler 2 puff inhalation Q4-6H PRN (Reason: Wheezing) Qty: 8.5 0RF azithromycin [Zithromax] 250 mg tablet 250 mg PO DAILY 4 Days Qty: 4 0RF Rx Instructions: start on day 2 of therapy azithromycin 250 mg tablet See Rx Instructions .ROUTE .COMPLEX Qty: 6 0RF Rx Instructions: For 250 mg dose pack: take 500 mg today (day 1), then 250 mg for 4 days (days 2-5) oxcarbazepine 300 mg tablet 300 mg PO BID Qty: 60 0RF phenazopyridine [Pyridium] 200 mg tablet 200 mg PO TID PRN (Reason: pain) Qty: 6 0RF cefuroxime axetil 250 mg tablet 250 mg PO BID 7 Days Qty: 14 0RF tamsulosin [Flomax] 0.4 mg capsule 0.4 mg PO DAILY Qty: 10 0RF prednisone 20 mg tablet 40 mg PO DAILY Qty: 10 0RF oxycodone 5 mg tablet 5 mg PO Q8H PRN (Reason: severe pain (scale score 7-10)) Qty: 9 0RF Rx Instructions: Partial Fill upon patient request. amoxicillin-pot clavulanate 875-125 mg tablet 1 tab PO BID Qty: 14 0RF Discharge Date/Time: 07/01/24 21:37
[2024-07-01 16:25] LABS: MANUAL DIFF FLAG NO
[2024-07-01 16:26] LABS: Basophils Absolute Auto 0.1 X10*3/uL (0.0-0.2); Basophils Percent Auto 0.7 % (0-2); Eosinophils Absolute Auto 0.3 X10*3/uL (0.0-0.4); Eosinophils Percent Auto 4.3 % (0-4); Hematocrit 41.3 % (37.0-47.0); Imm Gran Abs Auto 0.02 X10*3/uL (0.00-0.03); Imm Gran Pct Auto 0.3 % (0.0-0.4); Lymphocytes Absolute Auto 3.9 X10*3/uL (1.2-4.9); Lymphocytes Percent Auto 53.8 % (20-40); Mean Corpuscular HGB Conc 33.9 g/dl (31.0-35.0); Mean Corpuscular Hemoglobin 27.9 pg (27.0-33.0); Mean Corpuscular Volume 82.4 fL (80.0-98.0); Mean Platelet Volume 9.2 fL (9.4-12.3); Monocytes Absolute Auto 0.6 X10*3/uL (0.1-1.2); Monocytes Percent Auto 8.1 % (2-11); Neutrophils Absolute Auto 2.4 x10*3/uL (2.0-8.3); Neutrophils Percent Auto 32.8 % (45-73); Platelet Count 310 X10*3/uL (160-400); Red Blood Count 5.01 X10*6/uL (4.20-5.50); Red Cell Distribution Width 13.2 % (11.0-16.0); White Blood Count 7.3 X10*3/uL (4.8-10.8)
[2024-07-01 16:58] LABS: Alanine Aminotransferase 15 U/L (0-31); Albumin Level 3.9 g/dL (3.5-5.0); Alkaline Phosphatase 85 U/L (39-117); Anion Gap 13 (12-20); Aspartate Amino Transferase 18 U/L (5-31); Bilirubin Total 0.2 mg/dL (0.0-1.0); Blood Urea Nitrogen 15 mg/dL (9-16); Carbon Dioxide 28 mmol/L (22-29); Chloride 105 mmol/L (96-108); Estimated Glomerular Filt Rate 55; Glucose Random 97 mg/dL (60-115); Lipase 32 U/L (8-78); Potassium 4.2 mmol/L (3.3-5.1); Sodium 142 mmol/L (135-145); Total Protein 7.2 g/dL (6.5-8.0)
== END 2024-07-01 21:37 | disposition left against medical advice (07) ==
LOC: HO.ED 21:32
PROVIDERS: Nurse Practitioner Family; Emergency Provider Emergency Medicine; PCP Pediatrics
DX: R10.9 Unspecified abdominal pain (principal); R11.2 Nausea with vomiting, unspecified; Z79.899 Other long term (current) drug therapy
CPT/HCPCS: 36415; 76705; 80053; 83690; 85025; 99281; 99283

== ENCOUNTER 2024-07-02 08:28 | Emergency (ER) | payer OTHER, SELFPAY ==
--- NOTE | ~2024-07-02 | CT_ITS ---
EXAMINATION: CT ABDOMEN AND PELVIS WITHOUT CONTRAST CLINICAL INFORMATION: Right flank pain. Right upper quadrant pain. COMPARISON: Right upper quadrant ultrasound 07/02/2024 CT abdomen/pelvis April 10, 2023 TECHNIQUE: Multidetector volumetric imaging was performed from the superior aspect of the liver through the pubic symphysis. Sagittal and coronal reformatted images were obtained on the technologist's workstation. This CT examination was performed using dose optimization techniques as appropriate, variously including the following: *Automated exposure control *Adjustment of mA and/or kV according to patient size (this includes techniques or standardized protocols for targeted exams where dose is matched to indication/reason for exam; i.e. extremities or head) *Use of iterative reconstruction technique DLP: 1362 mGy-cm FINDINGS: LUNG BASES: The visualized lung bases are unremarkable. LIVER, GALLBLADDER, AND BILIARY TREE: The liver is decreased in attenuation. No biliary ductal dilatation is present. The gallbladder is contracted. PANCREAS: No ductal dilatation. SPLEEN: Not enlarged. ADRENAL GLANDS: No adrenal mass. KIDNEYS AND URETERS: The kidneys are symmetric in size. 5 mm nonobstructing calculus lower pole left kidney. 5 mm nonobstructing calculus upper pole left kidney. 7 mm nonobstructing calculus midpole right kidney. 3 mm nonobstructing calculus lower pole right kidney. No ureteral calculus. No hydronephrosis or perinephric fluid collection. BLADDER: No bladder calculus. GASTROINTESTINAL TRACT: Small hiatal hernia. Small and large bowel loops are of normal caliber. No small bowel obstruction. Appendix is within normal limits. ABDOMINAL WALL: No significant hernia is appreciated. LYMPH NODES: No bulky lymphadenopathy. VASCULAR: Normal caliber abdominal aorta. PELVIC VISCERA: Uterus is surgically absent. Hypoattenuating lesion adjacent to the left ovary measures 1.7 x 2.5 cm unchanged from prior. The ovaries are unremarkable. No free fluid in the pelvis. OSSEOUS STRUCTURES: No destructive bone lesions. CT/CT abdomen pelvis wo IV con IMPRESSION: Bilateral nonobstructing renal calculi. No hydronephrosis. Hepatic steatosis. Electronically signed by: Jerson Aguirre MD 07/02/2024 11:03 AM EDT
--- NOTE | ~2024-07-02 | US_ITS ---
EXAMINATION: US ABDOMEN LIMITED CLINICAL INFORMATION: Right upper quadrant pain.. COMPARISON: CT scan dated April 10, 2023. Abdominal ultrasound dated April 08, 2023. TECHNIQUE: Real-time imaging of the gallbladder and common bile duct. FINDINGS: PANCREAS: Normal. LIVER: Incidentally visualized portion suggests fatty infiltration with focal fatty sparing. GALLBLADDER: Poorly demonstrated. Approximately 2 cm echogenic structure roughly in the expected location of the gallbladder fossa with decreased echogenicity posteriorly. COMMON BILE DUCT: Normal in caliber measuring 0.4 cm in diameter. FREE FLUID: None demonstrated. US/US abdomen limited IMPRESSION: Limited study. Question approximately 2 cm gallstone, equivocal. Fatty infiltration of the liver. Electronically signed by: Nick Juan MD 07/02/2024 10:10 AM EDT
[2024-07-02 08:45] VITALS: BP 145/62; PULSE 98; RESP 18; TEMP 35.8; O2SAT 96; BMI 46.3
--- NOTE | 2024-07-02 09:12 | ED.ABDPAIN ---
HPI - Abdominal Pain General Chief Complaint: Abdominal Pain Stated Complaint: Gallbladder issues Time Seen by Provider: 07/02/24 09:09 Source: patient Mode of arrival: ambulatory Limitations: no limitations History of Present Illness ED Provider: DR. Hunt HPI narrative: 49-year-old female came in for evaluation of right upper quadrant pain associated with nausea but no vomiting pain started yesterday after food came to the hospital had ultrasound on the blood workup done but patient eloped before seen by physician, returned today for increased right upper quadrant pain and right flank pain. Last meal was yesterday, no nausea, no vomiting, no fever, had a normal bowel movement this morning. Surgical history significant for hysterectomy and lumpectomy. Related Data Previous Rx's ?Medication ?Instructions ?Recorded albuterol sulfate 90 mcg/actuation 2 puff inhalation Q4-6H PRN 07/14/21 aerosol inhaler (ProAir HFA) Wheezing #8.5 grams azithromycin 250 mg tablet 250 mg PO DAILY 4 days #4 tabs 07/14/21 (Zithromax) codeine 10 mg-guaifenesin 100 mg/5 10 ml PO Q4-6H PRN cough #237 mL 07/14/21 mL oral liquid prednisone 20 mg tablet 40 mg (2 x 20 mg) PO DAILY #10 tabs 07/14/21 azithromycin 250 mg tablet See Rx Instructions PO .COMPLEX #6 05/17/22 tabs oxcarbazepine 300 mg tablet 300 mg PO BID #60 tabs 05/17/22 oxycodone 5 mg tablet 5 mg PO Q8H PRN severe pain (scale 04/10/23 score 7-10) #9 tabs prednisone 20 mg tablet 40 mg (2 x 20 mg) PO DAILY #10 tabs 04/10/23 tamsulosin 0.4 mg capsule (Flomax) 0.4 mg PO DAILY #10 caps 04/10/23 cefuroxime axetil 250 mg tablet 250 mg PO BID 7 days #14 tabs 04/27/23 phenazopyridine 200 mg tablet 200 mg PO TID PRN pain 6 doses #6 04/27/23 (Pyridium) tabs amoxicillin 875 mg-potassium 1 tab PO BID #14 tabs 03/27/24 clavulanate 125 mg tablet Allergies Allergy/AdvReac Type Severity Reaction Status Date / Time Sulfa (Sulfonamide Allergy Unknown HIVES Verified 07/02/24 08:47 Antibiotics) [SULFA (SULFONAMIDE ANTIBIOTICS)] cephalexin Allergy Hives Verified 07/02/24 08:47 levofloxacin Allergy Shakiness Verified 07/02/24 08:47 meperidine [From DEMEROL] AdvReac Unknown COMBATIVE Verified 07/02/24 08:47 midazolam [From VERSED] AdvReac Unknown COMBATIVE Verified 07/02/24 08:47 [place]ana (Diagnostic) Allergy Unknown oral Uncoded 07/02/24 08:47 allergy [place] Extract Allergy Unknown anaphylaxis Uncoded 07/02/24 08:47 [place] (Diagnostic) Allergy Unknown oral Uncoded 07/02/24 08:47 allergy Watermelon Flavor Allergy Unknown oral Uncoded 07/02/24 08:47 allergy White potato Allergy Unknown hives Uncoded 07/02/24 08:47 Review of Systems Review of Systems all other systems are reviewed and are negative Constitutional: Reports as per HPI and Reports no additional constitutional complaints Eyes: Reports as per HPI and Reports no additional eye complaints Reports system reviewed and no additional complaints, except as documented Cardiovascular: Reports as per HPI and Reports no additional cardiovascular complaints Respiratory: Reports as per HPI and Reports no additional respiratory complaints Gastrointestinal: Reports as per HPI and Reports no additional gastrointestinal complaints Genitourinary: Reports no additional female genitourinary complaints Musculoskeletal: Reports no additional musculoskeletal complaints Skin/Breast: Reports system reviewed and no additional complaints, except as docu Psychiatric: Reports no additional psychiatric complaints Endocrine: Reports no additional endocrine complaints Hematologic/Lymphatic: Reports no additional hematologic/lymphatic complaints Allergic/Immunologic: Reports no additional allergic/immunologic complaints Reports system reviewed and no additional complaints, except as documented and Reports Abnormal speech present [facility] Past Medical History Medical History Pulmonary emboli DVT (deep venous thrombosis) Surgical History H/O: hysterectomy Social History Social History Alcohol intake: never Patient Tobacco Use Status: Never used Tobacco Advance Directives: No Advance Directives Information Provided: Yes Physical Exam ED Vital Signs: Vital Signs - 24 hr 07/02/24 08:45 07/02/24 10:54 Temperature 96.5 F L 98 F Pulse Rate 98 97 Respiratory Rate 18 18 Blood Pressure 145/62 H 129/78 Pulse Oximetry 96 94 Oxygen Delivery Method Room Air Room Air BMI result Body Mass Index 46.3 Vital signs have been reviewed and appear to be correct. Blood pressure elevated. Heart rate normal. Respiratory rate normal. Temperature normal. Oxygen saturation normal. Appearance: Alert. Oriented X3. No acute distress. Head: Normal external exam. Normocephalic. Atraumatic. No [place] signs noted. No raccoon eyes noted Eyes: PERRLA. EOMI. Conjunctiva and sclera normal. Eyelids normal. ENT: TM's Normal. Pharynx normal. Uvula midline. Moist mucous membranes. No trismus noted. No drooling noted. No muffled voice noted. Neck: Normal inspection. Neck supple. FROM. No adenopathy. Thyroid Normal. No meningeal signs. No neck mass noted. CVS: Normal heart rate and rhythm. Heart sound normal. No murmurs noted. Pulses normal throughout. Respiratory: No respiratory distress. Painless inspiration. Breath sounds normal. No wheezes/rales/rhonchi noted. Chest nontender. No accessory muscle usage noted or decreased air movement noted. Abdomen: Soft , right upper quadrant tenderness, no rebound tenderness, no guarding. Bowel sounds normal in all 4 quadrants. No distention noted. No organomegaly noted. No visible injury noted. Back: No CVA tenderness. Full range of motion noted. Skin: Skin warm and dry. Normal skin color. Normal skin turgor. No rashes/lesions/lacerations noted. Extremities: No lower extremity edema. Extremities exhibit normal range of motion. Extremities nontender. Neuro: Oriented X 3. Cranial nerve exam: II-XII are grossly intact No motor deficit. No sensory deficit. Reflexes normal. Course Reevaluation(s) Reevaluation #1: 49-year-old female who has been having right upper quadrant pain since yesterday, patient had ultrasound yesterday but eloped before evaluation by a provider, returned today for persistent pain, ultrasound is equivocal for cholelithiasis, With a negative abdominal CT. patient has a normal WBCs, And normal LFTs, able to tolerate p.o. intake in the emergency department, plan was discussed with the patient to follow-up with certainly if the pain continue and avoid eating high fatty diet, patient agreed on the plan. Time: 12:06 Medical Decision Making Differential Diagnosis Differential Diagnoses: The differential diagnosis associated with the presentation includes ( cholelithiasis, acute cholecystitis, gastritis, pancreatitis, ureteric stone, UTI, pyelonephritis, , colitis, acute appendicitis, severe anemia electrolyte derangement.) Admission/Observation Consideration of admission/observation: Escalation of care including admission/observation considered Lab Data MDM Lab Attestation statement: I reviewed the patient's lab results. 07/02/24 09:26 07/02/24 09:26 Labs: Lab Results 07/02/24 07/02/24 Range/Units : 10:52 WBC 7.0 (4.8-10.8) X10*3/uL RBC 5.11 (4.20-5.50) X10*6/uL Hgb 14.2 (12.0-16.0) g/dl Hct 42.7 (37.0-47.0) % MCV 83.6 (80.0-98.0) fL MCH 27.8 (27.0-33.0) pg MCHC 33.3 (31.0-35.0) g/dl RDW 13.0 (11.0-16.0) % Plt Count 281 (160-400) X10*3/uL MPV 9.0 L (9.4-12.3) fL Immature Gran % (Auto) 0.3 (0.0-0.4) % Neut % (Auto) 39.9 L (45-73) % Lymph % (Auto) 47.8 H (20-40) % [place] % (Auto) 7.7 (2-11) % Eos % (Auto) 3.3 (0-4) % Baso % (Auto) 1.0 (0-2) % Lymph # (Auto) 3.4 (1.2-4.9) X10*3/uL [place] # (Auto) 0.5 (0.1-1.2) X10*3/uL Eos # (Auto) 0.2 (0.0-0.4) X10*3/uL Baso # (Auto) 0.1 (0.0-0.2) X10*3/uL Abs Immat Gran (auto) 0.02 (0.00-0.03) X10*3/uL Absolute Neuts (auto) 2.8 (2.0-8.3) x10*3/uL Absolute Nucleated RBC 0.000 (0.0-0.012) X10*3/uL Nucleated RBC % (auto) 0.0 (0.0-0.2) /100WBC ESR 9 (0-20) MM/HR Sodium 141 (135-145) mmol/L Potassium 4.5 (3.3-5.1) mmol/L Chloride 107 (96-108) mmol/L Carbon Dioxide 27 (22-29) mmol/L Anion Gap 12 (12-20) BUN 12 (9-16) mg/dL Creatinine 1.17 (0.5-1.4) mg/dL Estim Creat Clear Calc 84.9 Estimated GFR 50 Random Glucose 89 (60-115) mg/dL Calcium 10.1 (8.4-10.2) mg/dL Magnesium 1.9 (1.6-2.6) mg/dL Total Bilirubin 0.5 (0.0-1.0) mg/dL AST 19 (5-31) U/L ALT 15 (0-31) U/L Alkaline Phosphatase 83 (39-117) U/L C-Reactive Protein 0.67 H (< or = 0.50) mg/dL Total Protein 7.3 (6.5-8.0) g/dL Albumin 4.0 (3.5-5.0) g/dL Urine Color Yellow Urine Appearance Clear Urine pH 7.5 (5.0-9.0) Ur Specific [place] 1.010 (1.005-1.025) Urine Protein Negative (Neg-Trace) mg/dL Urine Glucose (UA) Negative (Negative) mg/dL Urine Ketones Negative (Negative) mg/dL Urine Blood Negative (Negative) Urine Nitrite Negative (Negative) Ur Leukocyte Esterase Negative (Negative) Independent Interpretation I performed an independent interpretation of an: Ultrasound ( Gallbladder ultrasound:Question approximately 2 cm gallstone, equivocal. Fatty infiltration of the liver.) and CT Scan ( Abdomen pelvis:Bilateral nonobstructing renal calculi. No hydronephrosis. Hepatic steatosis. ) Radiology Impression Discussion of test interpretation with radiology: I have reviewed the radiologist's reading. Discharge Plan Discharge Clinical Impression: Cholelithiasis Patient Disposition: Home, Self-Care Instructions: Gallstones (ED) Additional Instructions: refrain from eating fatty food, drink plenty of fluids, seek immediate medical attention if he having fever chills or worsening of the abdominal pain. Prescriptions: No Action prednisone 20 mg tablet 40 mg PO DAILY Qty: 10 0RF codeine-guaifenesin 10-100 mg/5 mL liquid 10 ml PO Q4-6H PRN (Reason: cough) Qty: 237 0RF albuterol sulfate [ProAir HFA] 90 mcg/actuation HFA aerosol inhaler 2 puff inhalation Q4-6H PRN (Reason: Wheezing) Qty: 8.5 0RF azithromycin [Zithromax] 250 mg tablet 250 mg PO DAILY 4 Days Qty: 4 0RF Rx Instructions: start on day 2 of therapy azithromycin 250 mg tablet See Rx Instructions .ROUTE .COMPLEX Qty: 6 0RF Rx Instructions: For 250 mg dose pack: take 500 mg today (day 1), then 250 mg for 4 days (days 2-5) oxcarbazepine 300 mg tablet 300 mg PO BID Qty: 60 0RF phenazopyridine [Pyridium] 200 mg tablet 200 mg PO TID PRN (Reason: pain) Qty: 6 0RF cefuroxime axetil 250 mg tablet 250 mg PO BID 7 Days Qty: 14 0RF tamsulosin [Flomax] 0.4 mg capsule 0.4 mg PO DAILY Qty: 10 0RF prednisone 20 mg tablet 40 mg PO DAILY Qty: 10 0RF oxycodone 5 mg tablet 5 mg PO Q8H PRN (Reason: severe pain (scale score 7-10)) Qty: 9 0RF Rx Instructions: Partial Fill upon patient request. amoxicillin-pot clavulanate 875-125 mg tablet 1 tab PO BID Qty: 14 0RF Referrals: Liz Schroeder MD [Primary Care Provider] - Felipe Carlos MD [Physician] - Print Language: Spanish
[2024-07-02 09:31] LABS: MANUAL DIFF FLAG NO
[2024-07-02 09:32] LABS: Basophils Absolute Auto 0.1 X10*3/uL (0.0-0.2); Eosinophils Absolute Auto 0.2 X10*3/uL (0.0-0.4); Eosinophils Percent Auto 3.3 % (0-4); Hematocrit 42.7 % (37.0-47.0); Hemoglobin 14.2 g/dl (12.0-16.0); Imm Gran Abs Auto 0.02 X10*3/uL (0.00-0.03); Imm Gran Pct Auto 0.3 % (0.0-0.4); Lymphocytes Absolute Auto 3.4 X10*3/uL (1.2-4.9); Lymphocytes Percent Auto 47.8 % (20-40); Mean Corpuscular HGB Conc 33.3 g/dl (31.0-35.0); Mean Corpuscular Hemoglobin 27.8 pg (27.0-33.0); Mean Corpuscular Volume 83.6 fL (80.0-98.0); Monocytes Absolute Auto 0.5 X10*3/uL (0.1-1.2); Monocytes Percent Auto 7.7 % (2-11); Neutrophils Absolute Auto 2.8 x10*3/uL (2.0-8.3); Neutrophils Percent Auto 39.9 % (45-73); Platelet Count 281 X10*3/uL (160-400); Red Blood Count 5.11 X10*6/uL (4.20-5.50)
[2024-07-02 10:03] LABS: Alanine Aminotransferase 15 U/L (0-31); Alkaline Phosphatase 83 U/L (39-117); Anion Gap 12 (12-20); Aspartate Amino Transferase 19 U/L (5-31); Bilirubin Total 0.5 mg/dL (0.0-1.0); Blood Urea Nitrogen 12 mg/dL (9-16); C Reactive Protein 0.67 mg/dL (< or = 0.50); Calcium 10.1 mg/dL (8.4-10.2); Carbon Dioxide 27 mmol/L (22-29); Chloride 107 mmol/L (96-108); Creatinine Clr Calc Pharmacy 84.9; Estimated Glomerular Filt Rate 50; Glucose Random 89 mg/dL (60-115); Magnesium 1.9 mg/dL (1.6-2.6); Potassium 4.5 mmol/L (3.3-5.1); Sodium 141 mmol/L (135-145); Total Protein 7.3 g/dL (6.5-8.0)
[2024-07-02 10:17] LABS: Erythrocyte Sedimentation Rate 9 MM/HR (0-20)
[2024-07-02 10:54] VITALS: BP 129/78; PULSE 97; RESP 18; TEMP 36.6; O2SAT 94
[2024-07-02 11:00] LABS: Appearance Urine Clear; Color Urine Yellow; Glucose Urine UA Negative (Negative); Leukocyte Esterase Urine Negative (Negative); Nitrite Urine Negative (Negative); PH 7.5 (5.0-9.0); Urine Blood Negative (Negative); Urine Ketones Negative (Negative); Urine Protein Negative (Neg-Trace)
[2024-07-02 12:37] VITALS: BP 131/78; PULSE 93; RESP 18; TEMP -17.7; TEMP 0; O2SAT 96
[2024-07-02 13:06] LABS: UPreg QC Valid YES; Urine Pregnancy NEGATIVE (NEGATIVE)
== END 2024-07-02 12:38 | disposition home or self-care (01) ==
PROVIDERS: Physician Assistant; Emergency Provider Emergency Medicine; PCP Pediatrics
DX: K80.20 Calculus of gallbladder without cholecystitis without obstruction (principal); R10.11 Right upper quadrant pain; Z79.899 Other long term (current) drug therapy
CPT/HCPCS: 36415; 74176; 76705; 80053; 81003; 81025; 83735; 85025; 85652; 86140; 99283; 99284

== ENCOUNTER 2024-10-10 16:21 | Emergency (ER) | payer OTHER, SELFPAY ==
--- NOTE | ~2024-10-10 | CT_ITS ---
CLINICAL HISTORY: Chest pain, DUNLAP,h o PE, rule out pulmonary embolis CTA chest with 3-D postprocessing Comparison: None Findings: Study quality is suboptimal for the diagnosis of pulmonary embolism due to inadequate opacification of the main pulmonary artery which measures 150 Hounsfield units. Within thar limitation, no pulmonary embolism is identified. Heart size within normal limits. RV/LV ratio is normal. No calcified coronary artery disease. No aortic dissection or aneurysm. No significant calcified atherosclerotic disease. No lymphadenopathy. Pulmonary nodules measure up to 3 mm in the right upper lobe. No pneumothorax or pleural effusion. No acute osseous or soft tissue abnormality. Postsurgical change in the left breast. No acute pathology in the imaged portion of the upper abdomen. Small hiatal hernia. Impression: No pulmonary embolism. Pulmonary nodules measuring up to 3mm, likely infectious/inflammatory. No follow-up is required in low risk individuals. High risk individuals have the option of a 1 year follow-up chest CT. This document has been electronically signed by: Radha Villanueva MD on 10/10/2024 19:15:27
--- NOTE | ~2024-10-10 | US_ITS ---
CLINICAL HISTORY: LLE pain r o dvt Left lower extremity venous duplex ultrasound Comparison: None Findings: The visualized deep veins are fully compressible with normal flow. No popliteal cyst. Impression: No deep vein thrombosis. This document has been electronically signed by: Radha Villanueva MD on 10/10/2024 17:24:13
--- OUTSIDE RECORDS SUMMARY | 2024-10-10 16:23 | XMS_ITS ---
Author Name [facility] Organization Unknown Results Test Name/Text Value Interpretation Date Range Source 25(OH)D3 SerPl-mCnc 35ng/mL Normal [id number] 30 - 10 0 [facility] Globulin Ser Calc-mCnc 2.6g/dL Normal [id number] 1.5 - 3.9 [facility] ALT SerPl-cCnc 17U/L Normal [id number] 10 - 50 [facility] CCT AST SerPl-cCnc 17U/L Normal [id number] 10 - 50 [facility] CCT GFR/BSA.pred SerPlBld [id number] 62 Normal [id number] 59 - [facility] Albumin SerPl-mCnc 4.2g/dL Normal [id number] 3.5 - 5 [facility] Albumin/Glob SerPl 1.6Ratio Normal [id number] 1 - 3 [facility] Creat SerPl-mCnc 1.1mg/dL Normal [id number] 0.4 - 1.1 [facility] Bilirub SerPl-mCnc 0.3mg/dL Normal [id number] 0.2 - 1 [facility] Anion Gap Bld-sCnc 13 Normal [id number] 7 - 17 [facility] Sodium SerPl-sCnc 140mmol/L Normal [id number] 136 - 145 [facility] Potassium SerPl-sCnc 4.9mmol/L Normal [id number] 3.4 - 5.3 [facility] Chloride SerPl-sCnc 102mmol/L Normal [id number] 98 - 10 7 [facility] Glucose SerPl-mCnc 97mg/dL Normal [id number] 65 - 99 [facility] Prot SerPl-mCnc 6.8g/dL Normal [id number] 6.3 - 8.3 [facility] BUN/Creat SerPl 10Ratio Normal [id number] 10 - 25 [facility] Calcium SerPl-mCnc 9.6mg/dL Normal [id number] 8.7 - 10 .5 [facility] CO2 SerPl-sCnc 25mmol/L Normal [id number] 22 - 33 [facility] CCT BUN SerPl-mCnc 11mg/dL Normal [id number] 8 - 21 [facility] CCT ALP SerPl-cCnc 90U/L Normal [id number] 32 - 122 [facility] CCT Lymphocytes/leuk NFr Bld Auto 46.6% Normal [id number] [facility] PMV Bld Auto 8.7fL Normal [id number] 7.5 - 12.[address] Hct VFr Bld Auto 45.2% Normal [id number] 35 - 47 [facility] Neutrophils num Bld Auto 2.9Thou/uL Normal [id number] 2 - 7.5 [facility] Neutrophils/leuk NFr Bld Auto 44.6% Normal [id number] [facility] MCH RBC Qn Auto 27.4pg Normal [id number] 26 - 34 [facility] RDW RBC Auto-Rto 12.9% Normal [id number] 11.5 - 14. 5 [facility] Platelet num Bld Auto 354Thou/uL Normal [id number] 150 - 450 [facility] Mixed Mononuclear 8.8% Normal [id number] [facility] MCHC RBC Auto-mCnc 31.2g/dL Normal [id number] 30 - 36 [facility] MCV RBC Auto 88fL Normal [id number] 80 - 100 [facility] T WBC num Bld Auto 6.6Thou/uL Normal [id number] 4 - 11 [facility] RBC num Bld Auto 5.15Mil/uL Normal [id number] 4 - 5.4 [facility] Mixed Mononuclear, Absolute 1Thou/uL Normal [id number] 0.2 - 1.9 [facility] Hgb Bld-mCnc 14.1g/dL Normal [id number] 11.7 - 15.7 HH CCT Lymphocytes num Bld Auto 3.1Thou/uL Normal [id number] 1 .5 - 4.5 [facility] History of Medication Use Medication Directions Dispensed Refills Start Date End Date Stat traZODone (DESYREL) 50 MG tablet Take 1 tablet (50 mg total) by mouth nightly. 08/29/2024 10/02/9999 active anastrozole (ARIMIDEX) 1 MG tablet Take 1 tablet (1 mg total) by mouth daily 08/29/2024 10/02/9999 active famotidine (PEPCID) 20 MG tablet Take 1 tablet (20 mg total) by mouth 2 (two) times a day. 07/04/2024 active cholecalciferol (CHOLECALCIFEROL) 25 MCG (1000 UT) tablet Take 1 tablet (1,000 Units total) by mouth daily. 07/04/2024 active Problems Problem Status Onset Date Problem Type Date of Resoluti on Source Invasive ductal carcinoma of breast, female, left [facility] 2024-06-28 [facility]
[2024-10-10 16:24] VITALS: BP 169/93; PULSE 93; RESP 18; TEMP 35.6; O2SAT 98; BMI 46.1
--- NOTE | 2024-10-10 16:25 | ED_ITS ---
HPI - General Adult General Chief complaint: General Medical Stated complaint: Blood clot? Leg/neck pain Time Seen by Provider: 10/10/24 16:53 Source: patient Mode of arrival: ambulatory Limitations: no limitations History of Present Illness ED Provider: Dr. Ambrosio Miller HPI narrative: 49-year-old female with a history of NAFLD, DVT, PE, left breast calves her 12/21/2023 treated with lumpectomy Anasozole who presents emergency department for evaluation of left lower extremity pain, left neck pain radiating to the occipital aspect of her head , chest tightness, shortness of breath and dyspnea on exertion with symptoms starting 1 hour prior to coming to the emergency department. The patient is on Eliquis for recurrent DVTs and PEs. She states that she may have missed some doses of her medication. Patient was concerned that she may have a blood clot in her leg and she may have a pulmonary embolism. Patient states that she was on Eliquis 2.5 mg b.i.d. and did have recurrence of DVT while she was on this medication. She the Eliquis was then increased to 5 mg b.i.d. The patient was at triage and they were difficulty drug her blood. Patient states that it took at least 4 tries to draw her blood. Patient states she was feeling hot lightheaded and dizzy and requested some juice to drink but prior to getting juice she had a syncope and was brought immediately back into the emergency department At the time my evaluation she states that she was having chest pain which is 7/10. She also feels very anxious and believes that she was having an anxiety attack. Related Data Previous Rx's ?Medication ?Instructions ?Recorded albuterol sulfate 90 mcg/actuation 2 puff inhalation Q4-6H PRN 07/14/21 aerosol inhaler (ProAir HFA) Wheezing #8.5 grams azithromycin 250 mg tablet 250 mg PO DAILY 4 days #4 tabs 07/14/21 (Zithromax) codeine 10 mg-guaifenesin 100 mg/5 10 ml PO Q4-6H PRN cough #237 mL 07/14/21 mL oral liquid prednisone 20 mg tablet 40 mg (2 x 20 mg) PO DAILY #10 tabs 07/14/21 azithromycin 250 mg tablet See Rx Instructions PO .COMPLEX #6 05/17/22 tabs oxcarbazepine 300 mg tablet 300 mg PO BID #60 tabs 05/17/22 oxycodone 5 mg tablet 5 mg PO Q8H PRN severe pain (scale 04/10/23 score 7-10) #9 tabs prednisone 20 mg tablet 40 mg (2 x 20 mg) PO DAILY #10 tabs 04/10/23 tamsulosin 0.4 mg capsule (Flomax) 0.4 mg PO DAILY #10 caps 04/10/23 cefuroxime axetil 250 mg tablet 250 mg PO BID 7 days #14 tabs 04/27/23 phenazopyridine 200 mg tablet 200 mg PO TID PRN pain 6 doses #6 04/27/23 (Pyridium) tabs amoxicillin 875 mg-potassium 1 tab PO BID #14 tabs 03/27/24 clavulanate 125 mg tablet lorazepam 1 mg tablet (Ativan) 1 mg PO TID PRN anxiety #10 tabs 10/10/24 Allergies Allergy/AdvReac Type Severity Reaction Status Date / Time Sulfa (Sulfonamide Allergy Unknown HIVES Verified 10/10/24 16:27 Antibiotics) [SULFA (SULFONAMIDE ANTIBIOTICS)] cephalexin Allergy Hives Verified 10/10/24 16:27 levofloxacin Allergy Shakiness Verified 10/10/24 16:27 meperidine [From DEMEROL] AdvReac Unknown COMBATIVE Verified 10/10/24 16:27 midazolam [From VERSED] AdvReac Unknown COMBATIVE Verified 10/10/24 16:27 Banana (Diagnostic) Allergy Unknown oral Uncoded 10/10/24 16:27 allergy [place] Extract Allergy Unknown anaphylaxis Uncoded 10/10/24 16:27 [place] (Diagnostic) Allergy Unknown oral Uncoded 10/10/24 16:27 allergy Watermelon Flavor Allergy Unknown oral Uncoded 10/10/24 16:27 allergy White potato Allergy Unknown hives Uncoded 10/10/24 16:27 Review of Systems 2 Review of Systems: Yes all other systems are reviewed and are negative [facility] Past Medical History [facility] Narrative: Social history: She denies tobacco, alcohol and drug use Medical History Pulmonary emboli DVT (deep venous thrombosis) Surgical History H/O: hysterectomy Social History Social History Alcohol intake: never Patient Tobacco Use Status: Never used Tobacco Advance Directives: No Advance Directives Information Provided: No Do you have a plan to hurt others: No Plan Physical Exam ED Vital Signs: Vital Signs - 24 hr 10/10/24 16:24 10/10/24 19:28 10/10/24 20:20 Temperature 96.1 F L 98.7 F 98.3 F Pulse Rate 93 86 90 Respiratory Rate 18 14 20 Blood Pressure 169/93 H 130/71 112/54 L Pulse Oximetry 98 98 98 Oxygen Delivery Method Room Air Room Air Room Air BMI result Body Mass Index 46.1 Vital signs revealed an elevated blood pressure of 169 over 93 otherwise unremarkable Exam: General: Awake, alert in no distress, weight 133.4 kg, elevated BMI 46.1 kg per m2 Head: Normocephalic, atraumatic EENT: PERRL, Lids normal, sclera normal, conjunctiva normal, nose normal , ears normal, throat without erythema or exudates Neck: Supple, no adenopathy Lung: breath sounds symmetric, no wheezing, rales or rhonchi Chest: symmetric movement, nontender Heart: regular rate and rhythm, normal S1, S2 no murmurs or rubs Abdomen: soft, non-tender, nondistended, normal bowel sounds Back: no vertebral tenderness, no CVAT Extremities: no deformities, moves all extremities symmetrically, lower extremities appear to be symmetric, she was no tenderness palpation over the joints of her lower extremities, no tenderness with palpation of the muscles of her lower extremities, negative Homans sign bilaterally Neuro: Awake, alert, oriented, normal speech, cranial nerves intact, moves all extremities symmetrically Psych: Pleasant, patient appears to be anxious Course Course Course Narrative: This is a Rapid Medical Exam performed in triage by Venessa Castle PA-C. Full HPI, ROS and PE to be performed by primary ED provider. 49yo F w/pmhx breast CA, DVT/PE on Eliquis to the ED c/o LLE pain (similar to prior DVTs) now with pain to side of neck to base of skull. Admits to missing a few doses of Eliquis however doubling up at night. Also reports some SOB PE: ambulating w/steady gait. no resp distress Plan: EKG, Labs, US Medications Administered Discontinued Medications Generic Name Dose Route Start Last Admin Trade Name Param PRN Reason Stop Dose Admin Sodium Chloride 1,000 mls @ 999 mls/hr 10/10/24 17:28 10/10/24 20:19 Ns IV 10/10/24 18:28 Infused .Q1H1M STA Infusion Iohexol 100 ml 10/10/24 18:21 10/10/24 18:26 Iohexol 350 Mg/Ml 100 Ml Infus..Btl IV 10/10/24 18:22 65 ml ONCE ONE Administration Lorazepam 1 mg 10/10/24 17:28 10/10/24 17:45 Lorazepam 2 Mg/Ml Vial IVPUSH 10/10/24 17:29 1 mg STAT STA Administration Ondansetron HCl 4 mg 10/10/24 17:28 10/10/24 17:45 Ondansetron Hcl 4 Mg/2 Ml Vial IVPUSH 10/10/24 17:29 4 mg ONCE ONE Administration Medical Decision Making Medical Decision Making MDM Narrative: 49-year-old female with a history of NAFLD, DVT, PE, on Eliquis left breast calves her 12/21/2023 treated with lumpectomy Anasozole who presents emergency department for evaluation of left lower extremity pain, left neck pain radiating to the occipital aspect of her head , chest tightness, shortness of breath and dyspnea on exertion with symptoms starting 1 hour prior to coming to the emergency department. Patient also had a syncopal episode in triage while she was having her blood drawn. Vital signs revealed an elevated blood pressure otherwise unremarkable. At the time my physical examination the patient did appear to be anxious otherwise exam was unremarkable. Differential diagnosis: ?Includes but is not limited to left lower extremity DVT, left lower extremity musculoskeletal pain, pulmonary embolism, myocardial infarction, myocardial ischemia, chest wall pain, anxiety attack, arrhythmia, vasovagal syncope Course: My interpretation patient's laboratory evaluation was as follows: CBC was normal. CMP was normal. BNP was below detectable limits. Troponin was below detectable limits. Twelve EKG revealed a Q-wave in lead 3 with a an inverted T-wave, also inverted T-wave in V1 otherwise unremarkable. CT angiogram PE protocol did not reveal any large pulmonary embolism to explain the patient's pain . Duplex ultrasound of left lower extremity revealed no DVT. The patient was workup is reassuring and suggests that she does not have a PE or DVT is the cause for symptoms. The patient was very anxious when I was examined here and she did receive Ativan 1 mg IV with improvement of her symptoms. I did discuss this negative workup with the patient. I did prescribe Ativan 1 mg orally t.i.d. as needed for anxiety. I did tell her that do not have a clear etiology for her symptoms and it is important that she follow up with her PCP and to return to the emergency department if her symptoms get worse in any way works develops any new symptoms that are concerning to her. Admission/Observation Consideration of admission/observation: Escalation of care including admission/observation considered (Yes) Lab Data MDM Lab Attestation statement: I reviewed the patient's lab results. 10/10/24 16:50 10/10/24 16:50 Labs: Lab Results 10/10/24 Range/Units 16:50 WBC 9.2 (4.8-10.8) X10*3/uL RBC 5.22 (4.20-5.50) X10*6/uL Hgb 14.7 (12.0-16.0) g/dl Hct 43.4 (37.0-47.0) % MCV 83.1 (80.0-98.0) fL MCH 28.2 (27.0-33.0) pg MCHC 33.9 (31.0-35.0) g/dl RDW 13.9 (11.0-16.0) % Plt Count 346 (160-400) X10*3/uL MPV 9.0 L (9.4-12.3) fL Immature Gran % (Auto) 0.2 (0.0-0.4) % Neut % (Auto) 40.1 L (45-73) % Lymph % (Auto) 49.5 H (20-40) % [place] % (Auto) 8.5 (2-11) % Eos % (Auto) 1.2 (0-4) % Baso % (Auto) 0.5 (0-2) % Lymph # (Auto) 4.5 (1.2-4.9) X10*3/uL [place] # (Auto) 0.8 (0.1-1.2) X10*3/uL Eos # (Auto) 0.1 (0.0-0.4) X10*3/uL Baso # (Auto) 0.1 (0.0-0.2) X10*3/uL Abs Immat Gran (auto) 0.02 (0.00-0.03) X10*3/uL Absolute Neuts (auto) 3.7 (2.0-8.3) x10*3/uL Absolute Nucleated RBC 0.000 (0.0-0.012) X10*3/uL Nucleated RBC % (auto) 0.0 (0.0-0.2) /100WBC PT 12.6 H (10.9-12.4) SEC INR 1.1 (0.9-1.1) APTT 30.5 (26.0-36.8) SEC Sodium 142 (135-145) mmol/L Potassium 4.2 (3.3-5.1) mmol/L Chloride 107 (96-108) mmol/L Carbon Dioxide 27 (22-29) mmol/L Anion Gap 12 (12-20) BUN 12 (9-16) mg/dL Creatinine 0.96 (0.5-1.4) mg/dL Estim Creat Clear Calc 103.3 Estimated GFR > 60 Random Glucose 101 (60-115) mg/dL Calcium 9.7 (8.4-10.2) mg/dL Total Bilirubin 0.4 (0.0-1.0) mg/dL Direct Bilirubin 0.1 (0.0-0.5) mg/dL AST 23 (5-31) U/L ALT 16 (0-31) U/L Alkaline Phosphatase 86 (39-117) U/L Troponin I High Sens < 2.7 (<3.5-17.0) ng/L B-Natriuretic Peptide < 10 (<100) pg/mL Total Protein 7.8 (6.5-8.0) g/dL Albumin 4.2 (3.5-5.0) g/dL Independent Interpretation I performed an independent interpretation of an: EKG Interpretation: My independent interpretation patient's 12 EKG done at 16:34 hours is as follows: Normal sinus rhythm rate of 90, normal ND interval, QRS duration QTC interval, no ST segment elevation, no ST segment depression, Q-wave in lead 3. Inverted T-wave lead 3 and V1. No PACs, no PVCs Radiology Impression Discussion of test interpretation with radiology: I have reviewed the radiologist's reading. Radiologist Impression: CTA chest with 3-D postprocessing Impression: No pulmonary embolism. Pulmonary nodules measuring up to 3mm, likely infectious/inflammatory. No follow-up is required in low risk individuals. High risk individuals have the option of a 1 year follow-up chest CT. This document has been electronically signed by: Radha Villanueva MD on 10/10/2024 19:15:27 Dictated By: Radha Solorio MD Prescription Management I considered prescription management with: Other (Antianxiety medication: Ativan) Chronic Conditions Patient?s care impacted by: Other (PE/DVT recurrent) Discharge Plan Discharge Clinical Impression: Chest pain, Acute pain of left lower extremity, Syncope, vasovagal, Anxiety attack Patient Disposition: Home, Self-Care Additional Instructions: The ultrasound of your left leg revealed no blood clot which is reassuring. The CT angiogram of your chest did not reveal any blood clots/pulmonary embolism which is reassuring as well Laboratory evaluation was normal. Your EKG was unremarkable You passed out while you are getting your blood blood in the emergency department. This is a common thing that happens this is called vasovagal syncope or fainting. I believe that the chest pain, leg pain and fainting episode cause you to have an anxiety attack as well in you were treated in the emergency department with Ativan (lorazepam) 1 mg IV which made you feels significantly better. Take Ativan 1 mg pills, 1 pill every 6 hours as needed for anxiety. ?This medication will make you sleepy, do not drive or work while taking this medication. ?This medication can be addicting, if your concerned about addiction you can ask the pharmacist for less medications or do not get the prescription filled. Continue taking medications as prescribed by your providers Follow-up with your doctor in 2 days. Please return to the emergency department if your symptoms get worse or if you develop any symptoms that are concerning to you. Prescriptions: New lorazepam [Ativan] 1 mg tablet 1 mg PO TID PRN (Reason: anxiety) Qty: 10 0RF Rx Instructions: Patient may request partial fill No Action prednisone 20 mg tablet 40 mg PO DAILY Qty: 10 0RF codeine-guaifenesin 10-100 mg/5 mL liquid 10 ml PO Q4-6H PRN (Reason: cough) Qty: 237 0RF albuterol sulfate [ProAir HFA] 90 mcg/actuation HFA aerosol inhaler 2 puff inhalation Q4-6H PRN (Reason: Wheezing) Qty: 8.5 0RF azithromycin [Zithromax] 250 mg tablet 250 mg PO DAILY 4 Days Qty: 4 0RF Rx Instructions: start on day 2 of therapy azithromycin 250 mg tablet See Rx Instructions .ROUTE .COMPLEX Qty: 6 0RF Rx Instructions: For 250 mg dose pack: take 500 mg today (day 1), then 250 mg for 4 days (days 2-5) oxcarbazepine 300 mg tablet 300 mg PO BID Qty: 60 0RF phenazopyridine [Pyridium] 200 mg tablet 200 mg PO TID PRN (Reason: pain) Qty: 6 0RF cefuroxime axetil 250 mg tablet 250 mg PO BID 7 Days Qty: 14 0RF tamsulosin [Flomax] 0.4 mg capsule 0.4 mg PO DAILY Qty: 10 0RF prednisone 20 mg tablet 40 mg PO DAILY Qty: 10 0RF oxycodone 5 mg tablet 5 mg PO Q8H PRN (Reason: severe pain (scale score 7-10)) Qty: 9 0RF Rx Instructions: Partial Fill upon patient request. amoxicillin-pot clavulanate 875-125 mg tablet 1 tab PO BID Qty: 14 0RF Interventions: ED Discharge Assessment Last Done: 10/10/24 20:20 Print Language: Vincentian
--- NOTE | 2024-10-10 16:27 | ECG_ITS ---
Test Reason : SOB Blood Pressure : */* mmHG Vent. Rate : 90 BPM Atrial Rate : 90 BPM P-R Int : 172 ms QRS Dur : 86 ms QT Int : 348 ms P-R-T Axes : 45 33 31 degrees QTcB Int : 425 ms Normal sinus rhythm Cannot rule out Anterior infarct (cited on or before 09-Apr-2019) Abnormal ECG When compared with ECG of 01-May-2024 12:41, No significant change was found Referred By: Venessa Castle Electronically Signed By: JAVI PALACIOS
[2024-10-10 16:53] LABS: MANUAL DIFF FLAG NO
[2024-10-10 16:56] LABS: Basophils Absolute Auto 0.1 X10*3/uL (0.0-0.2); Basophils Percent Auto 0.5 % (0-2); Eosinophils Absolute Auto 0.1 X10*3/uL (0.0-0.4); Eosinophils Percent Auto 1.2 % (0-4); Hematocrit 43.4 % (37.0-47.0); Hemoglobin 14.7 g/dl (12.0-16.0); Imm Gran Abs Auto 0.02 X10*3/uL (0.00-0.03); Imm Gran Pct Auto 0.2 % (0.0-0.4); Lymphocytes Absolute Auto 4.5 X10*3/uL (1.2-4.9); Lymphocytes Percent Auto 49.5 % (20-40); Mean Corpuscular HGB Conc 33.9 g/dl (31.0-35.0); Mean Corpuscular Hemoglobin 28.2 pg (27.0-33.0); Mean Corpuscular Volume 83.1 fL (80.0-98.0); Monocytes Absolute Auto 0.8 X10*3/uL (0.1-1.2); Monocytes Percent Auto 8.5 % (2-11); Neutrophils Absolute Auto 3.7 x10*3/uL (2.0-8.3); Neutrophils Percent Auto 40.1 % (45-73); Platelet Count 346 X10*3/uL (160-400); Red Blood Count 5.22 X10*6/uL (4.20-5.50); Red Cell Distribution Width 13.9 % (11.0-16.0); White Blood Count 9.2 X10*3/uL (4.8-10.8)
[2024-10-10 17:01] LABS: INTERNATIONAL NORM RATIO 1.1 (0.9-1.1); Prothrombin Time 12.6 SEC (10.9-12.4)
[2024-10-10 17:08] LABS: Anion Gap 12 (12-20); Blood Urea Nitrogen 12 mg/dL (9-16); Calcium 9.7 mg/dL (8.4-10.2); Carbon Dioxide 27 mmol/L (22-29); Chloride 107 mmol/L (96-108); Creatinine Clr Calc Pharmacy 103.3; Estimated Glomerular Filt Rate > 60; Glucose Random 101 mg/dL (60-115); Potassium 4.2 mmol/L (3.3-5.1); Sodium 142 mmol/L (135-145)
[2024-10-10 17:14] LABS: B Type Natriuretic Peptide < 10 pg/mL (<100)
[2024-10-10] MEDS: 0.9 % Sodium Chloride 1,000 ML 999 ML IV (17:44)
[2024-10-10] MEDS: LORazepam 2 MG/ML VIAL 1 MG IVPUSH (17:45)
[2024-10-10] MEDS: ondansetron HCL 4 MG/2 ML VIAL IVPUSH (17:45)
[2024-10-10 17:58] LABS: Alanine Aminotransferase 16 U/L (0-31); Albumin Level 4.2 g/dL (3.5-5.0); Aspartate Amino Transferase 23 U/L (5-31); Bilirubin Direct 0.1 mg/dL (0.0-0.5); Bilirubin Total 0.4 mg/dL (0.0-1.0); Total Protein 7.8 g/dL (6.5-8.0)
[2024-10-10 18:01] LABS: Partial Thromboplastin Time 30.5 SEC (26.0-36.8)
[2024-10-10 18:21] LABS: Alkaline Phosphatase 86 U/L (39-117)
--- NOTE | 2024-10-10 18:21 | PC.NURSE ---
while obtaining lab work, patient requested apple juice and became pale/diaphoretic with ?syncopal episode. states that she has anxiety being in hospitals. resting quietly in room at this time w/ verbal reassurance provided to patient. patient medicated per the MAR with fluids infusing. call tuttle within reach
[2024-10-10] MEDS: iohexoL 350 MG/ML 100 ML INFUS..BTL IV (18:26)
[2024-10-10 18:37] LABS: Troponin-I High Sensitivity < 2.7 ng/L (<3.5-17.0)
[2024-10-10 19:28] VITALS: BP 130/71; PULSE 86; RESP 14; TEMP 37.1; O2SAT 98
[2024-10-10 20:20] VITALS: BP 112/54; PULSE 90; RESP 20; TEMP 36.8; O2SAT 98
== END 2024-10-10 20:52 | disposition home or self-care (01) ==
PROVIDERS: Physician Assistant; Emergency Provider Emergency Medicine Emergency Medical Services; PCP Pediatrics
DX: R07.89 Other chest pain (principal); R55 Syncope and collapse; F41.9 Anxiety disorder, unspecified; M79.605 Pain in left leg; R06.02 Shortness of breath; R60.0 Localized edema; R94.31 Abnormal electrocardiogram [ECG] [EKG]; R11.2 Nausea with vomiting, unspecified; Z79.899 Other long term (current) drug therapy
CPT/HCPCS: 36415; 71275; 80048; 80076; 83880; 84484; 85025; 85610; 85730; 93005; 93971; 96361; 96374; 96375; 99285; J2060; J2405; Q9967

== ENCOUNTER → 2024-10-10 16:26 | Outpatient (BNV) | payer OTHER, SELFPAY | PROVIDERS: Emergency Provider Emergency Medicine Emergency Medical Services; PCP Pediatrics; Visit Provider Radiology Diagnostic Radiology | DX: R07.9 Chest pain, unspecified (principal); M79.662 Pain in left lower leg | CPT/HCPCS: 71275; 93971 ==

== ENCOUNTER → 2024-10-10 16:27 | Outpatient (BNV) | payer OTHER, SELFPAY | PROVIDERS: Emergency Provider Emergency Medicine Emergency Medical Services; PCP Pediatrics; Visit Provider Internal Medicine | DX: R06.02 Shortness of breath (principal); R94.31 Abnormal electrocardiogram [ECG] [EKG] | CPT/HCPCS: 93010 ==

== ENCOUNTER 2025-01-23 15:13 | Emergency (ER) | payer OTHER, SELFPAY ==
--- NOTE | ~2025-01-23 | XR_ITS ---
EXAMINATION: XR CHEST CLINICAL INFORMATION: cough COMPARISON: May 01, 2024. TECHNIQUE: 2 views of the chest were obtained. FINDINGS: Prominence of the interstitial markings in the right perihilar region. No consolidation pleural effusion or pneumothorax. No hyperinflation. Cardiomediastinal silhouette size is normal. Multilevel thoracic spondylosis. Degenerative changes in the right acromioclavicular joint. XR/XR chest 2V IMPRESSION: Probable acute small airway inflammatory process. Electronically signed by: David Younger MD 01/23/2025 03:38 PM EDT
[2025-01-23 15:19] VITALS: BP 149/89; PULSE 93; RESP 16; TEMP 36.7; O2SAT 99; BMI 45.9
--- NOTE | 2025-01-23 15:19 | ED.GENADULT ---
HPI - General Adult General Chief complaint: General Medical Stated complaint: Doctor Suspects Blood Clot- Lung/ Left Leg Related Data Previous Rx's ?Medication ?Instructions ?Recorded albuterol sulfate 90 mcg/actuation 2 puff inhalation Q4-6H PRN 07/14/21 aerosol inhaler (ProAir HFA) Wheezing #8.5 grams azithromycin 250 mg tablet 250 mg PO DAILY 4 days #4 tabs 07/14/21 (Zithromax) codeine 10 mg-guaifenesin 100 mg/5 10 ml PO Q4-6H PRN cough #237 mL 07/14/21 mL oral liquid prednisone 20 mg tablet 40 mg (2 x 20 mg) PO DAILY #10 tabs 07/14/21 azithromycin 250 mg tablet See Rx Instructions PO .COMPLEX #6 05/17/22 tabs oxcarbazepine 300 mg tablet 300 mg PO BID #60 tabs 05/17/22 oxycodone 5 mg tablet 5 mg PO Q8H PRN severe pain (scale 04/10/23 score 7-10) #9 tabs prednisone 20 mg tablet 40 mg (2 x 20 mg) PO DAILY #10 tabs 04/10/23 tamsulosin 0.4 mg capsule (Flomax) 0.4 mg PO DAILY #10 caps 04/10/23 cefuroxime axetil 250 mg tablet 250 mg PO BID 7 days #14 tabs 04/27/23 phenazopyridine 200 mg tablet 200 mg PO TID PRN pain 6 doses #6 04/27/23 (Pyridium) tabs amoxicillin 875 mg-potassium 1 tab PO BID #14 tabs 03/27/24 clavulanate 125 mg tablet lorazepam 1 mg tablet (Ativan) 1 mg PO TID PRN anxiety #10 tabs 10/10/24 Allergies Allergy/AdvReac Type Severity Reaction Status Date / Time Sulfa (Sulfonamide Allergy Unknown HIVES Verified 01/23/25 15:21 Antibiotics) [SULFA (SULFONAMIDE ANTIBIOTICS)] cephalexin Allergy Hives Verified 10/10/24 16:27 levofloxacin Allergy Shakiness Verified 10/10/24 16:27 meperidine [From DEMEROL] AdvReac Unknown COMBATIVE Verified 10/10/24 16:27 midazolam [From VERSED] AdvReac Unknown COMBATIVE Verified 10/10/24 16:27 [place] (Diagnostic) Allergy Unknown oral Uncoded 10/10/24 16:27 allergy [place] Extract Allergy Unknown anaphylaxis Uncoded 10/10/24 16:27 [place] (Diagnostic) Allergy Unknown oral Uncoded 10/10/24 16:27 allergy Watermelon Flavor Allergy Unknown oral Uncoded 10/10/24 16:27 allergy White potato Allergy Unknown hives Uncoded 10/10/24 16:27 PMFSH Past Medical History Medical History Pulmonary emboli DVT (deep venous thrombosis) Surgical History H/O: hysterectomy Social History Social History Alcohol intake: never Patient Tobacco Use Status: Never used Tobacco Advance Directives: No Advance Directives Information Provided: No Physical Exam ED Vital Signs: BMI result Body Mass Index 45.9 Course Course Course Narrative: This is a Rapid Medical Exam performed in triage by Venessa Castle PA-C. Full HPI, ROS and PE to be performed by primary ED provider. 49yo F w/pmhx breast CA, DVT/PE on Eliquis (on 5mg BID - due to clotting through lower dosing) presenting to the ED c/o suspected blood clot, sent in by . States went to [facility] (in [place]) due to persistent cough x1 mos & they did a d-dimer which was elevated, thus sent to the ED. Also reports LLE pain & SOB/heaviness. PE: talking in complete sentences, nontoxic appearing Plan: EKG, labs, CXR Medical Decision Making Lab Data 01/23/25 16:00 01/23/25 16:00 Labs: Lab Results 01/23/25 Range/Units 16:00 WBC 7.0 (4.8-10.8) X10*3/uL RBC 4.88 (4.20-5.50) X10*6/uL Hgb 14.0 (12.0-16.0) g/dl Hct 41.9 (37.0-47.0) % MCV 85.9 (80.0-98.0) fL MCH 28.7 (27.0-33.0) pg MCHC 33.4 (31.0-35.0) g/dl RDW 13.2 (11.0-16.0) % Plt Count 281 (160-400) X10*3/uL MPV 9.3 L (9.4-12.3) fL Immature Gran % (Auto) 0.3 (0.0-0.4) % Neut % (Auto) 42.3 L (45-73) % Lymph % (Auto) 46.4 H (20-40) % [place] % (Auto) 7.4 (2-11) % Eos % (Auto) 2.9 (0-4) % Baso % (Auto) 0.7 (0-2) % Lymph # (Auto) 3.2 (1.2-4.9) X10*3/uL [place] # (Auto) 0.5 (0.1-1.2) X10*3/uL Eos # (Auto) 0.2 (0.0-0.4) X10*3/uL Baso # (Auto) 0.1 (0.0-0.2) X10*3/uL Abs Immat Gran (auto) 0.02 (0.00-0.03) X10*3/uL Absolute Neuts (auto) 3.0 (2.0-8.3) x10*3/uL Absolute Nucleated RBC 0.000 (0.0-0.012) X10*3/uL Nucleated RBC % (auto) 0.0 (0.0-0.2) /100WBC PT 14.2 H (10.9-12.4) SEC INR 1.2 H (0.9-1.1) Sodium 140 (135-145) mmol/L Potassium 3.8 (3.3-5.1) mmol/L Chloride 107 (96-108) mmol/L Carbon Dioxide 23 (22-29) mmol/L Anion Gap 14 (12-20) BUN 12 (9-16) mg/dL Creatinine 0.97 (0.5-1.4) mg/dL Estim Creat Clear Calc 102.0 Estimated GFR > 60 Random Glucose 92 (60-115) mg/dL Calcium 9.2 (8.4-10.2) mg/dL Magnesium 1.9 (1.6-2.6) mg/dL Total Bilirubin 0.2 (0.0-1.0) mg/dL Direct Bilirubin < 0.2 (0.0-0.5) mg/dL AST 24 (5-31) U/L ALT 18 (0-31) U/L Alkaline Phosphatase 93 (39-117) U/L Troponin I High Sens < 2.7 (<3.5-17.0) ng/L B-Natriuretic Peptide < 10 (<100) pg/mL Total Protein 7.0 (6.5-8.0) g/dL Albumin 3.9 (3.5-5.0) g/dL Influenza Type A (PCR) NEGATIVE (Negative) Influenza Type B (PCR) NEGATIVE (Negative) RSV RNA Qual (PCR) NEGATIVE (Negative) SARS-CoV-2 RNA (RT-PCR) NEGATIVE (Negative) Discharge Plan Discharge Clinical Impression: Leg swelling Patient Disposition: Left W/O Completing Treatment Prescriptions: No Action prednisone 20 mg tablet 40 mg PO DAILY Qty: 10 0RF codeine-guaifenesin 10-100 mg/5 mL liquid 10 ml PO Q4-6H PRN (Reason: cough) Qty: 237 0RF albuterol sulfate [ProAir HFA] 90 mcg/actuation HFA aerosol inhaler 2 puff inhalation Q4-6H PRN (Reason: Wheezing) Qty: 8.5 0RF azithromycin [Zithromax] 250 mg tablet 250 mg PO DAILY 4 Days Qty: 4 0RF Rx Instructions: start on day 2 of therapy azithromycin 250 mg tablet See Rx Instructions .ROUTE .COMPLEX Qty: 6 0RF Rx Instructions: For 250 mg dose pack: take 500 mg today (day 1), then 250 mg for 4 days (days 2-5) oxcarbazepine 300 mg tablet 300 mg PO BID Qty: 60 0RF phenazopyridine [Pyridium] 200 mg tablet 200 mg PO TID PRN (Reason: pain) Qty: 6 0RF cefuroxime axetil 250 mg tablet 250 mg PO BID 7 Days Qty: 14 0RF lorazepam [Ativan] 1 mg tablet 1 mg PO TID PRN (Reason: anxiety) Qty: 10 0RF Rx Instructions: Patient may request partial fill tamsulosin [Flomax] 0.4 mg capsule 0.4 mg PO DAILY Qty: 10 0RF prednisone 20 mg tablet 40 mg PO DAILY Qty: 10 0RF oxycodone 5 mg tablet 5 mg PO Q8H PRN (Reason: severe pain (scale score 7-10)) Qty: 9 0RF Rx Instructions: Partial Fill upon patient request. amoxicillin-pot clavulanate 875-125 mg tablet 1 tab PO BID Qty: 14 0RF Discharge Date/Time: 01/23/25 17:26
--- NOTE | 2025-01-23 15:25 | ECG_ITS ---
Test Reason : SOB Blood Pressure : */* mmHG Vent. Rate : 99 BPM Atrial Rate : 99 BPM P-R Int : 168 ms QRS Dur : 84 ms QT Int : 356 ms P-R-T Axes : 45 43 19 degrees QTcB Int : 456 ms Normal sinus rhythm Cannot rule out Anterior infarct (cited on or before 09-Apr-2019) Nonspecific ST and T wave abnormality Abnormal ECG When compared with ECG of 10-Oct-2024 16:34, No significant change was found Referred By: Venessa Castle Electronically Signed By: JAVI PALACIOS
[2025-01-23 16:09] LABS: MANUAL DIFF FLAG NO
[2025-01-23 16:11] LABS: Basophils Absolute Auto 0.1 X10*3/uL (0.0-0.2); Basophils Percent Auto 0.7 % (0-2); Eosinophils Absolute Auto 0.2 X10*3/uL (0.0-0.4); Eosinophils Percent Auto 2.9 % (0-4); Hematocrit 41.9 % (37.0-47.0); Imm Gran Abs Auto 0.02 X10*3/uL (0.00-0.03); Imm Gran Pct Auto 0.3 % (0.0-0.4); Lymphocytes Absolute Auto 3.2 X10*3/uL (1.2-4.9); Lymphocytes Percent Auto 46.4 % (20-40); Mean Corpuscular HGB Conc 33.4 g/dl (31.0-35.0); Mean Corpuscular Hemoglobin 28.7 pg (27.0-33.0); Mean Corpuscular Volume 85.9 fL (80.0-98.0); Mean Platelet Volume 9.3 fL (9.4-12.3); Monocytes Absolute Auto 0.5 X10*3/uL (0.1-1.2); Monocytes Percent Auto 7.4 % (2-11); Neutrophils Percent Auto 42.3 % (45-73); Platelet Count 281 X10*3/uL (160-400); Red Blood Count 4.88 X10*6/uL (4.20-5.50); Red Cell Distribution Width 13.2 % (11.0-16.0)
[2025-01-23 16:24] LABS: INTERNATIONAL NORM RATIO 1.2 (0.9-1.1); Prothrombin Time 14.2 SEC (10.9-12.4)
[2025-01-23 16:27] LABS: Alanine Aminotransferase 18 U/L (0-31); Albumin Level 3.9 g/dL (3.5-5.0); Alkaline Phosphatase 93 U/L (39-117); Anion Gap 14 (12-20); Aspartate Amino Transferase 24 U/L (5-31); Bilirubin Direct < 0.2 mg/dL (0.0-0.5); Bilirubin Total 0.2 mg/dL (0.0-1.0); Blood Urea Nitrogen 12 mg/dL (9-16); Calcium 9.2 mg/dL (8.4-10.2); Carbon Dioxide 23 mmol/L (22-29); Chloride 107 mmol/L (96-108); Estimated Glomerular Filt Rate > 60; Glucose Random 92 mg/dL (60-115); Magnesium 1.9 mg/dL (1.6-2.6); Potassium 3.8 mmol/L (3.3-5.1); Sodium 140 mmol/L (135-145)
[2025-01-23 16:34] LABS: Troponin-I High Sensitivity < 2.7 ng/L (<3.5-17.0)
[2025-01-23 16:39] LABS: B Type Natriuretic Peptide < 10 pg/mL (<100)
[2025-01-23 16:51] LABS: Influenza A PCR NEGATIVE (Negative); Influenza B PCR NEGATIVE (Negative); Resp Syncy Virus RNA Qual PCR NEGATIVE (Negative); SARS COV2 PCR INHOUSE NEGATIVE (Negative)
--- OUTSIDE RECORDS SUMMARY | 2025-01-23 18:43 | XMS_ITS | Encounter Summary ---
Author Organization [facility] Address [address] [place] [address] Care Team Providers Care Non Acoustic Operator Name Role Phone Liz Schroeder MD Primary Care Provider Demi Quiles RN Unavailable [phone] Reason for Referral * Diagnostic Imaging (Routine) - Pending Review Specialty Diagnoses / Procedures Referred By Nicolle thakkar Referred To Contact Diagnoses Positive D dimer Procedures US Venous Duplex Legs-Bilateral (DVT) Nick Lancaster MD [address] [place] [id number] Phone: tel: fax: RICO [place] Referral ID Status Reason Start Date Expiration Date V isits Requested Visits Authorized [id number] Pending Review 01/23/2025 01/24/2026 1 1 * Diagnostic Imaging (Emergency) - Pending Review Specialty Diagnoses / Procedures Referred By Nicolle thakkar Referred To Contact Diagnoses Positive D dimer Procedures CTA Chest for P.E. Nick Lancaster MD [address] [place] [id number] Phone: tel: fax: R[place] Referral ID Status Reason Start Date Expiration Date V isits Requested Visits Authorized [id number] Pending Review 01/23/2025 01/24/2026 1 1 Encounter Details Date Type Department Care Team (Late st Contact Info) Description 01/23/[address] [address] Nick Lancaster MD [address] [place] [phone] Social History Tobacco Use Types Packs/Day Years Used Date Smoking Tobacco: Never Smokeless Tobacco: Never Alcohol Use Standard Drinks/Week Comments Not Currently 0 (1 standard drink = 0.6 oz pur e alcohol) PHQ-2 Answer Date Recorded PHQ-2 Total Score 0 10/08/2024 Comments No Sex and Gender Information Value Date Recorded Sex Assigned at Female 05/25/2024 4:19 PM EDT Legal Sex Female 6:23 PM EST Gender Identity Female 05/25/2024 4:19 PM EDT Sexual Orientation Bisexual 05/25/2024 4: 19 PM EDT documented as of this encounter Miscellaneous Notes * Telephone Encounter - Nick Lancaster MD - 01/23/2025 1:21 PM EDT Discussed the results of the test with the patient. Ordered a stat CTA PE and she will call Rico get it done today if possible. Also ordered lower extremity duplexes. The patient has continued to take her anticoagulation. Discussed red flag symptoms and when to report to the emergency room. documented in this encounter Plan of Treatment Upcoming Encounters Date Type Department Care Team (Late st Contact Info) Description 04/09/2025 12:30 PM EDT Office Visit [facility] [address] [address] Roberta Manzo MD [address] [place] [address] 08/02/2025 8:45 AM EDT Office Visit [facility] [place] [address] [place] [address] Nick Lancaster MD [address] [facility] [address] [place] [phone] Scheduled Orders Name Type Priority Associated Diagnoses Orde r Schedule CTA Chest for P.E. Imaging STAT Positive D dimer Expected: 01/23/2025, Expires: 01/23/2026 US Venous Duplex Legs-Bilateral (DVT) Imaging Routine Positive D dimer Expected: 01/23/2025, Expires: 01/23/2026 documented as of this encounter Visit Diagnoses Diagnosis Positive D dimer- Primary Abnormal coagulation profile documented in this encounter Care Teams Non Acoustic Operator Relationship Specialty Start Date End Date Liz Schroeder MD [address] [place] [phone] PCP - General 05/23/24 Demi Quiles, SASHA [address] [place] [address] Oncology Nurse Navigator 11/12/24 documented as of this encounter
--- OUTSIDE RECORDS SUMMARY | 2025-01-23 18:43 | XMS_ITS | Clinical Summary ---
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 been auto finalized and does not contain a result. us File Room Provider IMG DIGITIZE FILMS Final Resu lt Performing Organization Address [facility] de Phone Number RICO [phone] * CT Chest Archive for Reference Only (11/12/2024 10:51 AM EST) Only the most recent of2 resultswithin the time period is included. Narrative RICO - 11/12/2024 10:51 AM EST This study has been auto finalized and does not contain a result. us File Room Provider IMG DIGITIZE FILMS Final Resu lt RICO [phone] from Last 3 Months Insurance [facility] Care Teams Lead Coater Relationship Specialty Start Date End Date Liz Schroeder MD [address] [place] [id number] PCP - General 05/23/24 Demi Quiles, SASHA [address] [place] [phone] Oncology Nurse Navigator 11/12/24
--- OUTSIDE RECORDS SUMMARY | 2025-01-23 18:44 | XMS_ITS | Clinical Summary ---
Author Organization [facility] Address [address] [place] [address] Care Team Providers Care Director Of Aviation Name Role Phone Unavailable Primary Care Provider Unavailabl e Social History Tobacco Use Types Packs/Day Years Used Date Smoking Tobacco: Never Assessed Sex and Gender Information Value Date Recorded Sex Assigned at Not on file Gender Identity Not on file Sexual Orientation Not on file Plan of Treatment Not on file
--- OUTSIDE RECORDS SUMMARY | 2025-01-23 18:44 | XMS_ITS | Clinical Summary ---
Author Organization [facility], Address [address] [place] [address] Phone Care Team Providers Care Food Sanitarian Name Role Phone Liz Schroeder MD Primary Care Provider [phone] Social History Tobacco Use Types Packs/Day Years Used Date Smoking Tobacco: Never Assessed Comments Unknown Sex and Gender Information Value Date Recorded Sex Assigned at Not on file Legal Sex Female 5:05 PM EST Gender Identity Not on file Sexual Orientation Not on file Plan of Treatment Health Maintenance Due Date Last Done Comments Hepatitis B Vaccine (1 of 3 - 19+ 3-dose series) 1996 Influenza Vaccine (Season Ended) 2025 Pneumococcal Vaccine: Peds ( 0 to 5 Years) and At-Risk Patients (6 to 49 Years) Aged Out No longer eligible b ased on patient's age to complete this topic Insurance [facility] Care Teams Food Sanitarian Relationship Specialty Start Date End Date Liz Schroeder MD [address] [place] [address] PCP - General Internal Medicine 06/25/24
--- OUTSIDE RECORDS SUMMARY | 2025-01-23 18:44 | XMS_ITS | Encounter Summary ---
Author Organization [facility], Address [address] [place] [address] Phone Care Team Providers Care Automatic Riveting Machine Operator Name Role Phone Lzi Schroedre MD Primary Care Provider [phone] Encounter Details Date Type Department Care Team (Late st Contact Info) Description 06/25/2024 Documentation Only [facility], [address] [place] [address] Jeni KingJOHNSON, [place] [address] [place] [address] Social History Tobacco Use Types Packs/Day Years Used Date Smoking Tobacco: Never Assessed Comments Unknown Sex and Gender Information Value Date Recorded Sex Assigned at Not on file Legal Sex Female 5:05 PM EST Gender Identity Not on file Sexual Orientation Not on file documented as of this encounter Plan of Treatment Not on file documented as of this encounter Visit Diagnoses Not on filedocumented in this encounter Care Teams Automatic Riveting Machine Operator Relationship Specialty Start Date End Date Liz Schroeder MD [address] [place] [address] PCP - General Internal Medicine 06/25/24 documented as of this encounter
--- OUTSIDE RECORDS SUMMARY | 2025-01-23 18:44 | XMS_ITS | Encounter Summary ---
Author Organization [facility] Address [address] [place] [address] Care Team Providers Care Coring Machine Operator Name Role Phone Liz Schroeder MD Primary Care Provider Demi Quiles RN Unavailable [phone] Reason for Visit * Reason Comments AC Patient Needs Scheduling Encounter Details Date Type Department Care Team ([facility] Contact Info) Description 05/24/[address] [address] Provider, Generic AC Patient Needs Scheduling Social History Tobacco Use Types Packs/Day Years Used Date Smoking Tobacco: Never Assessed Comments Unknown Sex and Gender Information Value Date Recorded Sex Assigned at Female 05/25/2024 4:19 PM EDT Legal Sex Female 6:23 PM EST Gender Identity Female 05/25/2024 4:19 PM EDT Sexual Orientation Bisexual 05/25/2024 4: 19 PM EDT documented as of this encounter Miscellaneous Notes * Telephone Encounter - Ayan Rosas - 05/24/2024 4:27 PM EDT Left message documented in this encounter Plan of Treatment Upcoming Encounters Date Type Department Care Team ([facility] Contact Info) Description 04/09/2025 12:30 PM EDT Office Visit [facility] [place] [facility] at [address] [phone] Roberta Manzo MD [address] [place] [address] 08/02/2025 8:45 AM EDT Office Visit [facility] [place] [address] [place] [address] Nick Lancaster MD [address] [phone] documented as of this encounter Visit Diagnoses Not on filedocumented in this encounter Care Teams Coring Machine Operator Relationship Specialty Start Date End Date Liz Schroeder MD [address] [place] [id number] PCP - General 05/23/24 Demi Quiles, SASHA [address] [place] [address] Oncology Nurse Navigator 11/12/24 documented as of this encounter
--- OUTSIDE RECORDS SUMMARY | 2025-01-23 18:44 | XMS_ITS | Encounter Summary ---
Author Organization [facility] Address [address] [place] [address] Care Team Providers Care Signal Mechanic Name Role Phone Liz Schroeder MD Primary Care Provider Demi Quiles RN Unavailable Encounter Details Date Type Department Care Team (Late st Contact Info) Description 07/26/2024 Scanned Document [facility] Medical Oncology at [address] [phone] Provider, MD Klaudia [address] [place] [address] Social History Tobacco Use Types Packs/Day Years Used Date Smoking Tobacco: Never Alcohol Use Standard Drinks/Week Comments Not Currently 0 (1 standard drink = 0.6 oz pur e alcohol) Comments Unknown Sex and Gender Information Value Date Recorded Sex Assigned at Female 05/25/2024 4:19 PM EDT Legal Sex Female 6:23 PM EST Gender Identity Female 05/25/2024 4:19 PM EDT Sexual Orientation Bisexual 05/25/2024 4: 19 PM EDT documented as of this encounter Plan of Treatment Upcoming Encounters Date Type Department Care Team (Late st Contact Info) Description 04/09/2025 12:30 PM EDT Office Visit [facility] Medical Oncology at [address] [phone] Roberta Manzo MD [address] [place] [address] 08/02/2025 8:45 AM EDT Office Visit [facility] [address] [place] [phone] Nick Lancaster MD [address] [address] documented as of this encounter Visit Diagnoses Not on filedocumented in this encounter Care Teams Signal Mechanic Relationship Specialty Start Date End Date Liz Schroeder MD [address] [place] [id number] PCP - General 05/23/24 Demi Quiles, RN [address] [place] [address] Oncology Nurse Navigator 11/12/24 documented as of this encounter
--- OUTSIDE RECORDS SUMMARY | 2025-01-23 18:44 | XMS_ITS | Encounter Summary ---
Author Organization [facility] Address [address] [place] [address] Care Team Providers Care Lockstitch Binder Name Role Phone Liz Schroeder MD Primary Care Provider Demi Quiles RN Unavailable [phone] Encounter Details Date Type Department Care Team (Late st Contact Info) Description 07/26/2024 Scanned Document [facility] Medical Oncology at [address] [phone] Provider, MD Klaudia [address] [place] [address] Social History Tobacco Use Types Packs/Day Years [...] Description 04/09/2025 12:30 PM EDT Office Visit [facility] Medical Oncology at [address] [phone] Roberta Manzo MD [address] [place] [address] 08/02/2025 8:45 AM EDT Office Visit [facility] [address] [place] [phone] Nick Lancaster MD [address] [address] documented as of this encounter Visit Diagnoses Not on filedocumented in this encounter Care Teams Lockstitch Binder Relationship Specialty Start Date End Date Liz Schroeder MD [address] [place] [phone] PCP - General 05/23/24 Demi Quiles, RN [address] [place] [address] Oncology Nurse Navigator 11/12/24 documented as of this encounter
== END 2025-01-23 17:26 | disposition left against medical advice (07) ==
PROVIDERS: Physician Assistant; Emergency Provider Emergency Medicine; PCP Pediatrics
DX: M79.89 Other specified soft tissue disorders (principal); R06.02 Shortness of breath; R05.9 Cough, unspecified; M79.605 Pain in left leg; M79.604 Pain in right leg; Z03.818 Encounter for observation for suspected exposure to other biological agents ruled out
CPT/HCPCS: 0241U; 71046; 80048; 80076; 83735; 83880; 84484; 85025; 85610; 93005; 99283

== ENCOUNTER → 2025-01-23 15:25 | Outpatient (BNV) | payer OTHER, SELFPAY | PROVIDERS: Emergency Provider Emergency Medicine; PCP Pediatrics; Visit Provider Internal Medicine | DX: R94.31 Abnormal electrocardiogram [ECG] [EKG] (principal); R06.02 Shortness of breath | CPT/HCPCS: 93010 ==

== ENCOUNTER → 2025-01-23 15:26 | Outpatient (BNV) | payer OTHER, SELFPAY | PROVIDERS: PCP Pediatrics; Visit Provider Radiology Diagnostic Radiology | DX: R05.9 Cough, unspecified (principal) | CPT/HCPCS: 71046 ==

== ENCOUNTER 2025-06-16 21:48 | Emergency (ER) | payer OTHER, SELFPAY ==
--- OUTSIDE RECORDS SUMMARY | 2011-11-03 01:00 | XMS_ITS | Encounter Summary ---
Author Organization [facility] Address [address] [facility] [address] [place] [address] Phone Care Team Providers Care Bulb Weeder Name Role Phone Unavailable Primary Care Provider Unavailabl e Encounter Details Date Type Department Care Team ([facility] st Contact Info) Description 11/03/2011 Hospital Encounter [facility] IMG OUTSIDE [address] [place] [phone] Pedro Pierce MD [address] [place] [address]--[place] [address] [email or web address] Social History Tobacco Use Types Packs/Day Years Used Date Smoking Tobacco: Never Smokeless Tobacco: Never Alcohol Use Standard Drinks/Week Comments Not Currently 0 (1 standard drink = 0.6 oz pur e alcohol) Education Answer Date Recorded Are you interested in more education? Not on med e 01/28/2023 Are you concerned about learning? Not on file 01/28/2023 No 01/28/2023 No 01/28/2023 Food Answer Date Recorded Within the past 6 months we worried whether our food would run out before we got money to buy more. Never True 06/10/2025 Within the past 6 months the food we bought just didn't last and we didn't have enough money to get more. Never True 09/08/202 5 Residential Stability Answer Date Recor ded What is your housing situation today? I have brenda linder 06/10/2025 How many times have you moved in the past 12 mon ths? One time 06/10/2025 Paying for Meds Answer Date Recorded Do you have trouble paying for medicines? No 06/10/2025 Paying Utility Bills Answer Date Record ed Do you have trouble paying your heating or elect ricity bill? No 06/10/2025 Transportation Answer Date Recorded Has the lack of transportati on kept you from medical appointments or from getting medications? No 06/10/2025 Digital Access Answer Date Recorded No 06/10/2025 Yes 06/10/2025 Do you have reliable internet access at home? Ye s 06/10/2025 Do you have a device (e.g., phone, tablet, computer) with a working camera? Yes 06/10/2025 Intimate Partner Violence Answer Date R ecorded Are you denied basic needs s uch as food, clothing, or medical care? No 06/10/2025 In the past 12 months have y ou been in a relationship with a person who hurts, threatens, or tries to control you? No 06/10/2025 Are you denied basic needs s uch as food, clothing, or medical care? No 06/10/2025 In the past 12 months have y ou been in a relationship with a person who hurts, threatens, or tries to control you? No 06/10/2025 Comments No Sex and Gender Information Value Date Recorded Sex Assigned at Female 02/17/2021 12:55 PM EDT Legal Sex Female 10:30 PM EDT Gender Identity Female 02/17/2021 12:55 PM EDT Sexual Orientation Bisexual 05/02/2025 10 :07 AM EDT documented as of this encounter Functional Status * Calculated C-SSRS Risk Score (Lifetime/Recent) Answer Date of Assessment Author No Risk Indicated 06/10/2025 9:48 AM EDT Radha Jones, RN * [place] Suicide Severity Rating Scale (Screener/Recent Self-Report) Question Answer Date of Assessment Author 1. Wish to be (Past 1 Month) No 025 9:48 AM EDT Radha Jones, RN 2. Non-Specific Active Suici keyona Thoughts (Past 1 Month) No 06/10/2025 9:48 AM EDT Anay Jones, RN 6. Suicidal Behavior (Lifetime) No 9:48 AM EDT Radha Jones RN documented as of this encounter Plan of Treatment Upcoming Encounters Date Type Department Care Team (Late st Contact Info) Description 06/19/2025 1:00 PM EDT [facility] Visit [facility] [address] [facility] [address] [place] [address] Pedro Pierce MD [address] [facility]--[place] [address] [email or web address] 07/16/2025 1:15 PM EDT Administrative Encounter Central Registration, [facility] at [address] [address] Mary Sage MD [address] [place] [address] [email or web address] 07/16/2025 2:00 PM EDT Office Visit [facility], [facility], [facility] at [address] [address] Mary Sgae MD [address] [place] [address] [email or web address] documented as of this encounter Procedures Procedure Name Priority Date/Time Associated Diagnosis Comments CT HEAD OUTSIDE (NO INTERPRETATION) Routine 11/03/2011 12:00 AM EST documented in this encounter Results * CT Head Outside (No Interpretation) (11/03/2011 12:00 AM EST) Narrative [facility] IM INTERFACES - 11/08/2022 9:36 AM EST This study is for PACS storage only and not for interpretation. us Pedro Pierce MD IMG OUTSIDE IMAGING W/OUT INTE RPRETATION Final Result [facility] IM[facility] INTERFACES documented in this encounter Visit Diagnoses Not on filedocumented in this encounter Additional Health Concerns Infection Onset Date Last Indicated Resolved Time CoV-Risk 07/22/2021 07/22/2021 08/01/2021 1:24 AM EDT CoV-Risk 08/07/2023 08/07/2023 08/18/2023 1:23 AM EST documented as of this encounter Additional Source Comments The information contained in this document represents components of the legal health record. It is not the complete legal health record.[facility]
--- OUTSIDE RECORDS SUMMARY | 2021-07-22 11:17 | XMS_ITS | Encounter Summary ---
Author Organization [facility] Address [address] [facility] [address] [place] [address] Phone Care Team Providers Care Remarketing Rep Name Role Phone Liz Schroeder MD Primary Care Provid er Encounter Details Date Type Department Care Team (Late st Contact Info) Description 07/22/2021 11:17 AM EDT Hospital Encounter [facility] [address] [place] [phone] Beatriz Gambino CNP [address] [place] [address] [email or web address] Social History Tobacco Use Types Packs/Day Years [...] enough money to get more. Never True Residential Stability Answer Date Recor ded What [...] 9:48 AM EDT Radha Jones, RN * [place] Suicide Severity Rating Scale (Screener/Recent Self-Report) Question Answer Date of Assessment Author 1. Wish to be (Past 1 Month) No 025 9:48 AM EDT Radha Jones, RN 2. Non-Specific Active Suici keyona Thoughts (Past 1 Month) No 06/10/2025 9:48 AM EDT Anay Jones, RN 6. Suicidal Behavior (Lifetime) No 9:48 AM EDT Radha Jones, RN documented as of this encounter Plan of Treatment Upcoming Encounters Date Type Department Care Team (Late st Contact Info) Description 06/19/2025 1:00 PM EDT Office Visit [facility] [address] [place] [address] Pedro Pierce MD [address] [place] [address]--[place] [address] [email or web address] 07/16/2025 1:15 PM EDT Administrative Encounter Central Registration, [facility] at [address] [address] Mary Sage MD [address] [place] [address] [email or web address] 07/16/2025 2:00 PM EDT Office Visit [facility], [facility], [facility] at [address] [address] Mary Sage MD [address] [place] [phone] [email or web address] documented as of this encounter Procedures Procedure Name Priority Date/Time Associated Diagnosis Comments XR CHEST PA AND LATERAL 2 VIEWS Urgent/patient waiting 07/22/2021 11:25 AM EDT Shortness of breath documented in this encounter Results * XR CHEST PA AND LATERAL 2 VIEWS (07/22/2021 11:25 AM EDT) Anatomical Region Laterality Modality Chest Computed Radiogr aphy 07/22/2021 11:3 3 AM EDT Impressions 07/22/2021 11:33 AM EDT No acute process. Narrative 07/22/2021 11:33 AM EDT XR CHEST PA AND LATERAL 2 VIEWS COMPARISON: None. FINDINGS: Devices/Tubes/Lines: None. Lungs: Normal. The lungs are clear. No focal consolidation or pulmonary edema. Pleura: Normal. No pleural effusion or pneumothorax. Heart/Mediastinum: Normal heart and mediastinum. Bones/Soft Tissues: Mild degenerative changes of the spine. Procedure Note Dona Gutierrez MD - 07/22/2021 XR CHEST PA AND LATERAL 2 VIEWS COMPARISON: None. FINDINGS: Devices/Tubes/Lines: None. Lungs: Normal. The lungs are clear. No focal consolidation or pulmonaryedema. Pleura: Normal. No pleural effusion or pneumothorax. Heart/Mediastinum: Normal heart and mediastinum. Bones/Soft Tissues: Mild degenerative changes of the spine. IMPRESSION: No acute process. Beatriz Gambino CASINO ATTENDANT IMG XR CHEST Final Resul t documented in this encounter Visit Diagnoses Not on filedocumented in this encounter Additional Health Concerns Infection Onset Date Last Indicated Resolved Time CoV-Risk 07/22/2021 07/22/2021 08/01/2021 1:24 AM EDT CoV-Risk 08/07/2023 08/07/2023 08/18/2023 1:23 AM EST documented as of this encounter Care Teams Remarketing Rep Relationship Specialty Start Date End Date [facility] [address] [address] PCP - General Internal Medicine 02/17/21 documented as of this encounter Additional Source Comments The information contained in this document represents components of the legal health record. It is not the complete legal health record.[facility]
--- OUTSIDE RECORDS SUMMARY | 2022-06-18 | XMS_ITS | Encounter Summary ---
Author Organization [facility] Address [address] [facility] [address] [place] [address] Phone Care Team Providers Care Plastic Production Machine Setter Name Role Phone Liz Schroeder MD Primary Care Provid er Encounter Details Date Type Department Care Team (Late st Contact Info) Description 06/18/2022 Hospital Encounter [facility] OUTSIDE [address] [place] [phone] Law Hawkins MD [address] [place] [address] [email or web address] Social History Tobacco Use Types Packs/Day [...] 9:48 AM EDT Radha Jones, RN * [place] Suicide Severity Rating Scale (Screener/Recent Self-Report) Question [...] Description 06/19/2025 1:00 PM EDT Office Visit [facility] [address] [facility] [address] [place] [address] Pedro Pierce MD [address] [place] [address]--[place] [address] [email or web address] 07/16/2025 1:15 PM EDT Administrative Encounter Central Registration, [facility] at [address] [address] Mary Sage MD [address] [place] [address] [email or web address] 07/16/2025 2:00 PM EDT Office Visit [facility], [facility], [facility] at [address] [address] Mary Sage MD [address] [place] [phone] [email or web address] Pending Results Name Type Priority Associated Diagnoses [...] documented as of this encounter Care Teams Plastic Production Machine Setter Relationship Specialty Start Date End Date Liz Schroeder MD [address] [address] PCP - General Internal Medicine 02/17/21 documented as of this encounter Additional Source Comments The information contained in this document represents components of the legal health record. It is not the complete legal health record.[facility]
--- OUTSIDE RECORDS SUMMARY | 2025-06-10 08:45 | XMS_ITS | Encounter Summary ---
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 recurrent DVT, PE, renal vein thrombosis , her last DVT was in 06/2024 while on low dose apixaban . Pt Matrix Repairer recommended heparin drip bridge while off apixaban anticoagulation - HM Apixaban 5 mg bid # Musculoskeletal/skin. - Activity: OOB, Ambulate # Neuro/Psychiatric. Insomnia - melatonin 5 mg prn DVT prophylaxis with SCD, heparin gtt CODE STATUS: Full Code Primary Service: Ophtalmology Level of Care: Observation ? Kar Hill MD Internal Medicine Pager: [phone] Quality Clinical Documentation: documented in this encounter Nursing Notes * Rohini Wells RN - 06/12/2025 6:19 AM EDT This is a 50 y.o. female s/p Procedure(s) (LRB): EXCISION LESION EYE (Left) Gen: Last vitals 36.9 ??C (98.5 ??F) P 93 BP 115/74 RR 18 SpO2 90 % 5 FiO2 28 % 133.4kg (294 lb) Neuro: A&Ox3, calm and cooperative with nursing care, can be anxious at times but redirectable.OOB to bathroom with SBAx1. HEENT: L sclera red with blurry vision, periorbital edema and ecchymosis present. Resp: Remains on continuous humidified O2 28% full face mask, denies SOB. SpO2 > 91%. CV: VSS, BL pneumo boots remain in place. On Heparin drip with PTT Q6 - with 2236 PTT 141.9, per orders Heparin stopped and RC paged. Restarted @ 0115 @ 15 units/kg/hr. No signs of bleeding noted. Next PTT due at 0715. GI/: Tolerating reg diet, continent to bathroom, pills whole with water. Skin: Warm, dry, intact. IV: RUE double lumen midline, with no blood return, PIV R hand infusing continuous heparin. Pain: Adequately controlled with tylenol. Safety: Maintained per protocol. Education: POC reviewed. documented in this encounter Miscellaneous Notes * Plan of Care - Ayana Richardson RN - 06/11/2025 3:23 PM EDT Problem: Venous Thromboembolism (VTE), Risk or Actual - Adult/Pediatric Goal: Absence or resolution of venous thromboembolism (VTE) during hospitalization Outcome: Progressing Problem: Bleeding, Risk or Actual - Adult Goal: Absence of active bleeding during hospitalization Outcome: Progressing Goal: Absence of impaired coagulation signs and symptoms during hospitalization Outcome: Progressing Goal: Therapeutic response to anticoagulation therapy during hospitalization Outcome: Progressing * Hospital Course - Klaudia Angel MD - 06/11/2025 11:21 AM EDT HOSPITAL COURSE BY PROBLEM # Left orbital mass Gauri Tejada was admitted pre-operatively for a left anterior orbitotomy and left orbital mass excision. She was admitted on 06/10 to start a heparin bridge, as she has a history of unknown coagulopathy (on Eliquis 5mg BID, hx of PEs/DVT). She underwent left anterior orbitotomy and left orbital mass excision (06/11/25, [facility]) without complication. Mass was sent for pathology. On 06/11, anticoagulation was restarted 6-hours post-op. There were no re-bleeding complications. On 06/12, patient was restarted on home Eliquis and heparin gtt was stopped. Patient was discharged with close outpatient follow-up - Erythomycin ointment TID x 7 days - Continue Eliquis 5mg BID - Follow-up with Dr. Pierce at post-op appointment documented in this encounter Plan of Treatment Upcoming Encounters Date Type Department Care Team (Late st Contact Info) Description 06/19/2025 1:00 PM EDT Office Visit [facility] [address] [address] Pedro Pierce MD [address] [place] [address]--[place] [address] [email or web address] 07/16/2025 1:15 PM EDT Administrative Encounter Central Registration, [facility] at [address] [address] Mary Sage MD [address] [place] [id number] [email or web address] 07/16/2025 2:00 PM EDT [facility] Visit [facility], [facility] at [address] [address] Mary Sage MD [address] [place] [phone] [email or web address] Pending Results Name Type Priority Associated Diagnoses Date /Time Anatomic Pathology Pathology and Cytology Routine 06/11/2025 9:30 AM EDT Scheduled Orders Name Type Priority Associated Diagnoses Order Schedule Anatomic Pathology Pathology and Cytology Routine Once for 1 Occurrences starting 06/12/2025 until 06/12/2025 documented as of this encounter Procedures Procedure Name Priority Date/Time Associated Diagnosis Comments PTT Timed 06/12/2025 7:17 AM EDT CBC Routine 06/12/2025 7:17 AM EDT BASIC METABOLIC PANEL Routine 06/12/2025 7:17 AM EDT PTT STAT 06/11/2025 10:36 PM EDT PTT STAT 06/11/2025 4:10 PM EDT MN EXPLORE EYE SOCKET,REMV LESN 06/11/2025 7:46 AM EDT Left orbital dermoid Special Needs DX: [id number]: [id number]: 60 MINUTES GENERAL PTT Routine 06/11/2025 5:04 AM EDT PT-INR Routine 06/11/2025 5:04 AM EDT CBC AND DIFFERENTIAL Routine 06/11/2025 5:04 AM EDT BASIC METABOLIC PANEL Routine 06/11/2025 5:04 AM EDT PTT Timed 06/10/2025 9:00 PM EDT PT-INR Routine 06/10/2025 9:00 PM EDT TROPONIN Timed 06/10/2025 9:00 PM EDT TROPONIN Routine 06/10/2025 6:36 PM EDT PTT Routine 06/10/2025 5:20 PM EDT PTT Timed 06/10/2025 5:20 PM EDT PT-INR Routine 06/10/2025 5:20 PM EDT ECG 12-LEAD Routine 06/10/2025 5:10 PM EDT CBC AND DIFFERENTIAL Routine 06/10/2025 12:54 PM EDT MRSA NASAL SCREEN Routine 06/10/2025 12: 03 PM EDT PT-INR Routine 06/10/2025 11:01 AM EDT documented in this encounter Results * (ABNORMAL) Basic metabolic panel (06/12/2025 7:17 AM EDT) SODIUM 138 135 - 145 mmol/L [facility] POTASSIUM 4.6 3.4 - 5.0 mmol/L [facility] CHLORIDE 105 98 - 108 mmol/L [facility] CO2 23 23 - 32 mmol/L [facility] BUN 16 8 - 25 mg/dL [facility] CREATININE 1.04(H) 0.50 - 1.00 mg/dL [facility] GLUCOSE 83 70 - 110 mg/dL [facility] CALCIUM 9.0 8.5 - 10.5 mg/dL [facility] EGFR 66 >59 mL/min/1. 73m2 [facility] Comment:Estimated glomerular filtration rate calculated using the CKD-EPI refit equation. ANION GAP 10 3 - 17 mmol/L [facility] Blood 06/12/2025 7:17 AM EDT 06/12/2025 8:24 AM EDT us Pedro Pierce MD LAB BLOOD ORDERABLES Final Res ult [facility] [address] [place] [address] * (ABNORMAL) PTT (06/12/2025 7:17 AM EDT) APTT 85.4(H) 24.0 - 37.5 sec [facility] Comment:Check MAR for the ta rget range that is ordered for your patient. Blood 06/12/2025 7:17 AM EDT 06/12/2025 8:24 AM EDT Pedro Pierce MD LAB BLOOD ORDERABLES Final Res ult Performing Organization Address City/[facility]/ZIP Co de Phone Number [address] [address] * CBC (06/12/2025 7:17 AM EDT) WBC 8.67 4.00 - 11.00 K/uL [facility] RBC 4.37 4.00 - 5.20 M/uL [facility] HGB 12.5 12.0 - 16.0 g/dL [facility] HCT 38.8 36.0 - 46.0 % [facility] PLT 271 150 - 450 K/uL [facility] MCV 88.8 80.0 - 100.0 fL [facility] MCH 28.6 27.0 - 31.0 pg [facility] MCHC 32.2 32.0 - 36.0 g/dL [facility] RDW 13.6 11.5 - 14.5 % [facility] MPV 10.2 8.4 - 12.0 fL [facility] NRBC 0.00 0.00 /100 WBCs [facility] ABSOLUTE NRBC 0.00 0.00 K/uL [facility] Blood 06/12/2025 7:17 AM EDT 06/12/2025 8:24 AM EDT us Kar Hill MD LAB BLOOD ORDERABLES Final Resul t Performing Organization Address City/[facility] Co de Phone Number [address] [address] * (ABNORMAL) PTT (06/11/2025 10:36 PM EDT) APTT 141.9(HH) 24.0 - 37.5 sec [facility] Comment:Check MAR for the ta rget range that is ordered for your patient. Blood 06/11/2025 10:3 6 PM EDT 06/11/2025 11:19 PM EDT us Kar Hill MD LAB BLOOD ORDERABLES Final Resul t Performing Organization Address [facility] Co de Phone Number [address] [address] * PTT (06/11/2025 4:10 PM EDT) APTT 24.9 24.0 - 37.5 sec [facility] Comment:Check MAR for the ta rget range that is ordered for your patient. Blood 06/11/2025 4:10 PM EDT 06/11/2025 4:42 PM EDT us Kar Hill MD LAB BLOOD ORDERABLES Final Resul t Performing Organization Address [facility] Co de Phone Number [address] [address] * (ABNORMAL) PTT (06/11/2025 5:04 AM EDT) APTT 53.8(H) 24.0 - 37.5 sec [facility] Comment:Check MAR for the ta rget range that is ordered for your patient. 06/11/2025 5:04 AM EDT 06/11/2025 6:47 AM EDT Pedro Pierce MD LAB BLOOD ORDERABLES Final Res ult Performing Organization Address City/[facility] Co de Phone Number [address] [address] * PT-INR (06/11/2025 5:04 AM EDT) PT 11.1 10.0 - 13.0 sec [facility] INR 1.0 0.9 - 1.1 [facility] Blood 06/11/2025 5:04 AM EDT 06/11/2025 6:46 AM EDT Pedro Pierce MD LAB BLOOD ORDERABLES Final Res ult [facility] [address] [place] [address] * (ABNORMAL) CBC and differential (06/11/2025 5:04 AM EDT) WBC 7.95 4.00 - 11.00 K/uL [facility] RBC 4.59 4.00 - 5.20 M/uL [facility] HGB 13.1 12.0 - 16.0 g/dL [facility] HCT 40.5 36.0 - 46.0 % [facility] PLT 284 150 - 450 K/uL [facility] MCV 88.2 80.0 - 100.0 fL [facility] MCH 28.5 27.0 - 31.0 pg [facility] MCHC 32.3 32.0 - 36.0 g/dL [facility] RDW 13.7 11.5 - 14.5 % [facility] MPV 10.1 8.4 - 12.0 fL [facility] NRBC 0.00 0.00 /100 WBCs [facility] ABSOLUTE NRBC 0.00 0.00 K/uL [facility] DIFF [facility] NEUTS 36.8(L) 48.0 - 76.0 % [facility] LYMPHS 51.6(H) 18.0 - 41.0 % [facility] MONOS 7.0 4.0 - 11.0 % [facility] EOS 3.5 0.0 - 5.0 % [facility] BASOS 0.8 0.0 - 1.5 % [facility] % IMMATURE GRANS 0.3 0.0 - 0.9 % [facility] ABSOLUTE NEUTS 2.93 1.92 - 7.60 K/uL [facility] ABSOLUTE LYMPHS 4.10 0.72 - 4.10 K/uL [facility] ABSOLUTE MONOS 0.56 0.16 - 1.10 K/uL [facility] ABSOLUTE EOS 0.28 0.00 - 0.50 K/uL [facility] ABSOLUTE BASOS 0.06 0.00 - 0.15 K/uL [facility] ABS IMMATURE GRANS 0.02 0.00 - 0.09 K/uL [facility] Blood 06/11/2025 5:04 AM EDT 06/11/2025 6:46 AM EDT Pedro Pierce MD LAB BLOOD ORDERABLES Final Res ult [address] [address] * (ABNORMAL) Basic metabolic panel (06/11/2025 5:04 AM EDT) SODIUM 141 135 - 145 mmol/L [facility] POTASSIUM 4.3 3.4 - 5.0 mmol/L [facility] CHLORIDE 107 98 - 108 mmol/L [facility] CO2 25 23 - 32 mmol/L [facility] BUN 15 8 - 25 mg/dL [facility] CREATININE 1.08(H) 0.50 - 1.00 mg/dL [facility] GLUCOSE 88 70 - 110 mg/dL [facility] CALCIUM 8.8 8.5 - 10.5 mg/dL [facility] EGFR 63 >59 mL/min/1. 73m2 [facility] Comment:Estimated glomerular filtration rate calculated using the CKD-EPI refit equation. ANION GAP 9 3 - 17 mmol/L [facility] Blood 06/11/2025 5:04 AM EDT 06/11/2025 6:46 AM EDT Pedro Pierce MD LAB BLOOD ORDERABLES Final Res ult Performing Organization Address City/[facility]/ZIP Co de Phone Number [address] [address] * Troponin (06/10/2025 9:00 PM EDT) Troponin-T, HS Gen5 <6 0 - 9 ng/L [facility] Blood 06/10/2025 9:00 PM EDT 06/10/2025 10:05 PM EDT Kar Hill MD LAB BLOOD ORDERABLES Final Resul t [address] [address] * (ABNORMAL) PTT (06/10/2025 9:00 PM EDT) APTT 66.9(H) 24.0 - 37.5 sec [facility] Comment:Check MAR for the ta rget range that is ordered for your patient. Blood 06/10/2025 9:00 PM EDT 06/10/2025 10:05 PM EDT Pedro Pierce MD LAB BLOOD ORDERABLES Final Res ult Performing Organization Address [facility]/ZIP Co de Phone Number [address] [address] * PT-INR (06/10/2025 9:00 PM EDT) PT 11.2 10.0 - 13.0 sec [facility] INR 1.0 0.9 - 1.1 [facility] Blood 06/10/2025 9:00 PM EDT 06/10/2025 10:05 PM EDT Pedro Pierce MD LAB BLOOD ORDERABLES Final Res ult Performing Organization Address [facility] Co de Phone Number [address] [address] * Troponin (06/10/2025 6:36 PM EDT) Troponin-T, HS Gen5 <6 0 - 9 ng/L [facility] 06/10/2025 6:36 PM EDT 06/10/2025 7:49 PM EDT Kar Hill MD LAB BLOOD ORDERABLES Final Resul t Performing Organization Address [facility] Co de Phone Number [address] [address] * (ABNORMAL) PTT (06/10/2025 5:20 PM EDT) APTT 67.4(H) 24.0 - 37.5 sec [facility] Comment:Check MAR for the ta rget range that is ordered for your patient. Blood 06/10/2025 5:20 PM EDT 06/10/2025 5:45 PM EDT Pedro Pierce MD LAB BLOOD ORDERABLES Final Res ult Performing Organization Address [facility] Co de Phone Number [address] [address] * PT-INR (06/10/2025 5:20 PM EDT) PT 11.5 10.0 - 13.0 sec [facility] INR 1.0 0.9 - 1.1 [facility] Blood 06/10/2025 5:20 PM EDT 06/10/2025 5:45 PM EDT Pedro Pierce MD LAB BLOOD ORDERABLES Final Res ult Performing Organization Address [facility] Co de Phone Number [address] [address] * (ABNORMAL) PTT (06/10/2025 5:20 PM EDT) APTT 62.0(H) 24.0 - 37.5 sec [facility] Comment:Check MAR for the ta rget range that is ordered for your patient. Blood 06/10/2025 5:20 PM EDT 06/10/2025 5:45 PM EDT Pedro Pierce MD LAB BLOOD ORDERABLES Final Res ult Performing Organization Address [facility] Co de Phone Number [address] [address] * ECG 12-LEAD (06/10/2025 5:10 PM EDT) Systolic Blood Pressure [facility]USE[facility] Diastolic Blood Pressure [facility] Ventricular Rate EKG/MIN 99 BPM [facility] Atrial Rate 99 BPM [facility] MN Interval 144 ms [facility] QRS Duration 86 ms [facility] QT Interval 350 ms [facility] QTC Interval 449 ms MUSE_MEE P Clarkson MUSE_MEE R Wave [place] 82 degrees MUSE_MEE T Wave [place] 179 degrees [facility] 06/10/2025 5:10 PM EDT 06/11/2025 2:29 PM EDT Narrative CORBIN_IRASEMA - 06/11/2025 2:29 PM EDT LOC: [facility] DX: PRE-OP REF: KAR HILL POSSIBLE LIMB LEAD REVERSAL, RECOMMEND REPEAT TRACING BORDERLINE SINUS TACHYCARDIA POOR R WAVE PROGRESSION NONSPECIFIC ST SEGMENT AND T WAVE ABNORMALITIES INFERIOR AND HIGH LATERAL Q WAVES OF UNCLEAR SIGNIFICANCE, POSSIBLY RELATED TO LIMB LEAD PLACEMENT, RECOMMEND REPEAT TRACING ABOVE NO PREVIOUS ECGS AVAILABLE Confirmed by Alex Pierre MD ([id number]) on 06/11/2025 2:29:05 PM us Kar Hill MD ECG ORDERABLES Final Result [facility] * (ABNORMAL) CBC and differential (06/10/2025 12:54 PM EDT) WBC 7.78 4.00 - 11.00 K/uL [facility] RBC 4.63 4.00 - 5.20 M/uL [facility] HGB 13.2 12.0 - 16.0 g/dL [facility] HCT 40.7 36.0 - 46.0 % [facility] PLT 292 150 - 450 K/uL [facility] MCV 87.9 80.0 - 100.0 fL [facility] MCH 28.5 27.0 - 31.0 pg [facility] MCHC 32.4 32.0 - 36.0 g/dL [facility] RDW 13.4 11.5 - 14.5 % [facility] MPV 10.0 8.4 - 12.0 fL [facility] NRBC 0.00 0.00 /100 WBCs [facility] ABSOLUTE NRBC 0.00 0.00 K/uL [facility] DIFF METHOD [facility] NEUTS 44.7(L) 48.0 - 76.0 % [facility] LYMPHS 44.0(H) 18.0 - 41.0 % [facility] MONOS 7.5 4.0 - 11.0 % [facility] EOS 2.7 0.0 - 5.0 % [facility] BASOS 0.8 0.0 - 1.5 % [facility] % IMMATURE GRANS 0.3 0.0 - 0.9 % [facility] ABSOLUTE NEUTS 3.49 1.92 - 7.60 K/uL [facility] ABSOLUTE LYMPHS 3.42 0.72 - 4.10 K/uL [facility] ABSOLUTE MONOS 0.58 0.16 - 1.10 K/uL [facility] ABSOLUTE EOS 0.21 0.00 - 0.50 K/uL [facility] ABSOLUTE BASOS 0.06 0.00 - 0.15 K/uL [facility] ABS IMMATURE GRANS 0.02 0.00 - 0.09 K/uL [facility] 06/10/2025 12:5 4 PM EDT 06/10/2025 1:25 PM EDT Pedro Pierce MD LAB BLOOD ORDERAB[place] [address] * MRSA Nasal Screen (06/10/2025 12:03 PM EDT) Special Requests No Special Requests 06/10/2025 12:03 PM EDT [facility] MRSA Nasal Culture NEGATIVE FOR MRSA 06/11/2025 1:34 PM EDT [facility] Other (Nasal) 06/10/2025 12: 03 PM EDT 06/10/2025 2:15 PM EDT us Pedro Pierce MD MICROBIOLOGY - GENERAL ORDERAB LES Final Result Performing Organization Address City/[facility]/ZIP Co de Phone Number [address] [place] [address], [facility] [place] * PT-INR (06/10/2025 11:01 AM EDT) PT 12.1 10.0 - 13.0 sec [facility] INR 1.1 0.9 - 1.1 [facility] 06/10/2025 11:0 1 AM EDT 06/10/2025 12:00 PM EDT us Pedro Pierce MD LAB BLOOD ORDERABLES Final Res ult [facility] [address] [place] [address] documented in this encounter Visit Diagnoses Diagnosis Orbital mass- Primary documented in this encounter Admitting Diagnoses Diagnosis Orbital mass documented in this encounter Administered Medications Inactive Administered Medications - up to 3 most recent administrations Medication Order MAR Action Action Date Dose Rate Site acetaminophen (TYLENOL) 325 mg/10.15 mL oral suspension 650 mg 650 mg, Oral, Every 6 hours PRN, mild pain or 1-3 (on a general 0-10 scale), fever, Starting on Tue06/10/25 at 1015, If unable to tolerate tablet. Patient may opt to receive a pain med that is ordered for a lower level of pain. Shake Well acetaminophen (TYLENOL) suppository 650 mg 650 mg, Rectal, Every 6 hours PRN, mild pain or 1-3 (on a general 0-10 scale), fever, Starting on Tue06/10/25 at 1015, If unable to tolerate PO. Patient may opt to receive a pain med that is ordered for a lower level of pain. acetaminophen (TYLENOL) tablet 650 mg 650 mg, Oral, Every 6 hours PRN, mild pain or 1-3 (on a general 0-10 scale), fever, Starting on Tue06/10/25 at 1015, Patient may opt to receive a pain med that is ordered for a lower level of pain. Given 06/12/2025 8:07 AM EDT 650 mg Given 06/11/2025 8:01 PM EDT 650 mg Given 06/11/2025 1:18 PM EDT 650 mg apixaban (ELIQUIS) tablet 5 mg 5 mg, Oral, 2 times daily, First dose (after last reorder) on Tue06/12/25 at 1015, Take with or without food Given 06/12/2025 10:32 AM EDT 5 mg cetirizine (ZyrTEC) tablet 10 mg 10 mg, Oral, Daily, First dose on Tue06/11/25 at 0900 Given 06/12/2025 8:08 AM EDT 10 mg docusate (COLACE) 50 mg/5 mL liquid 100 mg 100 mg, Oral, 2 times daily PRN, mild constipation, Starting on Tue06/11/25 at 1902, If unable to tolerate capsule docusate sodium (COLACE) capsule 100 mg 100 mg, Oral, 2 times daily PRN, mild constipation, Starting on Tue06/11/25 at 1902 Given 06/12/2025 8:07 AM EDT 100 mg Given 06/11/2025 8:02 PM EDT 100 mg erythromycin (ROMYCIN) 5 mg/gram (0.5 %) ophthalmic ointment 0.5 inch 0.5 inch, Left Eye, 3 times daily, First dose on Tue06/11/25 at 1400, For 7 doses, Apply ribbon into the conjunctival sac as directed. Given 06/12/2025 8:08 AM EDT 0.5 inches Given 06/11/2025 8:02 PM EDT 0.5 inches Given 06/11/2025 1:20 PM EDT 0.5 inches famotidine (PEPCID) tablet 40 mg 40 mg, Oral, Nightly, First dose on Tue06/10/25 at 2100 Given 06/11/2025 8:02 PM EDT 40 mg Given 06/10/2025 8:47 PM EDT 40 mg haloperidol lactate (HALDOL) injection 1 mg 1 mg, Intravenous, Once as needed, other (free text field), 2nd line antiemetic, Starting on Tue06/11/25 at 0853, For 1 dose, Recovery Room (only) Given 06/11/2025 9:10 AM EDT 1 mg heparin 1,000 unit/mL injection 6,600 Units 6,600 Units (rounded from 6,690 Units = 50 Units/kg 133.8 kg Dosing weight), Intravenous, Every 6 hours PRN, other (free text field), For PTT less than 40, Starting on Tue06/10/25 at 1622, PRN Bolus for: PTT less than 40 Given 06/11/2025 4:03 PM EDT 6,600 Units heparin 1,000 unit/mL injection 6,600 Units 6,600 Units (rounded from 6,690 Units = 50 Units/kg 133.8 kg Dosing weight), Intravenous, Once, On Tue06/10/25 at 1115, For 1 dose, Initial bolus for heparin infusion Given 06/10/2025 2:53 PM EDT 6,600 Units heparin in 1/2 NS infusion 0-24.5 Units/kg/hr 133 kg Order-specific weight (0-32.585 mL/hr, rounded to 0-32.6 mL/hr), Intravenous, Continuous, Starting on Tue06/10/25 at 1615, Start or Continue Infusion at: 18 units/kg/hr PTT Goal: PTT 60-80 (High Intensity) PTT Lab Ordering Instructions: CHECK PTT in 6 hours after initiation and ANY dose adjustment OR If in therapeutic range for 2 consecutive 6 hour PTT checks decrease PTT frequency to Q 12 hours PTT less than 40: Administer bolus of 50 units/kg AND Increase dose by 3 units/kg/hr PTT 40-49.9: Administer bolus of 30 units/kg AND Increase dose by 2 units/kg/hr PTT 50-59.9: Increase dose by 1 unit/kg/hr PTT 60-80: Therapeutic, NO change to dose PTT 80.1-100: Decrease dose by 2 units/kg/hr PTT greater than 100: Hold dose for 60 minutes AND decrease dose by 3 units/kg/hr AND check for signs of bleeding and call Responding Clinician to confirm clinical action plan , On hold since Tue06/12/2025 at 0857 until manually unheld New Bag 06/12/2025 3:34 AM EDT 15 Units/kg/hr 20 mL/hr New Bag 06/12/2025 1:15 AM EDT 15 Units/kg/hr 20 mL/hr Rate/Dose Verify 06/11/2025 7:19 PM EDT 18 Units/kg/hr 23. 9 mL/hr LORazepam (ATIVAN) tablet 1 mg 1 mg, Oral, Every 8 hours PRN, anxiety, Starting on Tue06/10/25 at 1147 Given 06/11/2025 3:37 PM EDT 1 mg Given 06/10/2025 8:55 PM EDT 1 mg Given 06/10/2025 12:46 PM EDT 1 mg melatonin tablet 5 mg 5 mg, Oral, Nightly PRN, difficulty sleeping, Starting on Tue06/10/25 at 1054 morphine injection syringe 2 mg 2 mg, Intravenous, Every 5 min PRN, other (free text field), 1st line opioid analgesia, Starting on Tue06/11/25 at 0853, For 10 doses, Recovery Room (only), Up to a max total dose of 20 mg. Given 06/11/2025 9:53 AM EDT 2 mg ondansetron (PF) (ZOFRAN) 4 mg/2 mL injection Starting on Tue06/11/25 at 0922, For 1 dose, KEN MOODY: nathalyinet override ondansetron (PF) (ZOFRAN) injection 2 mg 2 mg, Intravenous, Every 4 hours PRN, nausea, vomiting, Starting on Tue06/10/25 at 1147, If unable to tolerate PO. Given 06/11/2025 1:18 PM EDT 2 mg ondansetron (PF) (ZOFRAN) injection 4 mg 4 mg, Intravenous, Every 4 hours PRN, nausea, vomiting, Starting on Tue06/11/25 at 0932, For 1 dose, Recovery Room (only), If unable to tolerate PO. Given 06/11/2025 9:34 AM EDT 4 mg ondansetron (ZOFRAN-ODT) disintegrating tablet 4 mg 4 mg, Oral, Every 6 hours PRN, nausea, vomiting, Starting on Tue06/10/25 at 1147 Given 06/11/2025 5:42 AM EDT 4 m g Given 06/11/2025 12:14 AM EDT 4 mg Given 06/10/2025 7:47 PM EDT 4 mg senna (SENOKOT) tablet 2 tablet 2 tablet, Oral, Nightly PRN, mild constipation, if docusate not effective, Starting on Tue06/11/25 at 1902 sodium chloride (NS) 0.9 % syringe flush 10 mL 10 mL, Intravenous, Every 8 hours, First dose on Tue06/10/25 at 1245 Given 06/12/2025 5:37 AM EDT 10 mL Given 06/11/2025 8:02 PM EDT 10 mL Given 06/11/2025 1:20 PM EDT 10 mL valACYclovir (VALTREX) tablet 1,000 mg 1,000 mg, Oral, Daily, First dose on Tue06/10/25 at 1145, Indication: Empiric Given 06/12/2025 8:08 AM EDT 1,000 mg Given 06/10/2025 8:47 PM EDT 1,000 mg documented in this encounter Active and Recently Administered Medications Times are shown in EDT. Scheduled Medication Order 06/10/2025 06/11/2025 06/12/2025 apixaban (ELIQUIS) tablet 5 mg 5 mg, Oral, 2 times daily, First dose (after last reorder) on Tue06/12/25 at 1015, Take with or without food 1032 (Given - Provider: Emelyn Damon, SASHA) cetirizine (ZyrTEC) tablet 10 mg 10 mg, Oral, Daily, First dose on Tue06/11/25 at 0900 0701 (MAR Hold - Provider: Automatic Transfer Provider - Reason: Unreviewed Transfer Orders)0900 (Automatically Held - Provider: Automatic Transfer Provider)1054 (MAR Unhold - Provider: Ayana Richardson RN) 0808 (Given - Provider: Emelyn Damon, SASHA) erythromycin (ROMYCIN) 5 mg/gram (0.5 %) ophthalmic ointment 0.5 inch 0.5 inch, Left Eye, 3 times daily, First dose on Tue06/11/25 at 1400, For 7 doses, Apply ribbon into the conjunctival sac as directed. 1320 (Given - Provider: Ayana Richardson RN)2001 (Given - Provider: Rohini Wells RN) 0808 (Given - Provider: Emelyn Damon, SASHA) famotidine (PEPCID) tablet 40 mg 40 mg, Oral, Nightly, First dose on Tue06/10/25 at 2100 2047 (Given - Provider: Jean-Paul Baum, SASHA) 0701 (MAR Hold - Provider: Automatic Transfer Provider - Reason: Unreviewed Transfer Orders)1054 (DEC Unhold - Provider: Ayana Richardson RN)2001 (Given - Provider: Rohini Wells RN) heparin 1,000 unit/mL injection 6,600 Units (COMPLETED) 6,600 Units (rounded from 6,690 Units = 50 Units/kg 133.8 kg Dosing weight), Intravenous, Once, On Tue06/10/25 at 1115, For 1 dose, Initial bolus for heparin infusion 1453 (Given - Provider: Radha Jones RN) sodium chloride (NS) 0.9 % syringe flush 10 mL 10 mL, Intravenous, Every 8 hours, First dose on Tue06/10/25 at 1245 1300 (Given - Provider: Radha Jones, SASHA)1948 (Not Given - Provider: Shayley Bautista, RN - Reason: IV Infusing - Comment: pt on kvo) 0358 (Not Given - Provider: Jean-Paul Baum RN - Reason: IV Infusing - Comment: kvo)0701 (DEC Hold - Provider: Automatic Transfer Provider - Reason: Unreviewed Transfer Orders)1054 (DEC Unhold - Provider: Ayana Richardson RN)1320 (Given - Provider: Ayana Richardson, SASHA)2001 (Given - Provider: Rohini Wells, SASHA) 0537 (Given - Provider: Rohini Wells RN) valACYclovir (VALTREX) tablet 1,000 mg 1,000 mg, Oral, Daily, First dose on Tue06/10/25 at 1145, Indication: Empiric 2046 (Given - Provider: Jean-Paul Baum RN) 0701 (DEC Hold - Provider: Automatic Transfer Provider - Reason: Unreviewed Transfer Orders)0900 (Automatically Held - Provider: Automatic Transfer Provider)1054 (DEC Unhold - Provider: Ayana Richardson RN) 0808 (Given - Provider: Emelyn Damon RN) Continuous Medication Order 06/10/2025 06/11/2025 06/12/2025 heparin in 1/2 NS infusion (CANCELED) 0-24.5 Units/kg/hr 133 kg Order-specific weight (0-32.585 mL/hr, rounded to 0-32.6 mL/hr), Intravenous, Continuous, Starting on Tue06/10/25 at 1615, Start or Continue Infusion at: 18 units/kg/hr PTT Goal: PTT 60-80 (High Intensity) PTT Lab Ordering Instructions: CHECK PTT in 6 hours after initiation and ANY dose adjustment OR If in therapeutic range for 2 consecutive 6 hour PTT checks decrease PTT frequency to Q 12 hours PTT less than 40: Administer bolus of 50 units/kg AND Increase dose by 3 units/kg/hr PTT 40-49.9: Administer bolus of 30 units/kg AND Increase dose by 2 units/kg/hr PTT 50-59.9: Increase dose by 1 unit/kg/hr PTT 60-80: Therapeutic, NO change to dose PTT 80.1-100: Decrease dose by 2 units/kg/hr PTT greater than 100: Hold dose for 60 minutes AND decrease dose by 3 units/kg/hr AND check for signs of bleeding and call Responding Clinician to confirm clinical action plan , On hold since Tue06/12/2025 at 0857 until manually unheld 1516 (New Bag - Provider: Radha Jones RN)195 (Rate/Dose Verify - Provider: Jean-Paul Baum, SASHA)220 (Rate/Dose Verify - Provider: Jean-Paul Baum RN - Comment: ptt 66.9, no change in dose needed.)2321 (Rate/Dose Verify - Provider: Odilia Segovia RN - Comment: second RN check) 0227 (New Bag - Provider: Jean-Paul Baum RN)0232 (Rate/Dose Verify - Provider: Odilia Segovia RN)0331 (Stopped - Provider: Jean-Paul Baum RN)0653 (Due: Stopped - Provider: Klaudia Angel MD)0653 (Held by provider - Provider: Klaudia Angel MD)1533 (Unheld by provider - Provider: Kar Hill MD)1618 (Restarted - Provider: Ayana Richardson RN)162 (Independent Double Check - Provider: Jeremiah Donaldson RN - Comment: per order puump check)1919 (Rate/Dose Verify - Provider: Ayana Richardson RN)195 (Independent Double Check - Provider: Rohini Wells RN) 0010 (Stopped - Provider: Rohini Wells RN - Comment: PTT 141.9)0115 (New Bag - Provider: Rohini Wells, SASHA - Comment: Dose/rate decreased by 3 units per PTT result - RC notified and confirmed plan)0120 (Independent Double Check - Provider: Gregory Doty, SASHA)0334 (New Bag - Provider: Rohini Wells, SASHA)0647 (Independent Double Check - Provider: Rohini Wells, SASHA)0719 (Independent Double Check - Provider: Emelyn Damon, SASHA)0857 (Held by provider - Provider: Klaudia Angel MD)0927 (Stopped - Provider: Emelyn Damon, RN)0929 (Unheld by provider - Provider: Klaudia Angel MD) PRN Medication Order 06/10/2025 06/11/2025 06/12/2025 acetaminophen (TYLENOL) 325 mg/10.15 mL oral suspension 650 mg(Linked Group 1) 650 mg, Oral, Every 6 hours PRN, mild pain or 1-3 (on a general 0-10 scale), fever, Starting on Tue06/10/25 at 1015, If unable to tolerate tablet. Patient may opt to receive a pain med that is ordered for a lower level of pain. Carlos Donnelly 1353 (See Alternative - Provider: Radha Jones RN)2046 (See Alternative - Provider: Jean-Paul Baum RN) 0701 (DEC Hold - Provider: Automatic Transfer Provider - Reason: Unreviewed Transfer Orders)1054 (DEC Unhold - Provider: Ayana Richardson RN)1318 (See Alternative - Provider: Ayana Richardson RN)2000 (See Alternative - Provider: Rohini Wells, SASHA) 0807 (See Alternative - Provider: Emelyn Damon, SASHA) acetaminophen (TYLENOL) suppository 650 mg(Linked Group 1) 650 mg, Rectal, Every 6 hours PRN, mild pain or 1-3 (on a general 0-10 scale), fever, Starting on Tue06/10/25 at 1015, If unable to tolerate PO. Patient may opt to receive a pain med that is ordered for a lower level of pain. 1353 (See Alternative - Provider: Radha Jones RN)2046 (See Alternative - Provider: Jean-Paul Baum RN) 0701 (DEC Hold - Provider: Automatic Transfer Provider - Reason: Unreviewed Transfer Orders)1054 (MAR Unhold - Provider: Ayana Richardson RN)1318 (See Alternative - Provider: Ayana Richardson RN)2000 (See Alternative - Provider: Rohini Wells RN) 0807 (See Alternative - Provider: Emelyn Damon, SASHA) acetaminophen (TYLENOL) tablet 650 mg(Linked Group 1) 650 mg, Oral, Every 6 hours PRN, mild pain or 1-3 (on a general 0-10 scale), fever, Starting on Tue06/10/25 at 1015, Patient may opt to receive a pain med that is ordered for a lower level of pain. 1353 (Given - Provider: Radha Jones RN)2046 (Given - Provider: Jean-Paul Baum RN) 0701 (DEC Hold - Provider: Automatic Transfer Provider - Reason: Unreviewed Transfer Orders)1054 (DEC Unhold - Provider: Ayana Richardson, SASHA)1318 (Given - Provider: Ayana Richardson RN)2000 (Given - Provider: Rohini Wells RN) 0807 (Given - Provider: Emelyn Damon, SASHA) BUPivacaine (PF) (MARCAINE) 0.5% injection (CANCELED) As needed, Starting on Tue06/11/25 at 0814, Intra-op/procedure 0814 (Given - Provider: Jeanine Burris MD - Comment: mixed with lido 2% with epi 1:100,000) docusate (COLACE) 50 mg/5 mL liquid 100 mg(Linked Group 2) 100 mg, Oral, 2 times daily PRN, mild constipation, Starting on Tue06/11/25 at 1902, If unable to tolerate capsule 2001 (See Alternative - Provider: Rohini Wells RN) 08 (See Alternative - Provider: Emelyn Damon, SASHA) docusate sodium (COLACE) capsule 100 mg(Linked Group 2) 100 mg, Oral, 2 times daily PRN, mild constipation, Starting on Tue06/11/25 at 1902 2001 (Given - Provider: Rohini Wells RN) 0807 (Given - Provider: Emelyn Damon, SASHA) erythromycin (ROMYCIN) 5 mg/gram (0.5 %) ophthalmic ointment (CANCELED) As needed, Starting on Tue06/11/25 at 0849, Intra-op/procedure 0849 (Given - Provider: Pedro Pierce MD) haloperidol lactate (HALDOL) injection 1 mg (COMPLETED) 1 mg, Intravenous, Once as needed, other (free text field), 2nd line antiemetic, Starting on Tue06/11/25 at 0853, For 1 dose, Recovery Room (only) 0910 (Given - Provider: Bindu Cooper RN) heparin 1,000 unit/mL injection 6,600 Units (CANCELED)(Linked Group 3) 6,600 Units (rounded from 6,690 Units = 50 Units/kg 133.8 kg Dosing weight), Intravenous, Every 6 hours PRN, other (free text field), For PTT less than 40, Starting on Tue06/10/25 at 1622, PRN Bolus for: PTT less than 40 0701 (DEC Hold - Provider: Automatic Transfer Provider - Reason: Unreviewed Transfer Orders)1054 (DEC Unhold - Provider: Ayana Richardson, SASHA)1603 (Given - Provider: Ayana Richardson RN - Comment: Per MD Lakhani its ok to give the bolus without the current result of PTT)1950 (Canceled Entry - Provider: Rohini Wells RN) lidocaine-EPINEPHrine (XYLOCAINE w/EPI) 2%-1:100,000 injection (CANCELED) As needed, Starting on Tue06/11/25 at 0815, Intra-op/procedure 0815 (Given - Provider: Jeanine Burris MD - Comment: mixed with 0.5% marcaine) LORazepam (ATIVAN) tablet 1 mg 1 mg, Oral, Every 8 hours PRN, anxiety, Starting on Tue06/10/25 at 1147 1246 (Given - Provider: Radha Jones, SASHA)2055 (Given - Provider: Jean-Paul Baum, SASHA) 0701 (DEC Hold - Provider: Automatic Transfer Provider - Reason: Unreviewed Transfer Orders)1054 (DEC Unhold - Provider: Ayana Richardson RN)1537 (Given - Provider: Ayana Richardson RN) melatonin tablet 5 mg 5 mg, Oral, Nightly PRN, difficulty sleeping, Starting on Tue06/10/25 at 1054 0701 (DEC Hold - Provider: Automatic Transfer Provider - Reason: Unreviewed Transfer Orders)1054 (DEC Unhold - Provider: Ayana Richardson RN) morphine injection syringe 2 mg (CANCELED) 2 mg, Intravenous, Every 5 min PRN, other (free text field), 1st line opioid analgesia, Starting on Tue06/11/25 at 0853, For 10 doses, Recovery Room (only), Up to a max total dose of 20 mg. 0953 (Given - Provider: Bindu Cooper, SASHA) ondansetron (PF) (ZOFRAN) injection 2 mg(Linked Group 4) 2 mg, Intravenous, Every 4 hours PRN, nausea, vomiting, Starting on Tue06/10/25 at 1147, If unable to tolerate PO. 1353 (See Alternative - Provider: Radha Jones, SASHA)1947 (See Alternative - Provider: Jean-Paul Baum RN) 001 (See Alternative - Provider: Jean-Paul Baum RN)0540 (See Alternative - Provider: Jean-Paul Baum RN)0542 (See Alternative - Provider: Jean-Paul Baum RN)0701 (DEC Hold - Provider: Automatic Transfer Provider - Reason: Unreviewed Transfer Orders)1054 (DEC Unhold - Provider: Ayana Richardson RN)1318 (Given - Provider: Ayana Richardson, SASHA) ondansetron (PF) (ZOFRAN) injection 4 mg (COMPLETED)(Linked Group 5) 4 mg, Intravenous, Every 4 hours PRN, nausea, vomiting, Starting on Tue06/11/25 at 0932, For 1 dose, Recovery Room (only), If unable to tolerate PO. 0934 (Given - Provider: Bindu Cooper RN) ondansetron (ZOFRAN-ODT) disintegrating tablet 4 mg(Linked Group 4) 4 mg, Oral, Every 6 hours PRN, nausea, vomiting, Starting on Tue06/10/25 at 1147 1353 (Given - Provider: Radha Jones, SASHA)1946 (Given - Provider: Jean-Paul Baum RN) 001 (Given - Provider: Jean-Paul Baum RN)0540 (Not Given - Provider: Jean-Paul Baum RN - Reason: Other - Comment: pt dropped med)0542 (Given - Provider: Jean-Paul Baum RN)0701 (DEC Hold - Provider: Automatic Transfer Provider - Reason: Unreviewed Transfer Orders)1054 (DEC Unhold - Provider: Ayana Richardson, SASHA)1318 (See Alternative - Provider: Ayana Richardson, SASHA) proparacaine (ALCAINE) 0.5 % ophthalmic solution (CANCELED) As needed, Starting on Tue06/11/25 at 0859, Intra-op/procedure 0859 (Given - Provider: Jeanine Burris MD) senna (SENOKOT) tablet 2 tablet 2 tablet, Oral, Nightly PRN, mild constipation, if docusate not effective, Starting on Tue06/11/25 at 1902 sodium chloride 0.9% irrigation solution premix (CANCELED) As needed, Starting on Tue06/11/25 at 0815, Intra-op/procedure 0815 (Given - Provider: Pedro Pierce MD - Comment: on field) Linked Groups Order Group 1: acetaminophen (TYLENOL) tablet 650 mgJump to med 650 mg, Oral, Every 6 hours PRN, mild pain or 1-3 (on a general 0-10 scale), fever, Starting on Tue06/10/25 at 1015, Patient may opt to receive a pain med that is ordered for a lower level of pain. Or acetaminophen (TYLENOL) 325 mg/10.15 mL oral suspension 650 mgJump to med 650 mg, Oral, Every 6 hours PRN, mild pain or 1-3 (on a general 0-10 scale), fever, Starting on Tue06/10/25 at 1015, If unable to tolerate tablet. Patient may opt to receive a pain med that is ordered for a lower level of pain. Shake Well Or acetaminophen (TYLENOL) suppository 650 mgJump to med 650 mg, Rectal, Every 6 hours PRN, mild pain or 1-3 (on a general 0-10 scale), fever, Starting on Tue06/10/25 at 1015, If unable to tolerate PO. Patient may opt to receive a pain med that is ordered for a lower level of pain. Group 2: docusate (COLACE) 50 mg/5 mL liquid 100 mgJump to med 100 mg, Oral, 2 times daily PRN, mild constipation, Starting on Tue06/11/25 at 1902, If unable to tolerate capsule Or docusate sodium (COLACE) capsule 100 mgJump to med 100 mg, Oral, 2 times daily PRN, mild constipation, Starting on Tue06/11/25 at 1902 Group 3: heparin 1,000 unit/mL injection 6,600 Units (CANCELED)Jump to med 6,600 Units (rounded from 6,690 Units = 50 Units/kg 133.8 kg Dosing weight), Intravenous, Every 6 hours PRN, other (free text field), For PTT less than 40, Starting on Tue06/10/25 at 1622, PRN Bolus for: PTT less than 40 Or heparin 1,000 unit/mL injection 4,000 Units (CANCELED) 4,000 Units (rounded from 4,014 Units = 30 Units/kg 133.8 kg Dosing weight), Intravenous, Every 6 hours PRN, other (free text field), For PTT 40 to 49.9, Starting on Tue06/10/25 at 1622, PRN Bolus for: PTT 40 to 49.9 Group 4: ondansetron (ZOFRAN-ODT) disintegrating tablet 4 mgJump to med 4 mg, Oral, Every 6 hours PRN, nausea, vomiting, Starting on Tue06/10/25 at 1147 Or ondansetron (PF) (ZOFRAN) injection 2 mgJump to med 2 mg, Intravenous, Every 4 hours PRN, nausea, vomiting, Starting on Tue06/10/25 at 1147, If unable to tolerate PO. Group 5: ondansetron (ZOFRAN-ODT) disintegrating tablet 4 mg (COMPLETED) 4 mg, Oral, Every 6 hours PRN, nausea, vomiting, Starting on Tue06/11/25 at 0932, For 1 dose, Recovery Room (only) Or ondansetron (PF) (ZOFRAN) injection 4 mg (COMPLETED)Jump to med 4 mg, Intravenous, Every 4 hours PRN, nausea, vomiting, Starting on Tue06/11/25 at 0932, For 1 dose, Recovery Room (only), If unable to tolerate PO. documented in this encounter Care Teams Copy Reader Relationship Specialty Start Date End Date Liz Schroeder MD [address] [address] PCP - General Internal Medicine 02/17/21 Self-Referred, Patient Referring Physician 05/29/25 Mary Sage MD [address] [place] [id number] [email or web address] Medical Oncology 05/29/25 documented as of this encounter Additional Source Comments The information contained in this document represents components of the legal health record. It is not the complete legal health record.[facility]
[2025-06-16 22:34] VITALS: BP 140/67; PULSE 86; RESP 20; TEMP 36.6; O2SAT 94; BMI 46.6
--- NOTE | 2025-06-16 22:40 | PC.NURSE ---
Once triage complete, this RN made the pt aware of plan to obtain routine labs while she waits especially since her provider was concerned about possible cellulitis. The pt informed this RN that she is not good with needle sticks and often passes out during blood draws, adding that she is a tough stick as she only has the use/availability of her right arm. She then asked if the blood work was necessary and stated that she would rather wait until she was seen in the back by a provider to determine whether or not blood work was necessary. Both parties agreed and no orders were entered as they were differed until provider evaluation.
--- NOTE | 2025-06-17 00:45 | PC.NURSE ---
Pt not visualized in ED WR when called. Attempted to call patient x2 on phone number listed on chart. No answer at this time.
--- OUTSIDE RECORDS SUMMARY | 2025-06-17 00:52 | XMS_ITS | Clinical Summary ---
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 Active anastrozole (ARIMIDEX) 1 MG tabletIndicatio ns:Invasive ductal carcinoma of breast, female, left (HCC) TAKE 1 TABLET(1 MG) BY MOUTH DAILY 90 tablet 3 5 Active Eliquis 5 MG tablet Take 1 tablet (5 mg total) by mouth 2 times a day. Active Biotin 1 MG Cap Acti ve cetirizine (ZyrTEC Allergy) 10 MG tablet Take 1 tablet (10 mg total) by mouth. 4 Active cyanocobalamin (VITAMIN B-12) 1000 MCG tablet Acti ve EPINEPHrine (EPIPEN 2-LAURA) 0.3 mg/0.3 mL IJ auto-injection Inject 0.3 mL (0.3 mg total) into the thigh once as needed for allergic reaction. 4 Active LORazepam (ATIVAN) 1 MG tablet Take [...] (two) times a day. 1 each 5 5 Active Additional Information Patient not taking.Reported on 04/09/2025 benzonatate (TESSALON) 200 MG capsuleIndicati ons:Subacute cough,Lung nodule, multiple Take 1 capsule (200 mg total) by mouth 3 (three) times a day as needed for cough. 50 capsule 1 5 Active Active Problems Problem Noted Date Diagnosed Date Invasive ductal carcinoma of breast, female, lef t 06/28/2024 Cancer Staging:Pathologic stage from 01/24/2024:Stage IB(pT2, pN1mi, cM0, G2, ER+, NC+, HER2-, Oncotype DX score: 14) - Signed by Roberta Christopher MD on 06/28/2024 Encounters Date Type Department Care Team Description 04/09/2025 12:30 PM EDT Office Visit [facility] Medical Oncology at [address] [address] Roberta Manzo MD Invasive ductal carcinoma of breast, female, left (HCC) (Primary Dx); Vertigo 04/09/2025 Travel from Last 3 Months Family History Medical [...] Sign Reading Time Taken Comments Blood Pressure 134/72 04/09/2025 12:41 PM EDT Pulse 99 04/09/2025 12:41 PM EDT Temperature 36.3 C (97.3 F) 04/09/2025 12:41 PM EDT Respiratory Rate 20 04/09/2025 12:41 PM EDT Oxygen Saturation 98% 04/09/2025 12:41 PM EDT Inhaled Oxygen Concentration - - Weight 133 kg (294 lb) 04/09/2025 12:41 PM EDT Height 170.2 cm (5' 7 ) 01/07/2025 1:51 PM EDT Body Mass Index 46.05 01/07/2025 1:51 PM EDT Plan of Treatment Upcoming Encounters Date Type Department Care Team (Late st Contact Info) Description 08/02/2025 8:45 AM EDT Office Visit [facility] [place] [address] [facility] [address] [place] [address] Nick Lancaster MD [address] [facility] [address] [place] [address] 04/15/2026 12:45 PM EDT Office Visit [facility] [place] Medical Oncology at [address] [phone] Roberta Manzo MD [address] [place], [place] [phone] Health Maintenance Due Date Last Done Comments Hepatitis C Virus Screening 1977 HIV Screening 1990 DTaP/Tdap/Td Vaccines (1 - Tdap) 1996 Hepatitis B Vaccines (1 of 3 - 19+ 3-dose series) 1996 Pneumococcal Vaccine: Pediat daniela (0-5 Years) and At-Risk Patients (6 to 49 Years) (1 of 2 - PCV) 1996 Pap Smear (Ages 21-65) 1998 Colonoscopy 2022 Influenza Vaccine 05/03/2025 09/04/2015, , 10/03/2014, Additional history exists COVID-19 Vaccine (2024-2 6 season) 2025 09/14/2021, 01/07/2021, 12/15/2020 Mammogram 11/13/2026 11/13/2024 Procedures Procedure Name Priority Date/Time Associated Diagnosis Comments POCT COMPLETE BLOOD COUNT (ONCOLOGY - INTERFACED NO CHARGE) Routine 04/09/2025 12:26 PM EDT Invasive ductal carcinoma of breast, female, left (HCC) COMPREHENSIVE METABOLIC PANEL Routine 04/09/2025 12:26 PM EDT Invasive ductal carcinoma of breast, female, left (HCC) MM MAMMO DIAGNOSTIC W/ TOMOSYNTHESIS-BILATERA L STAT 11/13/2024 1:50 PM EST Invasive ductal carcinoma of breast, female, left (HCC) Breast pain, right from Last 3 Months or Most Recently Relevant to Health Maintenance Results * POCT Complete Blood Count (Oncology) (04/09/2025 12:26 PM EDT) White Blood Cell Count 7.9 4.0 - 11.0 Thou/uL 04/09/2025 12:[address] [facility] Red Blood Cell Count 5.04 4.00 - 5.40 Mil/uL 04/09/2025 12:[address] [facility] Hemoglobin 14.1 11.7 - 15.7 g/dL 04/09/2025 12:[address] [facility] Hematocrit 43.9 35.0 - 47.0 % 04/09/2025 12:[address] [facility] MCV 87 80 - 100 fL 04/09/2025 12:[address] [facility] MCH 28.0 26.0 - 34.0 pg 04/09/2025 12:[address] [facility] MCHC 32.1 30.0 - 36.0 g/dL 04/09/2025 12:[address] [facility] RDW 12.9 11.5 - 14.5 % 04/09/2025 12:[address] [facility] Platelet Count 309 150 - 450 Thou/uL 04/09/2025 12:[address] [facility] MPV 8.8 7.5 - 12.5 fL 04/09/2025 12:[address] [facility] Neutrophils Auto 51.7 % 04/09/20 25 12:[address] [facility] Abs Neutrophils Auto 4.10 2.00 - 7.50 Thou/uL 04/09/2025 12:[address] [facility] Lymphocytes Auto 42.1 % 04/09/20 25 12:[address] [facility] Abs Lymphocytes Auto 3.30 1.50 - 4.50 Thou/uL 04/09/2025 12:[address] [facility] Mixed Mononuclear Auto 6.2 % 04/09/2025 12:[address] [facility] Abs Mixed Mononuclear Auto <1.00 0.20 - 1.90 Thou/uL 04/09/2025 12:[address] [facility] Blood Blood specimen / Unknown 04/09/2025 12:26 PM EDT 04/09/2025 12:38 PM EDT Roberta Christopher MD POCT ORDERABLES - ONCOLOGY Fin al Result [address] [address], [address] * (ABNORMAL) Comprehensive Metabolic Panel (04/09/2025 12:26 PM EDT) Glucose 115(H) 65 - 99 mg/dL 04/09/2025 4:03 PM [facility] Comment:Fasting: <100 mg/dL, Non-Fasting: <200 mg/dL (ADA 2004) Blood Urea Nitrogen (BUN) 13 8 - 21 mg/dL 04/09/2025 4:03 PM [facility] Creatinine 1.1 0.4 - 1.1 mg/dL 04/09/2025 4:03 PM [facility] eGFR 62 >59 04/09/2025 4:03 PM [facility] Comment:CKD-EPI (2020) in mL /min/1.73 sq meters. Sodium 141 136 - 145 mmol/L 04/09/2025 4:03 PM [facility] Potassium 4.5 3.4 - 5.3 mmol/L 04/09/2025 4:03 PM [facility] Chloride 104 98 - 107 mmol/L 04/09/2025 4:03 PM [facility] CO2 26 22 - 33 mmol/L 04/09/2025 4:03 PM [facility] Calcium 9.6 8.7 - 10.5 mg/dL 04/09/2025 4:03 PM [facility] Alkaline Phosphatase 97 32 - 122 U/L 04/09/2025 4:03 PM EDT [facility] Aspartate Aminotrans (AST) 21 10 - 50 U/L 04/09/2025 4:03 PM [facility] Alanine Aminotrans (ALT) 19 10 - 50 U/L 04/09/2025 4:03 PM [facility] Bilirubin, Total 0.4 0.2 - 1.0 mg/dL 04/09/2025 4:03 PM [facility] Protein, Total 7.1 6.3 - 8.3 g/dL 04/09/2025 4:03 PM [facility] Albumin 4.1 3.5 - 5.0 g/dL 04/09/2025 4:03 PM [facility] BUN/Creatinine Ratio 12 10.0 - 25.0 Ratio 04/09/2025 4:03 PM [facility] Globulin 3.0 1.5 - 3.9 g/dL 04/09/2025 4:03 PM [facility] Albumin/Globulin Ratio 1.4 1.0 - 3.0 Ratio 04/09/2025 4:03 PM [facility] Anion Gap 11 7 - 17 04/09/2025 4:03 PM [facility] Blood Blood specimen / Unknown 04/09/2025 12:26 PM EDT 04/09/2025 3:30 PM EDT us Roberta Christopher MD LAB BLOOD ORDERABLES Final Res ult [address] [address], [address] [address] * MM Breast w/ tomosynthesis diagnostic-Bilateral (11/13/2024 1:50 PM EST) Anatomical Region Laterality Modality Breast Bilateral Mammography 11/13/2024 1:34 PM EST Impressions 11/13/2024 2:05 PM EST No evidence of malignancy in either breast or identifiable etiology for the patient's symptoms in the right breast. Further evaluation should be based on clinical grounds. In the absence of clinical findings or elevated risk, for most average risk women, screening mammogram is recommended annually after the age of 40. BI-RADS 2: BENIGN. Narrative 11/13/2024 2:05 PM EST MM MAMMO DIAGNOSTIC W/ TOMOSYNTHESIS-BILATERAL, US BREAST DIAGNOSTIC LIMITED- RIGHT: 11/13/2024 12:57 PM CLINICAL HISTORY: Lower outer right breast pain, screening left breast TECHNIQUE: Digital 2-D and tomosynthesis views were obtained. Computer aided detection performed. Targeted right breast ultrasound was also performed. COMPARISON: 2020 and 2023 screening and diagnostic mammograms FINDINGS: There are scattered areas of fibroglandular density. No dominant mass, suspicious architectural distortion, or suspicious calcium. New post lumpectomy changes in the left breast. Stable benign calcification in both breasts. Targeted ultrasound of the region the patient's symptoms in the lower outer right breast shows no focal finding. No axillary adenopathy. us Roberta Christopher MD IMG MAMMOGRAPHY ORDERABLES Fin al Result from Last 3 Months or Most Recently Relevant to Health Maintenance [place] [address] [place] [address] Care Teams Garden Machinery Mechanic Relationship Specialty Start Date End Date Liz Schroeder MD [address] [place] [address] PCP - General 05/23/24 Demi Quiles, SASHA [address] [place] [address] Oncology Nurse Navigator 11/12/24
--- OUTSIDE RECORDS SUMMARY | 2025-06-17 00:52 | XMS_ITS | Encounter Summary ---
Author Organization [facility] Address [address] [place] [address] Care Team Providers Care Stone Driller Name Role Phone Liz Schroeder MD Primary Care Provider Un available Owen Nelson MD Primary Care Provider + [facility], Pcp Primary Care Provider Unavailabl e Reason for Visit * Reason Onset Date Comments Appointment Cancelled 10/28/2018 Encounter Details Date Type Department Care Team Description 10/28/2018 Telephone Gastroenterology - [place] [address] [facility] [address] [place] [address] Darnell Carlton MD Appointment Cancelled Social History Tobacco Use Types Packs/Day Years Used Date Smoking Tobacco: Never Smokeless Tobacco: Never Alcohol Use Standard Drinks/Week Comments No 0 (1 standard drink = 0.6 oz pur e alcohol) Sex Assigned at Date Recorded Not on file documented as of this encounter Plan of Treatment Not on file documented as of this encounter Visit Diagnoses Not on filedocumented in this encounter Care Teams Stone Driller Relationship Specialty Start Date End Date Liz Schroeder MD PCP - General Internal Medicine 04/24/18 Owen Nelson MD [address] [place] [phone] PCP - General Internal Medicine 04/23/22 05/30/22 [facility], Pcp [address] [place] [address] PCP - General Internal Medicine 05/31/22 documented as of this encounter
--- OUTSIDE RECORDS SUMMARY | 2025-06-17 00:52 | XMS_ITS | Encounter Summary ---
Author Organization [facility] Address [address] [facility] [address] [place] [address] Phone Care Team Providers Care Lithographic Proofer Name Role Phone Liz Schroeder MD Primary Care Provid er Self-Referred, Patient Unavailable Unavailab Mary Toscano MD Unavailable [phone] Encounter Details Date Type Department Care Team ([facility] st Contact Info) Description 10/10/2022 Ophth Exam [facility] Department [address] [place] [address] Mary Rodas MD [address] [place] [address] [email or web address] Social History Tobacco Use Types Packs/Day Years Used Date Smoking Tobacco: Never Smokeless Tobacco: Never Alcohol Use Standard Drinks/Week Comments Yes 0 (1 standard drink = 0.6 oz pur e alcohol) Comments No Sex and Gender Information Value Date Recorded Sex Assigned at Female 02/17/2021 12:55 PM EDT Legal Sex Female 10:30 PM EDT Gender Identity Female 02/17/2021 12:55 PM EDT Sexual Orientation Bisexual 05/02/2025 10 :07 AM EDT documented as of this encounter Functional Status * Calculated C-SSRS Risk Score (Lifetime/Recent) Answer Date of Assessment Author No Risk Indicated 10/10/2022 4:56 PM Natividad Andrew RN * Nicholas Suicide Severity Rating Scale (Screener/Recent Self-Report) Question Answer Date of Assessment Author 1. Wish to be (Past 1 Month) No 023 4:56 PM Natividad Quezada, SASHA 2. Non-Specific Active Suici keyona Thoughts (Past 1 Month) No 10/10/2022 4:56 PM Sohail Quezada RN 6. Suicidal Behavior (Lifetime) No 4:56 PM Natividad Quezada RN documented as of this encounter Plan of Treatment Upcoming Encounters Date Type Department Care Team (Late st Contact Info) Description 06/19/2025 1:00 PM EDT Office Visit [address] [place] [address] Pedro Pierce MD [address] [place] [address]--[place] [address] [email or web address] 07/16/2025 1:15 PM EDT Administrative Encounter Central Registration, [facility] at [address] [address] Mary Sage MD [address] [place] [address] [email or web address] 07/16/2025 2:00 PM EDT Office Visit [facility], [facility], [facility] at [address] [address] Mary Sage MD [address] [place] [address] [email or web address] documented as of this encounter Visit Diagnoses Not on filedocumented in this encounter Additional Health Concerns Infection Onset Date Last Indicated Resolved Time CoV-Risk 08/07/2023 08/07/2023 08/18/2023 1:23 AM EST documented as of this encounter Care Teams Lithographic Proofer Relationship Specialty Start Date End Date Liz Schroeder MD [address] [address] PCP - General Internal Medicine 02/17/21 Self-Referred, Patient Referring Physician 05/29/25 Mary Sage MD [address] [place] [address] [email or web address] Medical Oncology 05/29/25 documented as of this encounter Additional Source Comments The information contained in this document represents components of the legal health record. It is not the complete legal health record.[facility]
--- OUTSIDE RECORDS SUMMARY | 2025-06-17 00:52 | XMS_ITS | Encounter Summary ---
Author Organization [facility] Address [address] [place] [address] Care Team Providers Care Director Targeted Marketing Name Role Phone Liz Schroeder MD Primary Care Provider Un available Owen Nelson MD Primary Care Provider + [facility], Pcp Primary Care Provider Unavailabl e Encounter Details Date Type Department Care Team Description 06/10/2021 Pt. Non Urgent Medic al Question Medicine/Pediatrics - [address] [phone] Liz Schroeder MD Social History Tobacco Use Types Packs/Day Years Used Date Smoking Tobacco: Never Smokeless Tobacco: Never Alcohol Use Standard Drinks/Week Comments No 0 (1 standard drink = 0.6 oz pur e alcohol) Sex Assigned at Date Recorded Not on file documented as of this encounter Miscellaneous Notes * Telephone Encounter - Cindy Mosqueda L.P.NArnulfo - 06/11/2021 9:57 AM EDTFrom: Gauri Tejada To: Мария Schroeder Sent: 06/10/2021 4:51 PM EDT Subject: Sinuses Per my other messages???I ended up retaking a covid test at [facility] and a rapid at an urgent care. Bothare negative. With this said, I feel it???s another allergy- related sinus infection. Given my history of this and bad allergies, can an Rx be called in for antibiotics? I???ve missed two days of workand will not be able to come in for an appt fermin use I have to go back tomorrow regardless of how I feel. Gauri Crooks documented in this encounter Plan of Treatment Not on file documented as of this encounter Visit Diagnoses Not on filedocumented in this encounter Care Teams Director Targeted Marketing Relationship Specialty Start Date End Date Liz Schroeder MD PCP - General Internal Medicine 04/24/18 Owen Nelson MD [address] [place] [address] PCP - General Internal Medicine 04/23/22 05/30/22 [facility], [address] [address] PCP - General Internal Medicine 05/31/22 documented as of this encounter
--- OUTSIDE RECORDS SUMMARY | 2025-06-17 00:52 | XMS_ITS | Encounter Summary ---
Author Organization [facility] Address [address] [place] [address] Care Team Providers Care Tobacco Stripper Hand Name Role Phone Liz Schroeder MD Primary Care Provider Un available Owen Nelson MD Primary Care Provider + [facility], Pcp Primary Care Provider Unavailabl e Reason for Visit * Reason Onset Date Comments My Chart Appointment 09/27/2019 Encounter Details Date Type Department Care Team Description 09/27/2019 Telephone Medicine/Pediatrics - [address] [phone] Liz Schroeder MD My Chart Appointment Social History Tobacco Use Types Packs/Day Years Used Date Smoking Tobacco: Never Smokeless Tobacco: Never Alcohol Use Standard Drinks/Week Comments No 0 (1 standard drink = 0.6 oz pur e alcohol) Sex Assigned at Date Recorded Not on file documented as of this encounter Miscellaneous Notes * Telephone Encounter - Teresita Mcfadden R.N. - 09/27/2019 10:09 AM EST Left message to call [phone] * Telephone Encounter - Debora Goddard - 09/27/2019 10:07 AM EST Patient has scheduled a visit through My Chart. Please call patient to triage for appropriateness. Date appointment is booked: 09-27-[address] Schroeder Reason for appointment: loss of balance, light sensitivity, headache, nausea, dizziness documented in this encounter Plan of Treatment Not on file documented as of this encounter Visit Diagnoses Not on filedocumented in this encounter Care Teams Tobacco Stripper Hand Relationship Specialty Start Date End Date Liz Schroeder MD PCP - General Internal Medicine 04/24/18 Owen Nelson MD [address] [place] [address] PCP - General Internal Medicine 04/23/22 05/30/22 [facility], [address] [address] PCP - General Internal Medicine 05/31/22 documented as of this encounter
--- OUTSIDE RECORDS SUMMARY | 2025-06-17 00:52 | XMS_ITS | Encounter Summary ---
Author Organization [facility] Address [address] [place] [address] Care Team Providers Care Purchasing Specialist Name Role Phone Liz Schroeder MD Primary Care Provider Un available Avery Espitia MD Primary Care Provider Unava ilLiz Francisco MD Primary Care Provider Un available Owen Nelson MD Primary Care Provider + [facility], Pcp Primary Care Provider Unavailabl e Encounter Details Date Type Department Care Team Description 05/19/2012 [facility] [address] [place] [address] Abstract, Provider Social History Tobacco Use Types Packs/Day Years [...] on filedocumented in this encounter Care Teams Purchasing Specialist Relationship Specialty Start Date End Date Liz Schroeder MD PCP - General Internal Medicine 11/23/11 8 Avery Espitia MD PCP - General Internal Medicine 04/04/18 04/23/18 Liz Schroeder MD PCP - General Internal Medicine 04/24/18 Owen Nelson MD [address] [place] [address] PCP - General Internal Medicine 04/23/22 05/30/22 [facility], Pcp [address] [place] [address] PCP - General Internal Medicine 05/31/22 documented as of this encounter
--- OUTSIDE RECORDS SUMMARY | 2025-06-17 00:52 | XMS_ITS | Encounter Summary ---
Author Organization [facility] Address [address] [place] [address] Care Team Providers Care Technical Instructor Name Role Phone Liz Schroeder MD Primary Care Provider Un available Avrey Espitia MD Primary Care Provider Unava Liz Thayer MD Primary Care Provider Un available Owen Nelson MD Primary Care Provider + [facility], Pcp Primary Care Provider Unavailabl e Encounter Details Date Type Department Care Team Description 03/13/2012 Pt. Non Urgent Medical Question OBGYN - [place] [address] [place] [address] Maria C Pollard CNM [address] [place] [address] Social History Tobacco Use Types Packs/Day Years Used Date Smoking Tobacco: Never Smokeless Tobacco: Never Alcohol Use Standard Drinks/Week Comments No 0 (1 standard drink = 0.6 oz pur e alcohol) Sex Assigned at Date Recorded Not on file documented as of this encounter Progress Notes * Isabel Butler L.P.N. - 03/14/2012 3:36 PM EDTFrom: GAURI TEJADA To: Maria C Pollard CNM Sent: TueMar 13, 2012 7:22 PM Subject: lab results Can you just explain each of the following things? I know you said normal bacteria found, but just to put my mind at ease. Thanks. MODERATE EPITHELIAL CELLS MODERATE GRAM NEGATIVE BACILLI FEW GRAM POSITIVE COCCI IN PAIRS documented in this encounter Plan of Treatment Not on file documented as of this encounter Visit Diagnoses Not on filedocumented in this encounter Care Teams Technical Instructor Relationship Specialty Start Date End Date Liz Schroeder MD PCP - General Internal Medicine 11/23/11 8 Avery Espitia MD PCP - General Internal Medicine 04/04/18 04/23/18 Liz Schroeder MD PCP - General Internal Medicine 04/24/18 Owen Nelson MD [address] [place] [address] PCP - General Internal Medicine 04/23/22 05/30/22 [facility], [address] [address] PCP - General Internal Medicine 05/31/22 documented as of this encounter
--- OUTSIDE RECORDS SUMMARY | 2025-06-17 00:52 | XMS_ITS | Encounter Summary ---
Author Organization [facility] Address [address] [place] [address] Care Team Providers Care Ham Stripper Name Role Phone Liz Schroeder MD Primary Care Provider Un available Owen Nelson MD Primary Care Provider + [facility], Pcp Primary Care Provider Unavailabl e Encounter Details Date Type Department Care Team Description 01/29/2021 Telephone Gastroenterology - [place] [address] [facility] [address] [place] [phone] Josiah Champion PA-C Social History Tobacco Use Types Packs/Day Years Used Date Smoking Tobacco: Never Smokeless Tobacco: Never Alcohol Use Standard Drinks/Week Comments No 0 (1 standard drink = 0.6 oz pur e alcohol) Sex Assigned at Date Recorded Not on file COVID-19 Exposure Response Date Recorded In the last month, have you been in contact with someone who was confirmed or suspected to have Coronavirus / COVID-19? No / Unsure 01/27/2021 8:42 AM EDT documented as of this encounter Miscellaneous Notes * Telephone Encounter - Josiah Champion PA-C - 01/29/2021 12:09 PM EDT Thank you for the update and if the patient needs to be seen for further evaluation please schedule. * Telephone Encounter - Tabatha Martinez - 01/29/2021 10:49 AM EDT Left a detailed message for the patient letting her know that her H. Pylori test is negative and ifshe has any questions/concerns, to please contact our office. * Telephone Encounter - Josiah Champion PA-C - 01/29/2021 10:16 AM EDT Please let patient know that her H. pylori test was negative. If she should have any questions or concerns, please let me know. documented in this encounter Plan of Treatment Not on file documented as of this encounter Visit Diagnoses Not on filedocumented in this encounter Care Teams Ham Stripper Relationship Specialty Start Date End Date Liz Schroeder MD PCP - General Internal Medicine 04/24/18 Owen Nelson MD [address] [place] [address] PCP - General Internal Medicine 04/23/22 05/30/22 [facility], Pcp [address] [place] [address] PCP - General Internal Medicine 05/31/22 documented as of this encounter
--- OUTSIDE RECORDS SUMMARY | 2025-06-17 00:52 | XMS_ITS | Encounter Summary ---
Author Organization [facility] Address [address] [place] [address] Care Team Providers Care Inhalation Therapist Name Role Phone Liz Schroeder MD Primary Care Provider Un available Avery Espitia MD Primary Care Provider Unava ilable Liz Schroeder MD Primary Care Provider Un available Owen Nelson MD Primary Care Provider + [facility], Pcp Primary Care Provider Unavailabl e Encounter Details Date Type Department Care Team Description 01/23/2015 Hereditary Cancer Qu iz Results Medical Records [address] [place] [address] Abstract, Provider Social History Tobacco Use Types [...] on filedocumented in this encounter Care Teams Inhalation Therapist Relationship Specialty Start Date End Date Liz Schroeder MD PCP - General Internal Medicine 11/23/11 8 Avery Espitia MD PCP - General Internal Medicine 04/04/18 04/23/18 Liz Schroeder MD PCP - General Internal Medicine 04/24/18 Owen Nelson MD [address] [place] [address] PCP - General Internal Medicine 04/23/22 05/30/22 [facility], Pcp [address] [place] [address] PCP - General Internal Medicine 05/31/22 documented as of this encounter
--- OUTSIDE RECORDS SUMMARY | 2025-06-17 00:52 | XMS_ITS | Encounter Summary ---
Author Organization [facility] Address [address] [place] [address] Care Team Providers Care Surveillance Dual Rate Officer Name Role Phone Liz Schroeder MD Primary Care Provider Un available Owen Nelson MD Primary Care Provider + [facility], Pcp Primary Care Provider Unavailabl e Encounter Details Date Type Department Care Team Description 01/31/2021 Pt. Non Urgent Medic al Question Medicine/Pediatrics - [address] [phone] Olga Kingston PA-C [address] [place] [address] Social History Tobacco Use Types Packs/Day Years [...] encounter Miscellaneous Notes * Telephone Encounter - Radha Hoover L.P.N. - 02/02/2021 9:39 AM EDT From: Gauri Tejada To: Divya Kingston Sent: 01/31/2021 9:46 AM EDT Subject: Question regarding COMPLETE BLOOD COUNT 2 questions... 1. What pharmacy did you send Vit D to? Because my pharmacy is [facility] and they dont have it. 2. Are you a provider I can see normally? I really liked working with you. documented in this encounter Plan of Treatment Not on file documented as of this encounter Visit Diagnoses Not on filedocumented in this encounter Care Teams Surveillance Dual Rate Officer Relationship Specialty Start Date End Date Liz Schroeder MD PCP - General Internal Medicine 04/24/18 Owen Nelson MD [address] [place] [address] PCP - General Internal Medicine 04/23/22 05/30/22 [facility], Meghana [address] [place] [address] PCP - General Internal Medicine 05/31/22 documented as of this encounter
--- OUTSIDE RECORDS SUMMARY | 2025-06-17 00:52 | XMS_ITS | Encounter Summary ---
Author Organization [facility] Address [address] [place] [address] Care Team Providers Care Webmethods Architect Name Role Phone Liz Schroeder MD Primary Care Provider Un available Avery Espitia MD Primary Care Provider Unava ilable Liz Schroeder MD Primary Care Provider Un available Owen Nelson MD Primary Care Provider + [facility], Pcp Primary Care Provider Unavailabl e Encounter Details Date Type Department Care Team Description 12/31/2014 Microbiology Coordinator Report Medical Records [address] [place] [address] Rolo Beck Social History Tobacco Use Types Packs/Day Years [...] on filedocumented in this encounter Care Teams Webmethods Architect Relationship Specialty Start Date End Date Liz Schroeder MD PCP - General Internal Medicine 11/23/11 8 Avery Espitia MD PCP - General Internal Medicine 04/04/18 04/23/18 Liz Schroeder MD PCP - General Internal Medicine 04/24/18 Owen Nelson MD [address] [place] [address] PCP - General Internal Medicine 04/23/22 05/30/22 [facility], Pcp [address] [place] [address] PCP - General Internal Medicine 05/31/22 documented as of this encounter
--- OUTSIDE RECORDS SUMMARY | 2025-06-17 00:52 | XMS_ITS | Encounter Summary ---
Author Organization [facility] Address [address] [place] [address] Care Team Providers Care Car Repairer Apprentice Name Role Phone Owen Nelson MD Primary Care Provider + [facility], Pcp Primary Care Provider Unavailabl e Reason for Visit * Reason Comments E-prescribe Rx Request Encounter Details Date Type Department Care Team Description 05/05/2022 Refill Medicine/Pediatrics - [address] [phone] Kimberly Mahmood PA-C E-prescribe Rx Request Social History Tobacco Use Types Packs/Day Years Used Date Smoking Tobacco: Never Smokeless Tobacco: Never Alcohol Use Standard Drinks/Week Comments No 0 (1 standard drink = 0.6 oz pur e alcohol) Sex Assigned at Date Recorded Not on file documented as of this encounter Miscellaneous Notes * Telephone Encounter - Beatriz Sheehan M.A. - 05/05/2022 1:42 PM EDT Last office visit 07/17/21 Next office visit 05/31/22 Next office visit 08/24/22 with new PCP documented in this encounter Plan of Treatment Not on file documented as of this encounter Visit Diagnoses Not on filedocumented in this encounter Care Teams Car Repairer Apprentice Relationship Specialty Start Date End Date Owen Nelson MD [address] [place] [address] PCP - General Internal Medicine 04/23/22 05/30/22 [facility], Pcp [address] [place] [address] PCP - General Internal Medicine 05/31/22 documented as of this encounter
--- OUTSIDE RECORDS SUMMARY | 2025-06-17 00:52 | XMS_ITS | Encounter Summary ---
Author Organization [facility] Address [address] [place] [address] Care Team Providers Care Can Technician Name Role Phone Liz Schroeder MD Primary Care Provider Un available Owen Nelson MD Primary Care Provider + [facility], Pcp Primary Care Provider Unavailabl e Reason for Visit * Reason Onset Date Comments TEST RESULTS 07/28/2018 Encounter Details Date Type Department Care Team Description 07/28/2018 Telephone Medicine/Pediatrics - [address] [phone] Liz Schroeder MD TEST RESULTS Social History Tobacco Use Types Packs/Day Years Used Date Smoking Tobacco: Never Smokeless Tobacco: Never Alcohol Use Standard Drinks/Week Comments No 0 (1 standard drink = 0.6 oz pur e alcohol) Sex Assigned at Date Recorded Not on file documented as of this encounter Miscellaneous Notes * Telephone Encounter - Cindy Mosqueda L.P.N. - 07/28/2018 9:37 AM EDT Noted * Telephone Encounter - Debora Goddard - 07/28/2018 8:54 AM EDT Alexandra from [facility] calling to report INR- 1.2 today states pt told her sheonly missed 1 dose Was dosed today 25mg, 20mg Tuesday, 15mg Tuesday, 20mg on Tuesday rechecked on Tuesday Also sending a fax documented in this encounter Plan of Treatment Not on file documented as of this encounter Visit Diagnoses Not on filedocumented in this encounter Care Teams Can Technician Relationship Specialty Start Date End Date Liz Schroeder MD PCP - General Internal Medicine 04/24/18 Owen Nelson MD [address] [place] [address] PCP - General Internal Medicine 04/23/22 05/30/22 [facility], [address] [address] PCP - General Internal Medicine 05/31/22 documented as of this encounter
--- OUTSIDE RECORDS SUMMARY | 2025-06-17 00:52 | XMS_ITS | Encounter Summary ---
Author Organization [facility] Address [address] [place] [address] Care Team Providers Care Woodworking Machine Operator Name Role Phone Liz Schroeder MD Primary Care Provider Un available Owen Nelson MD Primary Care Provider + [facility], Pcp Primary Care Provider Unavailabl e Encounter Details Date Type Department Care Team Description 01/13/2022 Pt. Non Urgent Medic al Question Medicine/Pediatrics - [address] [address] Liz Schroeder MD Social History Tobacco Use Types Packs/Day Years Used Date Smoking Tobacco: Never Smokeless Tobacco: Never Alcohol Use Standard Drinks/Week Comments No 0 (1 standard drink = 0.6 oz pur e alcohol) Sex Assigned at Date Recorded Not on file documented as of this encounter Miscellaneous Notes * Telephone Encounter - Mamadou Johnson - 01/13/2022 9:15 AM EDTFrom: Gauri Tejada To: Мария Schroeder Sent: 01/13/2022 6:16 AM EDT Subject: Severe left leg cramping Hi Dr Schroeder, I can???t seem to make an appointment via the ernestina. I???m wondering if I see you about an issue I???m having or another type of doctor. Starting yesterday afternoon, I am getting really severe entire foot and leg cramping in just my left leg. It is severe. Because I am overweight, I want to make sure ther e is nothing wrong with my heart or arteries. I do get winded easy (not the same as a blood clot) and figured it???s the weight. (As a note so you know my weight is priority on my very busy radar, I just joined [employer] a few days ago about my weight) Please advise. Thank you! Gauri documented in this encounter Plan of Treatment Not on file documented as of this encounter Visit Diagnoses Not on filedocumented in this encounter Care Teams Woodworking Machine Operator Relationship Specialty Start Date End Date Liz Schroeder MD PCP - General Internal Medicine 04/24/18 Owen Nelson MD [address] [place] [address] PCP - General Internal Medicine 04/23/22 05/30/22 [facility], [address] [address] PCP - General Internal Medicine 05/31/22 documented as of this encounter
--- OUTSIDE RECORDS SUMMARY | 2025-06-17 00:52 | XMS_ITS | Encounter Summary ---
Author Organization [facility] Address [address] [place] [address] Care Team Providers Care Sink Cutter Name Role Phone Liz Schroeder MD Primary Care Provider Un available Owen Nelson MD Primary Care Provider + [facility], Pcp Primary Care Provider Unavailabl e Encounter Details Date Type Department Care Team Description 08/21/2019 Cheerleading Coach Report Medical Records [address] [place] [address] Ayan Dunn Social History Tobacco Use Types Packs/Day Years [...] on filedocumented in this encounter Care Teams Sink Cutter Relationship Specialty Start Date End Date Liz Schroeder MD PCP - General Internal Medicine 04/24/18 Owen Nelson MD [address] [place] [id number] PCP - General Internal Medicine 04/23/22 05/30/22 [facility], Pcp [address] [place] [address] PCP - General Internal Medicine 05/31/22 documented as of this encounter
--- OUTSIDE RECORDS SUMMARY | 2025-06-17 00:53 | XMS_ITS | Encounter Summary ---
Author Organization [facility] Address [address] [facility] [address] [place] [address] Phone Care Team Providers Care Track Hoe Operator Name Role Phone Liz Schroeder MD Primary Care Provid er Self-Referred, Patient Unavailable Unavailab Mary Toscano MD Unavailable [phone] Encounter Details Date Type Department Care Team ([facility] st Contact Info) Description 06/16/2025 Telephone [facility] Opthalmology Inpatient [address] [place] [address] Klaudia Angel MD [address] [place] [phone] [email or web address] Social History Tobacco Use Types Packs/Day [...] AM EDT documented as of this encounter Progress Notes * Klaudia Angel MD - 06/16/2025 9:15 PM EDT Patient paged to report that the site of her midline is increasingly red and swollen for the past 2days. She reports her arm near her elbow is warm to touch. She reports a mild fever to 99.9F, but denies chills. Given her symptoms and history of unknown clotting disorder, discussed that patient should present to an emergency department tonight for evaluation for possible cellulitis vs DVT. Patient in agreement with plan and will present to ED tonight. All questions answered and patient grateful for call. Klaudia Angel PGY-2, Ophthalmology documented in this encounter Plan of Treatment Upcoming Encounters Date Type Department Care Team (Late st Contact Info) Description 06/19/2025 1:00 PM EDT Office Visit [address] [place] [address] Pedro Pierce MD [address] [place] [address]--[place] [address] [email or web address] 07/16/2025 1:15 PM EDT Administrative Encounter Central Registration, [facility] [place] at [address] [address] Mary Sage MD [address] [place] [address] [email or web address] 07/16/2025 2:00 PM EDT Office Visit [facility], [facility], [facility] [place] at [address] [address] Mary Sage MD [address] [place] [address] [email or web address] documented as of this encounter Visit Diagnoses Not on filedocumented in this encounter Care Teams Track Hoe Operator Relationship Specialty Start Date End Date Liz Schroeder MD [address] [address] PCP - General Internal Medicine 02/17/21 Self-Referred, Patient Referring Physician 05/29/25 Mary Sage MD [address] [place] [address] [email or web address] Medical Oncology 05/29/25 documented as of this encounter Additional Source Comments The information contained in this document represents components of the legal health record. It is not the complete legal health record.[facility]
--- OUTSIDE RECORDS SUMMARY | 2025-06-17 00:53 | XMS_ITS | Encounter Summary ---
Author Organization [facility] Address [address] [place] [address] Care Team Providers Care Raise Driller Name Role Phone Liz Schroeder MD Primary Care Provider Un available Owen Nelson MD Primary Care Provider + [facility], Pcp Primary Care Provider Unavailabl e Encounter Details Date Type Department Care Team Description 05/17/2020 Pt. Non Urgent Medic al Question Adult Medicine [address] [address] Liz Schroeder MD Social History Tobacco Use Types Packs/Day Years Used Date Smoking Tobacco: Never Smokeless Tobacco: Never Alcohol Use Standard Drinks/Week Comments No 0 (1 standard drink = 0.6 oz pur e alcohol) Sex Assigned at Date Recorded Not on file documented as of this encounter Progress Notes * Cindy Mosqueda L.P.N. - 05/19/2020 10:09 AM EDTFrom: Gauri Tejada To: Liz Schroeder MD Sent: 05/17/2020 3:45 AM EDT Subject: Gallbladder Hi, I have been avoiding coming in about my gallbladder, but it continually is getting worse. The pain is radiating out further and I have been having fever and sweating, nausea/queasiness. I really need to address it. I have been nervous because pandemic/treatment and blood thinners etc. Can you please call with appointment options? When will the appt. feature be made available on the ernestina again? Gauri documented in this encounter Plan of Treatment Not on file documented as of this encounter Visit Diagnoses Not on filedocumented in this encounter Care Teams Raise Driller Relationship Specialty Start Date End Date Liz Schroeder MD PCP - General Internal Medicine 04/24/18 Owen Nelson MD [address] [place] [address] PCP - General Internal Medicine 04/23/22 05/30/22 [facility], [address] [address] PCP - General Internal Medicine 05/31/22 documented as of this encounter
--- OUTSIDE RECORDS SUMMARY | 2025-06-17 00:53 | XMS_ITS | Encounter Summary ---
Author Organization [facility] Address [address] [facility] [address] [place] [address] Phone Care Team Providers Care Er Rn Name Role Phone Liz Schroeder MD Primary Care Provid er Self-Referred, Patient Unavailable Unavailab Mary Toscano MD Unavailable [phone] Encounter Details Date Type Department Care Team ([facility] st Contact Info) Description 05/31/2025 Orders Only [facility] [address] [facility] [address], [place] [address] Haydee Conrad MD [address] [place] [phone] [email or web address] Social History Tobacco Use Types Packs/Day Years Used Date Smoking Tobacco: Never Smokeless Tobacco: Never Alcohol Use Standard Drinks/Week Comments Not Currently 0 (1 standard drink = 0.6 oz pur e alcohol) Education Answer Date Recorded Are you interested in more education? Not on med e 01/28/2023 Are you concerned about learning? Not on file 01/28/2023 No 01/28/2023 No 01/28/2023 Digital Access Answer Date Recorded No 02/26/2023 No 02/26/2023 Reliable internet access at home? Not on file 02/26/2023 Device with a working camera? Not on file Intimate Partner Violence Answer Date R ecorded Are you denied basic needs s uch as food, clothing, or medical care? No 03/21/2023 In the past 12 months have y ou been in a relationship with a person who hurts, threatens, or tries to control you? No 03/21/2023 Are you denied basic needs s uch as food, clothing, or medical care? No 03/21/2023 In the past 12 months have y ou been in a relationship with a person who hurts, threatens, or tries to control you? No 03/21/2023 Comments No Sex and Gender Information Value Date Recorded Sex Assigned at Female 02/17/2021 12:55 PM EDT Legal Sex Female 10:30 PM EDT Gender Identity Female 02/17/2021 12:55 PM EDT Sexual Orientation Bisexual 05/02/2025 10 :07 AM EDT documented as of this encounter Plan of Treatment Upcoming Encounters Date Type Department Care Team (Late st Contact Info) Description 06/19/2025 1:00 PM EDT Office Visit [address] [address] Pedro Pierce MD [address] [place] [address]--[place] [address] [email or web address] 07/16/2025 1:15 PM EDT Administrative Encounter Central Registration, [facility] [place] at [address] [address] Mary Sage MD [address] [place] [address] [email or web address] 07/16/2025 2:00 PM EDT Office Visit [facility], [facility], [facility] [place] at [address] [address] Mary Sage MD [address] [place] [address] [email or web address] documented as of this encounter Visit Diagnoses Not on filedocumented in this encounter Care Teams Er Rn Relationship Specialty Start Date End Date Liz Schroeder MD [address] [address] PCP - General Internal Medicine 02/17/21 Self-Referred, Patient Referring Physician 05/29/25 Mary Sage MD [address] [place] [address] [email or web address] Medical Oncology 05/29/25 documented as of this encounter Additional Source Comments The information contained in this document represents components of the legal health record. It is not the complete legal health record.[facility]
--- OUTSIDE RECORDS SUMMARY | 2025-06-17 00:53 | XMS_ITS | Encounter Summary ---
Author Organization [facility] Address [address] [place] [address] Care Team Providers Care Sales And Service Technician Name Role Phone Liz Schroeder MD Primary Care Provider Un available Avery Espitia MD Primary Care Provider Unava Liz Thayer MD Primary Care Provider Un available Owen Nelson MD Primary Care Provider + [facility], Pcp Primary Care Provider Unavailabl e Encounter Details Date Type Department Care Team Description 02/10/2017 Orders Only Medicine/Pediatrics - [address] [phone] Ousmane Madden PA-C History of pulmonary embolism (Primary Dx) Social History Tobacco Use Types Packs/Day Years Used Date Smoking Tobacco: Never Smokeless Tobacco: Never Alcohol Use Standard Drinks/Week Comments No 0 (1 standard drink = 0.6 oz pur e alcohol) Sex Assigned at Date Recorded Not on file documented as of this encounter Plan of Treatment Not on file documented as of this encounter Results * D-DIMER TEST (02/10/2017 1:05 PM EDT) D-DIMER 199 <230 ng/mL 02/10/2017 3:05 PM EDT [facility] Comment: D-Dimer <230 ng/mL (D-Dimer units) is the threshold for exclusion of DVT/PE D-Dimer can be elevated in: Critically ill, severely infected, trauma patients, DIC, acute CVA, acute [place], unstable angina, AF, old age, , and smoking. D-Dimer may be reduced with: Initiation of heparin therapy and oral anticoagulants. 02/10/2017 1:05 PM EDT 02/10/2017 1:05 PM EDT Ousmane Madden PA-C [facility] [employer] documented in this encounter Visit Diagnoses Diagnosis History of pulmonary embolism- Primary Personal history of pulmonary embolism documented in this encounter Care Teams Sales And Service Technician Relationship Specialty Start Date End Date Liz Schroeder MD PCP - General Internal Medicine 11/23/11 8 Avery Espitia MD PCP - General Internal Medicine 04/04/18 04/23/18 Liz cShroeder MD PCP - General Internal Medicine 04/24/18 Owen Nelson MD [address] [place] [address] PCP - General Internal Medicine 04/23/22 05/30/[address] [address] PCP - General Internal Medicine 05/31/22 documented as of this encounter
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
--- OUTSIDE RECORDS SUMMARY | 2025-06-17 00:53 | XMS_ITS | Encounter Summary ---
Author Organization [facility] Address [address] [facility] [address] [place] [address] Phone Care Team Providers Care Control Tower Radio Operator Name Role Phone Liz Schroeder MD Primary Care Provid er Self-Referred, Patient Unavailable Unavailab Mary Toscano MD Unavailable [phone] Encounter Details Date Type Department Care Team ([facility] st Contact Info) Description 05/02/2024 Procedure Pass [facility]EMA Imaging - MRI, [facility] [address] [place] [address] Social History Tobacco Use Types Packs/Day Years [...] Description 06/19/2025 1:00 PM EDT Office Visit [address] [place] [address] Pedro Pierce MD [address] [place] [address]--[place] [address] [email or web address] 07/16/2025 1:15 PM EDT Administrative Encounter Central Registration, [facility] at [address] [address] Mary Sage MD [address] [place] [address] [email or web address] 07/16/2025 2:00 PM EDT Office Visit [facility], [facility], [facility] [place] at [address] [address] Mary Sage MD [address] [place] [address] [email or web address] documented as of this encounter Visit Diagnoses Not on filedocumented in this encounter Care Teams Control Tower Radio Operator Relationship Specialty Start Date End Date Liz Schroeder MD [address] [address] PCP - General Internal Medicine 02/17/21 Self-Referred, Patient Referring Physician 05/29/25 Mary Sage MD [address] [place] [address] [email or web address] Medical Oncology 05/29/25 documented as of this encounter Additional Source Comments The information contained in this document represents components of the legal health record. It is not the complete legal health record.[facility]
--- OUTSIDE RECORDS SUMMARY | 2025-06-17 00:53 | XMS_ITS | Encounter Summary ---
Author Organization [facility] Address [address] [place] [address] Care Team Providers Care Choral Director Name Role Phone Liz Schroeder MD Primary Care Provider Demi Quiles RN Unavailable [phone] Encounter Details Date Type Department Care Team (Late st Contact Info) Description 07/26/2024 Scanned Document [facility] Medical Oncology at [address] [phone] Provider, MD Klaudia [address] [place] [address] Social History Tobacco Use Types Packs/Day Years [...] Description 08/02/2025 8:45 AM EDT Office Visit [facility] [place] 85 [facility] [address] [place] [address] Nick Lancaster MD [address] [phone] 04/15/2026 12:45 PM EDT Office Visit [facility] [place] [facility] at [facility] 85 [place] [phone] Roberta Manzo MD [address] [place], [place] [phone] documented as of this encounter Visit Diagnoses Not on filedocumented in this encounter Care Teams Choral Director Relationship Specialty Start Date End Date Liz Schroeder MD [address] [place] [address] PCP - General 05/23/24 Demi Quiles, SASHA [address] [place] [address] Oncology Nurse Navigator 11/12/24 documented as of this encounter
--- OUTSIDE RECORDS SUMMARY | 2025-06-17 00:53 | XMS_ITS | Encounter Summary ---
Author Organization [facility] Address [address] [place] [address] Care Team Providers Care Gill Box Fixer Name Role Phone Liz Schroeder MD Primary Care Provider Un available Owen Nelson MD Primary Care Provider + [facility], Pcp Primary Care Provider Unavailabl e Encounter Details Date Type Department Care Team Description 05/12/2020 Lpn Instructor Report Medical Records [address] [place] [address] [facility] Urgent Social History Tobacco Use Types Packs/Day Years [...] on filedocumented in this encounter Care Teams Gill Box Fixer Relationship Specialty Start Date End Date Liz Schroeder MD PCP - General Internal Medicine 04/24/18 Owen Nelson MD [address] [place] [id number] PCP - General Internal Medicine 04/23/22 05/30/22 [facility], Pcp [address] [place] [address] PCP - General Internal Medicine 05/31/22 documented as of this encounter
--- OUTSIDE RECORDS SUMMARY | 2025-06-17 00:53 | XMS_ITS | Clinical Summary ---
Author Organization [facility], Address [address] [place] [address] Phone Care Team Providers Care Beam Racker Name Role Phone Liz Schroeder MD Primary Care Provider [phone] Social History Tobacco Use Types Packs/Day Years [...] - 19+ 3-dose series) 1996 Influenza Vaccine (#1) 2025 Pneumococcal Vaccine: Peds ( 0 to 5 Years) and At-Risk Patients (6 to 49 Years) Aged Out No longer eligible b ased on patient's age to complete this topic Insurance [facility] Care Teams Beam Racker Relationship Specialty Start Date End Date Liz Schroeder MD [address] [place] [address] PCP - General Internal Medicine 06/25/24
--- OUTSIDE RECORDS SUMMARY | 2025-06-17 00:53 | XMS_ITS | Encounter Summary ---
Author Organization [facility], Address [address] [place] [address] Phone Care Team Providers Care Python Engineer Name Role Phone Liz Schroeder MD Primary Care Provider [phone] Encounter Details Date Type Department Care Team (Late st Contact Info) Description 06/25/2024 Documentation Only [facility], [address] [place] [address] [place], [place] [address] [place] [address] Social History Tobacco Use Types [...] on filedocumented in this encounter Care Teams Python Engineer Relationship Specialty Start Date End Date Liz Schroeder MD [address] [place] [address] PCP - General Internal Medicine 06/25/24 documented as of this encounter
--- OUTSIDE RECORDS SUMMARY | 2025-06-17 00:53 | XMS_ITS | Encounter Summary ---
Author Organization [facility] Address [address] [facility] [address] [place] [address] Phone Care Team Providers Care Forensic Anthropologist Name Role Phone Liz Schroeder MD Primary Care Provid er Self-Referred, Patient Unavailable Unavailab Mary Toscano MD Unavailable [phone] Encounter Details Date Type Department Care Team ([facility] st Contact Info) Description 06/12/2025 Ophth Exam [facility]EMA Opthalmology Inpatient [address] [place] [address] Klaudia Angel MD [address] [place] [address] [email or web address] Social History Tobacco Use Types [...] Description 06/19/2025 1:00 PM EDT Office Visit [facility] [place] [address] [address] Pedro Pierce MD [address] [place] [address]--[place] [address] [email or web address] 07/16/2025 1:15 PM EDT Administrative Encounter Central Registration, [facility] [address] [address] Mary Sage MD [address] [place] [address] [email or web address] 07/16/2025 2:00 PM EDT Office Visit [facility], [facility] [place] [facility], [facility] at [address] [address] Mary Sage MD [address] [place] [address] [email or web address] documented as of this encounter Visit Diagnoses Not on filedocumented in this encounter Care Teams Forensic Anthropologist Relationship Specialty Start Date End Date Liz Schroeder MD [address] [address] PCP - General Internal Medicine 02/17/21 Self-Referred, Patient Referring Physician 05/29/25 Mary Sage MD [address] [place] [address] [email or web address] Medical Oncology 05/29/25 documented as of this encounter Additional Source Comments The information contained in this document represents components of the legal health record. It is not the complete legal health record.[facility]
--- OUTSIDE RECORDS SUMMARY | 2025-06-17 00:53 | XMS_ITS | Encounter Summary ---
Author Organization [facility] Address [address] [place] [address] Care Team Providers Care Dipping Machine Operator Name Role Phone Liz Gordon MD Primary Care Provider Un available Avery Espitia MD Primary Care Provider Unava Liz Thayer MD Primary Care Provider Un available Owen Nelson MD Primary Care Provider + [facility], Pcp Primary Care Provider Unavailabl e Encounter Details Date Type Department Care Team Description 12/27/2011 [facility] MyChart [address] [place] [address] Md Avinash Social History Tobacco Use Types Packs/Day Years Used Date Smoking Tobacco: Never Smokeless Tobacco: Never Alcohol Use Standard Drinks/Week Comments No 0 (1 standard drink = 0.6 oz pur e alcohol) Sex Assigned at Date Recorded Not on file documented as of this encounter Miscellaneous Notes * Telephone Encounter - Arianna Fung M.A. - 12/27/2011 2:00 PM EDT Script done by Dr. Gordon. SodaStreamhart message to pt. * Telephone Encounter - Cindy Mosqueda L.P.N. - 12/27/2011 12:04 PM EDT Pt was given z pack on 12/12 her sx went away and are now starting to come back sinus pressure headache no temp please review and advise * Telephone Encounter - Arianna Fung M.A. - 12/27/2011 11:32 AM EDT Please triage pt. * Telephone Encounter - Arianna Fung M.A. - 12/27/2011 11:31 AM EDTFrom: GAURI TEJADA Sent: TueDec 27, 2011 9:17 AM Subject: Request Refill Not On Medication List Request submitted by Gauri Tejada [<[id number]>] on 12/27/2011 at 9:17:21 AM Form Title: Request Refill Not On Medication List Submitted Data From: Gauri Tejada Primary care provider: Liz Gordon MD --- Contact Information --- Contact Phone #: [phone] --- Medication Request Information --- Medication name: Z-PACK Dosage: UNSURE instructions: 5 DAYS, 2 THE FIRST DAY, 1 THE REMAINING DAYS # Dispensed: 1 Z-PACK Ordering Provider: DR. GORDON Pharmacy: [facility] Other Details: I WAS JUST ON THE Z PACK A COUPLE OF WEEKS AGO TO CLEAR UP SINUS INFECTION. I WAS BETTER BUT NOW HAVE A RELAPSE. documented in this encounter Plan of Treatment Not on file documented as of this encounter Visit Diagnoses Not on filedocumented in this encounter Care Teams Dipping Machine Operator Relationship Specialty Start Date End Date Liz Gordon MD PCP - General Internal Medicine 11/23/11 8 Avery Espitia MD PCP - General Internal Medicine 04/04/18 04/23/18 Liz Gordon MD PCP - General Internal Medicine 04/24/18 Owen Nelson MD [address] [place] [address] PCP - General Internal Medicine 04/23/22 05/30/22 [facility], Pcp [address] [place] [address] PCP - General Internal Medicine 05/31/22 documented as of this encounter
--- OUTSIDE RECORDS SUMMARY | 2025-06-17 00:53 | XMS_ITS | Encounter Summary ---
Author Organization [facility] Address [address] [facility] [address] [place] [address] Phone Care Team Providers Care Parts Consultant Name Role Phone Liz Schroeder MD Primary Care Provid er Self-Referred, Patient Unavailable Unavailab Mary Toscano MD Unavailable [phone] Encounter Details Date Type Department Care Team ([facility] st Contact Info) Description 06/11/2025 Procedure Pass IRASEMA MAIN PERIOP DEPT [address] [place] [address] Social History Tobacco Use Types Packs/Day Years [...] Description 06/19/2025 1:00 PM EDT Office Visit [facility] [address] 10th [place] [address] Pedro Pierce MD [address] [place] [address]--[place] [address] [email or web address] 07/16/2025 1:15 PM EDT Administrative Encounter Central Registration, [facility] [place] [facility] [place] [address] [address] Mary Sage MD [address] [place] [address] [email or web address] 07/16/2025 2:00 PM EDT Office Visit [facility], [facility], [facility] [place] [address] [address] Mary Sage MD [address] [place] [address] [email or web address] documented as of this encounter Visit Diagnoses Not on filedocumented in this encounter Care Teams Parts Consultant Relationship Specialty Start Date End Date Liz Schroeder MD [address] [address] PCP - General Internal Medicine 02/17/21 Self-Referred, Patient Referring Physician 05/29/25 Mary Sage MD [address] [place] [address] [email or web address] Medical Oncology 05/29/25 documented as of this encounter Additional Source Comments The information contained in this document represents components of the legal health record. It is not the complete legal health record.[facility]
--- OUTSIDE RECORDS SUMMARY | 2025-06-17 00:53 | XMS_ITS | Clinical Summary ---
Author Organization [facility] Address [address] [place] [address] Care Team Providers Care Drag Out Man Name Role Phone Unavailable Primary Care Provider Unavailabl e Social History Tobacco Use Types Packs/Day Years Used Date Smoking Tobacco: Never Assessed Sex and Gender Information Value Date Recorded Sex Assigned at Not on file Gender Identity Not on file Sexual Orientation Not on file Plan of Treatment Not on file
--- OUTSIDE RECORDS SUMMARY | 2025-06-17 00:53 | XMS_ITS | Encounter Summary ---
Author Organization [facility] Address [address] [place] [address] Care Team Providers Care Fur Grader Name Role Phone Liz Schroeder MD Primary Care Provider Un available Avery Espitia MD Primary Care Provider Unava ilable Liz Schroeder MD Primary Care Provider Un available Owen Nelson MD Primary Care Provider + [facility], Pcp Primary Care Provider Unavailabl e Encounter Details Date Type Department Care Team Description 12/01/2011 Agriculture Teacher Report Medical Records [address] [place] [address] Ayan Dunn Social History Tobacco Use Types Packs/Day Years Used Date Smoking Tobacco: Never Assessed Sex Assigned at Date Recorded Not on file documented as of this encounter Plan of Treatment Not on file documented as of this encounter Visit Diagnoses Not on filedocumented in this encounter Care Teams Fur Grader Relationship Specialty Start Date End Date Liz Schroeder MD PCP - General Internal Medicine 11/23/11 8 Avery Espitia MD PCP - General Internal Medicine 04/04/18 04/23/18 Liz Schroeder MD PCP - General Internal Medicine 04/24/18 Owen Nelson MD [address] [place] [phone] PCP - General Internal Medicine 04/23/22 05/30/22 [facility], Pcp [address] [place], [place] [phone] PCP - General Internal Medicine 05/31/22 documented as of this encounter
--- OUTSIDE RECORDS SUMMARY | 2025-06-17 00:53 | XMS_ITS | Encounter Summary ---
Author Organization [facility] Address [address] [place] [address] Care Team Providers Care It Desktop Support Technician Name Role Phone Liz Schroeder MD Primary Care Provider Demi Quiles RN Unavailable [phone] Reason for Visit * Reason Comments AC Patient Needs Scheduling Encounter Details Date Type Department Care Team ([facility] Contact Info) Description 05/24/[address] [address] Provider, Generic AC Patient Needs [...] Upcoming Encounters Date Type Department Care Team ([facility] Contact Info) Description 08/02/2025 8:45 AM EDT Office Visit [facility] [place] 85 [facility] [address] [place] [phone] Nick Lancaster MD 85 [facility] Raf[address] [place] [address] 04/15/2026 12:45 PM EDT Office Visit [facility] [place] [facility] Oncology at [address] [phone] Roberta Manzo MD 85 [place], [place] [phone] documented as of this encounter Visit Diagnoses Not on filedocumented in this encounter Care Teams It Desktop Support Technician Relationship Specialty Start Date End Date Liz Schroeder MD [address] [place] [address] PCP - General 05/23/24 Demi Quiles, SASHA [address] [place] [address] Oncology Nurse Navigator 11/12/24 documented as of this encounter
--- OUTSIDE RECORDS SUMMARY | 2025-06-17 00:53 | XMS_ITS | Encounter Summary ---
Author Organization [facility] Address [address] [place] [address] Care Team Providers Care Service Sprinkler Helper Name Role Phone Liz Schroeder MD Primary Care Provider Demi Quiles RN Unavailable [phone] Encounter Details Date Type Department Care Team (Late st Contact Info) Description 07/26/2024 Scanned Document [facility] Medical Oncology at [address] [phone] Provider, MD Klaudia [address] [place] [address] Social History Tobacco Use Types Packs/Day Years [...] Description 08/02/2025 8:45 AM EDT [facility] [place] 85 [facility] [address] [place] [address] Nick Lancaster MD [address] [phone] 04/15/2026 12:45 PM EDT Office Visit [facility] [place] [facility] at [facility] 85 [place] [phone] Roberta Manzo MD [address] [place], [place] [phone] documented as of this encounter Visit Diagnoses Not on filedocumented in this encounter Care Teams Service Sprinkler Helper Relationship Specialty Start Date End Date Liz Schroeder MD [address] [place] [address] PCP - General 05/23/24 Demi Quiles, SASHA [address] [place] [address] Oncology Nurse Navigator 11/12/24 documented as of this encounter
--- OUTSIDE RECORDS SUMMARY | 2025-06-17 00:53 | XMS_ITS | Encounter Summary ---
Author Organization [facility] Address [address] [place] [address] Care Team Providers Care Manufacturing Executive Name Role Phone Liz Schroeder MD Primary Care Provider Un available Avery Espitia MD Primary Care Provider Unava ilable Liz Schroeder MD Primary Care Provider Un available Owen Nelson MD Primary Care Provider + [facility], Pcp Primary Care Provider Unavailabl e Encounter Details Date Type Department Care Team Description 12/14/2011 Release of Information Medical Records [address] [place] [address] Abstract, Provider Social History Tobacco Use Types [...] on filedocumented in this encounter Care Teams Manufacturing Executive Relationship Specialty Start Date End Date Liz Schroeder MD PCP - General Internal Medicine 11/23/11 8 Avery Espitia MD PCP - General Internal Medicine 04/04/18 04/23/18 Liz Schroeder MD PCP - General Internal Medicine 04/24/18 Owen Nelson MD [address] [place] [address] PCP - General Internal Medicine 04/23/22 05/30/22 [facility], Pcp [address] [place] [address] PCP - General Internal Medicine 05/31/22 documented as of this encounter
--- OUTSIDE RECORDS SUMMARY | 2025-06-17 00:53 | XMS_ITS | Encounter Summary ---
Author Organization [facility] Address [address] [place] [address] Care Team Providers Care Senior Production Supervisor Name Role Phone Liz Schroeder MD Primary Care Provider Un available Owen Nelson MD Primary Care Provider + [facility], Pcp Primary Care Provider Unavailabl e Encounter Details Date Type Department Care Team Description 05/28/2020 Seed Technician Report Medical Records [address] [place] [address] Felipe Carlos MD Social History Tobacco Use Types Packs/Day [...] on filedocumented in this encounter Care Teams Senior Production Supervisor Relationship Specialty Start Date End Date Liz Schroeder MD PCP - General Internal Medicine 04/24/18 Owen Nelson MD [address] [place] [phone] PCP - General Internal Medicine 04/23/22 05/30/22 [facility], Pcp [address] [place] [address] PCP - General Internal Medicine 05/31/22 documented as of this encounter
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
--- OUTSIDE RECORDS SUMMARY | 2025-06-17 00:54 | XMS_ITS | Encounter Summary ---
Author Organization [facility] Address [address] [place] [address] Care Team Providers Care Wrecking Crane Engine Operator Name Role Phone Liz Schroeder MD Primary Care Provider Un available Avery Espitia MD Primary Care Provider Unava ilable Liz Schroeder MD Primary Care Provider Un available Owen Nelson MD Primary Care Provider + [facility], Pcp Primary Care Provider Unavailabl e Encounter Details Date Type Department Care Team Description 11/07/2012 Assembler Corncob Pipes Report Medical Records [address] [place] [address] Ja Sanabria MD Social History Tobacco Use Types Packs/Day [...] on filedocumented in this encounter Care Teams Wrecking Crane Engine Operator Relationship Specialty Start Date End Date Liz Schroeder MD PCP - General Internal Medicine 11/23/11 8 Avery Espitia MD PCP - General Internal Medicine 04/04/18 04/23/18 Liz Schroeder MD PCP - General Internal Medicine 04/24/18 Owen Nelson MD [address] [place], [place] [id number] PCP - General Internal Medicine 04/23/22 05/30/22 [facility], Pcp [address] [place] [address] PCP - General Internal Medicine 05/31/22 documented as of this encounter
--- OUTSIDE RECORDS SUMMARY | 2025-06-17 00:54 | XMS_ITS | Encounter Summary ---
Author Organization [facility] Address [address] [place] [address] Care Team Providers Care Architectural Administrative Assistant Name Role Phone Liz Schroeder MD Primary Care Provider Un available Avery Espitia MD Primary Care Provider Unava ilable Liz Schroeder MD Primary Care Provider Un available Owen Nelson MD Primary Care Provider + [facility], Pcp Primary Care Provider Unavailabl e Encounter Details Date Type Department Care Team Description 06/15/2012 Psychopaedic Nurse Report Medical Records [address] [place] [id number] Jamir Cleveland MD Social History Tobacco Use Types Packs/Day [...] on filedocumented in this encounter Care Teams Architectural Administrative Assistant Relationship Specialty Start Date End Date Liz Schroeder MD PCP - General Internal Medicine 11/23/11 8 Avery Espitia MD PCP - General Internal Medicine 04/04/18 04/23/18 Liz Schroeder MD PCP - General Internal Medicine 04/24/18 Owen Nelson MD [address] [place] [id number] PCP - General Internal Medicine 04/23/22 05/30/22 [facility], Pcp [address] [place] [address] PCP - General Internal Medicine 05/31/22 documented as of this encounter
--- OUTSIDE RECORDS SUMMARY | 2025-06-17 00:54 | XMS_ITS | Encounter Summary ---
Author Organization [facility] Address [address] [place] [address] Care Team Providers Care Tearer Name Role Phone Liz Schroeder MD Primary Care Provider Un available Avery Espitia MD Primary Care Provider Unava ilable Liz Schroeder MD Primary Care Provider Un available Owen Nelson MD Primary Care Provider + [facility], Pcp Primary Care Provider Unavailabl e Encounter Details Date Type Department Care Team Description 06/13/2012 Transfer Records Medical Records [address] [place] [address] Social History Tobacco Use Types Packs/Day Years [...] on filedocumented in this encounter Care Teams Tearer Relationship Specialty Start Date End Date Liz Schroeder MD PCP - General Internal Medicine 11/23/11 8 Avery Espitia MD PCP - General Internal Medicine 04/04/18 04/23/18 Liz Schroeder MD PCP - General Internal Medicine 04/24/18 Owen Nelson MD [address] [place] [id number] PCP - General Internal Medicine 04/23/22 05/30/22 [facility], Pcp [address] [place] [address] PCP - General Internal Medicine 05/31/22 documented as of this encounter
--- OUTSIDE RECORDS SUMMARY | 2025-06-17 00:54 | XMS_ITS | Encounter Summary ---
Author Organization [facility] Address [address] [place] [address] Care Team Providers Care Dynamicist Name Role Phone Liz Schroeder MD Primary Care Provider Un available Avery Espitia MD Primary Care Provider Unava ilable Liz Schroeder MD Primary Care Provider Un available Owen Nelson MD Primary Care Provider + [facility], Pcp Primary Care Provider Unavailabl e Encounter Details Date Type Department Care Team Description 12/05/2012 Tank Crewmember Report Medical Records [address] [place] [address] Ja Sanabria MD Social History Tobacco Use [...] on filedocumented in this encounter Care Teams Dynamicist Relationship Specialty Start Date End Date Liz Schroeder MD PCP - General Internal Medicine 11/23/11 8 Avery Espitia MD PCP - General Internal Medicine 04/04/18 04/23/18 Liz Schroeder MD PCP - General Internal Medicine 04/24/18 Owen Nelson MD [address] [place], [place] [id number] PCP - General Internal Medicine 04/23/22 05/30/22 [facility], Pcp [address] [place] [address] PCP - General Internal Medicine 05/31/22 documented as of this encounter
--- OUTSIDE RECORDS SUMMARY | 2025-06-17 00:54 | XMS_ITS | Encounter Summary ---
Author Organization [facility] Address [address] [place] [address] Care Team Providers Care Chief Substation Operator Name Role Phone Liz Schroeder MD Primary Care Provider Un available Avery Espitia MD Primary Care Provider Unava Liz Thayer MD Primary Care Provider Un available Owen Nelson MD Primary Care Provider + [facility], Pcp Primary Care Provider Unavailabl e Reason for Visit * Reason Comments E-prescribe Rx Request Encounter Details Date Type Department Care Team Description 07/13/2013 Refill Medicine/Pediatrics - [address] [phone] Liz Schroeder MD E-prescribe Rx Request Social History Tobacco Use Types Packs/Day Years Used Date Smoking Tobacco: Never Smokeless Tobacco: Never Alcohol Use Standard Drinks/Week Comments No 0 (1 standard drink = 0.6 oz pur e alcohol) Sex Assigned at Date Recorded Not on file documented as of this encounter Miscellaneous Notes * Telephone Encounter - Rosa Isela Del Real M.A. - 07/17/2013 2:57 PM EDT Per pt. She is getting INR checked once a month and she last went on 07/13/13. * Telephone Encounter - Jamila Riggins L.P.N. - 07/16/2013 4:43 PM EDT LM for patient to call office * Telephone Encounter - Rosa Isela Del Real M.A. - 07/13/2013 1:10 PM EDT Message left for patient to return my call. To relay below * Telephone Encounter - Jodie Parra PA-C - 07/13/2013 11:53 AM EDT PLEASE make certain she is UTD on her INR, she may be getting them done outside, we don't have a result in awhile, thanks * Telephone Encounter - Rosa Isela Del Real M.A. - 07/13/2013 9:17 AM EDT Last ov 05/09/13 Component Value Date INR 2.56 03/30/2012 * Telephone Encounter - Caryn Valencia - 07/13/2013 8:08 AM EDT Patient would like script to be: E-PRESCRIBED/FAXED TO PHARMACY WHEN WAS THE PATIENT'S LAST APPOINTMENT IN ADULT MEDICINE? 05/09/13 WHEN WAS THE LAST TIME THE PATIENT SAW THEIR PCP? Same as above Does patient have an upcoming appointment? (THE MEDICATION REQUESTED IS ON THE MED LIST ABOVE) All of the medications requested were on the CURRENT MEDS list Did you check the Pharmacy information above?: YES Patient wants: 30 -day supply Is this a mail order prescription request ? NO Patients current insurance carrier is: Payor: [employer] [facility] [employer] Plan: HMO $20 [place] [id number] Product Type: HMO [id number] documented in this encounter Plan of Treatment Not on file documented as of this encounter Visit Diagnoses Not on filedocumented in this encounter Care Teams Chief Substation Operator Relationship Specialty Start Date End Date Liz Schroeder MD PCP - General Internal Medicine 11/23/11 8 Avery Espitia MD PCP - General Internal Medicine 04/04/18 04/23/18 Liz Schroeder MD PCP - General Internal Medicine 04/24/18 Owen Nelson MD [address] [place] [id number] PCP - General Internal Medicine 04/23/22 05/30/[address] [address] PCP - General Internal Medicine 05/31/22 documented as of this encounter
== END 2025-06-17 00:50 | disposition left against medical advice (07) ==
LOC: HO.ED 06-17 00:49
PROVIDERS: Emergency Provider Emergency Medicine; PCP Pediatrics
DX: R21 Rash and other nonspecific skin eruption (principal); Z53.21 Procedure and treatment not carried out due to patient leaving prior to being seen by health care provider
CPT/HCPCS: 99281

== ENCOUNTER 2025-06-17 09:50 | Emergency (ER) | payer OTHER, SELFPAY ==
--- OUTSIDE RECORDS SUMMARY | 2011-11-03 01:00 | XMS_ITS | Encounter Summary ---
Author Organization [facility] Address [address] [facility] [address] [place] [address] Phone Care Team Providers Care Boat Officer Name Role Phone Unavailable Primary Care Provider Unavailabl e Encounter Details Date Type Department Care Team ([facility] st Contact Info) Description 11/03/2011 Hospital Encounter [facility] IMG OUTSIDE [address] [place] [address] Pedro Pierce MD [address] [place] [address]--[place] [address] [email or web address] Social History Tobacco Use Types Packs/Day Years [...] 9:48 AM EDT Radha Jones, RN * [place] Suicide Severity Rating Scale (Screener/Recent Self-Report) Question [...] Description 06/19/2025 1:00 PM EDT Office Visit [facility] [address] [facility] [address] [place] [address] Pedro Pierce MD [address] [facility]--[place] [address] [email or web address] 07/16/2025 1:15 PM EDT Administrative Encounter Central Registration, [facility] at [address] [address] Mary Sage MD 450 [place] [address] [email or web address] 07/16/2025 2:00 PM EDT Office Visit [facility], [facility], [facility] at [address] [address] Mary Sage MD [address] [place] [address] [email or web address] documented as of this encounter Procedures Procedure Name Priority Date/Time Associated Diagnosis Comments CT HEAD OUTSIDE (NO INTERPRETATION) Routine 11/03/2011 12:00 AM EST documented in this encounter Results * CT Head Outside (No Interpretation) (11/03/2011 12:00 AM EST) Narrative [facility] IM INTERFACES - 11/08/2022 9:36 AM EST [...] It is not the complete legal health record.[facility]
--- OUTSIDE RECORDS SUMMARY | 2021-07-22 11:17 | XMS_ITS | Encounter Summary ---
Author Organization [facility] Address [address] [facility] [address] [place] [address] Phone Care Team Providers Care Label Machine Operator Name Role Phone Liz Schroeder MD Primary Care Provid er Encounter Details Date Type Department Care Team (Late st Contact Info) Description 07/22/2021 11:17 AM EDT Hospital Encounter [facility] [address] [place] [address] Beatriz Gambino CNP [address] [place] [address] [email or web address] Social History Tobacco Use Types Packs/Day Years [...] 9:48 AM EDT Radha Jones, RN * [place] Suicide Severity Rating Scale (Screener/Recent Self-Report) Question [...] Description 06/19/2025 1:00 PM EDT Office Visit [facility] [address] [place] [address] Pedro Pierce MD [address] [place] [address]--[place] [address] [email or web address] 07/16/2025 1:15 PM EDT Administrative Encounter Central Registration, [facility] at [address] [address] Mary Sage MD 450 [place] [address] [email or web address] 07/16/2025 2:00 PM EDT Office Visit [facility], [facility], [facility] at [address] [address] Mary Sage MD [address] [place] [phone] [email or web address] documented as of this encounter Procedures Procedure [...] spine. IMPRESSION: No acute process. Beatriz Gambino WIND OPERATIONS SUPERVISOR IMG XR CHEST Final Resul t documented in this encounter Visit Diagnoses Not on filedocumented in this encounter Additional Health Concerns Infection Onset Date Last Indicated Resolved Time CoV-Risk 07/22/2021 07/22/2021 08/01/2021 1:24 AM EDT CoV-Risk 08/07/2023 08/07/2023 08/18/2023 1:23 AM EST documented as of this encounter Care Teams Label Machine Operator Relationship Specialty Start Date End Date [facility] [address] [address] PCP - General Internal Medicine 02/17/21 documented as of this encounter Additional Source Comments The information contained in this document represents components of the legal health record. It is not the complete legal health record.[facility]
--- OUTSIDE RECORDS SUMMARY | 2022-06-18 | XMS_ITS | Encounter Summary ---
Author Organization [facility] Address [address] [facility] [address] [place] [address] Phone Care Team Providers Care Ski Maker Name Role Phone Liz Schroeder MD Primary Care Provid er Encounter Details Date Type Department Care Team (Late st Contact Info) Description 06/18/2022 Hospital Encounter [facility] OUTSIDE [address] [place] [address] Law Hawkins MD [address] [place] [address] [email or web address] Social History Tobacco Use Types Packs/Day [...] 9:48 AM EDT Radha Jones, RN * [place] Suicide Severity Rating Scale (Screener/Recent Self-Report) Question [...] PM EDT Office Visit [facility] [address] [facility] [address] [place] [address] Pedro Pierce MD [address] [place] [address]--[place] [address] [email or web address] 07/16/2025 1:15 PM EDT Administrative Encounter Central Registration, [facility] at [address] [address] Mary Sage MD [address] [place] [address] [email or web address] 07/16/2025 2:00 PM EDT Office Visit [facility], [facility], [facility] at [address] [address] Mary Sage MD [address] [place] [phone] [email or web address] Pending Results Name Type Priority Associated Diagnoses [...] documented as of this encounter Care Teams Ski Maker Relationship Specialty Start Date End Date Liz Schroeder MD [address] [address] PCP - General Internal Medicine 02/17/21 documented as of this encounter Additional Source Comments The information contained in this document represents components of the legal health record. It is not the complete legal health record.[facility]
--- OUTSIDE RECORDS SUMMARY | 2025-06-10 08:45 | XMS_ITS | Encounter Summary ---
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] Procedures FL EXPLORE EYE SOCKET,REMV LESN EXCISION LESION EYE Referral ID Status Reason Start Date Expiration Date Visits Re quested Visits Authorized [id number] 1 1 Encounter Details Date Type Department Care Team (Latest Contact Info) Description 06/10/2025 8:45 AM EDT - 06/12/2025 12:12 PM EDT Hospital Encounter [facility] IP Adult [address] [address] Pedro Pierce MD [address] [place] [address]--[place] [address] [email or web address] Discharge Disposition: Home or Self Care Social [...] 9:48 AM EDT Radha Jones, SASHA * [place] Suicide Severity Rating Scale (Screener/Recent Self-Report) Question [...] y.o. female ( = 1975) Home Address: [address] [place] [address] [address] [facility] [phone] (home) Preferred Language: Somali Written Language: Somali Needs Die Trouble Shooter: No Type of Advance Care Directive(s): Health [...] - Anesthesia AttendingCRNAAnesthesia ResidentPedro Pierce MD - [facility] Center[facility]ine god[facility] MD - Fellow Procedures this admission None Non (OR) Procedures: Pending Results Procedure Component Value Ref Range Date/Time Basic metabolic panel [[id number]] Collected: 06/12/25 0717 Lab Status: In process [...] Dr. Pierce at post-op appointment Medications Allergies: Lowber, Olivet, Ascorbic acid, Banana, Cephalexin, Meperidine, Meperidine-promethazine, Midazolam, Nuts [peanut], Pollen extracts, [place]en[place], Sulfa (sulfonamide antibiotics), Watermelon, and Levofloxacin Prior [...] Your Medications These medications were sent to [facility][id number] - [address] AT [facility] [address] [facility] [id number] [facility] ophthalmic ointment [facility] Care Team Service: Ophthalmology Inpatient Attending: Pedro Pierce MD Attending phys phone: Discharge Unit: [facility] Primary Care Physician: Liz Schroeder MD [phone] Transitional Plan Scheduled appointments: Scheduled Appointments (maximum listed = 10) Provider Department Dept Phone Center Visit Type 06/19/2025 1:00 PM Pedro Pierce MD [facility] Main [place] [phone] [facility] Main Post Op 07/16/2025 1:15 PM ACCESS MANAGEMENT REGISTRAR Central Registration, [facility] [place] Arrive at: CHECK-IN AT: [place], Floor REGISTRATION 07/16/2025 2:00 PM Mary Sage MD [facility], [facility], [facility] [place] Arrive at: CHECK-IN AT: [facility] 4 NORTH EXAM [phone] CONSULT Signed Discharge Orders (From admission, onward) [...] events and results You were admitted to [facility] for a left anterior orbitotomy and left orbital mass excision with Dr. Pierce on 06/11. Prior to the surgery and after the surgery, you were started on a heparin bridge. On the day of discharge, your eye was soft without evidence of rebleeding. It was a pleasure taking care of you at [facility]! Instructions: - Follow-up with Dr. Pierce as [...] 8:48 AM EDT You were admitted to [facility] for a left anterior orbitotomy and left orbital mass excision with Dr. Pierce on 06/11. Prior to the surgery and after the surgery, you were started on a heparin bridge. On the day of discharge, your eye was soft without evidence of rebleeding. It was a pleasure taking care of you at [facility]! Instructions: - Follow-up with Dr. Pierce as [...] Left orbital dermoid Pulmonary embolism 12/01/2011 01/[address] Dunn - On warfarin for about a year, Warfarin restarted after discovery of a renal vein thrombosis in September 2011 IMO Update Fall 2016 Renal cyst 12/14/[address] Beck, hand stapler is Dr. Torres. 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 Pt Sorority Mother recommended heparin drip bridge while off apixaban [...] while on low dose apixaban . Pt Sorority Mother recommended heparin drip bridge while off apixaban anticoagulation - HM Apixaban 5 mg bid # Musculoskeletal/skin. - Activity: OOB, Ambulate # Neuro/Psychiatric. Insomnia - melatonin 5 mg prn DVT prophylaxis with SCD, heparin gtt CODE STATUS: Full Code Primary Service: Ophtalmology Level of Care: Observation ? Kar Hill MD Internal Medicine Pager: [phone] Quality Clinical Documentation: documented in this encounter [...] Description 06/19/2025 1:00 PM EDT Office Visit [facility] [address] [address] Pedro Pierce MD [address] [place] [address]--[place] [address] [email or web address] 07/16/2025 1:15 PM EDT Administrative Encounter Central Registration, [facility] at [address] [address] Mary Sage MD [address] [place] [id number] [email or web address] 07/16/2025 2:00 PM EDT Office Visit [facility], [facility], [facility] at [address] [address] Mary Sage MD [address] [place] [id number] [email or web address] Pending Results Name Type Priority Associated Diagnoses [...] EDT PTT STAT 06/11/2025 4:10 PM EDT FL EXPLORE EYE SOCKET,REMV LESN 06/11/2025 7:46 AM EDT Left orbital dermoid Special Needs DX: D31.62CPT: [id number]: 60 MINUTES GENERAL PTT Routine 06/11/2025 5:04 [...] EDT) SODIUM 138 135 - 145 mmol/L [facility] POTASSIUM 4.6 3.4 - 5.0 mmol/L [facility] CHLORIDE 105 98 - 108 mmol/L [facility] CO2 23 23 - 32 mmol/L [facility] BUN 16 8 - 25 mg/dL [facility] CREATININE 1.04(H) 0.50 - 1.00 mg/dL [facility] GLUCOSE 83 70 - 110 mg/dL [facility] CALCIUM 9.0 8.5 - 10.5 mg/dL [facility] EGFR 66 >59 mL/min/1. 73m2 [facility] Comment:Estimated glomerular filtration rate calculated using the CKD-EPI refit equation. ANION GAP 10 3 - 17 mmol/L [facility] Blood 06/12/2025 7:17 AM EDT 06/12/2025 8:24 AM EDT us Pedro Pierce MD LAB BLOOD ORDERABLES Final Res ult [facility] [address] [place] [address] * (ABNORMAL) PTT (06/12/2025 7:17 AM EDT) APTT 85.4(H) 24.0 - 37.5 sec [facility] Comment:Check MAR for the ta rget range that is ordered for your patient. Blood 06/12/2025 7:17 AM EDT 06/12/2025 8:24 AM EDT Pedro Pierce MD LAB BLOOD ORDERABLES Final Res ult Performing Organization Address City/[facility]/ZIP Co de Phone Number [address] [address] * CBC (06/12/2025 7:17 AM EDT) WBC 8.67 4.00 - 11.00 K/uL [facility] RBC 4.37 4.00 - 5.20 M/uL [facility] HGB 12.5 12.0 - 16.0 g/dL [facility] HCT 38.8 36.0 - 46.0 % [facility] PLT 271 150 - 450 K/uL [facility] MCV 88.8 80.0 - 100.0 fL [facility] MCH 28.6 27.0 - 31.0 pg [facility] MCHC 32.2 32.0 - 36.0 g/dL [facility] RDW 13.6 11.5 - 14.5 % [facility] MPV 10.2 8.4 - 12.0 fL [facility] NRBC 0.00 0.00 /100 WBCs [facility] ABSOLUTE NRBC 0.00 0.00 K/uL [facility] Blood 06/12/2025 7:17 AM EDT 06/12/2025 8:24 AM EDT us Kar Hill MD LAB BLOOD ORDERABLES Final Resul t Performing Organization Address City/[facility] Co de Phone Number [address] [address] * (ABNORMAL) PTT (06/11/2025 10:36 PM EDT) APTT 141.9(HH) 24.0 - 37.5 sec [facility] Comment:Check MAR for the ta rget range that is ordered for your patient. Blood 06/11/2025 10:3 6 PM EDT 06/11/2025 11:19 PM EDT us Kar Hill MD LAB BLOOD ORDERABLES Final Resul t Performing Organization Address [facility] Co de Phone Number [address] [address] * PTT (06/11/2025 4:10 PM EDT) APTT 24.9 24.0 - 37.5 sec [facility] Comment:Check MAR for the ta rget range that is ordered for your patient. Blood 06/11/2025 4:10 PM EDT 06/11/2025 4:42 PM EDT us Kar Hill MD LAB BLOOD ORDERABLES Final Resul t Performing Organization Address [facility] Co de Phone Number [address] [address] * (ABNORMAL) PTT (06/11/2025 5:04 AM EDT) APTT 53.8(H) 24.0 - 37.5 sec [facility] Comment:Check MAR for the ta rget range that is ordered for your patient. 06/11/2025 5:04 AM EDT 06/11/2025 6:47 AM EDT Pedro Pierce MD LAB BLOOD ORDERABLES Final Res ult Performing Organization Address City/[facility] Co de Phone Number [address] [address] * PT-INR (06/11/2025 5:04 AM EDT) PT 11.1 10.0 - 13.0 sec [facility] INR 1.0 0.9 - 1.1 [facility] Blood 06/11/2025 5:04 AM EDT 06/11/2025 6:46 AM EDT Pedro Pierce MD LAB BLOOD ORDERABLES Final Res ult [facility] [address] [place] [address] * (ABNORMAL) CBC and differential (06/11/2025 5:04 AM EDT) WBC 7.95 4.00 - 11.00 K/uL [facility] RBC 4.59 4.00 - 5.20 M/uL [facility] HGB 13.1 12.0 - 16.0 g/dL [facility] HCT 40.5 36.0 - 46.0 % [facility] PLT 284 150 - 450 K/uL [facility] MCV 88.2 80.0 - 100.0 fL [facility] MCH 28.5 27.0 - 31.0 pg [facility] MCHC 32.3 32.0 - 36.0 g/dL [facility] RDW 13.7 11.5 - 14.5 % [facility] MPV 10.1 8.4 - 12.0 fL [facility] NRBC 0.00 0.00 /100 WBCs [facility] ABSOLUTE NRBC 0.00 0.00 K/uL [facility] DIFF [facility] NEUTS 36.8(L) 48.0 - 76.0 % [facility] LYMPHS 51.6(H) 18.0 - 41.0 % [facility] MONOS 7.0 4.0 - 11.0 % [facility] EOS 3.5 0.0 - 5.0 % [facility] BASOS 0.8 0.0 - 1.5 % [facility] % IMMATURE GRANS 0.3 0.0 - 0.9 % [facility] ABSOLUTE NEUTS 2.93 1.92 - 7.60 K/uL [facility] ABSOLUTE LYMPHS 4.10 0.72 - 4.10 K/uL [facility] ABSOLUTE MONOS 0.56 0.16 - 1.10 K/uL [facility] ABSOLUTE EOS 0.28 0.00 - 0.50 K/uL [facility] ABSOLUTE BASOS 0.06 0.00 - 0.15 K/uL [facility] ABS IMMATURE GRANS 0.02 0.00 - 0.09 K/uL [facility] Blood 06/11/2025 5:04 AM EDT 06/11/2025 6:46 AM EDT Pedro Pierce MD LAB BLOOD ORDERABLES Final Res ult [address] [address] * (ABNORMAL) Basic metabolic panel (06/11/2025 5:04 AM EDT) SODIUM 141 135 - 145 mmol/L [facility] POTASSIUM 4.3 3.4 - 5.0 mmol/L [facility] CHLORIDE 107 98 - 108 mmol/L [facility] CO2 25 23 - 32 mmol/L [facility] BUN 15 8 - 25 mg/dL [facility] CREATININE 1.08(H) 0.50 - 1.00 mg/dL [facility] GLUCOSE 88 70 - 110 mg/dL [facility] CALCIUM 8.8 8.5 - 10.5 mg/dL [facility] EGFR 63 >59 mL/min/1. 73m2 [facility] Comment:Estimated glomerular filtration rate calculated using the CKD-EPI refit equation. ANION GAP 9 3 - 17 mmol/L [facility] Blood 06/11/2025 5:04 AM EDT 06/11/2025 6:46 AM EDT Pedro Pierce MD LAB BLOOD ORDERABLES Final Res ult Performing Organization Address City/[facility]/ZIP Co de Phone Number [address] [address] * Troponin (06/10/2025 9:00 PM EDT) Troponin-T, HS Gen5 <6 0 - 9 ng/L [facility] Blood 06/10/2025 9:00 PM EDT 06/10/2025 10:05 PM EDT Kar Hill MD LAB BLOOD ORDERABLES Final Resul t [address] [address] * (ABNORMAL) PTT (06/10/2025 9:00 PM EDT) APTT 66.9(H) 24.0 - 37.5 sec [facility] Comment:Check MAR for the ta rget range that is ordered for your patient. Blood 06/10/2025 9:00 PM EDT 06/10/2025 10:05 PM EDT Pedro Pierce MD LAB BLOOD ORDERABLES Final Res ult Performing Organization Address [facility]/ZIP Co de Phone Number [address] [address] * PT-INR (06/10/2025 9:00 PM EDT) PT 11.2 10.0 - 13.0 sec [facility] INR 1.0 0.9 - 1.1 [facility] Blood 06/10/2025 9:00 PM EDT 06/10/2025 10:05 PM EDT Pedro Pierce MD LAB BLOOD ORDERABLES Final Res ult Performing Organization Address [facility] Co de Phone Number [address] [address] * Troponin (06/10/2025 6:36 PM EDT) Troponin-T, HS Gen5 <6 0 - 9 ng/L [facility] 06/10/2025 6:36 PM EDT 06/10/2025 7:49 PM EDT Kar Hill MD LAB BLOOD ORDERABLES Final Resul t Performing Organization Address [facility] Co de Phone Number [address] [address] * (ABNORMAL) PTT (06/10/2025 5:20 PM EDT) APTT 67.4(H) 24.0 - 37.5 sec [facility] Comment:Check MAR for the ta rget range that is ordered for your patient. Blood 06/10/2025 5:20 PM EDT 06/10/2025 5:45 PM EDT Pedro Pierce MD LAB BLOOD ORDERABLES Final Res ult Performing Organization Address [facility] Co de Phone Number [address] [address] * PT-INR (06/10/2025 5:20 PM EDT) PT 11.5 10.0 - 13.0 sec [facility] INR 1.0 0.9 - 1.1 [facility] Blood 06/10/2025 5:20 PM EDT 06/10/2025 5:45 PM EDT Pedro Pierce MD LAB BLOOD ORDERABLES Final Res ult Performing Organization Address [facility] Co de Phone Number [address] [address] * (ABNORMAL) PTT (06/10/2025 5:20 PM EDT) APTT 62.0(H) 24.0 - 37.5 sec [facility] Comment:Check MAR for the ta rget range that is ordered for your patient. Blood 06/10/2025 5:20 PM EDT 06/10/2025 5:45 PM EDT Pedro Pierce MD LAB BLOOD ORDERABLES Final Res ult Performing Organization Address [facility] Co de Phone Number [address] [address] * ECG 12-LEAD (06/10/2025 5:10 PM EDT) Systolic Blood Pressure [facility] Diastolic Blood Pressure [facility] Ventricular Rate EKG/MIN 99 BPM [facility] Atrial Rate 99 BPM [facility] FL Interval 144 ms [facility] QRS Duration 86 ms [facility] QT Interval 350 ms [facility] QTC Interval 449 ms [facility] P [place] MUSE_[facility]E R Wave [place] 82 degrees [facility] T Wave [place] 179 degrees [facility] 06/10/2025 5:10 PM EDT [...] ECGS AVAILABLE Confirmed by Alex Pierre MD ([id number]) on 06/11/2025 2:29:05 PM us Kar Hill MD ECG ORDERABLES Final Result [facility] * (ABNORMAL) CBC and differential (06/10/2025 12:54 PM EDT) WBC 7.78 4.00 - 11.00 K/uL [facility] RBC 4.63 4.00 - 5.20 M/uL [facility] HGB 13.2 12.0 - 16.0 g/dL [facility] HCT 40.7 36.0 - 46.0 % [facility] PLT 292 150 - 450 K/uL [facility] MCV 87.9 80.0 - 100.0 fL [facility] MCH 28.5 27.0 - 31.0 pg [facility] MCHC 32.4 32.0 - 36.0 g/dL [facility] RDW 13.4 11.5 - 14.5 % [facility] MPV 10.0 8.4 - 12.0 fL [facility] NRBC 0.00 0.00 /100 WBCs [facility] ABSOLUTE NRBC 0.00 0.00 K/uL [facility] DIFF METHOD [facility] NEUTS 44.7(L) 48.0 - 76.0 % [facility] LYMPHS 44.0(H) 18.0 - 41.0 % [facility] MONOS 7.5 4.0 - 11.0 % [facility] EOS 2.7 0.0 - 5.0 % [facility] BASOS 0.8 0.0 - 1.5 % [facility] % IMMATURE GRANS 0.3 0.0 - 0.9 % [facility] ABSOLUTE NEUTS 3.49 1.92 - 7.60 K/uL [facility] ABSOLUTE LYMPHS 3.42 0.72 - 4.10 K/uL [facility] ABSOLUTE MONOS 0.58 0.16 - 1.10 K/uL [facility] ABSOLUTE EOS 0.21 0.00 - 0.50 K/uL [facility] ABSOLUTE BASOS 0.06 0.00 - 0.15 K/uL [facility] ABS IMMATURE GRANS 0.02 0.00 - 0.09 K/uL [facility] 06/10/2025 12:5 4 PM EDT 06/10/2025 1:25 PM EDT Pedro Pierce MD LAB BLOOD ORDERABLES [place] [address] * MRSA Nasal Screen (06/10/2025 12:03 PM EDT) Special Requests No Special Requests 06/10/2025 12:03 PM EDT [facility] MRSA Nasal Culture NEGATIVE FOR MRSA 06/11/2025 1:34 PM EDT [facility] Other (Nasal) 06/10/2025 12: 03 PM EDT 06/10/2025 2:15 PM EDT us Pedro Pierce MD MICROBIOLOGY - GENERAL ORDERAB LES Final Result Performing Organization Address City/[facility]/ZIP Co de Phone Number [address] [place] [address], [facility] * PT-INR (06/10/2025 11:01 AM EDT) PT 12.1 10.0 - 13.0 sec [facility] INR 1.1 0.9 - 1.1 [facility] 06/10/2025 11:0 1 AM EDT 06/10/2025 12:00 PM EDT us Pedro Pierce MD LAB BLOOD ORDERABLES Final Res ult [facility] [address] [place] [address] documented in this encounter Visit Diagnoses Diagnosis [...] PO. documented in this encounter Care Teams Photographic Processor Relationship Specialty Start Date End Date Liz Schroeder MD [address] [address] PCP - General Internal Medicine 02/17/21 Self-Referred, Patient Referring Physician 05/29/25 Mary Sage MD [address] [place] [id number] [email or web address] Medical Oncology 05/29/25 documented as of this encounter Additional Source Comments The information contained in this document represents components of the legal health record. It is not the complete legal health record.[facility]
--- NOTE | ~2025-06-17 | US_ITS ---
EXAMINATION: US TRIPLEX UPPER EXTREMITY, RIGHT CLINICAL INFORMATION: Swelling and edema, right upper extremity. COMPARISON: None available. TECHNIQUE: Color-flow triplex imaging with spectral analysis and compression Doppler was performed on the right upper extremity. FINDINGS: The right internal jugular, subclavian, and axillary veins are patent with normal augmentation and spectral Doppler waveforms. The imaged segment of the right brachiocephalic vein is patent. Spectral doppler waveforms are normal. There is no compressibility or normal augmentation. The basilic vein in the antecubital fossa. The cephalic, radial, and ulnar veins are patent and compressible. US/US venous duplex UE RT IMPRESSION: Occlusive thrombus in the right basilic vein at the antecubital fossa. Findings could make it into the nurse practitioner in the emergency department Michelle Kline on June 17, 2025 the tiger connect at 12:04 PM.. Electronically signed by: David Younger MD 06/17/2025 12:36 PM EDT
[2025-06-17 10:28] VITALS: BP 144/81; PULSE 94; RESP 18; TEMP 36.7; O2SAT 95; BMI 46.4
--- NOTE | 2025-06-17 10:29 | ED.GENADULT ---
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 Had midline placed to right arm on 06/10 and removed on 06/12, surgery on 06/11. Complaining of right arm pain, swelling, and blotchiness since. Cannot use LEFT arm for BP/IVs d/t lymph node removal. States she was titrated off her Eliquis prior to the surgery but is back up to her usual dose now. Denies any weakness, numbness, tingling to arm. MD complaint: right arm pain Onset (ago): day(s) Related Data Previous Rx's ?Medication ?Instructions ?Recorded albuterol sulfate 90 mcg/actuation 2 puff inhalation Q4-6H PRN 07/14/21 aerosol inhaler (ProAir HFA) Wheezing #8.5 grams azithromycin 250 mg tablet 250 mg PO DAILY 4 days #4 tabs 07/14/21 (Zithromax) codeine 10 mg-guaifenesin 100 mg/5 10 ml PO Q4-6H PRN cough #237 mL 07/14/21 mL oral liquid prednisone 20 mg tablet 40 mg (2 x 20 mg) PO DAILY #10 tabs 07/14/21 azithromycin 250 mg tablet See Rx Instructions PO .COMPLEX #6 05/17/22 tabs oxcarbazepine 300 mg tablet 300 mg PO BID #60 tabs 05/17/22 oxycodone 5 mg tablet 5 mg PO Q8H PRN severe pain (scale 04/10/23 score 7-10) #9 tabs prednisone 20 mg tablet 40 mg (2 x 20 mg) PO DAILY #10 tabs 04/10/23 tamsulosin 0.4 mg capsule (Flomax) 0.4 mg PO DAILY #10 caps 04/10/23 cefuroxime axetil 250 mg tablet 250 mg PO BID 7 days #14 tabs 04/27/23 phenazopyridine 200 mg tablet 200 mg PO TID PRN pain 6 doses #6 07/26/23 (Pyridium) tabs amoxicillin 875 mg-potassium 1 tab PO BID #14 tabs 03/27/24 clavulanate 125 mg tablet lorazepam 1 mg tablet (Ativan) 1 mg PO TID PRN anxiety #10 tabs 10/10/24 apixaban 5 mg tablet (Eliquis) 5 mg PO BID #14 tabs 06/17/25 Allergies Allergy/AdvReac Type Severity Reaction Status Date / Time Sulfa (Sulfonamide Allergy Unknown HIVES Verified 06/17/25 10:34 Antibiotics) (SULFA (SULFONAMIDE ANTIBIOTICS)) cephalexin Allergy Hives Verified 06/17/25 10:34 levofloxacin Allergy Shakiness Verified 06/17/25 10:34 meperidine (From DEMEROL) AdvReac Unknown COMBATIVE Verified 06/17/25 10:34 midazolam (From VERSED) AdvReac Unknown COMBATIVE Verified 06/17/25 10:34 Banana (Diagnostic) Allergy Unknown oral Uncoded 06/17/25 10:34 allergy [place] Extract Allergy Unknown anaphylaxis Uncoded 06/17/25 10:34 Britt (Diagnostic) Allergy Unknown oral Uncoded 06/17/25 10:34 allergy Watermelon Flavor Allergy Unknown oral Uncoded 06/17/25 10:34 allergy White potato Allergy Unknown hives Uncoded 06/17/25 10:34 Review of Systems Review of Systems: As per HPI Yes all other systems are reviewed and are negative Constitutional: Constitutional: Reports as per HPI PMFSH Past Medical History Medical History Pulmonary emboli DVT (deep venous thrombosis) Surgical History H/O: hysterectomy Social History Social History Alcohol intake: never Patient Tobacco Use Status: Never used Tobacco Advance Directives: Yes Advance Directives Information Provided: No Advance Directives on File: No Physical Exam ED Vital Signs: Vital Signs - 24 hr 06/17/25 10:28 Temperature 98.0 F Pulse Rate 94 Respiratory Rate 18 Blood Pressure 144/81 H Pulse Oximetry 95 Oxygen Delivery Method Room Air BMI result Body Mass Index 46.4 Vital signs have been reviewed and appear to be correct. Blood pressure normal. Heart rate normal. Respiratory rate normal. Temperature normal. Oxygen saturation normal. Const General: cooperative, healthy appearing and no acute distress Orientation/consciousness: oriented to person, oriented to place, oriented to time and patient oriented x3 Limitations: no limitations HENMA Head: Yes normocephalic and Yes atraumatic Ears: external ears normal General nose exam: Normal external nose present Face and sinus: Yes face symmetric Mouth: oropharynx normal and moist mucous membranes Throat: Yes uvula midline Eyes Other: eye patch over left eye Pupils: Equal, round and reactive pupils present Neck Neck: Yes normal visual inspection and Yes supple Resp Effort & Inspection: normal respiratory effort and able to speak in complete sentences Auscultation: clear to auscultation bilaterally Cardio Rate: regular rate Rhythm: regular rhythm Heart sounds: S1 normal heart sound present and S2 normal heart sound present GI Palpation (GI): Soft to palpation and nontender Auscultation: normoactive bowel sounds General: Yes no CVA tenderness Back/Spine/Pelvis Back: no CVA tenderness Skin General skin exam: elasticity normal and turgor normal Neuro General: oriented to person, oriented to place, oriented to time, patient oriented x3, moves all extremities, no focal motor deficits and CN's II-XI intact bilaterally Cranial nerves: Yes Equal, round and reactive pupils present Cognition (Neuro): normal cognition Extrem General: Yes full ROM, Yes no pedal edema and Yes no calf tenderness Right upper extremity: shoulder/upper arm Details: tenderness Location: of the A-C joint, swelling, normal ROM and ecchymosis (healing ecchymosis to upper arm medial aspect) and Extremity exam: right hand Details: vascular exam Details: radial pulse present, ulnar pulse present and normal capillary refill and normal ROM of fingers Psych Mental Status: mental status grossly normal Affect: normal affect Thought process: Normal thought process present Course Course Course Narrative: This is a rapid medical exam performed by Nancy Kline NP: Additional HPI, ROS, PE not included below will be deferred to primary provider. 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 Had midline placed to right arm on 06/10 and removed on 06/12, surgery on 06/11. Complaining of right arm pain, swelling, and blotchiness. Cannot use LEFT arm for BP/IVs d/t lymph node removal. Plan: labs, u/s Medical Decision Making Medical Decision Making 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 On exam patient is awake, A+Ox3, VS WNL, afebrile, normal neurological exam without focal deficits, physical exam findings as above. Given reported symptoms and physical exam findings, initial differential includes but is not limited to DVT, cellulitis. Labs unremarkable, no evidence of RAMANA. Ultrasound of RUQ notable for DVT of basilic vein. My interpretation is in agreement with the radiologist's interpretation. Spoke with Dr. Dee, he does not feel she requires intervention but does recommend Eliquis. Case discussed with Dr. Mayo who recommends increasing Eliquis to 10mg BID x 7 days then patient can return to 5mg BID. Results and plan discussed with patient. Return precautions discussed. Follow up with PCP this week. Patient verbalized understanding of and agreement with plan. Differential Diagnosis Differential Diagnoses: The differential diagnosis associated with the presentation includes as per [facility] Admission/Observation Consideration of admission/observation: Escalation of care including admission/observation considered Patient would have been admitted to the hospital had their clinical presentation warranted hospital admission. Consult Healthcare Provider Management of the patient was discussed with: Frame Coverer (Dr. Dee, Dr. Mayo) Lab Data [facility] Lab Attestation statement: I reviewed the patient's lab results. As per [facility] 06/17/25 12:19 06/17/25 12:19 Labs: Lab Results 06/17/25 Range/Units 12:19 WBC 7.2 (4.8-10.8) X10*3/uL RBC 4.78 (4.20-5.50) X10*6/uL Hgb 13.5 (12.0-16.0) g/dl Hct 41.5 (37.0-47.0) % MCV 86.8 (80.0-98.0) fL MCH 28.2 (27.0-33.0) pg MCHC 32.5 (31.0-35.0) g/dl RDW 13.5 (11.0-16.0) % Plt Count 282 (160-400) X10*3/uL MPV 9.3 L (9.4-12.3) fL Immature Gran % (Auto) 0.3 (0.0-0.4) % Neut % (Auto) 47.9 (45-73) % Lymph % (Auto) 39.4 (20-40) % [place] % (Auto) 7.6 (2-11) % Eos % (Auto) 4.2 H (0-4) % Baso % (Auto) 0.6 (0-2) % Lymph # (Auto) 2.8 (1.2-4.9) X10*3/uL [place] # (Auto) 0.5 (0.1-1.2) X10*3/uL Eos # (Auto) 0.3 (0.0-0.4) X10*3/uL Baso # (Auto) 0.0 (0.0-0.2) X10*3/uL Abs Immat Gran (auto) 0.02 (0.00-0.03) X10*3/uL Absolute Neuts (auto) 3.4 (2.0-8.3) x10*3/uL Absolute Nucleated RBC 0.000 (0.0-0.012) X10*3/uL Nucleated RBC % (auto) 0.0 (0.0-0.2) /100WBC PT 11.4 (10.9-12.4) SEC INR 1.0 (0.9-1.1) Sodium 141 (135-145) mmol/L Potassium 4.4 (3.3-5.1) mmol/L Chloride 106 (96-108) mmol/L Carbon Dioxide 28 (22-29) mmol/L Anion Gap 11 L (12-20) BUN 12 (9-16) mg/dL Creatinine 1.07 (0.5-1.4) mg/dL Estim Creat Clear Calc 92.0 Estimated GFR 55 Random Glucose 104 (60-115) mg/dL Calcium 9.1 (8.4-10.2) mg/dL Total Bilirubin 0.3 (0.0-1.0) mg/dL AST 23 (5-31) U/L ALT 22 (0-31) U/L Alkaline Phosphatase 95 (39-117) U/L Total Protein 7.0 (6.5-8.0) g/dL Albumin 4.1 (3.5-5.0) g/dL Independent Interpretation I performed an independent interpretation of an: Ultrasound Interpretation: U/S notable for RUE DVT Radiology Impression Discussion of test interpretation with radiology: I have reviewed the radiologist's reading. Radiologist Impression: US/US venous duplex UE RT IMPRESSION: Occlusive thrombus in the right basilic vein at the antecubital fossa. Findings could make it into the nurse practitioner in the emergency department Michelle Kline on June 17, 2025 the tiger connect at 12:04 PM.. External Record Review External record reviewed: Inpatient record, Office record and Outpatient record Prescription Management I considered prescription management with: Other Discharge Plan Discharge Clinical Impression: Acute deep vein thrombosis (DVT) of right upper extremity Patient Disposition: Home, Self-Care Instructions: Deep Vein Thrombosis (DC) Additional Instructions: You were evaluated in the emergency department today for right arm pain and swelling. Your ultrasound showed a blood clot (DVT) in the basilic vein of your right arm. We are increasing your dose of Eliquis to 10mg twice daily for the next 7 days, then you can continue to take 5mg twice daily after that. You should follow up with your primary care provider this week. Return to the emergency department if you develop increased swelling, redness, warmth, new weakness, numbness, tingling to her arm or any other new or concerning symptoms. Prescriptions: New Eliquis 5 mg tablet 5 mg PO BID Qty: 14 0RF No Action prednisone 20 mg tablet 40 mg PO DAILY Qty: 10 0RF codeine-guaifenesin 10-100 mg/5 mL liquid 10 ml PO Q4-6H PRN (Reason: cough) Qty: 237 0RF albuterol sulfate [ProAir HFA] 90 mcg/actuation HFA aerosol inhaler 2 puff inhalation Q4-6H PRN (Reason: Wheezing) Qty: 8.5 0RF azithromycin [Zithromax] 250 mg tablet 250 mg PO DAILY 4 Days Qty: 4 0RF Rx Instructions: start on day 2 of therapy azithromycin 250 mg tablet See Rx Instructions .ROUTE .COMPLEX Qty: 6 0RF Rx Instructions: For 250 mg dose pack: take 500 mg today (day 1), then 250 mg for 4 days (days 2-5) oxcarbazepine 300 mg tablet 300 mg PO BID Qty: 60 0RF phenazopyridine [Pyridium] 200 mg tablet 200 mg PO TID PRN (Reason: pain) Qty: 6 0RF cefuroxime axetil 250 mg tablet 250 mg PO BID 7 Days Qty: 14 0RF lorazepam [Ativan] 1 mg tablet 1 mg PO TID PRN (Reason: anxiety) Qty: 10 0RF Rx Instructions: Patient may request partial fill tamsulosin [Flomax] 0.4 mg capsule 0.4 mg PO DAILY Qty: 10 0RF prednisone 20 mg tablet 40 mg PO DAILY Qty: 10 0RF oxycodone 5 mg tablet 5 mg PO Q8H PRN (Reason: severe pain (scale score 7-10)) Qty: 9 0RF Rx Instructions: Partial Fill upon patient request. amoxicillin-pot clavulanate 875-125 mg tablet 1 tab PO BID Qty: 14 0RF Print Language: Bangladeshi
--- NOTE | 2025-06-17 11:03 | MHC.EDTECH ---
Patient was called @ 1100 to triage area to obtain labs,no answer will re-attempt
--- NOTE | 2025-06-17 11:35 | MHC.EDTECH ---
pt was called @1125 and @1135 for labs in triage, no answer was made
[2025-06-17 12:23] LABS: MANUAL DIFF FLAG NO
[2025-06-17 12:32] LABS: Hematocrit 41.5 % (37.0-47.0); Hemoglobin 13.5 g/dl (12.0-16.0); Imm Gran Abs Auto 0.02 X10*3/uL (0.00-0.03); Imm Gran Pct Auto 0.3 % (0.0-0.4); Lymphocytes Absolute Auto 2.8 X10*3/uL (1.2-4.9); Mean Corpuscular HGB Conc 32.5 g/dl (31.0-35.0); Mean Corpuscular Hemoglobin 28.2 pg (27.0-33.0); Mean Corpuscular Volume 86.8 fL (80.0-98.0); NRBC Abs Auto 0.000 X10*3/uL (0.0-0.012); NRBC Pct Auto 0.0 /100WBC (0.0-0.2); Platelet Count 282 X10*3/uL (160-400); Red Blood Count 4.78 X10*6/uL (4.20-5.50); White Blood Count 7.2 X10*3/uL (4.8-10.8)
[2025-06-17 12:42] LABS: Alanine Aminotransferase 22 U/L (0-31); Albumin Level 4.1 g/dL (3.5-5.0); Alkaline Phosphatase 95 U/L (39-117); Anion Gap 11 (12-20); Aspartate Amino Transferase 23 U/L (5-31); Blood Urea Nitrogen 12 mg/dL (9-16); Calcium 9.1 mg/dL (8.4-10.2); Carbon Dioxide 28 mmol/L (22-29); Chloride 106 mmol/L (96-108); Creatinine Clr Calc Pharmacy 92.0; Estimated Glomerular Filt Rate 55; Potassium 4.4 mmol/L (3.3-5.1); Sodium 141 mmol/L (135-145); Total Protein 7.0 g/dL (6.5-8.0)
[2025-06-17 12:45] LABS: INTERNATIONAL NORM RATIO 1.0 (0.9-1.1); Prothrombin Time 11.4 SEC (10.9-12.4)
[2025-06-17 13:43] VITALS: BP 144/81; PULSE 94; RESP 18; TEMP 36.7; O2SAT 95
--- OUTSIDE RECORDS SUMMARY | 2025-06-17 16:58 | XMS_ITS | Encounter Summary ---
Author Organization [facility] Address [address] [facility] [address] [place] [address] Phone Care Team Providers Care Theater Set Production Designer Name Role Phone Liz Schroeder MD Primary Care Provid er Self-Referred, Patient Unavailable Unavailab Mary Toscano MD Unavailable [phone] Encounter Details Date Type Department Care Team ([facility] st Contact Info) Description 06/12/2025 Ophth Exam [facility] Opthalmology Inpatient [address] [place] [id number] Klaudia Angel MD [address] [place] [address] [email or web address] Social History Tobacco Use Types [...] 1:00 PM EDT Office Visit [facility] [place] [address] [address] Pedro Pierce MD [address] [place] [address]--[place] [address] [email or web address] 07/16/2025 1:15 PM EDT Administrative Encounter Central Registration, [facility] [address] [address] Mary Sage MD [address] [place] [address] [email or web address] 07/16/2025 2:00 PM EDT Office Visit [facility], [facility], [facility] [address] [address] Mary Sage MD [address] [place] [address] [email or web address] documented as of this encounter Visit Diagnoses Not on filedocumented in this encounter Care Teams Theater Set Production Designer Relationship Specialty Start Date End Date Liz Schroeder MD [address] [address] PCP - General Internal Medicine 02/17/21 Self-Referred, Patient Referring Physician 05/29/25 Mary Sage MD [address] [place] [address] [email or web address] Medical Oncology 05/29/25 documented as of this encounter Additional Source Comments The information contained in this document represents components of the legal health record. It is not the complete legal health record.[facility]
--- OUTSIDE RECORDS SUMMARY | 2025-06-17 16:58 | XMS_ITS | Encounter Summary ---
Author Organization [facility], Address [address] [place] [address] Phone Care Team Providers Care Director Of Assessment Name Role Phone Liz Schroeder MD Primary Care Provider [phone] Encounter Details Date Type Department Care Team (Late st Contact Info) Description 06/25/2024 Documentation Only [facility], [address] [place] [address] [place], [place] [address] [place] [address] Social History Tobacco Use Types [...] filedocumented in this encounter Care Teams Director Of Assessment Relationship Specialty Start Date End Date Liz Schroeder MD [address] [place] [address] PCP - General Internal Medicine 06/25/24 documented as of this encounter
--- OUTSIDE RECORDS SUMMARY | 2025-06-17 16:58 | XMS_ITS | Encounter Summary ---
Author Organization [facility] Address [address] [place] [address] Care Team Providers Care Director Of Digital Technology Name Role Phone Liz Schroeder MD Primary Care Provider Un available Avery Espitia MD Primary Care Provider Unava ilable Liz Schroeder MD Primary Care Provider Un available Owen Nelson MD Primary Care Provider [facility] Pcp Primary Care Provider Unavailabl e Encounter Details Date Type Department Care Team Description 09/27/2014 OPTICAL LAB TECHNICIAN/[facility] Report Medical Records [address] [place] [address] Abstract, Provider Social History Tobacco Use Types [...] in this encounter Care Teams Director Of Digital Technology Relationship Specialty Start Date End Date Liz Schroeder MD PCP - General Internal Medicine 11/23/11 8 Avery Espitia MD PCP - General Internal Medicine 04/04/18 04/23/18 Liz Schroeder MD PCP - General Internal Medicine 04/24/18 Owen Nelson MD [address] [place] [address] PCP - General Internal Medicine 04/23/22 05/30/22 [facility], Pcp [address] [place] [address] PCP - General Internal Medicine 05/31/22 documented as of this encounter
--- OUTSIDE RECORDS SUMMARY | 2025-06-17 16:58 | XMS_ITS | Clinical Summary ---
Author Organization [facility] Address [address] [place] [address] Phone Care Team Providers Care Kitchen Manager Name Role Phone Liz Schroeder MD Primary Care Provid er Self-Referred, Patient Unavailable Unavailab Mary Toscano MD Unavailable [phone] Allergies Active Allergy Reactions Criticality Noted Date Comments [place] Hives 05/29/2025 Ascorbic Acid Unknown 03/30/2020 Outside Source Comment: Oral allergy syndrome Banana 03/31/2020 Oral allergy syndrome Oral allergy syndrome Cephalexin Hives 09/24/2024 oral tablets [place] Anaphylaxis High 03/31/2020 Nausea, tongue itching, throat [...] causes hives on hand, can eat cooked [place] 03/31/2020 Oral allergy syndrome Oral allergy syndrome [...] 02/17/2021 Overview (02/17/2021): Urologist is Dr. Beck, dopeman is Dr. Torres. 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 Dunn - On warfarin for about a year, Warfarin restarted after discovery of a renal vein thrombosis in September 2011 IMO Update Fall 2015 S/P partial hysterectomy 12/01/2011 Overview (02/17/2021): 2010, put back on warfarin Encounters Date Type Department Care Team Description 06/16/2025 Telephone [facility] Opthalmology Inpatient [address] [place] [address] Klaudia Angel MD 06/12/2025 Ophth Exam [facility] Opthalmology Inpatient [address] [place] [address] Klaudia Angel MD 06/11/2025 7:45 AM EDT - 06/11/2025 9:15 AM EDT Surgery [facility] MAIN PERIOP DEPT [address] [place] [address] Pedro Pierce MD EXCISION LESION EYE 06/11/2025 7:40 AM EDT [facility] [address] [place] [address] Petra Pritchard MD Jankovic, Snjezana, NP 06/11/2025 Procedure Pass [facility] PERIOP DEPT [address] [place] [address] 06/10/2025 12:31 PM EDT - 06/10/2025 11:59 PM EDT Hospital Encounter Central Pathology, [facility] [address] [place] [address] Discharge Disposition: Home or Self Care 06/10/2025 8:45 AM EDT - 06/12/2025 12:12 PM EDT Hospital Encounter [facility] IP Adult [address] [address] Pedro Pierce MD Discharge Disposition: Home or Self Care 06/09/2025 Telephone [facility] [address] [address] Jeanine Burris MD 06/05/2025 Ancillary Orders DF IMG OUTSIDE IMG [address] [place] [address] Mary Sage MD 06/05/2025 Ancillary Orders DF IMG OUTSIDE IMG [address] [place] [address] Mary Sage MD 06/01/2025 Telephone [facility] [address] [address] Jeanine Burris MD 05/31/2025 Orders Only [facility] HBO [address] [address] Haydee Conrad MD 05/29/2025 10:00 AM EDT Pre-Admission Testing [facility] Pre Procedure Evaluation Center [address] [place] [address] Pedro Pierce MD 05/29/2025 Orders Only [facility], [facility], [facility] [place] [address] [place] [address], [address] [place] [address] Mary Sage MD Malignant neoplasm of female breast, unspecified estrogen receptor status, unspecified laterality, unspecified site of breast (Primary Dx) 05/28/[address] [address] Jeanine Burris MD 05/23/[address] [address] Crist[facility] 05/13/[address] [address] Cristhian [facility] 05/08/2025 3:00 PM EDT Office Visit [address] [address] Pedro Pierce MD Benign neoplasm of left orbit (Primary Dx) 05/08/2025 12:38 PM EDT - 05/08/2025 11:59 PM EDT Hospital Encounter [facility] Imaging - MRI, [address] [address] Pedro Pierce MD Discharge Disposition: Home or Self Care 05/02/2024 Procedure Pass [facility] Imaging - MRI, [address] [address] from Last 3 Months Immunizations No known [...] 06/19/2025 1:00 PM EDT Office Visit [facility] [address] [place] [address] Pedro Pierce MD [address] [place] [address]--[place] [address] [email or web address] 07/16/2025 1:15 PM EDT Administrative Encounter Central Registration, [facility] at [address] [address] Mary Sage MD [address] [place] [address] [email or web address] 07/16/2025 2:00 PM EDT Office Visit [facility], [facility], [facility] at [address] [address] Mary Sage MD [address] [place] [address] [email or web address] Health Maintenance Due Date Last Done Comments [...] AIRWAY PLACEMENT Routine 06/11/2025 7:54 AM EDT DC EXPLORE EYE SOCKET,REMV LESN 06/11/2025 7:46 AM EDT Left orbital dermoid Special Needs DX: D31.62CPT: [id number]: 60 MINUTES GENERAL PTT Routine 06/11/2025 5:04 [...] included. APTT 85.4(H) 24.0 - 37.5 sec [facility] Comment:Check MAR for the ta rget range that is ordered for your patient. Blood 06/12/2025 7:17 AM EDT 06/12/2025 8:24 AM EDT us Pedro Pierce MD LAB BLOOD ORDERABLES Final Res ult [address] [address] * CBC (06/12/2025 7:17 AM EDT) WBC 8.67 4.00 - 11.00 K/uL [facility] RBC 4.37 4.00 - 5.20 M/uL [facility] HGB 12.5 12.0 - 16.0 g/dL [facility] HCT 38.8 36.0 - 46.0 % [facility] PLT 271 150 - 450 K/uL [facility] MCV 88.8 80.0 - 100.0 fL [facility] MCH 28.6 27.0 - 31.0 pg [facility] MCHC 32.2 32.0 - 36.0 g/dL [facility] RDW 13.6 11.5 - 14.5 % [facility] MPV 10.2 8.4 - 12.0 fL [facility] NRBC 0.00 0.00 /100 WBCs [facility] ABSOLUTE NRBC 0.00 0.00 K/uL [facility] Blood 06/12/2025 7:17 AM EDT 06/12/2025 8:24 AM EDT us Kar Hill MD LAB BLOOD ORDERABLES Final Resul t Performing Organization Address [facility] de Phone Number [address] [address] * (ABNORMAL) Basic metabolic panel (06/12/2025 7:17 AM EDT) Only the most recent of2 resultswithin the time period is included. SODIUM 138 135 - 145 mmol/L [facility] POTASSIUM 4.6 3.4 - 5.0 mmol/L [facility] CHLORIDE 105 98 - 108 mmol/L [facility] CO2 23 23 - 32 mmol/L [facility] BUN 16 8 - 25 mg/dL [facility] CREATININE 1.04(H) 0.50 - 1.00 mg/dL [facility] GLUCOSE 83 70 - 110 mg/dL [facility] CALCIUM 9.0 8.5 - 10.5 mg/dL [facility] EGFR 66 >59 mL/min/1. 73m2 [facility] Comment:Estimated glomerular filtration rate calculated using the CKD-EPI refit equation. ANION GAP 10 3 - 17 mmol/L [facility] Blood 06/12/2025 7:17 AM EDT 06/12/2025 8:24 AM EDT us Pedro Pierce MD LAB BLOOD ORDERABLES Final Res ult Performing Organization Address [facility] de Phone Number [address] [address] * ANES ETT DOUBLE LUMEN - AIRWAY [...] dental injury? no Complications observed? no Petra Pritchrad MD DC ANESTHESIA Final Result * PT-INR (06/11/2025 5:04 AM EDT) Only the most recent of4 resultswithin the time period is included. PT 11.1 10.0 - 13.0 sec [facility] INR 1.0 0.9 - 1.1 [facility] Blood 06/11/2025 5:04 AM EDT 06/11/2025 6:46 AM EDT us Pedro Pierce MD LAB BLOOD ORDERABLES Final Res ult [facility] [address] [place] [address] * (ABNORMAL) CBC and differential (06/11/2025 5:04 AM EDT) Only the most recent of2 resultswithin the time period is included. WBC 7.95 4.00 - 11.00 K/uL [facility] RBC 4.59 4.00 - 5.20 M/uL [facility] HGB 13.1 12.0 - 16.0 g/dL [facility] HCT 40.5 36.0 - 46.0 % [facility] PLT 284 150 - 450 K/uL [facility] MCV 88.2 80.0 - 100.0 fL [facility] MCH 28.5 27.0 - 31.0 pg [facility] MCHC 32.3 32.0 - 36.0 g/dL [facility] RDW 13.7 11.5 - 14.5 % [facility] MPV 10.1 8.4 - 12.0 fL [facility] NRBC 0.00 0.00 /100 WBCs [facility] ABSOLUTE NRBC 0.00 0.00 K/uL [facility] DIFF METHOD Auto [facility] NEUTS 36.8(L) 48.0 - 76.0 % [facility] LYMPHS 51.6(H) 18.0 - 41.0 % [facility] MONOS 7.0 4.0 - 11.0 % [facility] EOS 3.5 0.0 - 5.0 % [facility] BASOS 0.8 0.0 - 1.5 % [facility] % IMMATURE GRANS 0.3 0.0 - 0.9 % [facility] ABSOLUTE NEUTS 2.93 1.92 - 7.60 K/uL [facility] ABSOLUTE LYMPHS 4.10 0.72 - 4.10 K/uL [facility] ABSOLUTE MONOS 0.56 0.16 - 1.10 K/uL [facility] ABSOLUTE EOS 0.28 0.00 - 0.50 K/uL [facility] ABSOLUTE BASOS 0.06 0.00 - 0.15 K/uL [facility] ABS IMMATURE GRANS 0.02 0.00 - 0.09 K/uL [facility] Blood 06/11/2025 5:04 AM EDT 06/11/2025 6:46 AM EDT us Pedro Pierce MD LAB BLOOD ORDERABLES Final Res ult Performing Organization Address City/[facility]/ZIP Co de Phone Number [address] [address] * Troponin (06/10/2025 9:00 PM EDT) Only the most recent of2 resultswithin the time period is included. Troponin-T, HS Gen5 <6 0 - 9 ng/L [facility] Blood 06/10/2025 9:00 PM EDT 06/10/2025 10:05 PM EDT us Kar Hill MD LAB BLOOD ORDERABLES Final Resul t Performing Organization Address City/[facility] Co de Phone Number [address] [address] * ECG 12-LEAD (06/10/2025 5:10 PM EDT) Systolic Blood Pressure [facility] Diastolic Blood Pressure [facility] Ventricular Rate EKG/MIN 99 BPM [facility] Atrial Rate 99 BPM [facility] DC Interval 144 ms [facility] QRS Duration 86 ms [facility] QT Interval 350 ms [facility] QTC Interval 449 ms [facility] P [place] [facility] R Wave [place] 82 degrees [facility] T Wave [place] 179 degrees [facility] 06/10/2025 5:10 PM EDT [...] ECGS AVAILABLE Confirmed by Alex Pierre MD ([id number]) on 06/11/2025 2:29:05 PM us Kar Hill MD ECG ORDERABLES Final Result [facility] * MRSA Nasal Screen (06/10/2025 12:03 PM EDT) Special Requests No Special Requests 06/10/2025 12:03 PM EDT [facility] MRSA Nasal Culture NEGATIVE FOR MRSA 06/11/2025 1:34 PM EDT [facility] Other (Nasal) 06/10/2025 12: 03 PM EDT 06/10/2025 2:15 PM EDT us Pedro Pierce MD MICROBIOLOGY - GENERAL ORDERAB LES Final Result [facility] [address] [place] [address] [address], [facility] * Outside Imaging Report Only (06/06/2025) [...] clinician's provided indication for this examination in [facility]: Orbital Mass; left orbit mass. eval [...] Recently Relevant to Health Maintenance Insurance [facility] [id number] [place], [place] [address]S [id number] [place], [place] [address]S [facility] [id number] [place] [address] [id number] [place], [place] [address] [facility] [id number] [place] [id number] Advance Directives For more information, please contact: [phone] (9AM - 5PM [facility], Tuesday-Tuesday) Documents on File Type Date Recorded Patient Sodium Methylate Operator Expl anation Healthcare Proxy 06/14/2025 3:56 PM * Full Code (Latest Code Status on File) Date Activated Date Inactivated Comments 06/10/2025 10:58 AM Question Answer Comments Code Status Confirmed With: Patient Care Teams Kitchen Manager Relationship Specialty Start Date End Date Liz Schroeder MD [address] [address] PCP - General Internal Medicine 02/17/21 Self-Referred, Patient Referring Physician 05/29/25 Mary Sage MD [address] [place] [address] [email or web address] Medical Oncology 05/29/25 Additional Source Comments The information contained in this document represents components of the legal health record. It is not the complete legal health record.[facility]
--- OUTSIDE RECORDS SUMMARY | 2025-06-17 16:58 | XMS_ITS | Encounter Summary ---
Author Organization [facility] Address [address] [place] [address] Care Team Providers Care Obstetrician And Gynaecologist Name Role Phone Liz Schroeder MD Primary Care Provider Un available Owen Nelson MD Primary Care Provider + [facility], Pcp Primary Care Provider Unavailabl e Encounter Details Date Type Department Care Team Description 09/22/2021 Pt. Non Urgent Medical Question Medicine/Pediatrics - [address] [address] Liz Schroeder MD Pulmonary nodule (Primary Dx) Social History Tobacco Use Types Packs/Day Years Used Date Smoking Tobacco: Never Smokeless Tobacco: Never Alcohol Use Standard Drinks/Week Comments No 0 (1 standard drink = 0.6 oz pur e alcohol) Sex Assigned at Date Recorded Not on file documented as of this encounter Miscellaneous Notes * Telephone Encounter - Mamadou Johnson - 09/22/2021 11:55 AM ESTFrom: Gauri Tejada To: Мария Schroeder Sent: 09/22/2021 9:41 AM EST Subject: Question Hi Dr. Schroeder, I had been having some pain in my thigh that felt familiar to when I had my DVT a while ago. I wentto [facility] and luckily it was not a clot. They think it could be a vericose vein in thigh They checked both legs and lungs to be safe. (I admittedly only take half my dose daily because Eliquis scares me a bit but after last night???s scare, I will start taking my full dose. When the ER did the chest CT scan, while they did not find clots, they did find a nodule. They suggested a follow up scan in 12 months. They said it may likely be nothing but they wanted to mention it. Does this concern you at all? Also, separate note???I need a new Rx for my Valacyclovir and did request that refill through the [facility] but need it sent to the [facility] in [place]???not [place]. Thanks :) Gauri documented in this encounter Plan of Treatment Not on file documented as of this encounter Visit Diagnoses Diagnosis Pulmonary nodule- Primary Solitary pulmonary nodule documented in this encounter Care Teams Obstetrician And Gynaecologist Relationship Specialty Start Date End Date Liz Schroeder MD PCP - General Internal Medicine 04/24/18 Owen Nelson MD [address] [place] [address] PCP - General Internal Medicine 04/23/22 05/30/22 [facility], [address] [address] PCP - General Internal Medicine 05/31/22 documented as of this encounter
--- OUTSIDE RECORDS SUMMARY | 2025-06-17 16:58 | XMS_ITS | Encounter Summary ---
Author Organization [facility] Address [address] [place] [address] Care Team Providers Care Automotive Painter Name Role Phone Liz Schroeder MD Primary Care Provider Un available Owen Nelson MD Primary Care Provider + [facility], Pcp Primary Care Provider Unavailabl e Encounter Details Date Type Department Care Team Description 05/28/2020 Mica Patcher Report Medical Records [address] [place] [address] Felipe Carlos MD Social History Tobacco Use [...] on filedocumented in this encounter Care Teams Automotive Painter Relationship Specialty Start Date End Date Liz Schroeder MD PCP - General Internal Medicine 04/24/18 Owen Nelson MD [address] [place] [phone] PCP - General Internal Medicine 04/23/22 05/30/22 [facility], Pcp [address] [place] [address] PCP - General Internal Medicine 05/31/22 documented as of this encounter
--- OUTSIDE RECORDS SUMMARY | 2025-06-17 16:58 | XMS_ITS | Encounter Summary ---
Author Organization [facility] Address [address] [place] [address] Care Team Providers Care Electronic Sales And Service Technician Name Role Phone Liz Schroeder MD Primary Care Provider Un available Avery Espitia MD Primary Care Provider Unava Liz Thayer MD Primary Care Provider Un available Owen Nelson MD Primary Care Provider + [facility], Pcp Primary Care Provider Unavailabl e Reason for Visit * Reason Onset Date Comments Warfarin dosing instructions 04/03/2018 Encounter Details Date Type Department Care Team Description 04/03/2018 Telephone Medicine/Pediatrics - [address] [phone] Liz Schroeder MD Warfarin dosing instructions Social History Tobacco Use Types Packs/Day Years Used Date Smoking Tobacco: Never Smokeless Tobacco: Never Alcohol Use Standard Drinks/Week Comments No 0 (1 standard drink = 0.6 oz pur e alcohol) Sex Assigned at Date Recorded Not on file documented as of this encounter Miscellaneous Notes * Telephone Encounter - Nate Burton R.N. - 04/03/2018 4:13 PM EDT [facility] coumadin clinic reporting INR of 1.5 Patient dosing 30mg tonight, 20mg 04/04/18 and 15mg on 04/05/18 Recheck on . * Telephone Encounter - Jamila Calabrese - 04/03/2018 4:12 PM EDT Reporting a low INR 1.5 documented in this encounter Plan of Treatment Not on file documented as of this encounter Visit Diagnoses Not on filedocumented in this encounter Care Teams Electronic Sales And Service Technician Relationship Specialty Start Date End Date Liz Schroeder MD PCP - General Internal Medicine 11/23/11 8 Avery Espitia MD PCP - General Internal Medicine 04/04/18 04/23/18 Liz Schroeder MD PCP - General Internal Medicine 04/24/18 Owen Nelson MD [address] [place] [address] PCP - General Internal Medicine 04/23/22 05/30/22 [facility], [address] [address] PCP - General Internal Medicine 05/31/22 documented as of this encounter
--- OUTSIDE RECORDS SUMMARY | 2025-06-17 16:58 | XMS_ITS | Encounter Summary ---
Author Organization [facility] Address [address] [place] [address] Care Team Providers Care School Psychologist Assistant Name Role Phone Liz Schroeder MD Primary Care Provider Un available Owen Nelson MD Primary Care Provider + [facility], Pcp Primary Care Provider Unavailabl e Encounter Details Date Type Department Care Team Description 01/31/2021 Pt. Non Urgent Medic al Question Medicine/Pediatrics - [address] [address] Olga Kingston PA-C [address] [place] [address] Social History Tobacco Use Types Packs/Day Years [...] Vit D to? Because my pharmacy is [facility] and they dont have it. 2. Are you a provider I can see normally? I really liked working with you. documented in this encounter Plan of Treatment Not on file documented as of this encounter Visit Diagnoses Not on filedocumented in this encounter Care Teams School Psychologist Assistant Relationship Specialty Start Date End Date Liz Schroeder MD PCP - General Internal Medicine 04/24/18 Owen Nelson MD [address] [place] [address] PCP - General Internal Medicine 04/23/22 05/30/22 [facility], Meghana [address] [place] [address] PCP - General Internal Medicine 05/31/22 documented as of this encounter
--- OUTSIDE RECORDS SUMMARY | 2025-06-17 16:58 | XMS_ITS | Encounter Summary ---
Author Organization [facility] Address [address] [place] [address] Care Team Providers Care Rental Representative Name Role Phone Liz Schroeder MD Primary Care Provider Un available Avery Espitia MD Primary Care Provider Unava ilable Liz Schroeder MD Primary Care Provider Un available Owen Nelson MD Primary Care Provider + [facility], Pcp Primary Care Provider Unavailabl e Encounter Details Date Type Department Care Team Description 01/23/2015 Hereditary Cancer Qu iz Results Medical Records [address] [place] [address] Abstract, Provider Social History Tobacco Use Types [...] on filedocumented in this encounter Care Teams Rental Representative Relationship Specialty Start Date End Date Liz Schroeder MD PCP - General Internal Medicine 11/23/11 8 Avery Espitia MD PCP - General Internal Medicine 04/04/18 04/23/18 Liz Schroeder MD PCP - General Internal Medicine 04/24/18 Owen Nelson MD [address] [place] [address] PCP - General Internal Medicine 04/23/22 05/30/22 [facility], Pcp [address] [place] [address] PCP - General Internal Medicine 05/31/22 documented as of this encounter
--- OUTSIDE RECORDS SUMMARY | 2025-06-17 16:58 | XMS_ITS | Encounter Summary ---
Author Organization [facility] Address [address] [place] [address] Care Team Providers Care Link Assembler Name Role Phone Liz Schroeder MD Primary Care Provider Un available Owen Nelson MD Primary Care Provider + [facility], Pcp Primary Care Provider Unavailabl e Reason for Visit * Reason Onset Date Comments Warfarin dosing instructions 12/18/2018 Encounter Details Date Type Department Care Team Description 12/18/2018 Telephone Medicine/Pediatrics - [address] [phone] Liz Schroeder MD Warfarin dosing instructions Social History Tobacco Use Types Packs/Day Years Used Date Smoking Tobacco: Never Smokeless Tobacco: Never Alcohol Use Standard Drinks/Week Comments No 0 (1 standard drink = 0.6 oz pur e alcohol) Sex Assigned at Date Recorded Not on file documented as of this encounter Miscellaneous Notes * Telephone Encounter - Arianna Sutton RN - 12/18/2018 8:51 AM EDT See below, fyi * Telephone Encounter - Guillermina Mora - 12/18/2018 8:46 AM EDT JUST A FYI ONLY ( per caller ) - Low inr. 1.6 Will be getting booster shots. Will be back in 3 days. states does not need a cb. documented in this encounter Plan of Treatment Not on file documented as of this encounter Visit Diagnoses Not on filedocumented in this encounter Care Teams Link Assembler Relationship Specialty Start Date End Date Liz Schroeder MD PCP - General Internal Medicine 04/24/18 Owen Nelson MD [address] [place] [address] PCP - General Internal Medicine 04/23/22 05/30/22 [facility], [address] [address] PCP - General Internal Medicine 05/31/22 documented as of this encounter
--- OUTSIDE RECORDS SUMMARY | 2025-06-17 16:58 | XMS_ITS | Encounter Summary ---
Author Organization [facility] Address [address] [facility] [address] [place] [address] Phone Care Team Providers Care Cage Tender Name Role Phone Liz Schroeder MD Primary Care Provid er Self-Referred, Patient Unavailable Unavailab Mary Toscano MD Unavailable [phone] Encounter Details Date Type Department Care Team ([facility] st Contact Info) Description 06/11/2025 Procedure Pass [facility] MAIN PERIOP DEPT [address] [place] [address] Social History Tobacco Use Types Packs/Day Years [...] Description 06/19/2025 1:00 PM EDT Office Visit [facility] [address] [place] [address] Pedro Pierce MD [address] [place] [address]--[place] [address] [email or web address] 07/16/2025 1:15 PM EDT Administrative Encounter Central Registration, [facility] [place] [address] [address] Mary Sage MD [address] [place] [address] [email or web address] 07/16/2025 2:00 PM EDT Office Visit [facility], [facility], [facility] [address] [address] Mary Sage MD [address] [place] [phone] [email or web address] documented as of this encounter Visit Diagnoses Not on filedocumented in this encounter Care Teams Cage Tender Relationship Specialty Start Date End Date Liz Schroeder MD [address] [address] PCP - General Internal Medicine 02/17/21 Self-Referred, Patient Referring Physician 05/29/25 Mary Sage MD [address] [place] [address] [email or web address] Medical Oncology 05/29/25 documented as of this encounter Additional Source Comments The information contained in this document represents components of the legal health record. It is not the complete legal health record.[facility]
--- OUTSIDE RECORDS SUMMARY | 2025-06-17 16:58 | XMS_ITS | Clinical Summary ---
Author Organization [facility], Address [address] [place] [address] Phone Care Team Providers Care Online Producer Name Role Phone Liz Schroeder MD Primary Care Provider [phone] Social History Tobacco Use Types Packs/Day Years [...] patient's age to complete this topic [facility] Care Teams Online Producer Relationship Specialty Start Date End Date Liz Schroeder MD [address] [place] [address] PCP - General Internal Medicine 06/25/24
--- OUTSIDE RECORDS SUMMARY | 2025-06-17 16:58 | XMS_ITS | Encounter Summary ---
Author Organization [facility] Address [address] [place] [address] Care Team Providers Care Tallow Pumper Name Role Phone Liz Schroeder MD Primary Care Provider Demi Quiles RN Unavailable [phone] Encounter Details Date Type Department Care Team (Late st Contact Info) Description 07/26/2024 Scanned Document [facility] Medical Oncology at [address] [phone] Provider, MD Klaudia [address] [place] [address] Social History Tobacco Use Types Packs/Day Years [...] Description 08/02/2025 8:45 AM EDT Office Visit [facility] Pulmonary [place] 85 [facility] 9[address] [place] [phone] Nick Lancaster MD [address] [phone] 04/15/2026 12:45 PM EDT Office Visit [facility] [place] Medical Oncology at [facility] 85 [place] [phone] Roberta Manzo MD [address] [place], [place] [phone] documented as of this encounter Visit Diagnoses Not on filedocumented in this encounter Care Teams Tallow Pumper Relationship Specialty Start Date End Date Liz Schroeder MD [address] [place] [address] PCP - General 05/23/24 Demi Quiles, SASHA [address] [place] [address] Oncology Nurse Navigator 11/12/24 documented as of this encounter
--- OUTSIDE RECORDS SUMMARY | 2025-06-17 16:58 | XMS_ITS | Encounter Summary ---
Author Organization [facility] Address [address] [employer] [facility] [address] [place] [address] Phone Care Team Providers Care Inspector And Unloader Name Role Phone Liz Schroeder MD Primary Care Provid er Self-Referred, Patient Unavailable Unavailab Mary Toscano MD Unavailable Encounter Details Date Type Department Care Team ([facility] st Contact Info) Description 06/16/2025 Telephone [facility] Opthalmology Inpatient [address] [place] [address] Klaudia Angel MD [address] [place] [address] [email or web address] Social History Tobacco Use Types Packs/Day [...] Description 06/19/2025 1:00 PM EDT Office Visit [address] [place] [address] Pedro Pierce MD [address] [place] [address]--[place] [address] [email or web address] 07/16/2025 1:15 PM EDT Administrative Encounter Central Registration, [facility] [place] at [address] [address] Mary Sage MD [address] [place] [address] [email or web address] 07/16/2025 2:00 PM EDT Office Visit [facility], [facility], [facility] [place] at [address] [address] Mary Sage MD [address] [place] [address] [email or web address] documented as of this encounter Visit Diagnoses Not on filedocumented in this encounter Care Teams Inspector And Unloader Relationship Specialty Start Date End Date Liz Schroeder MD [address] [address] PCP - General Internal Medicine 02/17/21 Self-Referred, Patient Referring Physician 05/29/25 Mary Sage MD [address] [place] [address] [email or web address] Medical Oncology 05/29/25 documented as of this encounter Additional Source Comments The information contained in this document represents components of the legal health record. It is not the complete legal health record.[facility]
--- OUTSIDE RECORDS SUMMARY | 2025-06-17 16:58 | XMS_ITS | Clinical Summary ---
Author Organization [facility] Address [address] [place] [address] Care Team Providers Care Parent Educator Name Role Phone Unavailable Primary Care Provider Unavailabl e Social History Tobacco Use Types Packs/Day Years Used Date Smoking Tobacco: Never Assessed Sex and Gender Information Value Date Recorded Sex Assigned at Not on file Gender Identity Not on file Sexual Orientation Not on file Plan of Treatment Not on file
--- OUTSIDE RECORDS SUMMARY | 2025-06-17 16:58 | XMS_ITS | Clinical Summary ---
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 Cephalexin Hives,Itching Medium 09/24/2024 oral tablets Citrullus Vulgaris Hives Medium 03/31/2020 Oral allergy syndrome Adrian Anaphylaxis High 03/31/2020 Nausea, tongue itching, throat [...] from 01/24/2024:Stage IB(pT2, pN1mi, cM0, G2, ER+, AK+, HER2-, Oncotype DX score: 14) - Signed by Roberta Christopher MD on 06/28/2024 Encounters Date Type Department Care Team Description 04/09/2025 12:30 PM EDT Office Visit [facility] Medical Oncology at [address] [address] Roberta Manzo MD Invasive ductal [...] Description 08/02/2025 8:45 AM EDT Office Visit [facility] Pulmonary [place] 85 [facility] [address] [place] [address] Nick Lancaster MD [address] [facility] [address] [place] [address] 04/15/2026 12:45 PM EDT Office Visit [facility] Cancer [place] Medical Oncology at [address] [phone] Roberta Manzo MD 85 [place], [place] [phone] Health Maintenance Due Date Last Done Comments [...] - 11.0 Thou/uL 04/09/2025 12:38 PM EDT [facility] Red Blood Cell Count 5.04 4.00 - 5.40 Mil/uL 04/09/2025 12:38 PM EDT [facility] Hemoglobin 14.1 11.7 - 15.7 g/dL 04/09/2025 12:38 PM EDT [facility] Hematocrit 43.9 35.0 - 47.0 % 04/09/2025 12:38 PM EDT [facility] MCV 87 80 - 100 fL 04/09/2025 12:38 PM EDT [facility] MCH 28.0 26.0 - 34.0 pg 04/09/2025 12:38 PM EDT [facility] MCHC 32.1 30.0 - 36.0 g/dL 04/09/2025 12:38 PM EDT [facility] RDW 12.9 11.5 - 14.5 % 04/09/2025 12:38 PM EDT [facility] Platelet Count 309 150 - 450 Thou/uL 04/09/2025 12:38 PM EDT [facility] MPV 8.8 7.5 - 12.5 fL 04/09/2025 12:38 PM EDT [facility] Neutrophils Auto 51.7 % 04/09/20 25 12:38 PM EDT [facility] Abs Neutrophils Auto 4.10 2.00 - 7.50 Thou/uL 04/09/2025 12:38 PM EDT [facility] Lymphocytes Auto 42.1 % 04/09/20 25 12:38 PM EDT [facility] Abs Lymphocytes Auto 3.30 1.50 - 4.50 Thou/uL 04/09/2025 12:38 PM EDT [facility] Mixed Mononuclear Auto 6.2 % 04/09/2025 12:38 PM EDT [facility] Abs Mixed Mononuclear Auto <1.00 0.20 - 1.90 Thou/uL 04/09/2025 12:38 PM EDT [facility] Blood Blood specimen / Unknown 04/09/2025 12:26 PM EDT 04/09/2025 12:38 PM EDT Roberta Christopher MD POCT ORDERABLES - ONCOLOGY Fin al Result [address] [address], [address] * (ABNORMAL) Comprehensive Metabolic Panel (04/09/2025 12:26 PM EDT) Glucose 115(H) 65 - 99 mg/dL 04/09/2025 4:03 PM [facility] Comment:Fasting: <100 mg/dL, Non-Fasting: <200 mg/dL (ADA 2004) Blood Urea Nitrogen (BUN) 13 8 - 21 mg/dL 04/09/2025 4:03 PM [facility] Creatinine 1.1 0.4 - 1.1 mg/dL 04/09/2025 4:03 PM [facility] eGFR 62 >59 04/09/2025 4:03 PM [facility] Comment:CKD-EPI (2020) in mL /min/1.73 sq meters. Sodium 141 136 - 145 mmol/L 04/09/2025 4:03 PM [facility] Potassium 4.5 3.4 - 5.3 mmol/L 04/09/2025 4:03 PM [facility] Chloride 104 98 - 107 mmol/L 04/09/2025 4:03 PM [facility] CO2 26 22 - 33 mmol/L 04/09/2025 4:03 PM [facility] Calcium 9.6 8.7 - 10.5 mg/dL 04/09/2025 4:03 PM [facility] Alkaline Phosphatase 97 32 - 122 U/L 04/09/2025 4:03 PM EDT [facility] Aspartate Aminotrans (AST) 21 10 - 50 U/L 04/09/2025 4:03 PM [facility] Alanine Aminotrans (ALT) 19 10 - 50 U/L 04/09/2025 4:03 PM [facility] Bilirubin, Total 0.4 0.2 - 1.0 mg/dL 04/09/2025 4:03 PM [facility] Protein, Total 7.1 6.3 - 8.3 g/dL 04/09[facility]25 [facility] Albumin 4.1 3.5 - 5.0 g/dL 04/09/2025 4:03 PM [facility] BUN/Creatinine Ratio 12 10.0 - 25.0 Ratio 04/09/2025 4:03 PM [facility] Globulin 3.0 1.5 - 3.9 g/dL 04/09/2025 4:03 PM [facility] Albumin/Globulin Ratio 1.4 1.0 - 3.0 Ratio 04/09/2025 4:03 PM [facility] Anion Gap 11 7 - 17 04/09/2025 4:03 PM [facility] Blood Blood specimen / Unknown 04/09/2025 12:26 PM EDT 04/09/2025 3:30 PM EDT us Roberta Christopher MD LAB BLOOD ORDERABLES Final Res ult [address] [address], [address] [address] * MM Breast w/ tomosynthesis diagnostic-Bilateral (11/13/2024 [...] Most Recently Relevant to Health Maintenance [place] [address] [place] [address] Care Teams Conference Center Manager Relationship Specialty Start Date End Date Liz Schroeder MD [address] [place] [address] PCP - General 05/23/24 Demi Quiles, SASHA [address] [place] [address] Oncology Nurse Navigator 11/12/24
--- OUTSIDE RECORDS SUMMARY | 2025-06-17 16:58 | XMS_ITS | Encounter Summary ---
Author Organization [facility] Address [address] [place] [address] Care Team Providers Care Program Admin Name Role Phone Liz Schroeder MD Primary Care Provider Un available Owen Nelson MD Primary Care Provider + [facility], Pcp Primary Care Provider Unavailabl e Reason for Visit * Reason Onset Date Comments TEST RESULTS 07/28/2018 Encounter Details Date Type Department Care Team Description 07/28/2018 Telephone Medicine/Pediatrics - [address] [phone] Liz Schroeder MD TEST RESULTS Social History [...] - 07/28/2018 8:54 AM EDT Alexandra [facility] calling to report INR- 1.2 today states pt told her sheonly missed 1 dose Was dosed today 25mg, 20mg Tuesday, 15mg Tuesday, 20mg on Tuesday rechecked on Tuesday Also sending a fax documented in this encounter Plan of Treatment Not on file documented as of this encounter Visit Diagnoses Not on filedocumented in this encounter Care Teams Program Admin Relationship Specialty Start Date End Date Liz Schroeder MD PCP - General Internal Medicine 04/24/18 Owen Nelson MD [address] [place] [address] PCP - General Internal Medicine 04/23/22 05/30/22 [facility], [address] [address] PCP - General Internal Medicine 05/31/22 documented as of this encounter
--- OUTSIDE RECORDS SUMMARY | 2025-06-17 16:58 | XMS_ITS | Encounter Summary ---
Author Organization [facility] Address [address] [place] [address] Care Team Providers Care Burlap Spreader Name Role Phone Liz Schroeder MD Primary Care Provider Un available Avery Espitia MD Primary Care Provider Unava Liz Thayer MD Primary Care Provider Un available Owen Nelson MD Primary Care Provider + [facility], Pcp Primary Care Provider Unavailabl e Encounter Details Date Type Department Care Team Description 06/15/2016 Pt. Non Urgent Medic al Question Medicine/Pediatrics - [address] [phone] Liz Schroeder MD Social History Tobacco Use Types Packs/Day Years Used Date Smoking Tobacco: Never Smokeless Tobacco: Never Alcohol Use Standard Drinks/Week Comments No 0 (1 standard drink = 0.6 oz pur e alcohol) Sex Assigned at Date Recorded Not on file documented as of this encounter Progress Notes * Radha Lemos Rn - 06/15/2016 9:28 AM EDTFrom: Gauri Tejada To: Liz Schroeder MD Sent: 06/15/2016 7:41 AM EDT Subject: Coumadin I have a question. Is there any way to get my cou[facility] while Im herewith my mom? I missed my appt at [place] and am past due for a check. since Im camped out here prettymuch 25/04, an INR check here would give me some peace of mind as to where I'm at [facility]. It's undetermind how much longer she will be here Thanks Gauri documented in this encounter Plan of Treatment Not on file documented as of this encounter Visit Diagnoses Not on filedocumented in this encounter Care Teams Burlap Spreader Relationship Specialty Start Date End Date Liz Schroeder MD PCP - General Internal Medicine 11/23/11 8 Avery Espitia MD PCP - General Internal Medicine 04/04/18 04/23/18 Liz Schroeder MD PCP - General Internal Medicine 04/24/18 Owen Nelson MD [address] [place] [address] PCP - General Internal Medicine 04/23/22 05/30/22 [facility], [address] [address] PCP - General Internal Medicine 05/31/22 documented as of this encounter
--- OUTSIDE RECORDS SUMMARY | 2025-06-17 16:58 | XMS_ITS | Encounter Summary ---
Author Organization [facility] Address [address] [place] [address] Care Team Providers Care Quality Control Coordinator Name Role Phone Liz Schroeder MD Primary Care Provider Demi Quiles RN Unavailable [phone] Reason for Visit * Reason Comments AC Patient Needs Scheduling Encounter Details Date Type Department Care Team ([facility] Contact Info) Description 05/24/[address] [address] Provider, Generic AC Patient Needs [...] Upcoming Encounters Date Type Department Care Team ([facility] Contact Info) Description 08/02/2025 8:45 AM EDT Office Visit [facility] Pulmonary [place] 85 [facility] [address] [place] [phone] Nick Lancaster MD 85 [facility] Rafal [address] [place] [address] 04/15/2026 12:45 PM EDT Office Visit [facility] Cancer [place] Medical Oncology at [address] [phone] Roberta Manzo MD 85 [place], [place] [phone] documented as of this encounter Visit Diagnoses Not on filedocumented in this encounter Care Teams Quality Control Coordinator Relationship Specialty Start Date End Date Liz Schroeder MD [address] [place] [address] PCP - General 05/23/24 Demi Quiles, SASHA [address] [place] [address] Oncology Nurse Navigator 11/12/24 documented as of this encounter
--- OUTSIDE RECORDS SUMMARY | 2025-06-17 16:58 | XMS_ITS | Encounter Summary ---
Author Organization [facility] Address [address] [place] [address] Care Team Providers Care Geophysical Support Specialist Name Role Phone Liz Schroeder MD Primary Care Provider Un available Owen Nelson MD Primary Care Provider + [facility], Pcp Primary Care Provider Unavailabl e Encounter Details Date Type Department Care Team Description 08/21/2019 Flight Attendant Ramp Report Medical Records [address] [place] [address] Ayan Dunn Social History Tobacco Use Types [...] on filedocumented in this encounter Care Teams Geophysical Support Specialist Relationship Specialty Start Date End Date Liz Schroeder MD PCP - General Internal Medicine 04/24/18 Owen Nelson MD [address] [place] [phone] PCP - General Internal Medicine 04/23/22 05/30/22 [facility], Pcp [address] [place] [address] PCP - General Internal Medicine 05/31/22 documented as of this encounter
--- OUTSIDE RECORDS SUMMARY | 2025-06-17 16:58 | XMS_ITS | Encounter Summary ---
Author Organization [facility] Address [address] [place] [address] Care Team Providers Care Sand Caster Name Role Phone Liz Schroeder MD Primary Care Provider Un available Owen Nelson MD Primary Care Provider + [facility], Pcp Primary Care Provider Unavailabl e Encounter Details Date Type Department Care Team Description 11/30/2019 Release of Information Medical Records [address] [place] [address] Abstract, Provider Social History Tobacco Use Types [...] on filedocumented in this encounter Care Teams Sand Caster Relationship Specialty Start Date End Date Liz Schroeder MD PCP - General Internal Medicine 04/24/18 Owen Nelson MD [address] [place] [phone] PCP - General Internal Medicine 04/23/22 05/30/22 [facility], Pcp [address] [place] [address] PCP - General Internal Medicine 05/31/22 documented as of this encounter
--- OUTSIDE RECORDS SUMMARY | 2025-06-17 16:58 | XMS_ITS | Encounter Summary ---
Author Organization [facility] Address [address] [employer] [facility] [address] [place] [address] Phone Care Team Providers Care Asbestos Wire Finisher Name Role Phone Liz Schroeder MD Primary Care Provid er Self-Referred, Patient Unavailable Unavailab Mary Toscano MD Unavailable [phone] Encounter Details Date Type Department Care Team ([facility] st Contact Info) Description 05/02/2024 Procedure Pass [facility] - MRI, [facility] [address] [place] [address] Social History Tobacco Use Types Packs/Day Years [...] Description 06/19/2025 1:00 PM EDT Office Visit [address] [place] [address] Pedro Pierce MD [address] [place] [address]--[place] [address] [email or web address] 07/16/2025 1:15 PM EDT Administrative Encounter Central Registration, [facility] at [address] [address] Mary Sage MD [address] [place] [address] [email or web address] 07/16/2025 2:00 PM EDT Office Visit [facility], [facility], [facility] [place] at [address] [address] Mary Sage MD [address] [place] [address] [email or web address] documented as of this encounter Visit Diagnoses Not on filedocumented in this encounter Care Teams Asbestos Wire Finisher Relationship Specialty Start Date End Date Liz Schroeder MD [address] [address] PCP - General Internal Medicine 02/17/21 Self-Referred, Patient Referring Physician 05/29/25 Mary Sage MD [address] [place] [address] [email or web address] Medical Oncology 05/29/25 documented as of this encounter Additional Source Comments The information contained in this document represents components of the legal health record. It is not the complete legal health record.[facility]
--- OUTSIDE RECORDS SUMMARY | 2025-06-17 16:58 | XMS_ITS | Encounter Summary ---
Author Organization [facility] Address [address] [place] [address] Care Team Providers Care New Accounts Representative Name Role Phone Liz Schroeder MD Primary Care Provider Un available Owen Nelson MD Primary Care Provider + [facility], Pcp Primary Care Provider Unavailabl e Reason for Visit * Reason Onset Date Comments Call From Lab 05/26/2018 Encounter Details Date Type Department Care Team Description 05/26/2018 Telephone Medicine/Pediatrics - [address] [phone] Liz Schroeder MD Call From Lab Social History Tobacco Use Types Packs/Day Years Used Date Smoking Tobacco: Never Smokeless Tobacco: Never Alcohol Use Standard Drinks/Week Comments No 0 (1 standard drink = 0.6 oz pur e alcohol) Sex Assigned at Date Recorded Not on file documented as of this encounter Miscellaneous Notes * Telephone Encounter - Arianna Sutton RN - 05/26/2018 10:14 AM EDT See below * Telephone Encounter - Cherelle Duran - 05/26/2018 10:02 AM EDT Cynthia from [facility] Coumadin clinic calling in a low INR level for this patient. They are going to do 25MG today, 20MG for 2 days, 15MG for 1 day and then will recheck INR on 05/30. Not showing signs of clotting FYI. Can call Cynthia with questions. documented in this encounter Plan of Treatment Not on file documented as of this encounter Visit Diagnoses Not on filedocumented in this encounter Care Teams New Accounts Representative Relationship Specialty Start Date End Date Liz Schroeder MD PCP - General Internal Medicine 04/24/18 Owen Nelson MD [address] [place] [address] PCP - General Internal Medicine 04/23/22 05/30/22 [facility], [address] [address] PCP - General Internal Medicine 05/31/22 documented as of this encounter
--- OUTSIDE RECORDS SUMMARY | 2025-06-17 16:58 | XMS_ITS | Encounter Summary ---
Author Organization [facility] Address [address] [place] [address] Care Team Providers Care Ski Edge Painter Name Role Phone Liz Schroeder MD Primary Care Provider Un available Owen Nelson MD Primary Care Provider + [facility], Pcp Primary Care Provider Unavailabl e Reason for Visit * Reason Onset Date Comments Appointment Cancelled 10/28/2018 Encounter Details Date Type Department Care Team Description 10/28/2018 Telephone Gastroenterology - [place] [facility] [address] [place] [address] Darnell Carlton MD Appointment Cancelled [...] on filedocumented in this encounter Care Teams Ski Edge Painter Relationship Specialty Start Date End Date Liz Schroeder MD PCP - General Internal Medicine 04/24/18 Owen Nelson MD [address] [place] [phone] PCP - General Internal Medicine 04/23/22 05/30/22 [facility], Pcp [address] [place] [address] PCP - General Internal Medicine 05/31/22 documented as of this encounter
--- OUTSIDE RECORDS SUMMARY | 2025-06-17 16:58 | XMS_ITS | Encounter Summary ---
Author Organization [facility] Address [address] [place] [address] Care Team Providers Care Wooden Fence Erector Name Role Phone Liz Schroeder MD Primary Care Provider Demi Quiles RN Unavailable [phone] Encounter Details Date Type Department Care Team (Late st Contact Info) Description 07/26/2024 Scanned Document [facility] Medical Oncology at [address] [phone] Provider, MD Klaudia [address] [place] [address] Social History Tobacco Use Types Packs/Day Years [...] Description 08/02/2025 8:45 AM EDT Office Visit [facility] Pulmonary [place] 85 [facility] [address] [place] [phone] Nick Lancaster MD [address] [phone] 04/15/2026 12:45 PM EDT Office Visit [facility] [place] Medical Oncology at [facility] [address] [place] [phone] Roberta Manzo MD [address] [place], [place] [phone] documented as of this encounter Visit Diagnoses Not on filedocumented in this encounter Care Teams Wooden Fence Erector Relationship Specialty Start Date End Date Liz Schroeder MD [address] [place] [address] PCP - General 05/23/24 Demi Quiles, SASHA [address] [place] [address] Oncology Nurse Navigator 11/12/24 documented as of this encounter
--- OUTSIDE RECORDS SUMMARY | 2025-06-17 16:58 | XMS_ITS | Encounter Summary ---
Author Organization [facility] Address [address] [place] [address] Care Team Providers Care Active Directory Architect Name Role Phone Liz Schroeder MD Primary Care Provider Un available Avery Espitia MD Primary Care Provider Unava ilLiz Francisco MD Primary Care Provider Un available Owen Nelson MD Primary Care Provider + [facility], Pcp Primary Care Provider Unavailabl e Encounter Details Date Type Department Care Team Description 05/19/2012 SCAN Medical Records [address] [place] [address] Abstract, Provider Social History Tobacco Use Types [...] on filedocumented in this encounter Care Teams Active Directory Architect Relationship Specialty Start Date End Date Liz Schroeder MD PCP - General Internal Medicine 11/23/11 8 Avery Espitia MD PCP - General Internal Medicine 04/04/18 04/23/18 Liz Schroeder MD PCP - General Internal Medicine 04/24/18 Owen Nelson MD [address] [place] [address] PCP - General Internal Medicine 04/23/22 05/30/22 [facility], Pcp [address] [place] [address] PCP - General Internal Medicine 05/31/22 documented as of this encounter
--- OUTSIDE RECORDS SUMMARY | 2025-06-17 16:58 | XMS_ITS | Encounter Summary ---
Author Organization [facility] Address [address] [place] [address] Care Team Providers Care Pest Control Supervisor Name Role Phone Liz Schroeder MD Primary Care Provider Un available Avery Espitia MD Primary Care Provider Unava Liz Thayer MD Primary Care Provider Un available Owen Nelson MD Primary Care Provider + [facility], Pcp Primary Care Provider Unavailabl e Encounter Details Date Type Department Care Team Description 10/18/2017 Pt. Non Urgent Medic al Question Medicine/Pediatrics - [address] [id number] Liz Schroeder MD Social History Tobacco Use Types Packs/Day Years Used Date Smoking Tobacco: Never Smokeless Tobacco: Never Alcohol Use Standard Drinks/Week Comments No 0 (1 standard drink = 0.6 oz pur e alcohol) Sex Assigned at Date Recorded Not on file documented as of this encounter Progress Notes * Cindy Mosqueda L.P.N. - 10/18/2017 9:42 AM ESTFrom: Gauri Tejada To: Liz Schroeder MD Sent: 10/18/2017 9:27 AM EST Subject: [facility] Good morning, I missed an appointment at [facility] [place] on Tuesday, and because there was a gap from my last appointment, they have discharged me from their clinic. So...I need to know where to go now. They won't give me an appointment. Thank you. Gauri documented in this encounter Plan of Treatment Not on file documented as of this encounter Visit Diagnoses Not on filedocumented in this encounter Care Teams Pest Control Supervisor Relationship Specialty Start Date End Date Liz Schroeder MD PCP - General Internal Medicine 11/23/11 8 Avery Espitia MD PCP - General Internal Medicine 04/04/18 04/23/18 Liz Schroeder MD PCP - General Internal Medicine 04/24/18 Owen Nelson MD [address] [place] [address] PCP - General Internal Medicine 04/23/22 05/30/[address] [address] PCP - General Internal Medicine 05/31/22 documented as of this encounter
--- OUTSIDE RECORDS SUMMARY | 2025-06-17 16:58 | XMS_ITS | Encounter Summary ---
Author Organization [facility] Address [address] [place] [address] Care Team Providers Care Child Care Group Leader Name Role Phone Liz Schroeder MD Primary Care Provider Un available Avery Espitia MD Primary Care Provider Unava ilable Liz Schroeder MD Primary Care Provider Un available Owen Nelson MD Primary Care Provider + [facility], Pcp Primary Care Provider Unavailabl e Encounter Details Date Type Department Care Team Description 12/31/2014 Health Information Technologist Report Medical Records [address] [place] [address] Rolo Beck Social History Tobacco Use Types [...] on filedocumented in this encounter Care Teams Child Care Group Leader Relationship Specialty Start Date End Date Liz Schroeder MD PCP - General Internal Medicine 11/23/11 8 Avery Espitia MD PCP - General Internal Medicine 04/04/18 04/23/18 Liz Schroeder MD PCP - General Internal Medicine 04/24/18 Owen Nelson MD [address] [place] [address] PCP - General Internal Medicine 04/23/22 05/30/22 [facility], Pcp [address] [place] [address] PCP - General Internal Medicine 05/31/22 documented as of this encounter
--- OUTSIDE RECORDS SUMMARY | 2025-06-17 16:58 | XMS_ITS | Encounter Summary ---
Author Organization [facility] Address [address] [place] [address] Care Team Providers Care Zoology Technical Officer Name Role Phone Liz Schroeder MD Primary Care Provider Un available Owen Nelson MD Primary Care Provider + [facility], Pcp Primary Care Provider Unavailabl e Encounter Details Date Type Department Care Team Description 04/06/2022 Pt. Non Urgent Medical Question Adult Medicine [address] [address] Jana Gray PA-C [address] [place] [address] Social History Tobacco Use Types Packs/Day Years [...] on filedocumented in this encounter Care Teams Zoology Technical Officer Relationship Specialty Start Date End Date Liz Schroeder MD PCP - General Internal Medicine 04/24/18 Owen Nelson MD [address] [place] [address] PCP - General Internal Medicine 04/23/22 05/30/22 [facility], Pcp [address] [place] [address] PCP - General Internal Medicine 05/31/22 documented as of this encounter
--- OUTSIDE RECORDS SUMMARY | 2025-06-17 16:58 | XMS_ITS | Encounter Summary ---
Author Organization [facility] Address [address] [place] [address] Care Team Providers Care Wheat Shipper Name Role Phone Liz Schroeder MD Primary Care Provider Un available Owen Nelson MD Primary Care Provider + [facility], Pcp Primary Care Provider Unavailabl e Encounter Details Date Type Department Care Team Description 08/27/2019 Ic Design Manager Report Medical Records [address] [place] [address] Ayan Dunn Social History Tobacco Use Types [...] on filedocumented in this encounter Care Teams Wheat Shipper Relationship Specialty Start Date End Date Liz Schroeder MD PCP - General Internal Medicine 04/24/18 Owen Nelson MD [address] [place] [id number] PCP - General Internal Medicine 04/23/22 05/30/22 [facility], Pcp [address] [place] [address] PCP - General Internal Medicine 05/31/22 documented as of this encounter
--- OUTSIDE RECORDS SUMMARY | 2025-06-17 16:58 | XMS_ITS | Encounter Summary ---
Author Organization [facility] Address [address] [place] [address] Care Team Providers Care Labeling Machine Operator Name Role Phone Liz Schroeder MD Primary Care Provider Un available Avery Espitia MD Primary Care Provider Unava Liz Thayer MD Primary Care Provider Un available Owen Nelson MD Primary Care Provider + [facility], Pcp Primary Care Provider Unavailabl e Encounter Details Date Type Department Care Team Description 03/13/2012 Pt. Non Urgent Medical Question OBGYN - [place] [address] [place] [address] Maria C Pollard CNM [address] [place] [address] Social History Tobacco Use Types [...] on filedocumented in this encounter Care Teams Labeling Machine Operator Relationship Specialty Start Date End Date Liz Schroeder MD PCP - General Internal Medicine 11/23/11 8 Avery Espitia MD PCP - General Internal Medicine 04/04/18 04/23/18 Liz Schroeder MD PCP - General Internal Medicine 04/24/18 Owen Nelson MD [address] [place] [address] PCP - General Internal Medicine 04/23/22 05/30/22 [facility], [address] [address] PCP - General Internal Medicine 05/31/22 documented as of this encounter
--- OUTSIDE RECORDS SUMMARY | 2025-06-17 16:58 | XMS_ITS | Encounter Summary ---
Author Organization [facility] Address [address] [place] [address] Phone Care Team Providers Care Truck Dispatcher Name Role Phone Liz Schroeder MD Primary Care Provid er Self-Referred, Patient Unavailable Unavailab Mary Toscano MD Unavailable [phone] Encounter Details Date Type Department Care Team ([facility] st Contact Info) Description 05/31/[address] [facility] [address] [facility] [address], [place] [address] Haydee Conrad MD [address] [place] [address] [email or web address] Social History Tobacco Use Types Packs/Day Years [...] Description 06/19/2025 1:00 PM EDT Office Visit [address] [address] Pedro Pierce MD [address] [place] [address]--[place] [address] [email or web address] 07/16/2025 1:15 PM EDT Administrative Encounter Central Registration, [facility] [place] at [address] [address] Mary Sage MD [address] [place] [address] [email or web address] 07/16/2025 2:00 PM EDT Office Visit [facility], [facility], [facility] [place] at [address] [address] Mary Sage MD [address] [place] [address] [email or web address] documented as of this encounter Visit Diagnoses Not on filedocumented in this encounter Care Teams Truck Dispatcher Relationship Specialty Start Date End Date Liz Schroeder MD [address] [address] PCP - General Internal Medicine 02/17/21 Self-Referred, Patient Referring Physician 05/29/25 Mary Sage MD [address] [place] [address] [email or web address] Medical Oncology 05/29/25 documented as of this encounter Additional Source Comments The information contained in this document represents components of the legal health record. It is not the complete legal health record.[facility]
--- OUTSIDE RECORDS SUMMARY | 2025-06-17 16:58 | XMS_ITS | Encounter Summary ---
Author Organization [facility] Address [address] [facility] [address] [place] [address] Phone Care Team Providers Care Electrical Technology Instructor Name Role Phone Liz Schroeder MD Primary Care Provid er Self-Referred, Patient Unavailable Unavailab Mary Toscano MD Unavailable [phone] Encounter Details Date Type Department Care Team ([facility] st Contact Info) Description 10/10/2022 Ophth Exam [facility] Emergency Department [address] [place] [address] Mary Rodas MD [address] [place] [address] [email or web address] Social History Tobacco Use Types [...] 10/10/2022 4:56 PM Natividad Andrew RN * [place] Suicide Severity Rating Scale (Screener/Recent Self-Report) Question [...] Description 06/19/2025 1:00 PM EDT Office Visit [address] [place] [address] Pedro Pierce MD [address] [place] [address]--[place] [address] [email or web address] 07/16/2025 1:15 PM EDT Administrative Encounter Central Registration, [facility] [place] at [address] [address] Mary Sage MD [address] [place] [address] [email or web address] 07/16/2025 2:00 PM EDT Office Visit [facility], [facility], [facility] [place] at [address] [address] Mary Sage MD [address] [place] [address] [email or web address] documented as of this encounter Visit Diagnoses Not on filedocumented in this encounter Additional Health Concerns Infection Onset Date Last Indicated Resolved Time CoV-Risk 08/07/2023 08/07/2023 08/18/2023 1:23 AM EST documented as of this encounter Care Teams Electrical Technology Instructor Relationship Specialty Start Date End Date Liz Schroeder MD [address] [address] PCP - General Internal Medicine 02/17/21 Self-Referred, Patient Referring Physician 05/29/25 Mary Sage MD [address] [place] [address] [email or web address] Medical Oncology 05/29/25 documented as of this encounter Additional Source Comments The information contained in this document represents components of the legal health record. It is not the complete legal health record.[facility]
--- OUTSIDE RECORDS SUMMARY | 2025-06-17 16:58 | XMS_ITS | Encounter Summary ---
Author Organization [facility] [place] [facility] Address [address] [place] [address] Care Team Providers Care Sports Leadership Instructor Name Role Phone Liz Schroeder MD Primary Care Provider Un available Owen Nelson MD Primary Care Provider + [facility], Pcp Primary Care Provider Unavailabl e Encounter Details Date Type Department Care Team Description 01/13/2022 Pt. Non Urgent Medic al Question Medicine/Pediatrics - [address] [address] Liz Schroeder MD Social History Tobacco Use [...] on filedocumented in this encounter Care Teams Sports Leadership Instructor Relationship Specialty Start Date End Date Liz Schroeder MD PCP - General Internal Medicine 04/24/18 Owen Nelson MD [address] [place] [address] PCP - General Internal Medicine 04/23/22 05/30/22 [facility], [address] [address] PCP - General Internal Medicine 05/31/22 documented as of this encounter
--- OUTSIDE RECORDS SUMMARY | 2025-06-17 16:58 | XMS_ITS | Encounter Summary ---
Author Organization [facility] Address [address] [place] [address] Care Team Providers Care Sales Specialist Name Role Phone Liz Schroeder MD Primary Care Provider Un available Owen Nelson MD Primary Care Provider + [facility], Pcp Primary Care Provider Unavailabl e Encounter Details Date Type Department Care Team Description 05/13/2018 Pt. Non Urgent Medic al Question Medicine/Pediatrics - [address] [phone] Liz Schroeder MD Social History Tobacco Use Types Packs/Day Years Used Date Smoking Tobacco: Never Smokeless Tobacco: Never Alcohol Use Standard Drinks/Week Comments No 0 (1 standard drink = 0.6 oz pur e alcohol) Sex Assigned at Date Recorded Not on file documented as of this encounter Progress Notes * Radha Lemos Rn - 05/15/2018 9:53 AM EDTFrom: Gauri Tejada To: Liz Schroeder MD Sent: 05/13/2018 2:04 PM EDT Subject: Lorazapam Hi, My Rx that was approved was never sent to the pharmacy. I have been calling for two days and they see nothing. Please advise where it was sent and when. Thank you. Gauri documented in this encounter Plan of Treatment Not on file documented as of this encounter Visit Diagnoses Not on filedocumented in this encounter Care Teams Sales Specialist Relationship Specialty Start Date End Date Liz Schroeder MD PCP - General Internal Medicine 04/24/18 Owen Nelson MD [address] [place] [address] PCP - General Internal Medicine 04/23/22 05/30/22 Shaina, Meghana [address] [place] [address] PCP - General Internal Medicine 05/31/22 documented as of this encounter
--- OUTSIDE RECORDS SUMMARY | 2025-06-17 16:58 | XMS_ITS | Encounter Summary ---
Author Organization [facility] Address [address] [place] [address] Care Team Providers Care Scagliola Mechanic Name Role Phone Liz Schroeder MD Primary Care Provider Un available Owen Nelson MD Primary Care Provider + [facility], Pcp Primary Care Provider Unavailabl e Encounter Details Date Type Department Care Team Description 04/10/2020 Transfer Records Medical Records [address] [place], [place] [phone] Saul Padilla MD Social History Tobacco Use Types Packs/Day [...] on filedocumented in this encounter Care Teams Scagliola Mechanic Relationship Specialty Start Date End Date Liz Schroeder MD PCP - General Internal Medicine 04/24/18 Owen Nelson MD [address] [place] [id number] PCP - General Internal Medicine 04/23/22 05/30/22 [facility], Pcp [address] [place], [place] [phone] PCP - General Internal Medicine 05/31/22 documented as of this encounter
--- OUTSIDE RECORDS SUMMARY | 2025-06-17 16:59 | XMS_ITS | Encounter Summary ---
Author Organization [facility] [place] Address [address] [place] [address] Care Team Providers Care Special Agent Group Insurance Name Role Phone Liz Schroeder MD Primary Care Provider Un available Avery Espitia MD Primary Care Provider Unava ilable Liz Schroeder MD Primary Care Provider Un available Owen Nelson MD Primary Care Provider + [facility], Pcp Primary Care Provider Unavailabl e Encounter Details Date Type Department Care Team Description 12/10/2011 Cuff Slitter Report Medical Records [address] [place] [address] Ayan Dunn Social History Tobacco Use Types Packs/Day Years Used Date Smoking Tobacco: Never Assessed Sex Assigned at Date Recorded Not on file documented as of this encounter Plan of Treatment Not on file documented as of this encounter Visit Diagnoses Not on filedocumented in this encounter Care Teams Special Agent Group Insurance Relationship Specialty Start Date End Date Liz Schroeder MD PCP - General Internal Medicine 11/23/11 8 Avery Espitia MD PCP - General Internal Medicine 04/04/18 04/23/18 Liz Schroeder MD PCP - General Internal Medicine 04/24/18 Owen Nelson MD [address] [place] [phone] PCP - General Internal Medicine 04/23/22 05/30/22 [facility], Pcp [address] [place], [place] [phone] PCP - General Internal Medicine 05/31/22 documented as of this encounter
--- OUTSIDE RECORDS SUMMARY | 2025-06-17 16:59 | XMS_ITS | Encounter Summary ---
Author Organization [facility] Address [address] [place] [address] Care Team Providers Care First Coat Operator Name Role Phone Liz Schroeder MD Primary Care Provider Un available Owen Nelson MD Primary Care Provider + [facility], Pcp Primary Care Provider Unavailabl e Encounter Details Date Type Department Care Team Description 03/17/2020 Pt. Non Urgent Medic al Question Adult Medicine [address] [address] Liz Schroeder MD Social History Tobacco Use Types Packs/Day Years Used Date Smoking Tobacco: Never Smokeless Tobacco: Never Alcohol Use Standard Drinks/Week Comments No 0 (1 standard drink = 0.6 oz pur e alcohol) Sex Assigned at Date Recorded Not on file documented as of this encounter Progress Notes * Cindy Mosqueda L.P.N. - 03/17/2020 2:59 PM EDTFrom: Gauri Tejada To: Liz Schroeder MD Sent: 03/17/2020 2:44 PM EDT Subject: Blood type Where could I look in the ernestina that wpuld tell me my blood type? It's funny that I have never seen record of my blood type, but my mom had said I was O+ at one point. Would love to confirm that. documented in this encounter Plan of Treatment Not on file documented as of this encounter Visit Diagnoses Not on filedocumented in this encounter Care Teams First Coat Operator Relationship Specialty Start Date End Date Liz Schroeder MD PCP - General Internal Medicine 04/24/18 Owen Nelson MD [address] [place] [address] PCP - General Internal Medicine 04/23/22 05/30/22 [facility], [address] [address] PCP - General Internal Medicine 05/31/22 documented as of this encounter
--- OUTSIDE RECORDS SUMMARY | 2025-06-17 16:59 | XMS_ITS | Encounter Summary ---
Author Organization [facility] Address [address] [place] [address] Care Team Providers Care Electroneurodiagnostic Technologist Name Role Phone Liz Schroeder MD Primary Care Provider Un available Owen Nelson MD Primary Care Provider + [facility], Pcp Primary Care Provider Unavailabl e Encounter Details Date Type Department Care Team Description 02/20/2020 Pt. Non Urgent Medic al Question Adult Medicine [address] [address] Liz Schroeder MD Social History Tobacco Use Types Packs/Day Years Used Date Smoking Tobacco: Never Smokeless Tobacco: Never Alcohol Use Standard Drinks/Week Comments No 0 (1 standard drink = 0.6 oz pur e alcohol) Sex Assigned at Date Recorded Not on file documented as of this encounter Progress Notes * Loretta Encarnacion R.N. - 02/20/2020 2:42 PM EDTFrom: Gauri Tejada To: Liz Schroeder MD Sent: 02/20/2020 2:35 PM EDT Subject: Pepcid Why is Pepcid denied? documented in this encounter Plan of Treatment Not on file documented as of this encounter Visit Diagnoses Not on filedocumented in this encounter Care Teams Electroneurodiagnostic Technologist Relationship Specialty Start Date End Date Liz Schroeder MD PCP - General Internal Medicine 04/24/18 Owen Nelson MD [address] [place] [address] PCP - General Internal Medicine 04/23/22 05/30/22 [facility], Pcp [address] [place] [address] [place] [address] PCP - General Internal Medicine 05/31/22 documented as of this encounter
--- OUTSIDE RECORDS SUMMARY | 2025-06-17 16:59 | XMS_ITS | Encounter Summary ---
Author Organization [facility] Address [address] [place] [address] Care Team Providers Care Dry Molder Name Role Phone Liz Gordon MD Primary Care Provider Un available Avery Espitia MD Primary Care Provider Unava Liz Thayer MD Primary Care Provider Un available Owen Nelson MD Primary Care Provider + [facility] [address] [facility], Pcp Primary Care Provider Unavailabl e Encounter Details Date Type Department Care Team Description 12/27/2011 [facility] MyChart [address] [place] [address] Md Avinash Social History Tobacco Use Types [...] PM EDT Script done by Dr. Gordon. [employer] message to pt. * Telephone Encounter - [...] Medication List Request submitted by Gauri Tejada [<[id number]>] on 12/27/2011 at 9:17:21 AM Form Title: Request Refill Not On Medication List Submitted Data From: Gauri Tejada Primary care provider: Liz Gordon MD --- Contact Information --- Contact Phone #: [phone] --- Medication Request Information --- Medication name: Z-PACK Dosage: UNSURE instructions: 5 DAYS, 2 THE FIRST DAY, 1 THE REMAINING DAYS # Dispensed: 1 Z-PACK Ordering Provider: DR. GORDON Pharmacy: [facility] Other Details: I WAS JUST ON THE Z PACK A COUPLE OF WEEKS AGO TO CLEAR UP SINUS INFECTION. I WAS BETTER BUT NOW HAVE A RELAPSE. documented in this encounter Plan of Treatment Not on file documented as of this encounter Visit Diagnoses Not on filedocumented in this encounter Care Teams Dry Molder Relationship Specialty Start Date End Date Liz Gordon MD PCP - General Internal Medicine 11/23/11 8 Avery Espitia MD PCP - General Internal Medicine 04/04/18 04/23/18 Liz Gordon MD PCP - General Internal Medicine 04/24/18 Owen Nelson MD [address] [place] [address] PCP - General Internal Medicine 04/23/22 05/30/22 [facility] [address] [facility], Pcp [address] [place] [address] PCP - General Internal Medicine 05/31/22 documented as of this encounter
--- OUTSIDE RECORDS SUMMARY | 2025-06-17 17:00 | XMS_ITS | Encounter Summary ---
Author Organization [facility] Address [address] [place] [address] Care Team Providers Care Machine Quilt Stuffer Name Role Phone Liz Schroeder MD Primary Care Provider Un available Avery Espitia MD Primary Care Provider Unava Liz Thayer MD Primary Care Provider Un available Owen Nelson MD Primary Care Provider + [facility], Pcp Primary Care Provider Unavailabl e Encounter Details Date Type Department Care Team Description 06/27/2013 Refill [facility] MyChart [address] [place] [address] Md Avinash Social History Tobacco Use Types Packs/Day Years Used Date Smoking Tobacco: Never Smokeless Tobacco: Never Alcohol Use Standard Drinks/Week Comments No 0 (1 standard drink = 0.6 oz pur e alcohol) Sex Assigned at Date Recorded Not on file documented as of this encounter Miscellaneous Notes * Telephone Encounter - Radha Lemos Rn - 06/27/2013 4:59 PM EDT My chart message sent to pt To use the refill pathway * Telephone Encounter - Radha Lemos Rn - 06/27/2013 4:46 PM EDTFrom: GAURI TEJADA Sent: TueJun 27, 2013 12:54 PM Subject: Request Refill Not On Medication List Request submitted by Gauri Tejada [<[id number]>] on 06/27/2013 at 12:54:54 PM Form Title: Request Refill Not On Medication List Submitted Data From: Gauri Tejada Primary care provider: Liz Schroeder MD --- Contact Information --- Contact Phone #: [phone] --- Medication Request Information --- Medication name: Lorazapam Dosage: 1 mg? instructions: as needed # Dispensed: not sure Ordering Provider: Dr. Fowler Pharmacy: [facility] Other Details: I don't have the bottle with me. documented in this encounter Plan of Treatment Not on file documented as of this encounter Visit Diagnoses Not on filedocumented in this encounter Care Teams Machine Quilt Stuffer Relationship Specialty Start Date End Date Liz Schroeder MD PCP - General Internal Medicine 11/23/11 8 Avery Espitia MD PCP - General Internal Medicine 04/04/18 04/23/18 Liz Schroeder MD PCP - General Internal Medicine 04/24/18 Owen Nelson MD [address] [place] [address] PCP - General Internal Medicine 04/23/22 05/30/[address] [address] PCP - General Internal Medicine 05/31/22 documented as of this encounter
--- OUTSIDE RECORDS SUMMARY | 2025-06-17 17:00 | XMS_ITS | Encounter Summary ---
Author Organization [facility] Address [address] [place] [address] Care Team Providers Care Vocational Technical Education Teacher Name Role Phone Liz Schroeder MD Primary Care Provider Un available Avery Espitia MD Primary Care Provider Unava ilable Liz Schroeder MD Primary Care Provider Un available Owen Nelson MD Primary Care Provider + [facility], Pcp Primary Care Provider Unavailabl e Encounter Details Date Type Department Care Team Description 06/15/2012 Livestock Yard Attendant Report Medical Records [address] [place] [address] Jamir Cleveland MD Social History Tobacco Use [...] on filedocumented in this encounter Care Teams Vocational Technical Education Teacher Relationship Specialty Start Date End Date Liz Schroeder MD PCP - General Internal Medicine 11/23/11 8 Avery Espitia MD PCP - General Internal Medicine 04/04/18 04/23/18 Liz Schroeder MD PCP - General Internal Medicine 04/24/18 Owen Nelson MD [address] [place] [address] PCP - General Internal Medicine 04/23/22 05/30/22 [facility], Pcp [address] [place] [address] PCP - General Internal Medicine 05/31/22 documented as of this encounter
== END 2025-06-17 13:44 | disposition home or self-care (01) ==
PROVIDERS: Registered Nurse Emergency; Emergency Provider Emergency Medicine; PCP Pediatrics
DX: I82.621 Acute embolism and thrombosis of deep veins of right upper extremity (principal); M79.601 Pain in right arm; Z79.01 Long term (current) use of anticoagulants
CPT/HCPCS: 36415; 80053; 85025; 85610; 87040; 93971; 99282; 99284

== ENCOUNTER → 2025-06-17 10:33 | Outpatient (BNV) | payer OTHER, SELFPAY | PROVIDERS: PCP Pediatrics; Visit Provider Radiology Diagnostic Radiology | DX: Z86.718 Personal history of other venous thrombosis and embolism (principal) | CPT/HCPCS: 93971 ==

== ENCOUNTER 2025-06-18 15:27 | Outpatient (REF) | payer OTHER, SELFPAY ==
--- OUTSIDE RECORDS SUMMARY | 2011-11-03 01:00 | XMS_ITS | Encounter Summary ---
Author Organization [facility] Address [address] [facility] [address] [place] [address] Phone Care Team Providers Care Management Supervisor Name Role Phone Unavailable Primary Care Provider Unavailabl e Encounter Details Date Type Department Care Team ([facility] st Contact Info) Description 11/03/2011 Hospital Encounter [facility] IMG OUTSIDE [address] [place] [address] ePdro Pierce MD [address] [place] [address]--[place] [address] [email or web address] Social History Tobacco Use Types Packs/Day Years [...] 9:48 AM EDT Radha Jones, RN * [place] Suicide Severity Rating Scale (Screener/Recent Self-Report) Question [...] Description 06/19/2025 1:00 PM EDT Office Visit [facility] [address] [facility] [address] [place] [address] Pedro Pierce MD [address] [place] [address]--[place] [address] [email or web address] 07/16/2025 1:15 PM EDT Administrative Encounter Central Registration, [facility] at [address] [address] Mary Sage MD [address] [place] [phone] [email or web address] 07/16/2025 2:00 PM EDT Office Visit [facility], [facility], [facility] at [address] [address] Mary Sage MD [address] [place] [phone] [email or web address] documented as of this encounter Procedures Procedure Name Priority Date/Time Associated Diagnosis Comments CT HEAD OUTSIDE (NO INTERPRETATION) Routine 11/03/2011 12:00 AM EST documented in this encounter Results * CT Head Outside (No Interpretation) (11/03/2011 12:00 AM EST) Narrative [facility] IMG INTERFACES - 11/08/2022 9:36 AM EST This [...] It is not the complete legal health record.[facility]
--- OUTSIDE RECORDS SUMMARY | 2021-07-22 11:17 | XMS_ITS | Encounter Summary ---
Author Organization [facility] Address [address] [facility] [address] [place] [address] Phone Care Team Providers Care Director Of Rehabilitation And Wellness Name Role Phone Liz Schroeder MD Primary Care Provid er Encounter Details Date Type Department Care Team (Late st Contact Info) Description 07/22/2021 11:17 AM EDT Hospital Encounter [facility] [address] [place] [address] Beatriz Gambino CNP 12 [place] [address] [email or web address] Social History Tobacco Use Types Packs/Day Years [...] 9:48 AM EDT Radha Jones, RN * [place] Suicide Severity Rating Scale (Screener/Recent Self-Report) Question [...] Description 06/19/2025 1:00 PM EDT Office Visit [facility] [address] [facility] [address] [place] [address] Pedro Pierce MD [address] [place] [address]--[place] [address] [email or web address] 07/16/2025 1:15 PM EDT Administrative Encounter Central Registration, [facility] [address] [address] Mary Sage MD [address] [place] [address] [email or web address] 07/16/2025 2:00 PM EDT Office Visit [facility], [facility], [facility] [address] [address] Mary Sage MD [address] [place] [phone] [email or web address] documented as of this encounter Procedures [...] spine. IMPRESSION: No acute process. Beatriz Gambino FIELD BROOMER IMG XR CHEST Final Resul t documented in this encounter Visit Diagnoses Not on filedocumented in this encounter Additional Health Concerns Infection Onset Date Last Indicated Resolved Time CoV-Risk 07/22/2021 07/22/2021 08/01/2021 1:24 AM EDT CoV-Risk 08/07/2023 08/07/2023 08/18/2023 1:23 AM EST documented as of this encounter Care Teams Director Of Rehabilitation And Wellness Relationship Specialty Start Date End Date [facility] [address] [address] PCP - General Internal Medicine 02/17/21 documented as of this encounter Additional Source Comments The information contained in this document represents components of the legal health record. It is not the complete legal health record.[facility]
--- OUTSIDE RECORDS SUMMARY | 2022-06-18 | XMS_ITS | Encounter Summary ---
Author Organization [facility] Address [address] [facility] [address] [place] [address] Phone Care Team Providers Care Parts Counter Representative Name Role Phone Liz Schroeder MD Primary Care Provid er Encounter Details Date Type Department Care Team (Late st Contact Info) Description 06/18/2022 Hospital Encounter [facility] OUTSIDE [address] [place] [id number] Law Hawkins MD [address] [place] [address] [email or web address] Social History Tobacco Use Types Packs/Day Years [...] have you moved in the past 12 tue ths? One time 06/10/2025 Paying for Meds [...] 9:48 AM EDT Radha Jones, RN * [place] Suicide Severity Rating Scale (Screener/Recent Self-Report) Question [...] Description 06/19/2025 1:00 PM EDT Office Visit [facility] [address] [facility] [address] [place] [address] Pedro Pierce MD [address] [place] [address]--[place] [address] [email or web address] 07/16/2025 1:15 PM EDT Administrative Encounter Central Registration, [facility] at [address] [address] Mary Sage MD [address] [place] [phone] [email or web address] 07/16/2025 2:00 PM EDT Office Visit [facility], [facility], [facility] at [address] [address] Mary Sage MD [address] [place] [phone] [email or web address] Pending Results Name Type Priority Associated Diagnoses Date /Time MRI Brain Outside With Interpretation Or Consult Imaging Routine 2021 12:00 AM EDT Scheduled Orders Name Type Priority Associated Diagnoses Orde r Schedule MRI Brain Outside With Interpretation Or Consult Imaging Routine As Nee ded for 1 Occurrences starting 10/10/2022 until 10/10/2022 documented as of this encounter Visit Diagnoses Not on filedocumented in this encounter Additional Health Concerns Infection Onset Date Last Indicated Resolved Time CoV-Risk 08/07/2023 08/07/2023 08/18/2023 1:23 AM EST documented as of this encounter Care Teams Parts Counter Representative Relationship Specialty Start Date End Date Liz Schroeder MD [address] [address] PCP - General Internal Medicine 02/17/21 documented as of this encounter Additional Source Comments The information contained in this document represents components of the legal health record. It is not the complete legal health record.[facility]
--- NOTE | ~2025-06-18 | US_ITS ---
EXAMINATION: US TRIPLEX LOWER EXTREMITY, RIGHT CLINICAL INFORMATION: History of right leg DVTs. COMPARISON: 09/21/2021. TECHNIQUE: Color-flow triplex imaging with spectral analysis and compression Doppler were performed on the right lower extremity. FINDINGS: Respiratory variation, normal compression and augmented flow are noted throughout the right lower extremity. The visualized common femoral vein, superficial femoral vein, profunda femoral vein, popliteal vein and midcalf peroneal and posterior tibial venous segments show no evidence of deep venous thrombosis. There is no Skaggs's cyst. US/US venous duplex LE RT IMPRESSION: No evidence of deep venous thrombosis involving the right lower extremity. Electronically signed by: Merrick Valentine MD 06/18/2025 04:13 PM EDT
--- OUTSIDE RECORDS SUMMARY | 2025-06-18 18:48 | XMS_ITS | Encounter Summary ---
Author Organization [facility] Address [address] [place] [address] Care Team Providers Care Lvn Lpn Name Role Phone Liz Schroeder MD Primary Care Provider Un available Avery Espitia MD Primary Care Provider Unava Liz Thayer MD Primary Care Provider Un available Owen Nelson MD Primary Care Provider + [facility], Pcp Primary Care Provider Unavailabl e Encounter Details Date Type Department Care Team Description 06/15/2016 Pt. Non Urgent Medic al Question Medicine/Pediatrics - [address] [phone] Liz Schroeder MD Social History Tobacco Use [...] get [facility] while Im herewith my mom? I missed my appt at [place] and am past due for a check. [...] on filedocumented in this encounter Care Teams Lvn Lpn Relationship Specialty Start Date End Date Liz Schroeder MD PCP - General Internal Medicine 11/23/11 8 Avery Espitia MD PCP - General Internal Medicine 04/04/18 04/23/18 Liz Schroeder MD PCP - General Internal Medicine 04/24/18 Owen Nelson MD [address] [place] [address] PCP - General Internal Medicine 04/23/22 05/30/22 [facility], [address] [address] PCP - General Internal Medicine 05/31/22 documented as of this encounter
--- OUTSIDE RECORDS SUMMARY | 2025-06-18 18:48 | XMS_ITS | Encounter Summary ---
Author Organization [facility] Address [address] [place] [address] Care Team Providers Care Mergers And Acquisitions Banker Name Role Phone Liz Schroeder MD Primary Care Provider Un available Owen Nelson MD Primary Care Provider + [facility], Pcp Primary Care Provider Unavailabl e Encounter Details Date Type Department Care Team Description 01/13/2022 Pt. Non Urgent Medic al Question Medicine/Pediatrics - [address] [address] Liz Schroeder MD Social History Tobacco Use [...] on filedocumented in this encounter Care Teams Mergers And Acquisitions Banker Relationship Specialty Start Date End Date Liz Schroeder MD PCP - General Internal Medicine 04/24/18 Owen Nelson MD [address] [place] [address] PCP - General Internal Medicine 04/23/22 05/30/22 [facility], [address] [address] PCP - General Internal Medicine 05/31/22 documented as of this encounter
--- OUTSIDE RECORDS SUMMARY | 2025-06-18 18:48 | XMS_ITS | Encounter Summary ---
Author Organization [facility] Address [address] [place] [address] Care Team Providers Care Environmental Service Aide Name Role Phone Liz Schroeder MD Primary Care Provider Un available Owen Nelson MD Primary Care Provider + [facility], Pcp Primary Care Provider Unavailabl e Encounter Details Date Type Department Care Team Description 03/23/2019 Outreach And Education Social Worker Report Medical Records [address] [place] [address] Ayan Dunn Social History Tobacco Use Types [...] on filedocumented in this encounter Care Teams Environmental Service Aide Relationship Specialty Start Date End Date Liz Schroeder MD PCP - General Internal Medicine 04/24/18 Owen Nelson MD [address] [place] [address] PCP - General Internal Medicine 04/23/22 05/30/22 [facility], Pcp [address] [place] [address] PCP - General Internal Medicine 05/31/22 documented as of this encounter
--- OUTSIDE RECORDS SUMMARY | 2025-06-18 18:48 | XMS_ITS | Encounter Summary ---
Author Organization [facility] Address [address] [place] [address] Care Team Providers Care Compo Conveyor Operator Name Role Phone Liz Schroeder MD Primary Care Provider Un available Owen Nelson MD Primary Care Provider + [facility], Pcp Primary Care Provider Unavailabl e Encounter Details Date Type Department Care Team Description 08/21/2019 Clinical Rehabilitation Aide Report Medical Records [address] [place] [address] Ayan Dunn Social History Tobacco Use Types [...] on filedocumented in this encounter Care Teams Compo Conveyor Operator Relationship Specialty Start Date End Date Liz Schroeder MD PCP - General Internal Medicine 04/24/18 Owen Nleson MD [address] [place] [phone] PCP - General Internal Medicine 04/23/22 05/30/22 [facility], Pcp [address] [place] [address] PCP - General Internal Medicine 05/31/22 documented as of this encounter
--- OUTSIDE RECORDS SUMMARY | 2025-06-18 18:48 | XMS_ITS | Encounter Summary ---
Author Organization [facility] Address [address] [place] [address] Care Team Providers Care Sider Name Role Phone Liz Schroeder MD Primary Care Provider Un available Avery Espitia MD Primary Care Provider Unava ilLiz Francisco MD Primary Care Provider Un available Owen Nelson MD Primary Care Provider + [facility], Pcp Primary Care Provider Unavailabl e Encounter Details Date Type Department Care Team Description 05/19/2012 SCAN Medical Records [address] [place] [address] Abstract, Provider Social History Tobacco Use Types [...] on filedocumented in this encounter Care Teams Sider Relationship Specialty Start Date End Date Liz Schroeder MD PCP - General Internal Medicine 11/23/11 8 Avery Espitia MD PCP - General Internal Medicine 04/04/18 04/23/18 Liz Schroeder MD PCP - General Internal Medicine 04/24/18 Owen Nelson MD [address] [place] [address] PCP - General Internal Medicine 04/23/22 05/30/22 [facility], Pcp [address] [place] [address] PCP - General Internal Medicine 05/31/22 documented as of this encounter
--- OUTSIDE RECORDS SUMMARY | 2025-06-18 18:48 | XMS_ITS | Encounter Summary ---
Author Organization [facility] Address [address] [place] [address] Care Team Providers Care Polisher And Buffer Name Role Phone Liz Schroeder MD Primary Care Provider Un available Owen Nelson MD Primary Care Provider + [facility], Pcp Primary Care Provider Unavailabl e Encounter Details Date Type Department Care Team Description 06/10/2021 Pt. Non Urgent Medic al Question Medicine/Pediatrics - [address] [phone] Liz Schroeder MD Social History Tobacco Use [...] ended up retaking a covid test at [facility] and a rapid at an urgent care. [...] on filedocumented in this encounter Care Teams Polisher And Buffer Relationship Specialty Start Date End Date Liz Schroeder MD PCP - General Internal Medicine 04/24/18 Owen Nelson MD [address] [place] [address] PCP - General Internal Medicine 04/23/22 05/30/22 [facility], [address] [address] PCP - General Internal Medicine 05/31/22 documented as of this encounter
--- OUTSIDE RECORDS SUMMARY | 2025-06-18 18:48 | XMS_ITS | Clinical Summary ---
Author Organization 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 Pulmonary [place] [address] [facility] [address] [place] [address] Nick Lancaster MD [address] [facility] [address] [place] [address] 04/15/2026 12:45 PM EDT Office Visit [facility] Cancer [place] [facility] at [address] [phone] Roberta Manzo MD [address] [place], [place] [phone] Health Maintenance Due Date Last Done Comments [...] - 11.0 Thou/uL 04/09/2025 12:38 PM EDT [facility] Red Blood Cell Count 5.04 4.00 - 5.40 Mil/uL 04/09/2025 12:38 PM EDT [facility] Hemoglobin 14.1 11.7 - 15.7 g/dL 04/09/2025 12:38 PM EDT [facility] Hematocrit 43.9 35.0 - 47.0 % 04/09/2025 12:38 PM EDT [facility] MCV 87 80 - 100 fL 04/09/2025 12:38 PM EDT [facility] MCH 28.0 26.0 - 34.0 pg 04/09/2025 12:38 PM EDT [facility] MCHC 32.1 30.0 - 36.0 g/dL 04/09/2025 12:38 PM EDT [facility] RDW 12.9 11.5 - 14.5 % 04/09/2025 12:38 PM EDT [facility] Platelet Count 309 150 - 450 Thou/uL 04/09/2025 12:38 PM EDT [facility] MPV 8.8 7.5 - 12.5 fL 04/09/2025 12:38 PM EDT [facility] Neutrophils Auto 51.7 % 04/09/20 25 12:38 PM EDT [facility] Abs Neutrophils Auto 4.10 2.00 - 7.50 Thou/uL 04/09/2025 12:38 PM EDT [facility] Lymphocytes Auto 42.1 % 04/09/20 25 12:38 PM EDT [facility] Abs Lymphocytes Auto 3.30 1.50 - 4.50 Thou/uL 04/09/2025 12:38 PM EDT [facility] Mixed Mononuclear Auto 6.2 % 04/09/2025 12:38 PM EDT [facility] Abs Mixed Mononuclear Auto <1.00 0.20 - 1.90 Thou/uL 04/09/2025 12:38 PM EDT [facility] Blood Blood specimen / Unknown 04/09/2025 12:26 PM EDT 04/09/2025 12:38 PM EDT Roberta Christopher MD POCT ORDERABLES - ONCOLOGY Fin al Result [address] [address], [address] * (ABNORMAL) Comprehensive Metabolic Panel (04/09/2025 [...] - 122 U/L 04/09/2025 4:03 PM EDT [facility] Aspartate Aminotrans (AST) 21 10 - 50 U/L 04/09/2025 4:03 PM [facility] Alanine Aminotrans (ALT) 19 10 - 50 U/L 04/09/2025 4:03 PM [facility] Bilirubin, Total 0.4 0.2 - 1.0 mg/dL 04/09/2025 4:03 PM [facility] Protein, Total 7.1 6.3 - 8.3 g/dL [facility] Albumin 4.1 3.5 - 5.0 g/dL [...] MD LAB BLOOD ORDERABLES Final Res ult [address] [address], [address] [address] * MM Breast w/ tomosynthesis diagnostic-Bilateral (11/13/2024 [...] Most Recently Relevant to Health Maintenance [place] [address] [place] [address] Care Teams Aquatic Habitat Biologist Relationship Specialty Start Date End Date Liz Schroeder MD [address] [place] [address] PCP - General 05/23/24 Demi Quiles, SASHA [address] [place] [address] Oncology Nurse Navigator 11/12/24
--- OUTSIDE RECORDS SUMMARY | 2025-06-18 18:48 | XMS_ITS | Encounter Summary ---
Author Organization [facility] Address [address] [place] [address] Care Team Providers Care Vice President Of Talent Acquisition Name Role Phone Liz Schroeder MD Primary Care Provider Un available Avery Espitia MD Primary Care Provider Unava Liz Thayer MD Primary Care Provider Un available Owen Nelson MD Primary Care Provider + [facility], Pcp Primary Care Provider Unavailabl e Encounter Details Date Type Department Care Team Description 03/13/2012 Pt. Non Urgent Medical Question OBGYN - [place] [address] [place] [address] Maria C Pollard CNM [address] [place] [address] Social History Tobacco Use Types [...] on filedocumented in this encounter Care Teams Vice President Of Talent Acquisition Relationship Specialty Start Date End Date Liz Schroeder MD PCP - General Internal Medicine 11/23/11 8 Avery Espitia MD PCP - General Internal Medicine 04/04/18 04/23/18 Liz Schroeder MD PCP - General Internal Medicine 04/24/18 Owen Nelson MD [address] [place] [address] PCP - General Internal Medicine 04/23/22 05/30/22 [facility], [address] [address] PCP - General Internal Medicine 05/31/22 documented as of this encounter
--- OUTSIDE RECORDS SUMMARY | 2025-06-18 18:48 | XMS_ITS | Encounter Summary ---
Author Organization [facility] Address [address] [place] [address] Care Team Providers Care Custom Garment Designer Name Role Phone Liz Schroeder MD Primary Care Provider Un available Avery Espitia MD Primary Care Provider Unava ilable Liz Schroeder MD Primary Care Provider Un available Owen Nelson MD Primary Care Provider + [facility], Pcp Primary Care Provider Unavailabl e Encounter Details Date Type Department Care Team Description 01/23/2015 Hereditary Cancer Qu iz Results Medical Records [address] [place] [address] Abstract, Provider Social History Tobacco Use Types [...] on filedocumented in this encounter Care Teams Custom Garment Designer Relationship Specialty Start Date End Date Liz Schroeder MD PCP - General Internal Medicine 11/23/11 8 Avery Espitia MD PCP - General Internal Medicine 04/04/18 04/23/18 Liz Schroeder MD PCP - General Internal Medicine 04/24/18 Owen Nelson MD [address] [place] [address] PCP - General Internal Medicine 04/23/22 05/30/22 [facility], Pcp [address] [place] [address] PCP - General Internal Medicine 05/31/22 documented as of this encounter
--- OUTSIDE RECORDS SUMMARY | 2025-06-18 18:48 | XMS_ITS | Encounter Summary ---
Author Organization [facility] Address [address] [place] [address] Care Team Providers Care Master Black Belt Name Role Phone Liz Schroeder MD Primary Care Provider Un available Owen Nelson MD Primary Care Provider + [facility], Pcp Primary Care Provider Unavailabl e Encounter Details Date Type Department Care Team Description 08/27/2019 Art Director Report Medical Records [address] [place] [address] Ayan Dunn Social History Tobacco Use Types [...] on filedocumented in this encounter Care Teams Master Black Belt Relationship Specialty Start Date End Date Liz Schroeder MD PCP - General Internal Medicine 04/24/18 Owen Nelson MD [address] [place] [phone] PCP - General Internal Medicine 04/23/22 05/30/22 [facility], Pcp [address] [place] [address] PCP - General Internal Medicine 05/31/22 documented as of this encounter
--- OUTSIDE RECORDS SUMMARY | 2025-06-18 18:48 | XMS_ITS | Encounter Summary ---
Author Organization [facility] Address [address] [place] [address] Care Team Providers Care Liquid Fertilizer Servicer Name Role Phone Liz Schroeder MD Primary Care Provider Un available Avery Espitia MD Primary Care Provider Unava ilable iLz Schroeder MD Primary Care Provider Un available Owen Nelson MD Primary Care Provider + [facility], Pcp Primary Care Provider Unavailabl e Encounter Details Date Type Department Care Team Description 12/31/2014 Head Of Operation And Logistics Report Medical Records [address] [place] [address] Rolo Beck Social History Tobacco Use Types [...] on filedocumented in this encounter Care Teams Liquid Fertilizer Servicer Relationship Specialty Start Date End Date Liz Schroeder MD PCP - General Internal Medicine 11/23/11 8 Avery Espitia MD PCP - General Internal Medicine 04/04/18 04/23/18 Liz Schroeder MD PCP - General Internal Medicine 04/24/18 Owen Nelson MD [address] [place] [address] PCP - General Internal Medicine 04/23/22 05/30/22 [facility], Pcp [address] [place] [address] PCP - General Internal Medicine 05/31/22 documented as of this encounter
--- OUTSIDE RECORDS SUMMARY | 2025-06-18 18:48 | XMS_ITS | Encounter Summary ---
Author Organization [facility] Address [address] [place] [address] Care Team Providers Care Secretary Of State Name Role Phone Liz Schroeder MD Primary Care Provider Un available Owen Nelson MD Primary Care Provider [facility]cp Primary Care Provider Unavailabl e Reason for Visit * Reason Onset Date Comments Call From Lab 05/26/2018 Encounter Details Date Type Department Care Team Description 05/26/2018 Telephone Medicine/Pediatrics - [address] [phone] Liz Schroeder MD Call From Lab Social [...] EDT See below * Telephone Encounter - Cehrelle Duran - 05/26/2018 10:02 AM EDT Cynthia from [facility] Coumadin clinic calling in a low INR [...] on filedocumented in this encounter Care Teams Secretary Of State Relationship Specialty Start Date End Date Liz Schroeder MD PCP - General Internal Medicine 04/24/18 Owen Nelson MD [address] [place] [address] PCP - General Internal Medicine 04/23/22 05/30/22 [facility], [address] [address] PCP - General Internal Medicine 05/31/22 documented as of this encounter
--- OUTSIDE RECORDS SUMMARY | 2025-06-18 18:48 | XMS_ITS | Encounter Summary ---
Author Organization [facility] Address [address] [facility] [address] [place] [address] Phone Care Team Providers Care General Expeditor Name Role Phone Liz Schroeder MD Primary Care Provid er Self-Referred, Patient Unavailable Unavailab Mary Toscano MD Unavailable [phone] Encounter Details Date Type Department Care Team ([facility] st Contact Info) Description 10/10/2022 Ophth Exam [facility] Emergency Department [address] [place] [address] Mary Rodas MD [address] [place] [phone] [email or web address] Social History Tobacco Use Types Packs/Day Years [...] 10/10/2022 4:56 PM Natividad Andrew RN * Bibb Suicide Severity Rating Scale (Screener/Recent Self-Report) Question [...] Description 06/19/2025 1:00 PM EDT Office Visit [address] [place] [address] Pedro Pierce MD [address] [place] [address]--[place] [address] [email or web address] 07/16/2025 1:15 PM EDT Administrative Encounter Central Registration, [facility] [place] at [address] [address] Mary Sage MD [address] [place] [phone] [email or web address] 07/16/2025 2:00 PM EDT Office Visit [facility], [facility], [facility] [place] at [address] [address] Mary Sage MD [address] [place] [phone] [email or web address] documented as of this encounter Visit Diagnoses Not on filedocumented in this encounter Additional Health Concerns Infection Onset Date Last Indicated Resolved Time CoV-Risk 08/07/2023 08/07/2023 08/18/2023 1:23 AM EST documented as of this encounter Care Teams General Expeditor Relationship Specialty Start Date End Date Liz Schroeder MD [address] [address] PCP - General Internal Medicine 02/17/21 Self-Referred, Patient Referring Physician 05/29/25 Mary Sage MD [address] [place] [id number] [email or web address] Medical Oncology 05/29/25 documented as of this encounter Additional Source Comments The information contained in this document represents components of the legal health record. It is not the complete legal health record.[facility]
--- OUTSIDE RECORDS SUMMARY | 2025-06-18 18:48 | XMS_ITS | Encounter Summary ---
Author Organization [facility] Address [address] [place] [address] Care Team Providers Care Stucco Laborer Name Role Phone Liz Schroeder MD Primary Care Provider Un available Owen Nelson MD Primary Care Provider + [facility], Pcp Primary Care Provider Unavailabl e Encounter Details Date Type Department Care Team Description 01/29/2021 Telephone Gastroenterology - [place] [address] [facility] [address] [place] [phone] Josiah Champion PA-C Social History Tobacco Use [...] on filedocumented in this encounter Care Teams Stucco Laborer Relationship Specialty Start Date End Date Liz Schroeder MD PCP - General Internal Medicine 04/24/18 Owen Nelson MD [address] [place] [address] PCP - General Internal Medicine 04/23/22 05/30/22 [facility], Pcp [address] [place] [address] PCP - General Internal Medicine 05/31/22 documented as of this encounter
--- OUTSIDE RECORDS SUMMARY | 2025-06-18 18:48 | XMS_ITS | Encounter Summary ---
Author Organization [facility] Address [address] [place] [address] Care Team Providers Care Forklift Truck Mechanic Name Role Phone Owen Nelson MD Primary Care Provider + [facility], Pcp Primary Care Provider Unavailabl e Reason for Visit * Reason Comments E-prescribe Rx Request Encounter Details Date Type Department Care Team Description 05/05/2022 Refill Medicine/Pediatrics - [address] [phone] Kimberly Mahmood PA-C E-prescribe Rx Request Social [...] on filedocumented in this encounter Care Teams Forklift Truck Mechanic Relationship Specialty Start Date End Date Owen Nelson MD [address] [place] [address] PCP - General Internal Medicine 04/23/22 05/30/22 [facility], Pcp [address] [place] [address] PCP - General Internal Medicine 05/31/22 documented as of this encounter
--- OUTSIDE RECORDS SUMMARY | 2025-06-18 18:48 | XMS_ITS | Encounter Summary ---
Author Organization [facility] Address [address] [place] [address] Care Team Providers Care Fisher Trammel Net Name Role Phone Liz Schroeder MD Primary Care Provider Un available Owen Nelson MD Primary Care Provider + [facility], Pcp Primary Care Provider Unavailabl e Encounter Details Date Type Department Care Team Description 12/25/2018 Pt. Non Urgent Medic al Question Medicine/Pediatrics - [address] [phone] Liz Schroeder MD Social History Tobacco Use Types Packs/Day Years Used Date Smoking Tobacco: Never Smokeless Tobacco: Never Alcohol Use Standard Drinks/Week Comments No 0 (1 standard drink = 0.6 oz pur e alcohol) Sex Assigned at Date Recorded Not on file documented as of this encounter Progress Notes * Cindy Mosqueda L.P.N. - 12/25/2018 12:09 PM EDTFrom: Gauri Tejada To: Liz Schroeder MD Sent: 12/25/2018 12:00 PM EDT Subject: Gastro Hi, Dr. Schroeder set up an appt for me with a gastro in [place]. That gastro needed to reschedule that appt bevause the had something that took precedent. What is their phone number? I have misplaced it. Thanks, so much. Gauri documented in this encounter Plan of Treatment Not on file documented as of this encounter Visit Diagnoses Not on filedocumented in this encounter Care Teams Fisher Trammel Net Relationship Specialty Start Date End Date Liz Schroeder MD PCP - General Internal Medicine 04/24/18 Owen Nelson MD [address] [place] [address] PCP - General Internal Medicine 04/23/22 05/30/22 [facility], [address] [address] PCP - General Internal Medicine 05/31/22 documented as of this encounter
--- OUTSIDE RECORDS SUMMARY | 2025-06-18 18:48 | XMS_ITS | Encounter Summary ---
Author Organization [facility] Address [address] [place] [address] Care Team Providers Care Igniter Capper Name Role Phone Liz Schroeder MD Primary Care Provider Un available Owen Nelson MD Primary Care Provider + [facility], Pcp Primary Care Provider Unavailabl e Reason for Visit * Reason Onset Date Comments Appointment Cancelled 10/28/2018 Encounter Details Date Type Department Care Team Description 10/28/2018 Telephone Gastroenterology - [place] [address] [facility] [address] [place] [address] Darnell Carlton MD Appointment Cancelled [...] on filedocumented in this encounter Care Teams Igniter Capper Relationship Specialty Start Date End Date Liz Schroeder MD PCP - General Internal Medicine 04/24/18 Owen Nelsno MD [address] [place] [phone] PCP - General Internal Medicine 04/23/22 05/30/22 [facility], Pcp [address] [place] [address] PCP - General Internal Medicine 05/31/22 documented as of this encounter
--- OUTSIDE RECORDS SUMMARY | 2025-06-18 18:49 | XMS_ITS | Encounter Summary ---
Author Organization [facility] Address [address] [place] [address] Care Team Providers Care Police Chief Deputy Name Role Phone Liz Schroeedr MD Primary Care Provider Demi Quiles RN Unavailable [phone] Encounter Details Date Type Department Care Team (Late st Contact Info) Description 07/26/2024 Scanned Document [facility] Medical Oncology at [address] [phone] Provider, MD Klaudia [address] [place] [address] Social History Tobacco Use Types Packs/Day Years [...] Description 08/02/2025 8:45 AM EDT Office Visit [facility] Pulmonary [place] 85 [facility] 923 [place] [phone] Nick Lancaster MD [address] [phone] 04/15/2026 12:45 PM EDT Office Visit [facility] Cancer [place] [facility] at [facility] 85 [place] [phone] Roberta Manzo MD 85 [place], [place] [phone] documented as of this encounter Visit Diagnoses Not on filedocumented in this encounter Care Teams Police Chief Deputy Relationship Specialty Start Date End Date Liz Schroeder MD [address] [place] [address] PCP - General 05/23/24 Demi Quiles, SASHA [address] [place] [address] Oncology Nurse Navigator 11/12/24 documented as of this encounter
--- OUTSIDE RECORDS SUMMARY | 2025-06-18 18:49 | XMS_ITS | Encounter Summary ---
Author Organization [facility] Address [address] [facility] [address] [place] [address] Phone Care Team Providers Care Shipwright Helper Name Role Phone Liz Schroeder MD Primary Care Provid er Self-Referred, Patient Unavailable Unavailab Mary Toscano MD Unavailable [phone] Encounter Details Date Type Department Care Team ([facility] st Contact Info) Description 05/31/2025 Orders Only [facility] [address] [facility] [address], [place] [address] Haydee Conrad MD [address] [place] [address] [email or web address] Social History Tobacco Use Types Packs/Day Years [...] Description 06/19/2025 1:00 PM EDT Office Visit [address] [place] [address] Pedro Pierce MD [address] [place] [address]--[place] [address] [email or web address] 07/16/2025 1:15 PM EDT Administrative Encounter Central Registration, [facility] [place] at [address] [address] Mary Sage MD [address] [place] [address] [email or web address] 07/16/2025 2:00 PM EDT Office Visit [facility], [facility], [facility] [place] at [address] [address] Mary Sage MD [address] [place] [phone] [email or web address] documented as of this encounter Visit Diagnoses Not on filedocumented in this encounter Care Teams Shipwright Helper Relationship Specialty Start Date End Date Liz Schroeder MD [address] [address] PCP - General Internal Medicine 02/17/21 Self-Referred, Patient Referring Physician 05/29/25 Mary Sage MD [address] [place] [phone] [email or web address] Medical Oncology 05/29/25 documented as of this encounter Additional Source Comments The information contained in this document represents components of the legal health record. It is not the complete legal health record.[facility]
--- OUTSIDE RECORDS SUMMARY | 2025-06-18 18:49 | XMS_ITS | Encounter Summary ---
Author Organization [facility] Address [address] [place] [address] Care Team Providers Care Pre Owned Sales Consultant Name Role Phone Liz Schroeder MD Primary Care Provider Un available Owen Nelson MD Primary Care Provider + [facility], Pcp Primary Care Provider Unavailabl e Encounter Details Date Type Department Care Team Description 05/28/2020 Letter Stamping Machine Operator Report Medical Records [address] [place] [address] Felipe Carlos MD Social History Tobacco Use [...] on filedocumented in this encounter Care Teams Pre Owned Sales Consultant Relationship Specialty Start Date End Date Liz Schroeder MD PCP - General Internal Medicine 04/24/18 Owen Nelson MD [address] [place] [phone] PCP - General Internal Medicine 04/23/22 05/30/22 [facility], Pcp [address] [place] [address] PCP - General Internal Medicine 05/31/22 documented as of this encounter
--- OUTSIDE RECORDS SUMMARY | 2025-06-18 18:49 | XMS_ITS | Encounter Summary ---
Author Organization [facility] Address [address] [facility] [address] [place] [address] Phone Care Team Providers Care Equipment Operation Instructor Name Role Phone Liz Schroeder MD Primary Care Provid er Self-Referred, Patient Unavailable Unavailab Mary Toscano MD Unavailable Encounter Details Date Type Department Care Team ([facility] st Contact Info) Description 05/02/2024 Procedure Pass [facility] Imaging - [facility], [facility] [address] [place] [address] Social History Tobacco Use Types Packs/Day Years [...] Description 06/19/2025 1:00 PM EDT Office Visit [address] [place] [address] Pedro Pierce MD [address] [place] [address]--[place] [address] [email or web address] 07/16/2025 1:15 PM EDT Administrative Encounter Central Registration, [facility] at [address] [address] Mary Sage MD [address] [place] [address] [email or web address] 07/16/2025 2:00 PM EDT Office Visit [facility], [facility], [facility] [place] at [address] [address] Mary Sage MD [address] [place] [phone] [email or web address] documented as of this encounter Visit Diagnoses Not on filedocumented in this encounter Care Teams Equipment Operation Instructor Relationship Specialty Start Date End Date Liz Schroeder MD [address] [address] PCP - General Internal Medicine 02/17/21 Self-Referred, Patient Referring Physician 05/29/25 Mary Sage MD [address] [place] [phone] [email or web address] Medical Oncology 05/29/25 documented as of this encounter Additional Source Comments The information contained in this document represents components of the legal health record. It is not the complete legal health record.[facility]
--- OUTSIDE RECORDS SUMMARY | 2025-06-18 18:49 | XMS_ITS | Encounter Summary ---
Author Organization [facility] Address [address] [employer] [place] [address] [place] [address] Phone Care Team Providers Care International Bank Manager Name Role Phone Liz Schroeder MD Primary Care Provid er Self-Referred, Patient Unavailable Unavailab Mary Toscano MD Unavailable [phone] Encounter Details Date Type Department Care Team ([facility] st Contact Info) Description 06/17/2025 Telephone [facility] Ophthalmology [facility] [place] [address] [place] [address] Paz Turner MD [address] [place] [address] [email or web address] Social History Tobacco Use Types Packs/Day Years [...] as of this encounter Progress Notes * Paz Turner MD - 06/17/2025 9:09 PM EDT 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 Has hx clotting disorder. Patient called re recent dx of basilic vein clot. Was recommended increase eliquis from 5 - 10 mg. Discussed with Oculoplastics team (Dr. Walker), who recommended patient increase as recommended. Paz Turner MD documented in this encounter Plan of Treatment Upcoming Encounters Date Type Department Care Team (Late st Contact Info) Description 06/19/2025 1:00 PM EDT Office Visit [facility] Pl[facility] [address] [facility] [address] [place] [address] Pedro Pierce MD [address] [facility]--[place] [address] [email or web address] 07/16/2025 1:15 PM EDT Administrative Encounter Central Registration, [facility] [address] [address] Mary Sage MD [address] [place] [phone] [email or web address] 07/16/2025 2:00 PM EDT Office Visit [facility], [facility] [place] [facility], [facility] [address] [address] Mary Sage MD [address] [place] [phone] [email or web address]@[email or web address] documented as of this encounter Visit Diagnoses Not on filedocumented in this encounter Care Teams International Bank Manager Relationship Specialty Start Date End Date Liz Schroeder MD [address] [address] PCP - General Internal Medicine 02/17/21 Self-Referred, Patient Referring Physician 05/29/25 Mary Sage MD [address] [place] [address] [email or web address] Medical Oncology 05/29/25 documented as of this encounter Additional Source Comments The information contained in this document represents components of the legal health record. It is not the complete legal health record.[facility]
--- OUTSIDE RECORDS SUMMARY | 2025-06-18 18:49 | XMS_ITS | Encounter Summary ---
Author Organization [facility] Address [address] [place] [address] Care Team Providers Care Dental Laboratory Technician Apprentice Name Role Phone Liz Schroeder MD Primary Care Provider Un available Avery Espitia MD Primary Care Provider Unava ilable Liz Schroeder MD Primary Care Provider Un available Owen Nelson MD Primary Care Provider + [facility], Pcp Primary Care Provider Unavailabl e Encounter Details Date Type Department Care Team Description 12/14/2011 Release of Information Medical Records [address] [place] [address] Abstract, Provider Social History Tobacco Use Types [...] on filedocumented in this encounter Care Teams Dental Laboratory Technician Apprentice Relationship Specialty Start Date End Date Liz Schroeder MD PCP - General Internal Medicine 11/23/11 8 Avery Espitia MD PCP - General Internal Medicine 04/04/18 04/23/18 Liz Schroeder MD PCP - General Internal Medicine 04/24/18 Owen Nelson MD [address] [place] [address] PCP - General Internal Medicine 04/23/22 05/30/22 [facility], Pcp [address] [place] [address] PCP - General Internal Medicine 05/31/22 documented as of this encounter
--- OUTSIDE RECORDS SUMMARY | 2025-06-18 18:49 | XMS_ITS | Encounter Summary ---
Author Organization [facility] Address [address] [place] [address] Care Team Providers Care Conservation Specialist Name Role Phone Liz Schroeder MD Primary Care Provider Demi Quiles RN Unavailable [phone] Encounter Details Date Type Department Care Team (Late st Contact Info) Description 07/26/2024 Scanned Document [facility] Medical Oncology at [address] [phone] Provider, MD Klaudia [address] [place] [address] Social History Tobacco Use Types Packs/Day Years [...] Description 08/02/2025 8:45 AM EDT Office Visit [facility] Pulmonary [place] 85 [facility] 923 [place] [address] Nick Lancaster MD [address] [phone] 04/15/2026 12:45 PM EDT Office Visit [facility] Cancer [place] [facility] at [facility] 85 [place] [phone] Roberta Manzo MD 85 [place], [place] [phone] documented as of this encounter Visit Diagnoses Not on filedocumented in this encounter Care Teams Conservation Specialist Relationship Specialty Start Date End Date Liz Schroeder MD [address] [place] [address] PCP - General 05/23/24 Demi Quiles, SASHA [address] [place] [address] Oncology Nurse Navigator 11/12/24 documented as of this encounter
--- OUTSIDE RECORDS SUMMARY | 2025-06-18 18:49 | XMS_ITS | Encounter Summary ---
Author Organization [facility] Address [address] [facility] [address] [place] [address] Phone Care Team Providers Care Thermometer Maker Name Role Phone Liz Schroeder MD Primary Care Provid er Self-Referred, Patient Unavailable Unavailab Mary Toscano MD Unavailable [phone] Encounter Details Date Type Department Care Team ([facility] st Contact Info) Description 06/12/2025 Ophth Exam [facility] Opthalmology Inpatient [address] [place] [address] Klaudia Angel MD [address] [place] [address] [email or web address] Social History Tobacco Use Types Packs/Day Years [...] 1:00 PM EDT Office Visit [facility] [place] [address] [address] Pedro Pierce MD [address] [place] [address]--[place] [address] [email or web address] 07/16/2025 1:15 PM EDT Administrative Encounter Central Registration, [facility] [address] [address] Mary Sage MD [address] [place] [address] [email or web address]@[email or web address] 07/16/2025 2:00 PM EDT Office Visit [facility], aDry [facility]per [place] [facility], [facility] at [address] [address] Mary Sage MD [address] [place] [address] [email or web address]@[email or web address] documented as of this encounter Visit Diagnoses Not on filedocumented in this encounter Care Teams Thermometer Maker Relationship Specialty Start Date End Date Liz Schroeder MD [address] [address] PCP - General Internal Medicine 02/17/21 Self-Referred, Patient Referring Physician 05/29/25 Mary Sage MD [address] [place] [address] [email or web address] Medical Oncology 05/29/25 documented as of this encounter Additional Source Comments The information contained in this document represents components of the legal health record. It is not the complete legal health record.[facility]
--- OUTSIDE RECORDS SUMMARY | 2025-06-18 18:49 | XMS_ITS | Encounter Summary ---
Author Organization [facility] Address [address] [facility] [address] [place] [address] Phone Care Team Providers Care Mat Linker Name Role Phone Liz Schroeder MD Primary Care Provid er Self-Referred, Patient Unavailable Unavailab Mary Toscano MD Unavailable [phone] Encounter Details Date Type Department Care Team ([facility] st Contact Info) Description 06/11/2025 Procedure Pass [facility] MAIN PERIOP DEPT [address] [place] [address] Social History Tobacco Use Types Packs/Day Years [...] Description 06/19/2025 1:00 PM EDT Office Visit [facility] [address] 10th [place] [address] Pedro Pierce MD [address] [place] [address]--[place] [address] [email or web address] 07/16/2025 1:15 PM EDT Administrative Encounter Central Registration, [facility] at [address] [address] Mary Sage MD [address] [place] [phone] [email or web address] 07/16/2025 2:00 PM EDT Office Visit [facility], [facility], [facility] at [address] [address] Mary Sage MD [address] [place] [address] [email or web address] documented as of this encounter Visit Diagnoses Not on filedocumented in this encounter Care Teams Mat Linker Relationship Specialty Start Date End Date Liz Schroeder MD [address] [address] PCP - General Internal Medicine 02/17/21 Self-Referred, Patient Referring Physician 05/29/25 Mary Sage MD [address] [place] [phone] [email or web address] Medical Oncology 05/29/25 documented as of this encounter Additional Source Comments The information contained in this document represents components of the legal health record. It is not the complete legal health record.[facility]
--- OUTSIDE RECORDS SUMMARY | 2025-06-18 18:49 | XMS_ITS | Encounter Summary ---
Author Organization [facility] Address [address] [place] [address] Care Team Providers Care Issue Clerk Name Role Phone Liz Schroeder MD Primary Care Provider Un available Avery Espitia MD Primary Care Provider Unava Liz Thayer MD Primary Care Provider Un available Owen Nelson MD Primary Care Provider + [facility], Pcp Primary Care Provider Unavailabl e Reason for Visit * Reason Onset Date Comments Warfarin dosing instructions 04/03/2018 Encounter Details Date Type Department Care Team Description 04/03/2018 Telephone Medicine/Pediatrics - [address] [phone] Liz Schroeder MD Warfarin dosing instructions Social [...] Burton R.N. - 04/03/2018 4:13 PM EDT [facility] coumadin clinic reporting INR of 1.5 Patient dosing 30mg tonight, 20mg 04/04/18 and 15mg on 04/05/18 Recheck on . * Telephone Encounter - Jamila Calabrese - 04/03/2018 4:12 PM EDT Reporting a low INR 1.5 documented in this encounter Plan of Treatment Not on file documented as of this encounter Visit Diagnoses Not on filedocumented in this encounter Care Teams Issue Clerk Relationship Specialty Start Date End Date Liz Schroeder MD PCP - General Internal Medicine 11/23/11 8 Avery Espitia MD PCP - General Internal Medicine 04/04/18 04/23/18 Liz Schroeder MD PCP - General Internal Medicine 04/24/18 Owen Nelson MD [address] [place] [address] PCP - General Internal Medicine 04/23/22 05/30/22 [facility], [address] [place] [address] [address] PCP - General Internal Medicine 05/31/22 documented as of this encounter
--- OUTSIDE RECORDS SUMMARY | 2025-06-18 18:49 | XMS_ITS | Encounter Summary ---
Author Organization [facility] Address [address] [place] [address] Care Team Providers Care Supervisor Evaporator Name Role Phone Liz Schroeder MD Primary Care Provider Demi Quiles RN Unavailable [phone] Reason for Visit * Reason Comments AC Patient Needs Scheduling Encounter Details Date Type Department Care Team ([facility] Contact Info) Description 05/24/[address] [address] Provider, Generic AC Patient Needs [...] Upcoming Encounters Date Type Department Care Team ([facility] Contact Info) Description 08/02/2025 8:45 AM EDT Office Visit [facility] Group Pulmonary [place] 85 [facility] [address] [place] [phone] Nick Lancaster MD 85 [facility] [place] [address] [place] [address] 04/15/2026 12:45 PM EDT Office Visit [facility] Cancer [place] Medical Oncology at [address] [phone] Roberta Manzo MD 85 [place], [place] [phone] documented as of this encounter Visit Diagnoses Not on filedocumented in this encounter Care Teams Supervisor Evaporator Relationship Specialty Start Date End Date Liz Schroeder MD [address] [place] [address] PCP - General 05/23/24 Demi Quiles, SASHA [address] [place] [address] Oncology Nurse Navigator 11/12/24 documented as of this encounter
--- OUTSIDE RECORDS SUMMARY | 2025-06-18 18:49 | XMS_ITS | Encounter Summary ---
Author Organization [facility] Address [address] [place] [address] Care Team Providers Care Inspector Metal Fabricating Name Role Phone Liz Schroeder MD Primary Care Provider Un available Owen Nelson MD Primary Care Provider + [facility], Pcp Primary Care Provider Unavailabl e Encounter Details Date Type Department Care Team Description 11/30/2019 Release of Information Medical Records [address] [place] [id number] Abstract, Provider Social History Tobacco Use Types [...] filedocumented in this encounter Care Teams Inspector Metal Fabricating Relationship Specialty Start Date End Date Liz Schroeder MD PCP - General Internal Medicine 04/24/18 Owen Nelson MD [address] [place] [address] [phone] PCP - General Internal Medicine 04/23/22 05/30/22 [facility], Pcp [address] [place] [address] PCP - General Internal Medicine 05/31/22 documented as of this encounter
--- OUTSIDE RECORDS SUMMARY | 2025-06-18 18:49 | XMS_ITS | Encounter Summary ---
Author Organization [facility] Address [address] [place] [address] Care Team Providers Care Economics Consultant Name Role Phone Liz Schroeder MD Primary Care Provider Un available Avery Espitia MD Primary Care Provider Unava Liz Thayer MD Primary Care Provider Un available Owen Nelson MD Primary Care Provider + [facility], Pcp Primary Care Provider Unavailabl e Encounter Details Date Type Department Care Team Description 02/10/2017 Orders Only Medicine/Pediatrics - [address] [address] Ousmane Madden PA-C History of pulmonary embolism [...] <230 ng/mL 02/10/2017 3:05 PM EDT [facility] Comment: D-Dimer <230 ng/mL (D-Dimer units) is the threshold for exclusion of DVT/PE D-Dimer can be elevated in: Critically ill, severely infected, trauma patients, DIC, acute CVA, acute FL, unstable angina, AF, old age, , and smoking. D-Dimer may be reduced with: Initiation of heparin therapy and oral anticoagulants. 02/10/2017 1:05 PM EDT 02/10/2017 1:05 PM EDT Ousmane Madden PA-C LAB [employer] documented in this encounter Visit Diagnoses Diagnosis History of pulmonary embolism- Primary Personal history of pulmonary embolism documented in this encounter Care Teams Economics Consultant Relationship Specialty Start Date End Date Liz Schroeder MD PCP - General Internal Medicine 11/23/11 8 Avery Espitia MD PCP - General Internal Medicine 04/04/18 04/23/18 Liz Schroeder MD PCP - General Internal Medicine 04/24/18 Owen Nelson MD [address] [place] [address] PCP - General Internal Medicine 04/23/22 05/30/[address] [address] PCP - General Internal Medicine 05/31/22 documented as of this encounter
--- OUTSIDE RECORDS SUMMARY | 2025-06-18 18:49 | XMS_ITS | Encounter Summary ---
Author Organization [facility] Address [address] [place] [address] Care Team Providers Care Pile Driver Name Role Phone Liz Schroeder MD Primary Care Provider Un available Avery Espitia MD Primary Care Provider Unava ilable Liz Schroeder MD Primary Care Provider Un available Owen Nelson MD Primary Care Provider + Counts Include [address] [facility], Pcp Primary Care Provider Unavailabl e Encounter Details Date Type Department Care Team Description 12/10/2011 Laundry Housekeeper Report Medical Records [address] [place] [address] Ayan Dunn Social History Tobacco Use Types Packs/Day Years Used Date Smoking Tobacco: Never Assessed Sex Assigned at Date Recorded Not on file documented as of this encounter Plan of Treatment Not on file documented as of this encounter Visit Diagnoses Not on filedocumented in this encounter Care Teams Pile Driver Relationship Specialty Start Date End Date Liz Schroeder MD PCP - General Internal Medicine 11/23/11 8 Aevry Espitia MD PCP - General Internal Medicine 04/04/18 04/23/18 Liz Schroeder MD PCP - General Internal Medicine 04/24/18 Owen Nelson MD [address] [place] [address] [phone] PCP - General Internal Medicine 04/23/22 05/30/22 Counts Include [address] [facility], Pcp [address] [place], [place] [phone] PCP - General Internal Medicine 05/31/22 documented as of this encounter
--- OUTSIDE RECORDS SUMMARY | 2025-06-18 18:49 | XMS_ITS | Clinical Summary ---
Author Organization [facility] Address [address] [place] [address] Care Team Providers Care Transport Aide Name Role Phone Unavailable Primary Care Provider Unavailabl e Social History Tobacco Use Types Packs/Day Years Used Date Smoking Tobacco: Never Assessed Sex and Gender Information Value Date Recorded Sex Assigned at Not on file Gender Identity Not on file Sexual Orientation Not on file Plan of Treatment Not on file
--- OUTSIDE RECORDS SUMMARY | 2025-06-18 18:49 | XMS_ITS | Encounter Summary ---
Author Organization [facility], Address [address] [place] [address] Phone Care Team Providers Care Voice And Data Technician Name Role Phone Liz Schroeder MD Primary Care Provider [phone] Encounter Details Date Type Department Care Team (Late st Contact Info) Description 06/25/2024 Documentation Only [facility], [address] [place] [address] Jeni KingSHAWANO, [place] [address] [place] [address] Social History Tobacco Use Types [...] on filedocumented in this encounter Care Teams Voice And Data Technician Relationship Specialty Start Date End Date Liz Schroeder MD [address] [place] [address] PCP - General Internal Medicine 06/25/24 documented as of this encounter
--- OUTSIDE RECORDS SUMMARY | 2025-06-18 18:49 | XMS_ITS | Encounter Summary ---
Author Organization [facility] Address [address] [place] [address] Care Team Providers Care Web Merchandiser Name Role Phone Liz Schroeder MD Primary Care Provider Un available Owen Nelson MD Primary Care Provider + [facility], Pcp Primary Care Provider Unavailabl e Encounter Details Date Type Department Care Team Description 12/29/2020 Pt. Non Urgent Medic al Question Adult Medicine [address] [address] Liz Schroeder MD Social History Tobacco Use [...] on filedocumented in this encounter Care Teams Web Merchandiser Relationship Specialty Start Date End Date Liz Schroeder MD PCP - General Internal Medicine 04/24/18 Owen Nelson MD [address] [place] [address] [phone] PCP - General Internal Medicine 04/23/22 05/30/22 [facility], Pcp [address] [place] [phone] PCP - General Internal Medicine 05/31/22 documented as of this encounter
--- OUTSIDE RECORDS SUMMARY | 2025-06-18 18:49 | XMS_ITS | Clinical Summary ---
Author Organization [facility] Address [address] [facility] [address] [place] [address] Phone Care Team Providers Care Intelligence Clerk Name Role Phone Liz Schroeder MD Primary Care Provid er Self-Referred, Patient Unavailable Unavailab Mary Toscano MD Unavailable [phone] Allergies Active Allergy Reactions Criticality Noted Date Comments Leon Hives 05/29/2025 Ascorbic Acid Unknown 03/30/2020 Outside Source Comment: Oral allergy syndrome Banana 03/31/2020 Oral allergy syndrome Oral allergy syndrome Cephalexin Hives 09/24/2024 oral tablets [place] Anaphylaxis High 03/31/2020 Nausea, tongue itching, throat [...] causes hives on hand, can eat cooked [place] 03/31/2020 Oral allergy syndrome Oral allergy syndrome Sulfa (Sulfonamide Antibiotics) Hives 12/01/2011 Watermelon 03/31/2020 Oral allergy syndrome Oral allergy syndrome Medications famotidine (PEPCID) 20 MG tablet TAKE 4 TABLETS BY MOUTH AT BEDTIME 01/28/20 21 Active fluticasone propionate (FLONASE) 50 mcg/actuation nasal spray 2 sprays by Nasal route daily. 02/04/20 21 Active valACYclovir (VALTREX) 500 MG tablet Take 1,000 mg by mouth nightly at bedtime. PRN 12/17/19 20 Active LORazepam (ATIVAN) 1 MG tablet Take 1 tablet by mouth every 8 (eight) hours as needed. 05/04/20 21 Active ALBUTEROL INHL Inhale into the lungs. 03/09/20 23 Active tamsulosin (FLOMAX) 0.4 mg Cap TAKE 1 CAPSULE BY MOUTH DAILY FOR KIDNEY STONE 05/12/20 23 Active anastrozole (ARIMIDEX) 1 mg tablet Take 1 mg by mouth daily. 08/27/20 24 Active apixaban (ELIQUIS) 5 mg tablet Take 5 mg by mouth. 06/22/20 23 Active fluticasone propion-salmeteroL (ADVAIR DISKUS) 250-50 mcg/dose DISKUS Inhale 1 puff into the lungs 2 (two) times a day. 01/08/20 25 Active cyanocobalamin, vitamin B-12, 1000 MCG tablet Take 1,000 mcg by mouth daily. Active cetirizine (ZYRTEC) 10 MG tablet Take 10 mg by mouth daily. 01/15/20 24 Active biotin 1 mg Cap Take 1 mg by mouth daily. Active cholecalciferol (VITAMIN D3) 25 MCG (1,000 unit) tablet Take 1,000 Units by mouth daily. Active ondansetron (ZOFRAN-ODT) 4 MG disintegrating tablet Take 1 tablet (4 mg total) by mouth every 8 (eight) hours as needed for nausea. 20 tablet 06/18/20 25 Active ergocalciferol (DRISDOL) 50,000 unit capsule 02/03/20 025 Discontinued omeprazole (PRILOSEC) 20 MG capsule 10/31/19 025 Discontinued EPINEPHrine 0.3 mg/0.3 mL auto-injector 12/14/19 025 Discontinued penicillin V potassium (VEETIDS) 500 MG tablet Take 1 tablet (500 mg total) by mouth 3 (three) times a day. Take w food, yogurt, probiotics. Finish all. 30 tablet 07/14/20 025 Discontinued azithromycin (ZITHROMAX) 250 MG tablet TAKE 1 TABLET BY MOUTH DAILY FOR 4 DAYS. START ON DAY 2 OF THERAPY 07/15/20 025 Discontinued guaiFENesin-codein e (ROBITUSSIN AC) 100-10 mg/5 mL liquid 07/15/20 025 Discontinued predniSONE (DELTASONE) 20 MG tablet Take 40 mg by mouth daily. 07/15/20 025 Discontinued oxyCODONE 5 mg TbOr Take 5 mg by mouth. 05/10/20 025 Discontinued cefuroxime (CEFTIN) 250 MG tablet Take 1 tablet by mouth 2 (two) times a day. 06/04/20 025 Discontinued HYDROmorphone (DILAUDID) 2 MG tablet TAKE 1 TABLET BY MOUTH EVERY 4 TO 6 HOURS NEEDED DURING STONE ATTACK FOR 30 DAYS 05/12/20 025 Discontinued ondansetron (ZOFRAN) 4 MG tablet Take 4 mg by mouth every 8 (eight) hours as needed. 05/09/20 025 Discontinued traZODone (DESYREL) 50 MG tablet Take 50 mg by mouth. 07/30/20 24 025 Discontinued erythromycin (ROMYCIN) ophthalmic ointment Place 0.5 inches into the left eye 3 (three) times a day for 4 doses. 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 pylori infection 11/06/2013 02/18/20 21 Vertigo 08/03/2012 02/17/2021 Overview (02/17/2021): Responded to low salt diet as recommended by ENT Renal cyst 12/14/2011 02/17/2021 Overview (02/17/2021): Urologist is Dr. Beck, tire repairer is Dr. Torres. 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 Dunn - On warfarin for about a year, Warfarin restarted after discovery of a renal vein thrombosis in September 2011 IMO Update Fall 2015 S/P partial hysterectomy 12/01/2011 Overview (02/17/2021): 2010, put back on warfarin Encounters Date Type Department Care Team Description 06/18/2025 Orders Only [facility] [address] [place] [address] Jeanine Burris MD 06/17/2025 Telephone [facility] Ophthalmology Eye [facility] LW [address] [place] [address] Paz Turner MD 06/16/2025 Telephone [facility] Opthalmology Inpatient [address] [place] [address] Klaudia Angel MD 06/12/2025 Ophth Exam [facility] Opthalmology Inpatient [address] [place] [address] Klaudia Angel MD 06/11/2025 7:45 AM EDT - 06/11/2025 9:15 AM EDT Surgery [facility] MAIN PERIOP DEPT [address] [place] [address] Pedro Pierce MD EXCISION LESION EYE 06/11/2025 7:40 AM EDT Anesthesia Event [facility] MAIN PERIOP DEPT [address] [place] [address] Petra Pritchard MD Jankovic, Snjezana, NP 06/11/2025 Procedure Pass [facility] MAIN PERIOP DEPT [address] [place] [address] 06/10/2025 12:31 PM EDT - 06/10/2025 11:59 PM EDT Hospital Encounter Central Pathology, [facility] [address] [place] [address] Discharge Disposition: Home or Self Care 06/10/2025 8:45 AM EDT - 06/12/2025 12:12 PM EDT Hospital Encounter [facility] IP Adult MC [address] [place] [address] Pedro Pierce MD Discharge Disposition: Home or Self Care 06/09/2025 Telephone [facility] Oph Plastics Main [place] [address] [address] Jeanine Burris MD 06/05/2025 Ancillary Orders DF IMG OUTSIDE IMG [address] [place] [address] Mary Sage MD 06/05/2025 Ancillary Orders DF IMG OUTSIDE IMG [address] [place] [address] Mary Sage MD 06/01/[address] [address] Jeanine Burris MD 05/31/2025 Orders Only [facility] [address], [place] [address] Haydee Conrad MD 05/29/2025 10:00 AM EDT Pre-Admission Testing [facility] Pre Procedure Evaluation Center [address] [place] [address] Pedro Pierce MD 05/29/2025 Orders Only [facility], [facility], [facility] [address] [place] [address], [address] [place] [address] Mary Sage MD Malignant neoplasm of female breast, unspecified estrogen receptor status, unspecified laterality, unspecified site of breast (Primary Dx) 05/28/[address] [address] Jeanine Burris MD 05/23/[address] [address] [facility] 05/13/[address] [address] [facility] 05/08/2025 3:00 PM EDT Office Visit [address] [address] Pedro Pierce MD Benign neoplasm of left orbit (Primary Dx) 05/08/2025 12:38 PM EDT - 05/08/2025 11:59 PM EDT Hospital Encounter [facility] Imaging - MRI, [address] [address] Pedro Pierce MD Discharge Disposition: Home or Self Care 05/02/2024 Procedure Pass [facility] Imaging - MRI, [address] [address] from Last 3 Months Immunizations No known [...] Description 06/19/2025 1:00 PM EDT Office Visit [facility] [address] [facility] [address] [place] [address] Pedro Pierce MD [address] [facility]--[place] [address] [email or web address] 07/16/2025 1:15 PM EDT Administrative Encounter Central Registration, [facility] at [address] [address] Mary Sage MD [address] [place] [address] [email or web address] 07/16/2025 2:00 PM EDT Office Visit [facility], [facility], [facility] at [address] [address] Mary Sage MD [address] [place] [phone] [email or web address] Health Maintenance Due Date Last Done Comments [...] (#1) 2025 5, 10/03/2014, 10/10/2012 COVID-19 VACCINE ( - 2024-2 6 season) 2025 09/14/2021, 01/07/2021, 12/15/2020 LIPID [...] AIRWAY PLACEMENT Routine 06/11/2025 7:54 AM EDT AL EXPLORE EYE SOCKET,REMV LESN 06/11/2025 7:46 AM EDT Left orbital dermoid Special Needs DX: D31.62CPT: [id number]: 60 MINUTES GENERAL PTT Routine 06/11/2025 5:04 [...] included. APTT 85.4(H) 24.0 - 37.5 sec [facility] Comment:Check MAR for the ta rget range that is ordered for your patient. Blood 06/12/2025 7:17 AM EDT 06/12/2025 8:24 AM EDT us Pedro Pierce MD LAB BLOOD ORDERABLES Final Res ult [address] [address] * CBC (06/12/2025 7:17 AM EDT) WBC 8.67 4.00 - 11.00 K/uL [facility] RBC 4.37 4.00 - 5.20 M/uL [facility] HGB 12.5 12.0 - 16.0 g/dL [facility] HCT 38.8 36.0 - 46.0 % [facility] PLT 271 150 - 450 K/uL [facility] MCV 88.8 80.0 - 100.0 fL [facility] MCH 28.6 27.0 - 31.0 pg [facility] MCHC 32.2 32.0 - 36.0 g/dL [facility] RDW 13.6 11.5 - 14.5 % [facility] MPV 10.2 8.4 - 12.0 fL [facility] NRBC 0.00 0.00 /100 WBCs [facility] ABSOLUTE NRBC 0.00 0.00 K/uL [facility] Blood 06/12/2025 7:17 AM EDT 06/12/2025 8:24 AM EDT us Kar Hill MD LAB BLOOD ORDERABLES Final Resul t Performing Organization Address [facility] Co de Phone Number [address] [address] * (ABNORMAL) Basic metabolic panel (06/12/2025 7:17 AM EDT) Only the most recent of2 resultswithin the time period is included. SODIUM 138 135 - 145 mmol/L [facility] POTASSIUM 4.6 3.4 - 5.0 mmol/L [facility] CHLORIDE 105 98 - 108 mmol/L [facility] CO2 23 23 - 32 mmol/L [facility] BUN 16 8 - 25 mg/dL [facility] CREATININE 1.04(H) 0.50 - 1.00 mg/dL [facility] GLUCOSE 83 70 - 110 mg/dL [facility] CALCIUM 9.0 8.5 - 10.5 mg/dL [facility] EGFR 66 >59 mL/min/1. 73m2 [facility] Comment:Estimated glomerular filtration rate calculated using the CKD-EPI refit equation. ANION GAP 10 3 - 17 mmol/L [facility] Blood 06/12/2025 7:17 AM EDT 06/12/2025 8:24 AM EDT us Pedro Pierce MD LAB BLOOD ORDERABLES Final Res ult Performing Organization Address City/[facility]/ZIP Co de Phone Number [address] [address] * ANES ETT DOUBLE LUMEN - AIRWAY LDA (06/11/2025 7:54 AM EDT) Narrative Nichole Aquino, SASHA - 06/11/2025 7:54 AM EDT Nichole Aquino, RN 06/11/2025 8:02 AM Airway Placement Procedure [...] no Complications observed? no Petra Pritchard MD AL ANESTHESIA Final Result * PT-INR (06/11/2025 5:04 AM EDT) Only the most recent of4 resultswithin the time period is included. PT 11.1 10.0 - 13.0 sec [facility] INR 1.0 0.9 - 1.1 [facility] Blood 06/11/2025 5:04 AM EDT 06/11/2025 6:46 AM EDT Pedro Pierce MD LAB BLOOD ORDERABLES Final Res ult [facility] [address] [place] [address] * (ABNORMAL) CBC and differential (06/11/2025 5:04 AM EDT) Only the most recent of2 resultswithin the time period is included. WBC 7.95 4.00 - 11.00 K/uL [facility] RBC 4.59 4.00 - 5.20 M/uL [facility] HGB 13.1 12.0 - 16.0 g/dL [facility] HCT 40.5 36.0 - 46.0 % [facility] PLT 284 150 - 450 K/uL [facility] MCV 88.2 80.0 - 100.0 fL [facility] MCH 28.5 27.0 - 31.0 pg [facility] MCHC 32.3 32.0 - 36.0 g/dL [facility] RDW 13.7 11.5 - 14.5 % [facility] MPV 10.1 8.4 - 12.0 fL [facility] NRBC 0.00 0.00 /100 WBCs [facility] ABSOLUTE NRBC 0.00 0.00 K/uL [facility] DIFF METHOD [facility] NEUTS 36.8(L) 48.0 - 76.0 % [facility] LYMPHS 51.6(H) 18.0 - 41.0 % [facility] MONOS 7.0 4.0 - 11.0 % [facility] EOS 3.5 0.0 - 5.0 % [facility] BASOS 0.8 0.0 - 1.5 % [facility] % IMMATURE GRANS 0.3 0.0 - 0.9 % [facility] ABSOLUTE NEUTS 2.93 1.92 - 7.60 K/uL [facility] ABSOLUTE LYMPHS 4.10 0.72 - 4.10 K/uL [facility] ABSOLUTE MONOS 0.56 0.16 - 1.10 K/uL [facility] ABSOLUTE EOS 0.28 0.00 - 0.50 K/uL [facility] ABSOLUTE BASOS 0.06 0.00 - 0.15 K/uL [facility] ABS IMMATURE GRANS 0.02 0.00 - 0.09 K/uL [facility] Blood 06/11/2025 5:04 AM EDT 06/11/2025 6:46 AM EDT us Pedro Pierce MD LAB BLOOD ORDERABLES Final Res ult [facility] [address] [place] [address] * Troponin (06/10/2025 9:00 PM EDT) Only the most recent of2 resultswithin the time period is included. Troponin-T, HS Gen5 <6 0 - 9 ng/L [facility] Blood 06/10/2025 9:00 PM EDT 06/10/2025 10:05 PM EDT Kar Hill MD LAB BLOOD ORDERABLES Final Resul t Performing Organization Address City/[facility]/ZIP Co de Phone Number [facility] [address] [place] [address] * ECG 12-LEAD (06/10/2025 5:10 PM EDT) Systolic Blood Pressure [facility] Diastolic Blood Pressure [facility] Ventricular Rate EKG/MIN 99 BPM [facility] Atrial Rate 99 BPM [facility] AL Interval 144 ms [facility] QRS Duration 86 ms [facility] QT Interval 350 ms [facility] QTC Interval 449 ms [facility] P [place] [facility] R Wave [place] 82 degrees [facility] T Wave [place] 179 degrees [facility] 06/10/2025 5:10 PM EDT [...] ECGS AVAILABLE Confirmed by Alex Pierre MD ([id number]) on 06/11/2025 2:29:05 PM Kar Hill MD ECG ORDERABLES Final Result [facility] * MRSA Nasal Screen (06/10/2025 12:03 PM EDT) Special Requests No Special Requests 06/10/2025 12:03 PM EDT [facility] MRSA Nasal Culture NEGATIVE FOR MRSA 06/11/2025 1:34 PM EDT [facility] Other (Nasal) 06/10/2025 12: 03 PM EDT 06/10/2025 2:15 PM EDT us Pedro Pierce MD MICROBIOLOGY - GENERAL ORDERAB LES Final Result [facility] [address] [place], [place] [phone] [place] [address] [address] [address] [address], [facility] * Outside Imaging Report Only (06/06/2025) us [...] clinician's provided indication for this examination in Epic: Orbital Mass; left orbit mass. eval for [...] in keeping with a low-flow vascular malformation(venolymphatic). Pedro Pierce MD IM MR HEAD/NECK Final Result * Mammogram Outside (No Interpretation) (11/13/2024 12:05 AM EST) Other Narrative BLADIMIR - 06/05/2025 9:50 AM EDT This study is for PACS storage only and not for interpretation. us Mary Sage MD IMG OUTSIDE IMAGING W/OUT IN TERPRETATION Final Result MERNA_ISELAH from Last 3 Months or Most Recently Relevant to Health Maintenance Insurance [id number] [place], [place] [id number] [place], [place] [address] [facility] [id number] [place] [address] [address] [id number] [id number] [place], [place] [id number] [place] [address] [id number] [place], [place] [address] Advance Directives For more information, please contact: [phone] (9AM - 5PM [facility], Tuesday-Tuesday) Documents on File Type Date Recorded Patient Compliance Consultant Expl anation Healthcare Proxy 06/14/2025 3:56 PM * Full Code (Latest Code Status on File) Date Activated Date Inactivated Comments 06/10/2025 10:58 AM Question Answer Comments Code Status Confirmed With: Patient Care Teams Intelligence Clerk Relationship Specialty Start Date End Date Liz Schroeder MD [address] [address] PCP - General Internal Medicine 02/17/21 Self-Referred, Patient Referring Physician 05/29/25 Mary Sage MD [address] [place] [address] [email or web address] Medical Oncology 05/29/25 Additional Source Comments The information contained in this document represents components of the legal health record. It is not the complete legal health record.[facility]
--- OUTSIDE RECORDS SUMMARY | 2025-06-18 18:49 | XMS_ITS | Encounter Summary ---
Author Organization [facility] Address [address] [place] [address] Phone Care Team Providers Care Auto Carrier Driver Name Role Phone Liz Schroeder MD Primary Care Provid er Self-Referred, Patient Unavailable Unavailab Mary Toscano MD Unavailable [phone] Encounter Details Date Type Department Care Team ([facility] st Contact Info) Description 06/16/2025 Telephone [facility] Inpatient [address] [place] [id number] Klaudia Angel MD [address] [place] [id number] [email or web address] Social History Tobacco Use Types Packs/Day [...] Description 06/19/2025 1:00 PM EDT Office Visit [address] [place] [address] Pedro Pierce MD [address] [place] [address]--[place] [address] [email or web address] 07/16/2025 1:15 PM EDT Administrative Encounter Central Registration, [facility] at [address] [address] Mary Sage MD [address] [place] [id number] [email or web address] 07/16/2025 2:00 PM EDT Office Visit [facility], [facility], [facility] at [address] [address] Mary Sage MD [address] [place] [id number] [email or web address] documented as of this encounter Visit Diagnoses Not on filedocumented in this encounter Care Teams Auto Carrier Driver Relationship Specialty Start Date End Date Liz Schroeder MD [address] [address] PCP - General Internal Medicine 02/17/21 Self-Referred, Patient Referring Physician 05/29/25 Mary Sage MD [address] [place] [id number] [email or web address] Medical Oncology 05/29/25 documented as of this encounter Additional Source Comments The information contained in this document represents components of the legal health record. It is not the complete legal health record.[facility]
--- OUTSIDE RECORDS SUMMARY | 2025-06-18 18:49 | XMS_ITS | Encounter Summary ---
Author Organization [facility] Address [address] [place] [address] Phone Care Team Providers Care Foot Worker Name Role Phone Liz Schroeder MD Primary Care Provid er Self-Referred, Patient Unavailable Unavailab Mary Toscano MD Unavailable [phone] Encounter Details Date Type Department Care Team ([facility] st Contact Info) Description 06/18/2025 Orders Only [facility] [address] [facility] [address] [place] [address] Jeanine Burris MD [address] [place] [phone] [email or web address] Social History Tobacco Use Types [...] Description 06/19/2025 1:00 [place] [address] Pedro Pierce MD [address] [place] [address]--[place] [address] [email or web address] 07/16/2025 1:15 PM EDT Administrative Encounter Central Registration, [facility] [address] [address] Mary Sage MD [address] [place] [phone] [email or web address] 07/16/2025 2:00 PM EDT Office Visit [facility], [facility], [facility] [address] [address] Mary Sage MD [address] [place] [id number] [email or web address] documented as of this encounter Visit Diagnoses Not on filedocumented in this encounter Care Teams Foot Worker Relationship Specialty Start Date End Date Liz Schroeder MD [address] [address] PCP - General Internal Medicine 02/17/21 Self-Referred, Patient Referring Physician 05/29/25 Mary Sage MD [address] [place] [id number] [email or web address] Medical Oncology 05/29/25 documented as of this encounter Additional Source Comments The information contained in this document represents components of the legal health record. It is not the complete legal health record.[facility]
--- OUTSIDE RECORDS SUMMARY | 2025-06-18 18:49 | XMS_ITS | Clinical Summary ---
Author Organization [facility], Address [address] [place] [address] Phone Care Team Providers Care Jacquard Fixer Name Role Phone Liz Schroeder MD Primary Care Provider [phone] Social History Tobacco Use Types Packs/Day Years [...] patient's age to complete this topic Insurance [facility] Care Teams Jacquard Fixer Relationship Specialty Start Date End Date Liz Schroeder MD [address] [place] [address] PCP - General Internal Medicine 06/25/24
--- OUTSIDE RECORDS SUMMARY | 2025-06-18 18:50 | XMS_ITS | Encounter Summary ---
Author Organization [facility] Address [address] [place] [address] Care Team Providers Care Wood Machinist Apprentice Name Role Phone Liz Schroeder MD Primary Care Provider Un available Avery Espitia MD Primary Care Provider Unava ilable Liz Schroeder MD Primary Care Provider Un available Owen Nelson MD Primary Care Provider + [facility], Pcp Primary Care Provider Unavailabl e Encounter Details Date Type Department Care Team Description 11/07/2012 Photoengraving Supervisor Report Medical Records [address] [place] [address] Ja Sanabria MD Social History Tobacco Use [...] on filedocumented in this encounter Care Teams Wood Machinist Apprentice Relationship Specialty Start Date End Date Liz Schroeder MD PCP - General Internal Medicine 11/23/11 8 Avery Espitia MD PCP - General Internal Medicine 04/04/18 04/23/18 Liz Schroeder MD PCP - General Internal Medicine 04/24/18 Owen Nelson MD [address] [place], [place] [id number] PCP - General Internal Medicine 04/23/22 05/30/22 [facility], Pcp [address] [place] [address] PCP - General Internal Medicine 05/31/22 documented as of this encounter
--- OUTSIDE RECORDS SUMMARY | 2025-06-18 18:50 | XMS_ITS | Encounter Summary ---
Author Organization [facility] Address [address] [place] [address] Care Team Providers Care Barrel Repairer Name Role Phone Liz Schroeder MD Primary Care Provider Un available Avery Espitia MD Primary Care Provider Unava ilable Liz Schroeder MD Primary Care Provider Un available Owen Nelson MD Primary Care Provider + [facility], Pcp Primary Care Provider Unavailabl e Encounter Details Date Type Department Care Team Description 01/11/2013 Checker Stocker Report Medical Records [address] [place] [address] Ja Sanabria MD Social History Tobacco Use [...] on filedocumented in this encounter Care Teams Barrel Repairer Relationship Specialty Start Date End Date Liz Schroeder MD PCP - General Internal Medicine 11/23/11 8 Avery Espitia MD PCP - General Internal Medicine 04/04/18 04/23/18 Liz Schroeder MD PCP - General Internal Medicine 04/24/18 Owen Nelson MD [address] [place], [place] [id number] PCP - General Internal Medicine 04/23/22 05/30/22 [facility], Pcp [address] [place] [address] PCP - General Internal Medicine 05/31/22 documented as of this encounter
--- OUTSIDE RECORDS SUMMARY | 2025-06-18 18:50 | XMS_ITS | Encounter Summary ---
Author Organization [facility] Address [address] [place] [address] Care Team Providers Care Child Protective Services Specialist Name Role Phone Liz Schroeder MD Primary Care Provider Un available Avery Espitia MD Primary Care Provider Unava ilable Liz Schroeder MD Primary Care Provider Un available Owen Nelson MD Primary Care Provider + [facility], Pcp Primary Care Provider Unavailabl e Encounter Details Date Type Department Care Team Description 06/20/2012 Grain Drier Report Medical Records [address] [place] [id number] Social History Tobacco Use Types Packs/Day Years [...] filedocumented in this encounter Care Teams Child Protective Services Specialist Relationship Specialty Start Date End Date Liz Schroeder MD PCP - General Internal Medicine 11/23/11 8 Avery Espitia MD PCP - General Internal Medicine 04/04/18 04/23/18 Liz Schroeder MD PCP - General Internal Medicine 04/24/18 Owen Nelson MD [address] [place] [address] PCP - General Internal Medicine 04/23/22 05/30/22 [facility], Pcp [address] [place] [address], [place] [address] PCP - General Internal Medicine 05/31/22 documented as of this encounter
--- OUTSIDE RECORDS SUMMARY | 2025-06-18 18:50 | XMS_ITS | Encounter Summary ---
Author Organization [facility] Address [address] [place] [address] Care Team Providers Care Multi Craft Maintenance Technician Name Role Phone Liz Schroeder MD Primary Care Provider Un available Avery Espitia MD Primary Care Provider Unava Liz Thayer MD Primary Care Provider Un available Owen Nelson MD Primary Care Provider + [facility], Pcp Primary Care Provider Unavailabl e Reason for Visit * Reason Comments E-prescribe Rx Request Encounter Details Date Type Department Care Team Description 07/13/2013 Refill Medicine/Pediatrics - [address] [address] Liz Schroeder MD E-prescribe Rx Request Social [...] NO Patients current insurance carrier is: Payor: [employer] [facility] How do you roll? Plan: HMO $20 [place] [id number] Product Type: HMO [id number] documented in this encounter Plan of Treatment Not on file documented as of this encounter Visit Diagnoses Not on filedocumented in this encounter Care Teams Multi Craft Maintenance Technician Relationship Specialty Start Date End Date Liz Schroeder MD PCP - General Internal Medicine 11/23/11 8 Avery Espitia MD PCP - General Internal Medicine 04/04/18 04/23/18 Liz Schroeder MD PCP - General Internal Medicine 04/24/18 Owen Nelson MD [address] [place] [address] PCP - General Internal Medicine 04/23/22 05/30/[address] [address] PCP - General Internal Medicine 05/31/22 documented as of this encounter
== END 2025-06-18 15:28 | disposition home or self-care (01) ==
LOC: HO.US 15:27
PROVIDERS: PCP Pediatrics; Visit Provider Internal Medicine Hematology
DX: Z86.718 Personal history of other venous thrombosis and embolism (principal)
CPT/HCPCS: 93971

== ENCOUNTER → 2025-06-18 15:34 | Outpatient (BNV) | payer OTHER, SELFPAY | PROVIDERS: PCP Pediatrics; Visit Provider Radiology Diagnostic Radiology | DX: Z86.718 Personal history of other venous thrombosis and embolism (principal) | CPT/HCPCS: 93971 ==